=== PATIENT | male | born 1945 | race Caucasian/White ===

== ENCOUNTER 2020-02-29 11:26 | Outpatient (CLI) | payer MEDICARE, OTHER ==
--- NOTE | 2020-02-29 12:23 | XRAY Report ---
PROCEDURE: Cervical Spine 2 View INDICATIONS: C SPINE POLYNEUROPATHY TECHNIQUE: 3 view(s) of the cervical spine were acquired. COMPARISON: None. FINDINGS: Bones: No fractures or dislocations to the T1 level. The lateral masses of C1 appear intact on the odontoid view. No suspicious bony lesions. Severe cervical spondylitic change. Prominent multilevel cervical arthropathy. Multilevel disc height loss and uncovertebral joint osteophytes. Trace degenera tive anterolisthesis of C4 on C5. Soft tissues: No prevertebral soft tissue swelling. IMPRESSION: Severe cervical spondylitic change. Reviewed by: Tal Jama MD on 02/29/2020 12:22 PM PST Approved by: Tal Jama MD on 02/29/2020 12:22 PM PST Station ID: [id number]
== END 2020-02-29 11:27 | disposition home or self-care (01) ==
LOC: DI 11:26
PROVIDERS: ATTEND Internal Medicine
DX: G62.9 Polyneuropathy, unspecified (principal); M47.812 Spondylosis without myelopathy or radiculopathy, cervical region

== ENCOUNTER 2021-06-06 13:01 | Outpatient (CLI) | payer MEDICARE, OTHER ==
--- NOTE | 2021-06-06 14:01 | XRAY Report ---
PROCEDURE: Wrist 3 View LT INDICATIONS: GANGLION CYCT TECHNIQUE: 3 views of the wrist were acquired. COMPARISON: None FINDINGS: Bones: No acute fracture or dislocation. Severe degenerative changes are present at the first CMC jesenia nt and moderate degenerative changes are present at the triscaphe E joint and the radiocarpal joint. No discrete suspicious bony erosions or periarticular osteopenia. Soft tissues: No suspicious soft tissue calcifications. 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 There are no discrete bony erosions to suggest erosive arthritis. Reviewed by: Maricarmen Carbajal MD on 06/06/2021 2:00 PM PDT Approved by: Maricarmen Carbajal MD on 06/06/2021 2:00 PM PDT Station ID: [id number]
== END 2021-06-06 13:02 | disposition home or self-care (01) ==
LOC: DI 13:01
PROVIDERS: ATTEND Internal Medicine
DX: M67.432 Ganglion, left wrist (principal); M19.032 Primary osteoarthritis, left wrist

== ENCOUNTER 2021-09-09 09:09 | Outpatient (CLI) | payer MEDICARE, OTHER ==
--- NOTE | 2021-09-09 14:22 | XRAY Report ---
PROCEDURE: Foot 2 View RT INDICATIONS: R 1ST METATARSAL PX TECHNIQUE: 2 views of the foot were acquired. COMPARISON: None FINDINGS: Bones: Acute or subacute appearing comminuted fracture of the first digit distal phalanx. The fractur e involves the articular surface/interphalangeal joint. The fracture is minimally displaced without s ubstantial angulation. No other acute fractures identified. Degenerative changes are present at the first MTP joint and mult iple IP joints. Soft tissues: No tibiotalar joint effusion. Soft tissue swelling present about the forefoot, likely also about the first digit. IMPRESSION: Acute or subacute minimally displaced fracture of the first digit distal phalanx with involvement of the interphalangeal joint. Reviewed by: Unruly Zaragoza MD on 09/09/2021 2:20 PM PDT Approved by: Unruly Zaragoza MD on 09/09/2021 2:20 PM PDT Station ID: [id number]
--- NOTE | 2021-09-09 17:51 | XRAY Report ---
PROCEDURE: SI Joints INDICATIONS: SI JOINT PX TECHNIQUE: 3 views of the sacroiliac joints were acquired. COMPARISON: None FINDINGS: Bones: No acute fracture or dislocation. No convincing erosions or ankylosis of the sacroiliac joints . Bilateral hip osteoarthritic changes. Soft tissues: Overlying bowel gas pattern is normal. No suspicious soft tissue densities. IMPRESSION: No acute fracture or dislocation. No convincing erosions or ankylosis of the sacroiliac joints. Bilat eral hip osteoarthritic changes. Reviewed by: Chris Whitfield MD on 09/09/2021 5:50 PM PDT Approved by: Chris Whitfield MD on 09/09/2021 5:50 PM PDT Station ID: [id number]
== END 2021-09-09 09:10 | disposition home or self-care (01) ==
LOC: DI.N 09:09
PROVIDERS: ATTEND Chiropractor
DX: M16.0 Bilateral primary osteoarthritis of hip (principal); S92.311A Displaced fracture of first metatarsal bone, right foot, initial encounter for closed fracture

== ENCOUNTER 2021-09-10 19:09 | Outpatient (CLI) | payer MEDICARE, OTHER | END 2021-09-10 19:10 | disposition critical access hospital (66) | LOC: EMS 19:09 | DX: R41.82 Altered mental status, unspecified (principal); R50.9 Fever, unspecified; R00.0 Tachycardia, unspecified; L08.9 Local infection of the skin and subcutaneous tissue, unspecified | CPT/HCPCS: A0425; A0427 ==

== ENCOUNTER 2021-09-10 19:25 | Inpatient (IN) | payer MEDICARE, OTHER ==
[2021-09-10 20:00] LABS: BASOPHILS % (AUTO) 0.3 %; EOSINOPHILS % (AUTO) 0.3 %; HCT - HEMATOCRIT 39.7 % (42.0-52.0); HGB - HEMOGLOBIN 13.4 g/dL (14.0-18.0); LYMPHOCYTES # (AUTO) 0.5 10^3/uL (1.5-3.5); LYMPHOCYTES % (AUTO) 5.9 %; MEAN CORPUSCULAR HEMOGLOBIN 29.7 pg (27.0-31.0); MEAN CORPUSCULAR HGB CONC 33.8 g/dL (32.0-36.0); MEAN PLATELET VOLUME 11.2 fL (7.4-11.4); MONOCYTES # (AUTO) 0.8 10^3/uL (0.0-1.0); MONOCYTES % (AUTO) 8.7 %; NEUTROPHILS # (AUTO) 7.8 10^3/uL (1.5-6.6); NEUTROPHILS % (AUTO) 84.3 %; PLT - PLATELET COUNT 175 10^3/uL (130-450); RED BLOOD COUNT 4.51 10^6/uL (4.70-6.10); RED CELL DISTRIBUTION WIDTH 13.1 % (12.0-15.0); WHITE BLOOD COUNT 9.2 x10^3/uL (4.8-10.8)
[2021-09-10 20:10] LABS: ALBUMIN 3.8 g/dL (3.2-5.5); ALBUMIN/GLOBULIN RATIO 1.1 (1.0-2.2); BILIRUBIN,TOTAL 1.8 mg/dL (0.2-1.0); CALCIUM 8.8 mg/dL (8.5-10.3); CREATININE 0.8 mg/dL (0.6-1.2); POTASSIUM 3.6 mmol/L (3.5-5.0); TOTAL PROTEIN 7.2 g/dL (6.7-8.2)
[2021-09-10 20:20] LABS: INR 1.7 (0.8-1.2); PT - PROTHROMBIN TIME 18.9 secs (9.9-12.6)
[2021-09-10 20:27] LABS: PARTIAL THROMBOPLASTIN TIME 28.9 secs (24.9-33.3)
--- NOTE | 2021-09-10 20:36 | ED Physician Documentation ---
History of Present Illness - Stated complaint Stated Complaint: R TOE INFECTION/SEPSIS - Chief complaint Chief Complaint: General - History obtained from History obtained from: Patient, Family - History of Present Illness Timing: Today Pain level max: 0 Pain level now: 0 - Additonal information Additional information: Patient is a 76-year-old male who presents to the emergency department stating that he has neuropathy in his legs, he states that he hit his right toe approximately 3 days ago. Had x-rays done at that time. Had a minimally displaced fracture. Today the toe has turned red, swollen with drainage. Review of Systems Ten Systems: 10 systems reviewed and negative Constitutional: denies: Fever, Chills Ears: denies: Ear pain Nose: denies: Rhinorrhea / runny nose, Congestion GI: denies: Vomiting, Diarrhea Skin: denies: Rash Musculoskeletal: denies: Neck pain, Back pain Neurologic: denies: Headache PD PAST MEDICAL HISTORY - Past Medical History Past Medical History: Yes Cardiovascular: Hypertension, High cholesterol Respiratory: None Endocrine/Autoimmune: Type 2 diabetes Psych: Anxiety Musculoskeletal: Osteoarthritis, Fatigue - Past Surgical History Past Surgical History: No Ortho: Arthroscopic surgery - Present Medications Home Medications: Ambulatory Orders Medication Instructions Recorded Confirmed Ibuprofen [Motrin] 800 mg PO Q8H PRN #30 tablet 05/30/15 06/07/15 Oxycodone HCl/Acetaminophen 1 - 2 each PO Q6H PRN #20 tablet 05/30/15 06/07/15 [Percocet 5-325 mg Tablet] Sulfamethoxazole/Trimethoprim 1 each PO BID 14 Days tablet 05/30/15 06/07/15 [Bactrim Ds Tablet] - Allergies Allergies/Adverse Reactions: Allergies Allergy/AdvReac Type Severity Reaction Status Date / Time Iodine and Iodide Containing Allergy Intermediate Hives Verified 06/07/15 19:09 Produc oxycodone HCl * AdvReac Severe Hallucinati Verified 06/07/15 19:09 [From Percocet] ons - Social History Does the pt smoke?: No Smoking Status: Never smoker Does the pt drink ETOH?: No Does the pt have substance abuse?: No - Immunizations Immunizations are current?: No - POLST Patient has POLST: No PD ED PE NORMAL - Vitals Vital signs reviewed: Yes - General General: Alert and oriented X 3, No acute distress - HEENT HEENT: Moist mucous membranes - Neck Neck: Supple, no meningeal sign - Cardiac Cardiac: RRR, Strong equal pulses - Respiratory Respiratory: Other (tachypnea, crackles B) - Abdomen Abdomen: Soft, Non tender, Non distended - Derm Derm: Warm and dry - Extremities Extremities: Other (R great toe - redness, swelling, to the dorsum of the toe. ) - Neuro Neuro: Alert and oriented X 3 Results - Vitals Vitals: Vital Signs - 24 hr 09/10/21 09/10/21 09/10/21 19:25 19:35 20:03 Temperature 37.2 C Heart Rate 120 H 118 H 123 H Respiratory 28 H 26 H 29 H Rate Blood Pressure 152/112 H 178/118 H O2 Saturation 87 L 88 L 94 09/10/21 09/10/21 20:44 21:05 Temperature Heart Rate 113 H 116 H Respiratory 36 H 44 H Rate Blood Pressure 175/135 H 194/143 H O2 Saturation 96 94 Oxygen O2 Source Simple Mask - EKG (time done) 2035 Rate: Rate (enter#) (117) Rhythm: Atrial fibrillation (RVR) [place]: Normal Intervals: RBBB Compare to prior EKG: Old EKG unavailable - Labs Labs: Laboratory Tests 09/10/21 09/10/21 09/10/21 19:33 19:33 19:54 WBC 9.2 RBC 4.51 L Hgb 13.4 L Hct 39.7 L MCV 88.0 MCH 29.7 MCHC 33.8 RDW 13.1 Plt Count 175 MPV 11.2 Neut # (Auto) 7.8 H Lymph # (Auto) 0.5 L Webster # (Auto) 0.8 Eos # (Auto) 0.0 Baso # (Auto) 0.0 Absolute Nucleated RBC 0.00 Nucleated RBC % 0.0 PT 18.9 H INR 1.7 H APTT 28.9 Sodium 130 L Potassium 3.6 Chloride 93 L Carbon Dioxide 25 Anion Gap 12.0 BUN 25 H Creatinine 0.8 Estimated GFR (MDRD) 94 Glucose 134 H Lactic Acid Calcium 8.8 Total Bilirubin 1.8 H AST 37 ALT 26 Alkaline Phosphatase 79 Troponin I High Sens B-Natriuretic Peptide Total Protein 7.2 Albumin 3.8 Globulin 3.4 Albumin/Globulin Ratio 1.1 Lipase 21 L 09/10/21 09/10/21 09/10/21 19:54 19:54 19:54 WBC RBC Hgb Hct MCV MCH MCHC RDW Plt Count MPV Neut # (Auto) Lymph # (Auto) Webster # (Auto) Eos # (Auto) Baso # (Auto) Absolute Nucleated RBC Nucleated RBC % PT INR APTT Sodium Potassium Chloride Carbon Dioxide Anion Gap BUN Creatinine Estimated GFR (MDRD) Glucose Lactic Acid 1.5 Calcium Total Bilirubin AST ALT Alkaline Phosphatase Troponin I High Sens 25.7 H* B-Natriuretic Peptide 414 H Total Protein Albumin Globulin Albumin/Globulin Ratio Lipase - Rads (name of study) cxr Radiology: Final report received, EMP read contemporaneously, See rad report PD MEDICAL DECISION MAKING - ED course Complexity details: reviewed results, re-evaluated patient, considered differential, d/w patient, d/w family ED course: Patient is a 76-year-old male who presents to the emergency department with atrial fibrillation with rapid ventricular response, hypoxia and pulmonary edema. He also has a mild cellulitis of the right great toe. No fever. No sepsis. He was given metoprolol IV. Started on nonrebreather to resolve his hypoxia. Did not resolve with lower levels of oxygen. He will likely need BiPAP. This will be started in the ICU. We will give him antibiotics for the cellulitis of the toe. He was given metoprolol for the atrial fibrillation with rapid ventricular response. Discussed the case with Dr. Zamora, hospitalist who accepts. IMPRESSION: 1. Pulmonary edema demonstrated which may be due to congestive heart failure or noncardiogenic etiologies such as atypical pneumonia. Departure - Departure Disposition: 66 [facility] DC/Xfer Clinical Impression: Atrial fibrillation with RVR, Acute respiratory failure with hypoxia Cellulitis Qualifiers: Site of cellulitis: extremity Site of cellulitis of extremity: lower extremity Laterality: right Qualified Code(s): L03.115 - Cellulitis of right lower limb Acute congestive heart failure Qualifiers: Heart failure type: unspecified Qualified Code(s): I50.9 - Heart failure, unspecified Pulmonary edema Qualifiers: Chronicity: acute Qualified Code(s): J81.0 - Acute pulmonary edema Condition: Serious Discharge Date/Time: 09/10/21 22:00
[2021-09-10] MEDS ORDERED: METOPROLOL 5 MG/5 ML VIAL IVP STA ×2 (20:43→21:58)
[2021-09-10] MEDS ORDERED: FUROSEMIDE 40 MG/4 ML VIAL IVP STA (20:44)
[2021-09-10] MEDS ORDERED: AMPICILLIN/SULBACTAM 3 GM in SODIUM CHLORIDE 0.9% MINIBAG 100 ML IV STA (20:45)
--- NOTE | 2021-09-10 21:02 | XRAY Report ---
PROCEDURE: Chest 1 View X-Ray INDICATIONS: fever TECHNIQUE: One view of the chest was acquired. COMPARISON: 06/10/15. FINDINGS: Surgical changes and devices: None. Lungs and pleura: There is bilateral pulmonary vascular prominence consistent with pulmonary edema. No pleural effusions or pneumothorax. Mediastinum: Heart size appears enlarged. Bones and chest wall: No suspicious bony lesions. Overlying soft tissues appear unremarkable. IMPRESSION: 1. Pulmonary edema demonstrated which may be due to congestive heart failure or noncardiogenic etiolo gies such as atypical pneumonia. Reviewed by: Delvin Olvera MD on 09/10/2021 9:01 PM PDT Approved by: Delvin Olvera MD on 09/10/2021 9:01 PM PDT Station ID: [id number]
[2021-09-10] MEDS ORDERED: ONDANSETRON ODT 4 MG TABLET TL PRN (21:10)
[2021-09-10] MEDS ORDERED: ONDANSETRON 4 MG/2 ML VIAL IVP PRN (21:10)
[2021-09-10] MEDS ORDERED: NITROGLYCERIN 2% PASTE TOP STA (21:24)
--- NOTE | 2021-09-10 21:24 | HISTORY & PHYSICAL EXAMINATION ---
Chief Complaint - Chief Complaint Chief Complaint: Confusion History of Present Illness - Admitted From Admitted From:: Home - History Obtained From Records Reviewed: [facility] History obtained from: Patient, Spouse, ER Physician, EMR - History of Present Illness HPI Comment/Other: This is a 76-year-old male with a past medical history significant for atrial fibrillation on Pradaxa who presents today due to confusion. His tells me the patient was more confused than usual today and quite fatigued/weak. She called EMS and is noted that he was quite hypoxic and so he was brought to the emergency department. The patient states that he has been feeling short of breath for the past couple of weeks. He has also noticed worsening lower extre mity edema. He denies any chest pain or palpitations. He states he has a history of atrial fibrillation and is on Pradaxa but no history of coronary artery disease or heart failure. He follows with a community mental health worker at the [facility]. The patient does report having chills but no fevers. He stubbed his toe on a door frame about 1 week ago and has had progressive pain and swelling of the right toe. He had x-rays completed yesterday which did not show fracture. His reports he has had clear drainage from the toe but no evidence of pus. The patient does report diarrhea over the past few days but no nausea or vomiting. Denies any abdominal pain. In the emergency department, he was noted to be hypoxic and was placed on nonrebreather. Chest x-ray revealed pulmonary edema and he was given IV Lasix. He was also noted to be in atrial fibrillation with rapid response and was given IV Lopressor. He was also given IV Unasyn given concern for the infected right toe. Given the above findings, medicine was consulted for admission. We discussed goals of care and he would like to be a full code. History - Past Medical History Cardiovascular: reports: Hypertension, High cholesterol, Atrial fibrillation Respiratory: reports: None Endocrine/Autoimmune: reports: Type 2 diabetes Psych: reports: Anxiety Musculoskeletal: reports: Osteoarthritis - Past Surgical History Ortho: reports: Knee replacement, Arthroscopic surgery - Family & Social History Living arrangement: At home Living Situation: With spouse/s.o. Social History Notes: He lives at home with his , Loni. He is a non- smoker and does not drink alcohol. 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 - POLST Patient has POLST: No Meds/Allgy - Home Medications Home Medications: Ambulatory Orders Medication Instructions Recorded Confirmed Ibuprofen [Motrin] 800 mg PO Q8H PRN #30 tablet 05/30/15 06/07/15 Oxycodone HCl/Acetaminophen 1 - 2 each PO Q6H PRN #20 tablet 05/30/15 06/07/15 [Percocet 5-325 mg Tablet] Sulfamethoxazole/Trimethoprim 1 each PO BID 14 Days tablet 05/30/15 06/07/15 [Bactrim Ds Tablet] - Allergies Allergies/Adverse Reactions: Allergies Allergy/AdvReac Type Severity Reaction Status Date / Time Iodine and Iodide Containing Allergy Intermediate Hives Verified 06/07/15 19:09 Produc oxycodone HCl * AdvReac Severe Hallucinati Verified 06/07/15 19:09 [From Percocet] ons Review of Systems - Constitutional Constitutional: reports: Fatigue, Chills, Weakness. denies: Fever - Ears, Nose & Throat Ears, Nose & Throat: denies: Nasal discharge - Cardiovascular Cariovascular: reports: Edema, Exertional dyspnea, Decr. exercise tolerance. denies: Palpitations, Chest pain - Respiratory Respiratory: reports: SOB at rest, SOB with exertion. denies: Orthopnea - Gastrointestinal Gastrointestinal: reports: Diarrhea. denies: Abdominal pain, Nausea, Vomiting - Genitourinary Genitourinary: reports: Other (Decreased frequency). denies: Dysuria, Hematuria - Musculoskeletal Musculoskeletal: reports: Muscle pain - Integumentary Integumentary: reports: Lesions, Pigment changes, Nail changes - Neurological Neurological: reports: General weakness. denies: Focal weakness - Endocrine Endocrine: denies: Polyuria - Hematologic/Lymphatic Hematologic/Lymphatic: denies: Bruising, Bleeding tendencies - All Other Systems All Other Systems: reports: Reviewed and negative Prior Level of Functionality: He is independent with his ADL's. Exam - Vital Signs Reviewed Vital Signs: Yes Vital Signs: Vital Signs x48h Temp Pulse Resp BP Pulse Ox 09/10/21 21:05 116 H 44 H 194/143 H 94 09/10/21 20:44 113 H 36 H 175/135 H 96 09/10/21 20:03 123 H 29 H 178/118 H 94 09/10/21 19:35 118 H 26 H 152/112 H 88 L 09/10/21 19:25 37.2 C 120 H 28 H 87 L - Physical Exam Respiratory: positive: Rales. negative: Wheezes Cardiovascular: positive: Irregularly irregular, Tachycardia. negative: Systolic murmur Abdomen: positive: Non-tender, No distention. negative: Tenderness Skin: positive: Warm, Dry, Other (The right toe has bullae and surrounding erythema. There is no toenail. There is serosanguineous drainage from the distal aspect of the toe.) Extremities: positive: Pedal edema (+2 edema in bilateral lower extremities.) Neurologic/Psychiatric: positive: Other (No focal deficits.). negative: Disoriented to person, Disoriented to place, Disoriented to time Conclusion/Plan - Problem List (1) Acute respiratory failure with hypoxia Conclusion/Plan: This appears to be secondary to congestive heart failure. He was initially in the mid 80s on room air but is now requiring a nonrebreather. Given the pulmonary edema and concern for CHF, we will place him on BiPAP. We will check an ABG. We will start him on Lasix 40 mg IV twice daily. Echocardiogram in the morning. (2) Acute congestive heart failure Conclusion/Plan: He appears to have acute congestive heart failure which may have been exacerbated by the atrial fibrillation. He has no prior echocardiogram so it is unclear if this is systolic or diastolic dysfunction. His BNP is only mildly elevated but this is likely due to his obesity. His x-ray suggest pulmonary edema and he is edematous on exam. We will start him on Lasix 40 mg IV twice daily. We will place on Nitropatch given the hypertension. If he remains hypertensive then we will consider the use of Cardene. We will also place him on BiPAP given the CHF and hypoxic respiratory failure. Echocardiogram in the morning. Fluid restriction. Daily weights. Strict I's and O's. Daily BMP Qualifiers: Heart failure type: unspecified Qualified Code(s): I50.9 - Heart failure, unspecified (3) Atrial fibrillation with RVR Conclusion/Plan: He has a known history of atrial fibrillation and is on carvedilol and Pradaxa at home. He presents with rapid ventricular response and rates in the 120s. We will start him on Lopressor 5 mg IV every 6 hours given he is on BiPAP. If he remains tachycardiac then we will give digoxin. We will look to resume his home anticoagulation. We will optimize electrolytes. Check TSH. Echocardiogram in the morning. Monitor on telemetry. (4) Right foot infection Conclusion/Plan: The right toe does appear to be infected with surrounding cellulitis although th ere is also component of ecchymosis secondary to the trauma. We will start him on cefazolin IV. X-ray did not show any evidence of osteomyelitis but did suggest a fracture. (5) Hyponatremia Conclusion/Plan: This is likely hypervolemic hyponatremia secondary to heart failure. His sodium is 130. This should improve as we diurese him. Recheck BMP in the morning. (6) Phalanx fracture, foot Conclusion/Plan: This occurred about 1 week ago and x-rays yesterday confirmed a distal mildly displaced fracture. We will manage his pain with Tylenol. There is potential concern for infection so we will manage this as mentioned above with IV antibiotics. Depending on how he progresses over next 24 hours, will discuss with orthopedic surgery. Qualifiers: Encounter type: initial encounter Toe: great toe (7) Type 2 diabetes mellitus Conclusion/Plan: He is on metformin at home. Blood glucose is currently in the 130s. We will place him on sliding scale and carb controlled diet. Check A1c in the morning. - Lab Results Lab results reviewed: Yes Fish Bones: 09/11/21 04:45 09/11/21 04:45 - Diagnostic Imaging Results Diagnostic Imaging Results: positive: Final report reviewed - EKG Results EKG Interpreted Independently: Yes EKG Findings: Atrial fibrillation with RVR. No evidence of ischemia. Right bundle branch block. Core Measures - Anticipated LOS I expect patient to be DC'd or transferred within 96 hours.: Yes - Issues Hospital Issues and Management Plan: 76-year-old male with a known history of atrial fibrillation presents due to confusion found to have acute hypoxic respiratory failure secondary to acute congestive heart failure and concerns also for an infection of the right toe. - DVT/VTE - Prophylaxis VTE/DVT Device ordered at admit?: No VTE/DVT Prophylaxis med ordered at admit?: Yes
[2021-09-10 21:36] LABS: ABG PH 7.47 (7.35-7.45)
[2021-09-10 21:37] LABS: ABG BASE EXCESS -0.6 mmol/L (-2.0-3.0); ABG PCO2 31 mmHg (34-45); ALLEN TEST POSITIVE
[2021-09-10 21:39] LABS: ABG OXYGEN SATURATION 73 % (94-98); ABG PO2 36 mmHg (80-100)
[2021-09-10] MEDS ORDERED: ceFAZolin 2 GM in SODIUM CHLORIDE 0.9% MINIBAG 100 ML IV SCH (22:00)
[2021-09-10 22:12] LABS: GLUCOSE, URINE (UA) NEGATIVE (NEGATIVE); KETONES,URINE (UA) 15 mg/dL (NEGATIVE); LEUKOCYTE ESTERASE, URINE NEGATIVE (NEGATIVE); NITRITE,URINE POSITIVE (NEGATIVE); OCCULT BLOOD,URINE MODERATE (NEGATIVE); PROTEIN,URINE 100 mg/dL (NEGATIVE); UROBILINOGEN,URINE 1 (NORMAL) E.U./dL (NORMAL)
[2021-09-10] MEDS: APIXABAN 5 MG TABLET PO SCH (22:14)
[2021-09-10] MEDS: SODIUM CHLORIDE FLUSH 0.9% 10 ML SYRINGE IVP PRN (22:15)
[2021-09-10] MEDS ORDERED: METOPROLOL 5 MG/5 ML VIAL IVP ONE (22:15)
[2021-09-10 22:31] LABS: BILIRUBIN,URINE NEGATIVE (NEGATIVE); CLARITY,URINE HAZY (CLEAR); ICTOTEST,URINE NEGATIVE
[2021-09-10 22:32] LABS: AMORPHOUS SEDIMENT,UR Few /LPF; BACTERIA,URINE Rare /HPF (None Seen); RBC,URINE 0-5 /HPF (0-5); SQUAMOUS EPITHELIAL CELL,UR NONE SEEN (<= Few)
[2021-09-10] MEDS: TAMSULOSIN 0.4 MG CAPSULE PO SCH (23:07)
[2021-09-10] MEDS: NYSTATIN POWDER 15 GM TOP SCH (23:07)
[2021-09-10 23:09] LABS: B. PARAPERTUSSIS- RESP PCR PAN NOT DETECTED; B. PERTUSSIS- RESP PCR PANEL NOT DETECTED; C. PNEUMONIAE- RESP PCR PANEL NOT DETECTED; CORONAVIRUS 229E-RESP PCR NOT DETECTED; CORONAVIRUS HKU1-RESP PCR NOT DETECTED; CORONAVIRUS NL63-RESP PCR NOT DETECTED; CORONAVIRUS OC43-RESP PCR NOT DETECTED; HUMAN METAPNEUMOVIRUS NOT DETECTED; INFLUENZA A- RESP PCR PANEL NOT DETECTED; INFLUENZA B - RESP PCR PANEL NOT DETECTED; M. PNEUMONIAE- RESP PCR PANEL NOT DETECTED; PARAINFLUENZA VIRUS 1 NOT DETECTED; PARAINFLUENZA VIRUS 2 NOT DETECTED; PARAINFLUENZA VIRUS 3 NOT DETECTED; PARAINFLUENZA VIRUS 4 NOT DETECTED; RHINOVIRUS/ENTEROVIRUS NOT DETECTED; RSV- RESP PCR PANEL NOT DETECTED; SARS-CoV-2 -RESP PCR PANEL NOT DETECTED
[2021-09-11] MEDS ORDERED: METOPROLOL 5 MG/5 ML VIAL IVP SCH
[2021-09-11] MEDS: SODIUM CHLORIDE FLUSH 0.9% 10 ML SYRINGE IVP SCH ×3 (00:17→16:53)
[2021-09-11] MEDS: ACETAMINOPHEN 325 MG TABLET PO PRN ×3 (05:40→20:00)
[2021-09-11] MEDS: METOPROLOL 5 MG/5 ML VIAL IVP SCH ×3 (05:53→17:16)
[2021-09-11] MEDS: FUROSEMIDE 40 MG/4 ML VIAL IVP SCH ×2 (05:54→15:23)
[2021-09-11] MEDS ORDERED: ceFAZolin 2 GM in SODIUM CHLORIDE 0.9% MINIBAG 100 ML IV SCH ×2 (06:00→14:00)
[2021-09-11 06:03] LABS: BASOPHILS % (AUTO) 0.3 %; HCT - HEMATOCRIT 35.7 % (42.0-52.0); LYMPHOCYTES # (AUTO) 0.6 10^3/uL (1.5-3.5); LYMPHOCYTES % (AUTO) 6.8 %; MEAN CORPUSCULAR HEMOGLOBIN 29.6 pg (27.0-31.0); MEAN CORPUSCULAR HGB CONC 33.6 g/dL (32.0-36.0); MEAN CORPUSCULAR VOLUME 88.1 fL (80.0-94.0); MEAN PLATELET VOLUME 11.6 fL (7.4-11.4); MONOCYTES # (AUTO) 0.8 10^3/uL (0.0-1.0); MONOCYTES % (AUTO) 9.1 %; NEUTROPHILS # (AUTO) 7.7 10^3/uL (1.5-6.6); NEUTROPHILS % (AUTO) 83.4 %; PLT - PLATELET COUNT 168 10^3/uL (130-450); RED BLOOD COUNT 4.05 10^6/uL (4.70-6.10); RED CELL DISTRIBUTION WIDTH 13.1 % (12.0-15.0); WHITE BLOOD COUNT 9.3 x10^3/uL (4.8-10.8)
[2021-09-11 06:07] LABS: CALCIUM, IONIZED 1.04 mmol/L (1.15-1.33); VBG PH 7.462 (7.31-7.41)
[2021-09-11 06:17] LABS: CALCIUM 8.4 mg/dL (8.5-10.3); CREATININE 0.8 mg/dL (0.6-1.2); MAGNESIUM 2.1 mg/dL (1.7-2.8); PHOSPHORUS 2.8 mg/dL (2.5-4.6); POTASSIUM 2.8 mmol/L (3.5-5.0)
[2021-09-11] MEDS: CALCIUM CARBONATE CHEW 500 MG TABLET PO SCH ×2 (06:56→10:17)
[2021-09-11] MEDS: POTASSIUM CHLOR 10 MEQ/100 ML 10 MEQ/100 ML BAG IV SCH ×6 (06:57→12:21)
[2021-09-11] MEDS ORDERED: KETOROLAC 15 MG/ML VIAL IVP STA (07:10)
[2021-09-11] MEDS: INSULIN LISPRO 300 UNIT/3 ML PEN SUBQ SCH ×4 (08:08→20:16)
[2021-09-11] MEDS: APIXABAN 5 MG TABLET PO SCH ×2 (08:09→20:00)
[2021-09-11] MEDS ORDERED: cefTRIAXone 1 GM in SODIUM CHLORIDE 0.9% MINIBAG 100 ML IV SCH (09:00)
[2021-09-11] MEDS: NYSTATIN POWDER 15 GM TOP SCH ×2 (09:17→20:16)
--- NOTE | 2021-09-11 11:07 | PHARMACY PROGRESS NOTE ---
- Best Possible Medication History Admit Date and Time: 09/10/212110 Processed by: Pharmacy Medication History completed: Yes Patient Interview: Pt unable to participate Secondary Source(s): Pharmacy records, Insurance records As the person ultimately responsible for medication therapy, providers are able to order a medication from an existing home medication list in [facility] via the "Reconcile Routine" prior to Confirmation of that medication by credit support specialist. Such practice is discouraged except when the physician, in their clinical judgment, deems that a medical need exists for a medication without regard to previous use.
[2021-09-11 11:16] LABS: ESTIMATED AVERAGE GLUCOSE 134 mg/dL (70-100); HEMOGLOBIN A1c% 6.3 % (4.27-6.07)
--- NOTE | 2021-09-11 13:23 | PROVIDER PROGRESS NOTE ---
Subjective - Prog Note Date Prog Note Date: 09/11/21 Prog Note Time: 13:22 - Subjective Pt reports feeling: Improved Subjective: He does not remember the last few days much less being in the emergency room. He says that if that it been any other time in his life, my telling him he was confused would have been offensive to him. But he recognizes that he is just not right. Started to realize where he was last night, definitely knows where he is this morning but he cannot believe he is here now and the illl History is reported down and assessment/plan. Is since she broke his toe, and has become more more sedentary because of pain, then developed the shortness of breath and confusion. Current Medications - Current Medications Current Medications: Active Medications Acetaminophen (Acetaminophen 325 Mg Tablet) 650 mg PO Q4HR PRN PRN Reason: Pain 1 to 4, or Fever Last Admin: 09/11/21 08:25 Dose: 650 mg Apixaban (Apixaban 5 Mg Tablet) 5 mg PO BID [facility] Last Admin: 09/11/21 08:09 Dose: 5 mg Furosemide (Furosemide 40 Mg/4 Ml Vial) 40 mg IVP BIDDIURETIC [facility] Last Admin: 09/11/21 05:54 Dose: 40 mg Cefazolin Sodium 2 gm/ Sodium (Chloride) 100 mls @ 200 mls/hr IV Q8H [facility] Insulin Human Lispro (Insulin Lispro 300 Unit/3 Ml Pen) 1 - 9 unit SUBQ 0800,1200,1700,2100 [facility]; Protocol Last Admin: 09/11/21 12:15 Dose: Not Given Metoprolol Tartrate (Metoprolol 5 Mg/5 Ml Vial) 5 mg IVP Q6HR [facility] Last Admin: 09/11/21 12:18 Dose: 5 mg Nystatin (Nystatin Powder 15 Gm) 1 applic TOP BID [facility] Last Admin: 09/11/21 09:17 Dose: 1 applic Ondansetron HCl (Ondansetron Odt 4 Mg Tablet) 4 mg TL Q6HR PRN PRN Reason: Nausea / Vomiting Ondansetron HCl (Ondansetron 4 Mg/2 Ml Vial) 4 mg IVP Q6HR PRN PRN Reason: Nausea / Vomiting Sodium Chloride (Sodium Chloride Flush 0.9% 10 Ml Syringe) 10 ml IVP 0100,0900,1700 [facility] Last Admin: 09/11/21 08:09 Dose: 10 ml Sodium Chloride (Sodium Chloride Flush 0.9% 10 Ml Syringe) 10 ml IVP PRN PRN PRN Reason: NEEDED PER PROVIDER ORDERS Last Admin: 09/10/21 22:15 Dose: 10 ml Tamsulosin HCl (Tamsulosin 0.4 Mg Capsule) 0.4 mg PO HS [facility] Last Admin: 09/10/21 23:07 Dose: 0.4 mg Apixaban [Eliquis] 5 mg PO BID 09/11/21 Carvedilol [Coreg] 25 mg PO BID 09/11/21 lisinopriL [Lisinopril] 10 mg PO DAILY 09/11/21 metFORMIN [Glucophage] 500 mg PO BIDWM 09/11/21 Objective - Vital Signs/Intake & Output Reviewed Vital Signs: Yes Vital Signs: Vital Signs Temp Pulse Resp BP BP Pulse Ox 09/11/21 13:00 74 24 119/85 H 97 09/11/21 12:18 127/85 H 09/11/21 12:00 36.8 C 72 23 131/100 H 97 09/11/21 11:00 69 22 127/85 H 99 09/11/21 10:00 78 24 131/90 H 98 Intake & Output: Intake & Output 09/08/21 09/09/21 09/10/21 09/11/21 23:59 23:59 23:59 23:59 Intake Total 100 2318.333 Output Total 400 4095 Balance -300 -0285.667 - Objective General Appearance: positive: No acute distress, Other (He knows where he is, he knows why he is here, but he is very fatigued. Struggling to maintain alertness and concentration and focus. is at the bedside.Morbidly obese man. 6 foot 2 inches tall and weighs 149.5 kg.) Eyes Bilateral: positive: PERRL, EOMI ENT: positive: Other (Dry oral mucosa and dry cracked lips are still present.) Neck: positive: No JVD Respiratory: positive: No respiratory distress, Rales. negative: Wheezes, Rhonchi Cardiovascular: positive: Regular rate & rhythm, Irregularly irregular, Other (His heart rate finally slowed down around 3:00 this morning. And has been in the 70s and 80s since. He still in atrial fibrillation.) Abdomen: positive: Non-tender, No organomegaly, Nml bowel sounds, No distention, Other (Diastases and a severely morbidly obese belly) Skin: positive: Diaphoresis (Touching his arms, face, and trunk shows him to still have clammy skin), Pallor Extremities: positive: Full ROM, Pedal edema (starting below right knee. edema goes to to ankle and top of right foot. Left Leg w/o edema. L toe bubbling skin w yellow exudate. Demarcation of cellulitis receding from mid foot and now only at toe. Oozing serisnaguinous drainage from toe.), Other Neurologic/Psychiatric: positive: Oriented x3, CN's nml (2-12), Motor nml (no focal deficits but very weak . can't sit up on his own, can barley lift his legs off the bed), Disoriented to time, Weakness, Slurred/abnml speech - Lab Results Fish Bones: 09/12/21 04:39 09/12/21 15:32 Other Labs: Lab Results x24hrs 09/11/21 09/11/21 09/11/21 Range/Units 04:45 04:45 04:45 WBC (4.8-10.8) x10^3/uL RBC (4.70-6.10) 10^6/uL Hgb (14.0-18.0) g/dL Hct (42.0-52.0) % MCV (80.0-94.0) fL MCH (27.0-31.0) pg MCHC (32.0-36.0) g/dL RDW (12.0-15.0) % Plt Count (130-450) 10^3/uL MPV (7.4-11.4) fL Neut # (Auto) (1.5-6.6) 10^3/uL Lymph # (Auto) (1.5-3.5) 10^3/uL [place] # (Auto) (0.0-1.0) 10^3/uL Eos # (Auto) (0.0-0.7) 10^3/uL Baso # (Auto) (0.0-0.1) 10^3/uL Absolute Nucleated RBC x10^3/uL Nucleated RBC % /100WBC PT (9.9-12.6) secs INR (0.8-1.2) APTT (24.9-33.3) secs Bld Gas Analysis Time Sample Site ABG pH (7.35-7.45) ABG pCO2 (34-45) mmHg ABG pO2 (80-100) mmHg ABG HCO3 (22.0-26.0) mmol/L ABG Total CO2 (21.0-29.0) MMOL/L ABG O2 Saturation (94-98) % ABG Base Excess (-2.0-3.0) mmol/L Emmanuel Test VBG pH 7.462 H (7.31-7.41) Ionized Calcium 1.04 L (1.15-1.33) mmol/L O2 Delivery Device O2 Liters/Min LPM Sodium (135-145) mmol/L Potassium (3.5-5.0) mmol/L Chloride (101-111) mmol/L Carbon Dioxide (21-32) mmol/L Anion Gap (6-13) BUN (6-20) mg/dL Creatinine (0.6-1.2) mg/dL Estimated GFR (MDRD) (>89) Glucose (70-100) mg/dL Estimat Average Glucose (70-100) mg/dL Hemoglobin A1c % (4.27-6.07) % Lactic Acid (0.5-2.2) mmol/L Calcium (8.5-10.3) mg/dL Phosphorus (2.5-4.6) mg/dL Magnesium (1.7-2.8) mg/dL Total Bilirubin (0.2-1.0) mg/dL AST (10-42) IU/L ALT (10-60) IU/L Alkaline Phosphatase (42-121) IU/L Troponin I High Sens 36.7 H* (2.3-19.7) ng/L B-Natriuretic Peptide (5-100) pg/mL Total Protein (6.7-8.2) g/dL Albumin (3.2-5.5) g/dL Globulin (2.1-4.2) g/dL Albumin/Globulin Ratio (1.0-2.2) Lipase (22-51) U/L TSH 1.49 (0.34-5.60) uIU/mL Urine Color Urine Clarity (CLEAR) Urine pH (5.0-7.5) PH Ur Specific [place] (1.002-1.030) Urine Protein (NEGATIVE) mg/dL Urine Glucose (UA) (NEGATIVE) mg/dL Urine Ketones (NEGATIVE) mg/dL Urine Occult Blood (NEGATIVE) Urine Nitrite (NEGATIVE) Urine Bilirubin (NEGATIVE) Urine Urobilinogen (NORMAL) E.U./dL Ur Leukocyte Esterase (NEGATIVE) Urine RBC (0-5) /HPF Urine WBC (0-3) /HPF Ur Squamous Epith Cells (<= Few) Amorphous Sediment /LPF Urine Bacteria (None Seen) /HPF Ur Microscopic Review Urine Culture Comments Nasal Adenovirus (PCR) Nasal B. parapertussis DNA (PCR) Nasal Coronavir 229E PCR Nasal Coronavir HKU1 PCR Nasal Coronavir NL63 PCR Nasal Coronavir OC43 PCR Nasal Enterovir/Rhinovir PCR Nasal Influenza B PCR Nasal Influenza A PCR Nasal Parainfluen 1 PCR Nasal Parainfluen 2 PCR Nasal Parainfluen 3 PCR Nasal Parainfluen 4 PCR Nasal RSV (PCR) Nasal Screen MRSA (PCR) (NEGATIVE) Nasal B.pertussis DNA PCR Nasal C.pneumoniae (PCR) [place] Human Metapneumo PCR Nasal M.pneumoniae (PCR) Nasal SARS-CoV-2 (PCR) 09/11/21 09/11/21 09/11/21 Range/Units 04:45 04:45 04:45 WBC 9.3 (4.8-10.8) x10^3/uL RBC 4.05 L (4.70-6.10) 10^6/uL Hgb 12.0 L (14.0-18.0) g/dL Hct 35.7 L (42.0-52.0) % MCV 88.1 (80.0-94.0) fL MCH 29.6 (27.0-31.0) pg MCHC 33.6 (32.0-36.0) g/dL RDW 13.1 (12.0-15.0) % Plt Count 168 (130-450) 10^3/uL MPV 11.6 H (7.4-11.4) fL Neut # (Auto) 7.7 H (1.5-6.6) 10^3/uL Lymph # (Auto) 0.6 L (1.5-3.5) 10^3/uL [place] # (Auto) 0.8 (0.0-1.0) 10^3/uL Eos # (Auto) 0.0 (0.0-0.7) 10^3/uL Baso # (Auto) 0.0 (0.0-0.1) 10^3/uL Absolute Nucleated RBC 0.00 x10^3/uL Nucleated RBC % 0.0 /100WBC PT (9.9-12.6) secs INR (0.8-1.2) APTT (24.9-33.3) secs Bld Gas Analysis Time Sample Site ABG pH (7.35-7.45) ABG pCO2 (34-45) mmHg ABG pO2 (80-100) mmHg ABG HCO3 (22.0-26.0) mmol/L ABG Total CO2 (21.0-29.0) MMOL/L ABG O2 Saturation (94-98) % ABG Base Excess (-2.0-3.0) mmol/L Emmanuel Test VBG pH (7.31-7.41) Ionized Calcium (1.15-1.33) mmol/L O2 Delivery Device O2 Liters/Min LPM Sodium 135 (135-145) mmol/L Potassium 2.8 L (3.5-5.0) mmol/L Chloride 95 L (101-111) mmol/L Carbon Dioxide 28 (21-32) mmol/L Anion Gap 12.0 (6-13) BUN 23 H (6-20) mg/dL Creatinine 0.8 (0.6-1.2) mg/dL Estimated GFR (MDRD) 94 (>89) Glucose 138 H (70-100) mg/dL Estimat Average Glucose 134 H (70-100) mg/dL Hemoglobin A1c % 6.3 H (4.27-6.07) % Lactic Acid (0.5-2.2) mmol/L Calcium 8.4 L (8.5-10.3) mg/dL Phosphorus 2.8 (2.5-4.6) mg/dL Magnesium 2.1 (1.7-2.8) mg/dL Total Bilirubin (0.2-1.0) mg/dL AST (10-42) IU/L ALT (10-60) IU/L Alkaline Phosphatase (42-121) IU/L Troponin I High Sens (2.3-19.7) ng/L B-Natriuretic Peptide (5-100) pg/mL Total Protein (6.7-8.2) g/dL Albumin (3.2-5.5) g/dL Globulin (2.1-4.2) g/dL Albumin/Globulin Ratio (1.0-2.2) Lipase (22-51) U/L TSH (0.34-5.60) uIU/mL Urine Color Urine Clarity (CLEAR) Urine pH (5.0-7.5) PH Ur Specific [place] (1.002-1.030) Urine Protein (NEGATIVE) mg/dL Urine Glucose (UA) (NEGATIVE) mg/dL Urine Ketones (NEGATIVE) mg/dL Urine Occult Blood (NEGATIVE) Urine Nitrite (NEGATIVE) Urine Bilirubin (NEGATIVE) Urine Urobilinogen (NORMAL) E.U./dL Ur Leukocyte Esterase (NEGATIVE) Urine RBC (0-5) /HPF Urine WBC (0-3) /HPF Ur Squamous Epith Cells (<= Few) Amorphous Sediment /LPF Urine Bacteria (None Seen) /HPF Ur Microscopic Review Urine Culture Comments Nasal Adenovirus (PCR) Nasal B. parapertussis DNA (PCR) Nasal Coronavir 229E PCR Nasal Coronavir HKU1 PCR Nasal Coronavir NL63 PCR Nasal Coronavir OC43 PCR Nasal Enterovir/Rhinovir PCR Nasal Influenza B PCR Nasal Influenza A PCR Nasal Parainfluen 1 PCR Nasal Parainfluen 2 PCR Nasal Parainfluen 3 PCR Nasal Parainfluen 4 PCR Nasal RSV (PCR) Nasal Screen MRSA (PCR) (NEGATIVE) Nasal B.pertussis DNA PCR Nasal C.pneumoniae (PCR) [place] Human Metapneumo PCR Nasal M.pneumoniae (PCR) Nasal SARS-CoV-2 (PCR) 09/11/21 09/10/21 09/10/21 Range/Units 04:34 23:10 23:10 WBC (4.8-10.8) x10^3/uL RBC (4.70-6.10) 10^6/uL Hgb (14.0-18.0) g/dL Hct (42.0-52.0) % MCV (80.0-94.0) fL MCH (27.0-31.0) pg MCHC (32.0-36.0) g/dL RDW (12.0-15.0) % Plt Count (130-450) 10^3/uL MPV (7.4-11.4) fL Neut # (Auto) (1.5-6.6) 10^3/uL Lymph # (Auto) (1.5-3.5) 10^3/uL [place] # (Auto) (0.0-1.0) 10^3/uL Eos # (Auto) (0.0-0.7) 10^3/uL Baso # (Auto) (0.0-0.1) 10^3/uL Absolute Nucleated RBC x10^3/uL Nucleated RBC % /100WBC PT (9.9-12.6) secs INR (0.8-1.2) APTT (24.9-33.3) secs Bld Gas Analysis Time Sample Site ABG pH (7.35-7.45) ABG pCO2 (34-45) mmHg ABG pO2 (80-100) mmHg ABG HCO3 (22.0-26.0) mmol/L ABG Total CO2 (21.0-29.0) MMOL/L ABG O2 Saturation (94-98) % ABG Base Excess (-2.0-3.0) mmol/L Emmanuel Test VBG pH (7.31-7.41) Ionized Calcium (1.15-1.33) mmol/L O2 Delivery Device O2 Liters/Min LPM Sodium (135-145) mmol/L Potassium (3.5-5.0) mmol/L Chloride (101-111) mmol/L Carbon Dioxide (21-32) mmol/L Anion Gap (6-13) BUN (6-20) mg/dL Creatinine (0.6-1.2) mg/dL Estimated GFR (MDRD) (>89) Glucose (70-100) mg/dL Estimat Average Glucose (70-100) mg/dL Hemoglobin A1c % (4.27-6.07) % Lactic Acid (0.5-2.2) mmol/L Calcium (8.5-10.3) mg/dL Phosphorus (2.5-4.6) mg/dL Magnesium 2.2 (1.7-2.8) mg/dL Total Bilirubin (0.2-1.0) mg/dL AST (10-42) IU/L ALT (10-60) IU/L Alkaline Phosphatase (42-121) IU/L Troponin I High Sens 33.6 H* (2.3-19.7) ng/L B-Natriuretic Peptide 489 H (5-100) pg/mL Total Protein (6.7-8.2) g/dL Albumin (3.2-5.5) g/dL Globulin (2.1-4.2) g/dL Albumin/Globulin Ratio (1.0-2.2) Lipase (22-51) U/L TSH (0.34-5.60) uIU/mL Urine Color Urine Clarity (CLEAR) Urine pH (5.0-7.5) PH Ur Specific [place] (1.002-1.030) Urine Protein (NEGATIVE) mg/dL Urine Glucose (UA) (NEGATIVE) mg/dL Urine Ketones (NEGATIVE) mg/dL Urine Occult Blood (NEGATIVE) Urine Nitrite (NEGATIVE) Urine Bilirubin (NEGATIVE) Urine Urobilinogen (NORMAL) E.U./dL Ur Leukocyte Esterase (NEGATIVE) Urine RBC (0-5) /HPF Urine WBC (0-3) /HPF Ur Squamous Epith Cells (<= Few) Amorphous Sediment /LPF Urine Bacteria (None Seen) /HPF Ur Microscopic Review Urine Culture Comments Nasal Adenovirus (PCR) Nasal B. parapertussis DNA (PCR) Nasal Coronavir 229E PCR Nasal Coronavir HKU1 PCR Nasal Coronavir NL63 PCR Nasal Coronavir OC43 PCR Nasal Enterovir/Rhinovir PCR Nasal Influenza B PCR Nasal Influenza A PCR Nasal Parainfluen 1 PCR Nasal Parainfluen 2 PCR Nasal Parainfluen 3 PCR Nasal Parainfluen 4 PCR Nasal RSV (PCR) Nasal Screen MRSA (PCR) (NEGATIVE) Nasal B.pertussis DNA PCR Nasal C.pneumoniae (PCR) [place] Human Metapneumo PCR Nasal M.pneumoniae (PCR) Nasal SARS-CoV-2 (PCR) 09/10/21 09/10/21 09/10/21 Range/Units 21:59 21:59 21:59 WBC (4.8-10.8) x10^3/uL RBC (4.70-6.10) 10^6/uL Hgb (14.0-18.0) g/dL Hct (42.0-52.0) % MCV (80.0-94.0) fL MCH (27.0-31.0) pg MCHC (32.0-36.0) g/dL RDW (12.0-15.0) % Plt Count (130-450) 10^3/uL MPV (7.4-11.4) fL Neut # (Auto) (1.5-6.6) 10^3/uL Lymph # (Auto) (1.5-3.5) 10^3/uL [place] # (Auto) (0.0-1.0) 10^3/uL Eos # (Auto) (0.0-0.7) 10^3/uL Baso # (Auto) (0.0-0.1) 10^3/uL Absolute Nucleated RBC x10^3/uL Nucleated RBC % /100WBC PT (9.9-12.6) secs INR (0.8-1.2) APTT (24.9-33.3) secs Bld Gas Analysis Time Sample Site ABG pH (7.35-7.45) ABG pCO2 (34-45) mmHg ABG pO2 (80-100) mmHg ABG HCO3 (22.0-26.0) mmol/L ABG Total CO2 (21.0-29.0) MMOL/L ABG O2 Saturation (94-98) % ABG Base Excess (-2.0-3.0) mmol/L Emmanuel Test VBG pH (7.31-7.41) Ionized Calcium (1.15-1.33) mmol/L O2 Delivery Device O2 Liters/Min LPM Sodium (135-145) mmol/L Potassium (3.5-5.0) mmol/L Chloride (101-111) mmol/L Carbon Dioxide (21-32) mmol/L Anion Gap (6-13) BUN (6-20) mg/dL Creatinine (0.6-1.2) mg/dL Estimated GFR (MDRD) (>89) Glucose (70-100) mg/dL Estimat Average Glucose (70-100) mg/dL Hemoglobin A1c % (4.27-6.07) % Lactic Acid (0.5-2.2) mmol/L Calcium (8.5-10.3) mg/dL Phosphorus (2.5-4.6) mg/dL Magnesium (1.7-2.8) mg/dL Total Bilirubin (0.2-1.0) mg/dL AST (10-42) IU/L ALT (10-60) IU/L Alkaline Phosphatase (42-121) IU/L Troponin I High Sens (2.3-19.7) ng/L B-Natriuretic Peptide (5-100) pg/mL Total Protein (6.7-8.2) g/dL Albumin (3.2-5.5) g/dL Globulin (2.1-4.2) g/dL Albumin/Globulin Ratio (1.0-2.2) Lipase (22-51) U/L TSH (0.34-5.60) uIU/mL Urine Color DARK YELLOW Urine Clarity HAZY (CLEAR) Urine pH 6.0 (5.0-7.5) PH Ur Specific [place] 1.020 (1.002-1.030) Urine Protein 100 H (NEGATIVE) mg/dL Urine Glucose (UA) NEGATIVE (NEGATIVE) mg/dL Urine Ketones 15 H (NEGATIVE) mg/dL Urine Occult Blood MODERATE H (NEGATIVE) Urine Nitrite POSITIVE H (NEGATIVE) Urine Bilirubin NEGATIVE (NEGATIVE) Urine Urobilinogen 1 (NORMAL) (NORMAL) E.U./dL Ur Leukocyte Esterase NEGATIVE (NEGATIVE) Urine RBC 0-5 (0-5) /HPF Urine WBC 4-5 (0-3) /HPF Ur Squamous Epith Cells NONE SEEN (<= Few) Amorphous Sediment Few /LPF Urine Bacteria Rare (None Seen) /HPF Ur Microscopic Review INDICATED Urine Culture Comments INDICATED Nasal Adenovirus (PCR) NOT DETECTED Nasal B. parapertussis DNA (PCR) NOT DETECTED Nasal Coronavir 229E PCR NOT DETECTED Nasal Coronavir HKU1 PCR NOT DETECTED Nasal Coronavir NL63 PCR NOT DETECTED Nasal Coronavir OC43 PCR NOT DETECTED Nasal Enterovir/Rhinovir PCR NOT DETECTED Nasal Influenza B PCR NOT DETECTED Nasal Influenza A PCR NOT DETECTED Nasal Parainfluen 1 PCR NOT DETECTED Nasal Parainfluen 2 PCR NOT DETECTED Nasal Parainfluen 3 PCR NOT DETECTED Nasal Parainfluen 4 PCR NOT DETECTED Nasal RSV (PCR) NOT DETECTED Nasal Screen MRSA (PCR) NEGATIVE (NEGATIVE) Nasal B.pertussis DNA PCR NOT DETECTED Nasal C.pneumoniae (PCR) NOT DETECTED [place] Human Metapneumo PCR NOT DETECTED Nasal M.pneumoniae (PCR) NOT DETECTED Nasal SARS-CoV-2 (PCR) NOT DETECTED 09/10/21 09/10/21 09/10/21 Range/Units 21:30 19:54 19:54 WBC (4.8-10.8) x10^3/uL RBC (4.70-6.10) 10^6/uL Hgb (14.0-18.0) g/dL Hct (42.0-52.0) % MCV (80.0-94.0) fL MCH (27.0-31.0) pg MCHC (32.0-36.0) g/dL RDW (12.0-15.0) % Plt Count (130-450) 10^3/uL MPV (7.4-11.4) fL Neut # (Auto) (1.5-6.6) 10^3/uL Lymph # (Auto) (1.5-3.5) 10^3/uL [place] # (Auto) (0.0-1.0) 10^3/uL Eos # (Auto) (0.0-0.7) 10^3/uL Baso # (Auto) (0.0-0.1) 10^3/uL Absolute Nucleated RBC x10^3/uL Nucleated RBC % /100WBC PT (9.9-12.6) secs INR (0.8-1.2) APTT (24.9-33.3) secs Bld Gas Analysis Time 2135 Sample Site LEFT RADIAL ABG pH 7.47 H (7.35-7.45) ABG pCO2 31 L (34-45) mmHg ABG pO2 36 L* (80-100) mmHg ABG HCO3 22.0 (22.0-26.0) mmol/L ABG Total CO2 23.0 (21.0-29.0) MMOL/L ABG O2 Saturation 73 L* (94-98) % ABG Base Excess -0.6 (-2.0-3.0) mmol/L Emmanuel Test POSITIVE VBG pH (7.31-7.41) Ionized Calcium (1.15-1.33) mmol/L O2 Delivery Device SIMPLE MASK O2 Liters/Min 15.00 LPM Sodium (135-145) mmol/L Potassium (3.5-5.0) mmol/L Chloride (101-111) mmol/L Carbon Dioxide (21-32) mmol/L Anion Gap (6-13) BUN (6-20) mg/dL Creatinine (0.6-1.2) mg/dL Estimated GFR (MDRD) (>89) Glucose (70-100) mg/dL Estimat Average Glucose (70-100) mg/dL Hemoglobin A1c % (4.27-6.07) % Lactic Acid (0.5-2.2) mmol/L Calcium (8.5-10.3) mg/dL Phosphorus (2.5-4.6) mg/dL Magnesium (1.7-2.8) mg/dL Total Bilirubin (0.2-1.0) mg/dL AST (10-42) IU/L ALT (10-60) IU/L Alkaline Phosphatase (42-121) IU/L Troponin I High Sens 25.7 H* (2.3-19.7) ng/L B-Natriuretic Peptide 414 H (5-100) pg/mL Total Protein (6.7-8.2) g/dL Albumin (3.2-5.5) g/dL Globulin (2.1-4.2) g/dL Albumin/Globulin Ratio (1.0-2.2) Lipase (22-51) U/L TSH (0.34-5.60) uIU/mL Urine Color Urine Clarity (CLEAR) Urine pH (5.0-7.5) PH Ur Specific [place] (1.002-1.030) Urine Protein (NEGATIVE) mg/dL Urine Glucose (UA) (NEGATIVE) mg/dL Urine Ketones (NEGATIVE) mg/dL Urine Occult Blood (NEGATIVE) Urine Nitrite (NEGATIVE) Urine Bilirubin (NEGATIVE) Urine Urobilinogen (NORMAL) E.U./dL Ur Leukocyte Esterase (NEGATIVE) Urine RBC (0-5) /HPF Urine WBC (0-3) /HPF Ur Squamous Epith Cells (<= Few) Amorphous Sediment /LPF Urine Bacteria (None Seen) /HPF Ur Microscopic Review Urine Culture Comments Nasal Adenovirus (PCR) Nasal B. parapertussis DNA (PCR) Nasal Coronavir 229E PCR Nasal Coronavir HKU1 PCR Nasal Coronavir NL63 PCR Nasal Coronavir OC43 PCR Nasal Enterovir/Rhinovir PCR Nasal Influenza B PCR Nasal Influenza A PCR Nasal Parainfluen 1 PCR Nasal Parainfluen 2 PCR Nasal Parainfluen 3 PCR Nasal Parainfluen 4 PCR Nasal RSV (PCR) Nasal Screen MRSA (PCR) (NEGATIVE) Nasal B.pertussis DNA PCR Nasal C.pneumoniae (PCR) [place] Human Metapneumo PCR Nasal M.pneumoniae (PCR) Nasal SARS-CoV-2 (PCR) 09/10/21 09/10/21 09/10/21 Range/Units 19:54 19:54 19:33 WBC (4.8-10.8) x10^3/uL RBC (4.70-6.10) 10^6/uL Hgb (14.0-18.0) g/dL Hct (42.0-52.0) % MCV (80.0-94.0) fL MCH (27.0-31.0) pg MCHC (32.0-36.0) g/dL RDW (12.0-15.0) % Plt Count (130-450) 10^3/uL MPV (7.4-11.4) fL Neut # (Auto) (1.5-6.6) 10^3/uL Lymph # (Auto) (1.5-3.5) 10^3/uL [place] # (Auto) (0.0-1.0) 10^3/uL Eos # (Auto) (0.0-0.7) 10^3/uL Baso # (Auto) (0.0-0.1) 10^3/uL Absolute Nucleated RBC x10^3/uL Nucleated RBC % /100WBC PT 18.9 H (9.9-12.6) secs INR 1.7 H (0.8-1.2) APTT 28.9 (24.9-33.3) secs Bld Gas Analysis Time Sample Site ABG pH (7.35-7.45) ABG pCO2 (34-45) mmHg ABG pO2 (80-100) mmHg ABG HCO3 (22.0-26.0) mmol/L ABG Total CO2 (21.0-29.0) MMOL/L ABG O2 Saturation (94-98) % ABG Base Excess (-2.0-3.0) mmol/L Emmanuel Test VBG pH (7.31-7.41) Ionized Calcium (1.15-1.33) mmol/L O2 Delivery Device O2 Liters/Min LPM Sodium 130 L (135-145) mmol/L Potassium 3.6 (3.5-5.0) mmol/L Chloride 93 L (101-111) mmol/L Carbon Dioxide 25 (21-32) mmol/L Anion Gap 12.0 (6-13) BUN 25 H (6-20) mg/dL Creatinine 0.8 (0.6-1.2) mg/dL Estimated GFR (MDRD) 94 (>89) Glucose 134 H (70-100) mg/dL Estimat Average Glucose (70-100) mg/dL Hemoglobin A1c % (4.27-6.07) % Lactic Acid 1.5 (0.5-2.2) mmol/L Calcium 8.8 (8.5-10.3) mg/dL Phosphorus (2.5-4.6) mg/dL Magnesium (1.7-2.8) mg/dL Total Bilirubin 1.8 H (0.2-1.0) mg/dL AST 37 (10-42) IU/L ALT 26 (10-60) IU/L Alkaline Phosphatase 79 (42-121) IU/L Troponin I High Sens (2.3-19.7) ng/L B-Natriuretic Peptide (5-100) pg/mL Total Protein 7.2 (6.7-8.2) g/dL Albumin 3.8 (3.2-5.5) g/dL Globulin 3.4 (2.1-4.2) g/dL Albumin/Globulin Ratio 1.1 (1.0-2.2) Lipase 21 L (22-51) U/L TSH (0.34-5.60) uIU/mL Urine Color Urine Clarity (CLEAR) Urine pH (5.0-7.5) PH Ur Specific [place] (1.002-1.030) Urine Protein (NEGATIVE) mg/dL Urine Glucose (UA) (NEGATIVE) mg/dL Urine Ketones (NEGATIVE) mg/dL Urine Occult Blood (NEGATIVE) Urine Nitrite (NEGATIVE) Urine Bilirubin (NEGATIVE) Urine Urobilinogen (NORMAL) E.U./dL Ur Leukocyte Esterase (NEGATIVE) Urine RBC (0-5) /HPF Urine WBC (0-3) /HPF Ur Squamous Epith Cells (<= Few) Amorphous Sediment /LPF Urine Bacteria (None Seen) /HPF Ur Microscopic Review Urine Culture Comments Nasal Adenovirus (PCR) Nasal B. parapertussis DNA (PCR) Nasal Coronavir 229E PCR Nasal Coronavir HKU1 PCR Nasal Coronavir NL63 PCR Nasal Coronavir OC43 PCR Nasal Enterovir/Rhinovir PCR Nasal Influenza B PCR Nasal Influenza A PCR Nasal Parainfluen 1 PCR Nasal Parainfluen 2 PCR Nasal Parainfluen 3 PCR Nasal Parainfluen 4 PCR Nasal RSV (PCR) Nasal Screen MRSA (PCR) (NEGATIVE) Nasal B.pertussis DNA PCR Nasal C.pneumoniae (PCR) Martínez Human Metapneumo PCR Nasal M.pneumoniae (PCR) Nasal SARS-CoV-2 (PCR) 09/10/21 Range/Units 19:33 WBC 9.2 (4.8-10.8) x10^3/uL RBC 4.51 L (4.70-6.10) 10^6/uL Hgb 13.4 L (14.0-18.0) g/dL Hct 39.7 L (42.0-52.0) % MCV 88.0 (80.0-94.0) fL MCH 29.7 (27.0-31.0) pg MCHC 33.8 (32.0-36.0) g/dL RDW 13.1 (12.0-15.0) % Plt Count 175 (130-450) 10^3/uL MPV 11.2 (7.4-11.4) fL Neut # (Auto) 7.8 H (1.5-6.6) 10^3/uL Lymph # (Auto) 0.5 L (1.5-3.5) 10^3/uL [place] # (Auto) 0.8 (0.0-1.0) 10^3/uL Eos # (Auto) 0.0 (0.0-0.7) 10^3/uL Baso # (Auto) 0.0 (0.0-0.1) 10^3/uL Absolute Nucleated RBC 0.00 x10^3/uL Nucleated RBC % 0.0 /100WBC PT (9.9-12.6) secs INR (0.8-1.2) APTT (24.9-33.3) secs Bld Gas Analysis Time Sample Site ABG pH (7.35-7.45) ABG pCO2 (34-45) mmHg ABG pO2 (80-100) mmHg ABG HCO3 (22.0-26.0) mmol/L ABG Total CO2 (21.0-29.0) MMOL/L ABG O2 Saturation (94-98) % ABG Base Excess (-2.0-3.0) mmol/L Emmanuel Test VBG pH (7.31-7.41) Ionized Calcium (1.15-1.33) mmol/L O2 Delivery Device O2 Liters/Min LPM Sodium (135-145) mmol/L Potassium (3.5-5.0) mmol/L Chloride (101-111) mmol/L Carbon Dioxide (21-32) mmol/L Anion Gap (6-13) BUN (6-20) mg/dL Creatinine (0.6-1.2) mg/dL Estimated GFR (MDRD) (>89) Glucose (70-100) mg/dL Estimat Average Glucose (70-100) mg/dL Hemoglobin A1c % (4.27-6.07) % Lactic Acid (0.5-2.2) mmol/L Calcium (8.5-10.3) mg/dL Phosphorus (2.5-4.6) mg/dL Magnesium (1.7-2.8) mg/dL Total Bilirubin (0.2-1.0) mg/dL AST (10-42) IU/L ALT (10-60) IU/L Alkaline Phosphatase (42-121) IU/L Troponin I High Sens (2.3-19.7) ng/L B-Natriuretic Peptide (5-100) pg/mL Total Protein (6.7-8.2) g/dL Albumin (3.2-5.5) g/dL Globulin (2.1-4.2) g/dL Albumin/Globulin Ratio (1.0-2.2) Lipase (22-51) U/L TSH (0.34-5.60) uIU/mL Urine Color Urine Clarity (CLEAR) Urine pH (5.0-7.5) PH Ur Specific [place] (1.002-1.030) Urine Protein (NEGATIVE) mg/dL Urine Glucose (UA) (NEGATIVE) mg/dL Urine Ketones (NEGATIVE) mg/dL Urine Occult Blood (NEGATIVE) Urine Nitrite (NEGATIVE) Urine Bilirubin (NEGATIVE) Urine Urobilinogen (NORMAL) E.U./dL Ur Leukocyte Esterase (NEGATIVE) Urine RBC (0-5) /HPF Urine WBC (0-3) /HPF Ur Squamous Epith Cells (<= Few) Amorphous Sediment /LPF Urine Bacteria (None Seen) /HPF Ur Microscopic Review Urine Culture Comments Nasal Adenovirus (PCR) Nasal B. parapertussis DNA (PCR) Nasal Coronavir 229E PCR Nasal Coronavir HKU1 PCR Nasal Coronavir NL63 PCR Nasal Coronavir OC43 PCR Nasal Enterovir/Rhinovir PCR Nasal Influenza B PCR Nasal Influenza A PCR Nasal Parainfluen 1 PCR Nasal Parainfluen 2 PCR Nasal Parainfluen 3 PCR Nasal Parainfluen 4 PCR Nasal RSV (PCR) Nasal Screen MRSA (PCR) (NEGATIVE) Nasal B.pertussis DNA PCR Nasal C.pneumoniae (PCR) Martínez Human Metapneumo PCR Nasal M.pneumoniae (PCR) Nasal SARS-CoV-2 (PCR) Assessment/Plan - Problem List (1) Metabolic encephalopathy Impression: He is confusion is what made his bring him into the hospital. He was also not getting out of bed for at least 2 to 3 days. He feels it all started a couple of weeks ago when he stubbed his toe on the carpet, and he could not believe how much his toe hurt. He thought he broke his toe. That then led to pain and swelling in the left great toe, not being able to weight-bear because the foot was too painful and finally just being in bed for a few days. Gradually increasing confusion. And that is when the called EMS. Between last night and today, he has definitely improved. He does not remember the last few days. Last night was a little iffy for him and that he knew he was in the hospital but then he would momentarily think he was at home. This morning he is ashamed of himself this is a cannot believe how so confused. He knows where he is. And is slowly coming to understand why he ended up here. Plan: Continue to treat the underlying causes of hypoxemia with acute congestive heart failure, and the left great toe infection. (2) Acute respiratory failure with hypoxia Conclusion/Plan: This appears to be secondary to congestive heart failure. He was initially in the 80s on room air and had to be put on a nonrebreather. He had pulmonary edema on exam. He then progressed to being on BiPAP. This morning he is much more awake and alert now that he is had antibiotics, and has had diuresis and his heart rate is controlled. But within an hour of being up to eat breakfast, and speaking to me, has to be back on BiPAP for respiratory fatigue. I will continue him on Lasix 40 mg IV twice daily. Echocardiogram has been done this morning. He has mild concentric left ventricular hypertrophy. The ejection fraction is 55 to 60%. Mild to moderate right ventricular enlargement. Considering he has been sedentaru, has right ventricular enlargement on echo, u nilateral right calf edema, new atrial fib I am going to be getting a CT pulmonary angiogram. (3) Acute congestive heart failure Conclusion/Plan: He appears to have acute congestive heart failure which may have been exacerbated by the atrial fibrillation. He has no prior echocardiogram so it is unclear if this is systolic or diastolic dysfunction. His BNP is only mildly elevated but this is likely due to his obesity. His x-ray suggest pulmonary edema and he is edematous on exam. We will start him on Lasix 40 mg IV twice daily. He was on Nitropatch given the hypertension but I am not continuing for now. If he remains hypertensive then we will consider the use of Cardene. We will also continue him on BiPAP prn given the CHF and hypoxic respiratory failure. Echocardiogram this morning discussed in above. Fluid restriction. Daily weights. Strict I's and O's. Daily BMP Qualifiers: Heart failure type: unspecified Qualified Code(s): I50.9 - Heart failure, unspecified (4) Atrial fibrillation with RVR Conclusion/Plan: He has a known history of atrial fibrillation and is on carvedilol and Pradaxa at home. He presented with rapid ventricular response and rates in the 120s. We started him on Lopressor 5 mg IV every 6 hours given he is on BiPAP. If he remains tachycardiac then we will give digoxin. We have resumed his home anticoagulation. TSH is normal. Monitor on telemetry. (5) Right foot infection/Staph aureus on PCR for blood cultures this am. Conclusion/Plan: The right toe does appear to be infected with surrounding cellulitis although there is also component of ecchymosis secondary to the trauma. We started him on cefazolin IV on admit so today is day #2. X-ray did not show any evidence of osteomyelitis but did suggest a fracture. Ortho has been asked to see him and opine on the toe infection. Ancef will be continued until further cultures ID's. Will check repeat blood cultures and depending on if blood C&S clears, may need repeat echo for vegetations. (6) Hyponatremia Conclusion/Plan: This is likely hypervolemic hyponatremia secondary to heart failure. His sodium is 130. This should improve as we diurese him. Recheck BMP in the morning. (7) Phalanx fracture, foot Conclusion/Plan: This occurred about 1 week ago and x-rays yesterday confirmed a distal mildly displaced fracture. We will manage his pain with Tylenol. There is potential concern for infection so we will manage this as mentioned above with IV antibiotics. Depending on how he progresses over next 24 hours, will discuss with orthopedic surgery. Qualifiers: Encounter type: initial encounter Toe: great toe (7) Type 2 diabetes mellitus Conclusion/Plan: He is on metformin at home. Blood glucose is currently in the 130s. We will place him on sliding scale and carb controlled diet. Check A1c in the morning.
[2021-09-11] MEDS ORDERED: diphenhydrAMINE INJ 50 MG/ML VIAL IVP ONE (13:38)
[2021-09-11] MEDS ORDERED: iohexoL-300 100 ML VIAL ONE (13:53)
--- NOTE | 2021-09-11 14:07 | PROVIDER PROGRESS NOTE ---
Subjective - General Admit Date: 09/10/21 - Review of Systems All Other Systems: positive: Reviewed and negative - Other Other Information/Narrative: Alert, sitting in his chair eating lunch Denies pain today He reports stubbing his toe prior to admission at which time his nail became dislodged and he noticed significant bleeding. Over the course of days he developed erythema on the first right toe that extended to the midfoot. There was concern for fracture of the right great toe. He was admitted to the ICU for atrial fibrillation with RVR and found to be bacteremic He has bilateral total knee arthroplasties Objective - Patient Data Vital Signs: Vital Signs x48h Temp Pulse Pulse Resp BP BP Pulse Ox 09/11/21 13:00 74 24 119/85 H 97 09/11/21 12:18 127/85 H 09/11/21 12:00 36.8 C 72 23 131/100 H 97 09/11/21 11:00 69 22 127/85 H 99 09/11/21 10:00 78 24 131/90 H 98 09/11/21 09:00 80 22 134/102 H 96 09/11/21 08:00 36.8 C 79 23 136/98 H 98 09/11/21 07:00 84 28 H 143/95 H 98 09/11/21 06:58 89 09/11/21 06:14 83 Weight: Weight 09/09/21 09/10/21 09/11/21 23:59 23:59 23:59 Weight (kg) 148.325 kg 149.5 kg Intake & Output: Intake and Output Totals x24h 09/09/21 09/10/21 09/11/21 23:59 23:59 23:59 Intake Total 100 2318.333 Output Total 400 4095 Balance -300 -9133.727 - Lab Results Lab Results: 09/11/21 04:45 09/11/21 04:45 Other Lab Results: Lab Results x24hrs 09/11/21 09/11/21 09/11/21 Range/Units 04:45 04:45 04:45 WBC (4.8-10.8) x10^3/uL RBC (4.70-6.10) 10^6/uL Hgb (14.0-18.0) g/dL Hct (42.0-52.0) % MCV (80.0-94.0) fL MCH (27.0-31.0) pg MCHC (32.0-36.0) g/dL RDW (12.0-15.0) % Plt Count (130-450) 10^3/uL MPV (7.4-11.4) fL Neut # (Auto) (1.5-6.6) 10^3/uL Lymph # (Auto) (1.5-3.5) 10^3/uL [place] # (Auto) (0.0-1.0) 10^3/uL Eos # (Auto) (0.0-0.7) 10^3/uL Baso # (Auto) (0.0-0.1) 10^3/uL Absolute Nucleated RBC x10^3/uL Nucleated RBC % /100WBC PT (9.9-12.6) secs INR (0.8-1.2) APTT (24.9-33.3) secs Bld Gas Analysis Time Sample Site ABG pH (7.35-7.45) ABG pCO2 (34-45) mmHg ABG pO2 (80-100) mmHg ABG HCO3 (22.0-26.0) mmol/L ABG Total CO2 (21.0-29.0) MMOL/L ABG O2 Saturation (94-98) % ABG Base Excess (-2.0-3.0) mmol/L Emmanuel Test VBG pH 7.462 H (7.31-7.41) Ionized Calcium 1.04 L (1.15-1.33) mmol/L O2 Delivery Device O2 Liters/Min LPM Sodium (135-145) mmol/L Potassium (3.5-5.0) mmol/L Chloride (101-111) mmol/L Carbon Dioxide (21-32) mmol/L Anion Gap (6-13) BUN (6-20) mg/dL Creatinine (0.6-1.2) mg/dL Estimated GFR (MDRD) (>89) Glucose (70-100) mg/dL Estimat Average Glucose (70-100) mg/dL Hemoglobin A1c % (4.27-6.07) % Lactic Acid (0.5-2.2) mmol/L Calcium (8.5-10.3) mg/dL Phosphorus (2.5-4.6) mg/dL Magnesium (1.7-2.8) mg/dL Total Bilirubin (0.2-1.0) mg/dL AST (10-42) IU/L ALT (10-60) IU/L Alkaline Phosphatase (42-121) IU/L Troponin I High Sens 36.7 H* (2.3-19.7) ng/L B-Natriuretic Peptide (5-100) pg/mL Total Protein (6.7-8.2) g/dL Albumin (3.2-5.5) g/dL Globulin (2.1-4.2) g/dL Albumin/Globulin Ratio (1.0-2.2) Lipase (22-51) U/L TSH 1.49 (0.34-5.60) uIU/mL Urine Color Urine Clarity (CLEAR) Urine pH (5.0-7.5) PH Ur Specific [place] (1.002-1.030) Urine Protein (NEGATIVE) mg/dL Urine Glucose (UA) (NEGATIVE) mg/dL Urine Ketones (NEGATIVE) mg/dL Urine Occult Blood (NEGATIVE) Urine Nitrite (NEGATIVE) Urine Bilirubin (NEGATIVE) Urine Urobilinogen (NORMAL) E.U./dL Ur Leukocyte Esterase (NEGATIVE) Urine RBC (0-5) /HPF Urine WBC (0-3) /HPF Ur Squamous Epith Cells (<= Few) Amorphous Sediment /LPF Urine Bacteria (None Seen) /HPF Ur Microscopic Review Urine Culture Comments Nasal Adenovirus (PCR) Nasal B. parapertussis DNA (PCR) Nasal Coronavir 229E PCR Nasal Coronavir HKU1 PCR Nasal Coronavir NL63 PCR Nasal Coronavir OC43 PCR Nasal Enterovir/Rhinovir PCR Nasal Influenza B PCR Nasal Influenza A PCR Nasal Parainfluen 1 PCR Nasal Parainfluen 2 PCR Nasal Parainfluen 3 PCR Nasal Parainfluen 4 PCR Nasal RSV (PCR) Nasal Screen MRSA (PCR) (NEGATIVE) Nasal B.pertussis DNA PCR Nasal C.pneumoniae (PCR) [place] Human Metapneumo PCR Nasal M.pneumoniae (PCR) Nasal SARS-CoV-2 (PCR) 09/11/21 09/11/21 09/11/21 Range/Units 04:45 04:45 04:45 WBC 9.3 (4.8-10.8) x10^3/uL RBC 4.05 L (4.70-6.10) 10^6/uL Hgb 12.0 L (14.0-18.0) g/dL Hct 35.7 L (42.0-52.0) % MCV 88.1 (80.0-94.0) fL MCH 29.6 (27.0-31.0) pg MCHC 33.6 (32.0-36.0) g/dL RDW 13.1 (12.0-15.0) % Plt Count 168 (130-450) 10^3/uL MPV 11.6 H (7.4-11.4) fL Neut # (Auto) 7.7 H (1.5-6.6) 10^3/uL Lymph # (Auto) 0.6 L (1.5-3.5) 10^3/uL [place] # (Auto) 0.8 (0.0-1.0) 10^3/uL Eos # (Auto) 0.0 (0.0-0.7) 10^3/uL Baso # (Auto) 0.0 (0.0-0.1) 10^3/uL Absolute Nucleated RBC 0.00 x10^3/uL Nucleated RBC % 0.0 /100WBC PT (9.9-12.6) secs INR (0.8-1.2) APTT (24.9-33.3) secs Bld Gas Analysis Time Sample Site ABG pH (7.35-7.45) ABG pCO2 (34-45) mmHg ABG pO2 (80-100) mmHg ABG HCO3 (22.0-26.0) mmol/L ABG Total CO2 (21.0-29.0) MMOL/L ABG O2 Saturation (94-98) % ABG Base Excess (-2.0-3.0) mmol/L Emmanuel Test VBG pH (7.31-7.41) Ionized Calcium (1.15-1.33) mmol/L O2 Delivery Device O2 Liters/Min LPM Sodium 135 (135-145) mmol/L Potassium 2.8 L (3.5-5.0) mmol/L Chloride 95 L (101-111) mmol/L Carbon Dioxide 28 (21-32) mmol/L Anion Gap 12.0 (6-13) BUN 23 H (6-20) mg/dL Creatinine 0.8 (0.6-1.2) mg/dL Estimated GFR (MDRD) 94 (>89) Glucose 138 H (70-100) mg/dL Estimat Average Glucose 134 H (70-100) mg/dL Hemoglobin A1c % 6.3 H (4.27-6.07) % Lactic Acid (0.5-2.2) mmol/L Calcium 8.4 L (8.5-10.3) mg/dL Phosphorus 2.8 (2.5-4.6) mg/dL Magnesium 2.1 (1.7-2.8) mg/dL Total Bilirubin (0.2-1.0) mg/dL AST (10-42) IU/L ALT (10-60) IU/L Alkaline Phosphatase (42-121) IU/L Troponin I High Sens (2.3-19.7) ng/L B-Natriuretic Peptide (5-100) pg/mL Total Protein (6.7-8.2) g/dL Albumin (3.2-5.5) g/dL Globulin (2.1-4.2) g/dL Albumin/Globulin Ratio (1.0-2.2) Lipase (22-51) U/L TSH (0.34-5.60) uIU/mL Urine Color Urine Clarity (CLEAR) Urine pH (5.0-7.5) PH Ur Specific [place] (1.002-1.030) Urine Protein (NEGATIVE) mg/dL Urine Glucose (UA) (NEGATIVE) mg/dL Urine Ketones (NEGATIVE) mg/dL Urine Occult Blood (NEGATIVE) Urine Nitrite (NEGATIVE) Urine Bilirubin (NEGATIVE) Urine Urobilinogen (NORMAL) E.U./dL Ur Leukocyte Esterase (NEGATIVE) Urine RBC (0-5) /HPF Urine WBC (0-3) /HPF Ur Squamous Epith Cells (<= Few) Amorphous Sediment /LPF Urine Bacteria (None Seen) /HPF Ur Microscopic Review Urine Culture Comments Nasal Adenovirus (PCR) Nasal B. parapertussis DNA (PCR) Nasal Coronavir 229E PCR Nasal Coronavir HKU1 PCR Nasal Coronavir NL63 PCR Nasal Coronavir OC43 PCR Nasal Enterovir/Rhinovir PCR Nasal Influenza B PCR Nasal Influenza A PCR Nasal Parainfluen 1 PCR Nasal Parainfluen 2 PCR Nasal Parainfluen 3 PCR Nasal Parainfluen 4 PCR Nasal RSV (PCR) Nasal Screen MRSA (PCR) (NEGATIVE) Nasal B.pertussis DNA PCR Nasal C.pneumoniae (PCR) [place] Human Metapneumo PCR Nasal M.pneumoniae (PCR) Nasal SARS-CoV-2 (PCR) 09/11/21 09/10/21 09/10/21 Range/Units 04:34 23:10 23:10 WBC (4.8-10.8) x10^3/uL RBC (4.70-6.10) 10^6/uL Hgb (14.0-18.0) g/dL Hct (42.0-52.0) % MCV (80.0-94.0) fL MCH (27.0-31.0) pg MCHC (32.0-36.0) g/dL RDW (12.0-15.0) % Plt Count (130-450) 10^3/uL MPV (7.4-11.4) fL Neut # (Auto) (1.5-6.6) 10^3/uL Lymph # (Auto) (1.5-3.5) 10^3/uL [place] # (Auto) (0.0-1.0) 10^3/uL Eos # (Auto) (0.0-0.7) 10^3/uL Baso # (Auto) (0.0-0.1) 10^3/uL Absolute Nucleated RBC x10^3/uL Nucleated RBC % /100WBC PT (9.9-12.6) secs INR (0.8-1.2) APTT (24.9-33.3) secs Bld Gas Analysis Time Sample Site ABG pH (7.35-7.45) ABG pCO2 (34-45) mmHg ABG pO2 (80-100) mmHg ABG HCO3 (22.0-26.0) mmol/L ABG Total CO2 (21.0-29.0) MMOL/L ABG O2 Saturation (94-98) % ABG Base Excess (-2.0-3.0) mmol/L Emmanuel Test VBG pH (7.31-7.41) Ionized Calcium (1.15-1.33) mmol/L O2 Delivery Device O2 Liters/Min LPM Sodium (135-145) mmol/L Potassium (3.5-5.0) mmol/L Chloride (101-111) mmol/L Carbon Dioxide (21-32) mmol/L Anion Gap (6-13) BUN (6-20) mg/dL Creatinine (0.6-1.2) mg/dL Estimated GFR (MDRD) (>89) Glucose (70-100) mg/dL Estimat Average Glucose (70-100) mg/dL Hemoglobin A1c % (4.27-6.07) % Lactic Acid (0.5-2.2) mmol/L Calcium (8.5-10.3) mg/dL Phosphorus (2.5-4.6) mg/dL Magnesium 2.2 (1.7-2.8) mg/dL Total Bilirubin (0.2-1.0) mg/dL AST (10-42) IU/L ALT (10-60) IU/L Alkaline Phosphatase (42-121) IU/L Troponin I High Sens 33.6 H* (2.3-19.7) ng/L B-Natriuretic Peptide 489 H (5-100) pg/mL Total Protein (6.7-8.2) g/dL Albumin (3.2-5.5) g/dL Globulin (2.1-4.2) g/dL Albumin/Globulin Ratio (1.0-2.2) Lipase (22-51) U/L TSH (0.34-5.60) uIU/mL Urine Color Urine Clarity (CLEAR) Urine pH (5.0-7.5) PH Ur Specific [place] (1.002-1.030) Urine Protein (NEGATIVE) mg/dL Urine Glucose (UA) (NEGATIVE) mg/dL Urine Ketones (NEGATIVE) mg/dL Urine Occult Blood (NEGATIVE) Urine Nitrite (NEGATIVE) Urine Bilirubin (NEGATIVE) Urine Urobilinogen (NORMAL) E.U./dL Ur Leukocyte Esterase (NEGATIVE) Urine RBC (0-5) /HPF Urine WBC (0-3) /HPF Ur Squamous Epith Cells (<= Few) Amorphous Sediment /LPF Urine Bacteria (None Seen) /HPF Ur Microscopic Review Urine Culture Comments Nasal Adenovirus (PCR) Nasal B. parapertussis DNA (PCR) Nasal Coronavir 229E PCR Nasal Coronavir HKU1 PCR Nasal Coronavir NL63 PCR Nasal Coronavir OC43 PCR Nasal Enterovir/Rhinovir PCR Nasal Influenza B PCR Nasal Influenza A PCR Nasal Parainfluen 1 PCR Nasal Parainfluen 2 PCR Nasal Parainfluen 3 PCR Nasal Parainfluen 4 PCR Nasal RSV (PCR) Nasal Screen MRSA (PCR) (NEGATIVE) Nasal B.pertussis DNA PCR Nasal C.pneumoniae (PCR) [place] Human Metapneumo PCR Nasal M.pneumoniae (PCR) Nasal SARS-CoV-2 (PCR) 09/10/21 09/10/21 09/10/21 Range/Units 21:59 21:59 21:59 WBC (4.8-10.8) x10^3/uL RBC (4.70-6.10) 10^6/uL Hgb (14.0-18.0) g/dL Hct (42.0-52.0) % MCV (80.0-94.0) fL MCH (27.0-31.0) pg MCHC (32.0-36.0) g/dL RDW (12.0-15.0) % Plt Count (130-450) 10^3/uL MPV (7.4-11.4) fL Neut # (Auto) (1.5-6.6) 10^3/uL Lymph # (Auto) (1.5-3.5) 10^3/uL [place] # (Auto) (0.0-1.0) 10^3/uL Eos # (Auto) (0.0-0.7) 10^3/uL Baso # (Auto) (0.0-0.1) 10^3/uL Absolute Nucleated RBC x10^3/uL Nucleated RBC % /100WBC PT (9.9-12.6) secs INR (0.8-1.2) APTT (24.9-33.3) secs Bld Gas Analysis Time Sample Site ABG pH (7.35-7.45) ABG pCO2 (34-45) mmHg ABG pO2 (80-100) mmHg ABG HCO3 (22.0-26.0) mmol/L ABG Total CO2 (21.0-29.0) MMOL/L ABG O2 Saturation (94-98) % ABG Base Excess (-2.0-3.0) mmol/L Emmanuel Test VBG pH (7.31-7.41) Ionized Calcium (1.15-1.33) mmol/L O2 Delivery Device O2 Liters/Min LPM Sodium (135-145) mmol/L Potassium (3.5-5.0) mmol/L Chloride (101-111) mmol/L Carbon Dioxide (21-32) mmol/L Anion Gap (6-13) BUN (6-20) mg/dL Creatinine (0.6-1.2) mg/dL Estimated GFR (MDRD) (>89) Glucose (70-100) mg/dL Estimat Average Glucose (70-100) mg/dL Hemoglobin A1c % (4.27-6.07) % Lactic Acid (0.5-2.2) mmol/L Calcium (8.5-10.3) mg/dL Phosphorus (2.5-4.6) mg/dL Magnesium (1.7-2.8) mg/dL Total Bilirubin (0.2-1.0) mg/dL AST (10-42) IU/L ALT (10-60) IU/L Alkaline Phosphatase (42-121) IU/L Troponin I High Sens (2.3-19.7) ng/L B-Natriuretic Peptide (5-100) pg/mL Total Protein (6.7-8.2) g/dL Albumin (3.2-5.5) g/dL Globulin (2.1-4.2) g/dL Albumin/Globulin Ratio (1.0-2.2) Lipase (22-51) U/L TSH (0.34-5.60) uIU/mL Urine Color DARK YELLOW Urine Clarity HAZY (CLEAR) Urine pH 6.0 (5.0-7.5) PH Ur Specific [place] 1.020 (1.002-1.030) Urine Protein 100 H (NEGATIVE) mg/dL Urine Glucose (UA) NEGATIVE (NEGATIVE) mg/dL Urine Ketones 15 H (NEGATIVE) mg/dL Urine Occult Blood MODERATE H (NEGATIVE) Urine Nitrite POSITIVE H (NEGATIVE) Urine Bilirubin NEGATIVE (NEGATIVE) Urine Urobilinogen 1 (NORMAL) (NORMAL) E.U./dL Ur Leukocyte Esterase NEGATIVE (NEGATIVE) Urine RBC 0-5 (0-5) /HPF Urine WBC 4-5 (0-3) /HPF Ur Squamous Epith Cells NONE SEEN (<= Few) Amorphous Sediment Few /LPF Urine Bacteria Rare (None Seen) /HPF Ur Microscopic Review INDICATED Urine Culture Comments INDICATED Nasal Adenovirus (PCR) NOT DETECTED Nasal B. parapertussis DNA (PCR) NOT DETECTED Nasal Coronavir 229E PCR NOT DETECTED Nasal Coronavir HKU1 PCR NOT DETECTED Nasal Coronavir NL63 PCR NOT DETECTED Nasal Coronavir OC43 PCR NOT DETECTED Nasal Enterovir/Rhinovir PCR NOT DETECTED Nasal Influenza B PCR NOT DETECTED Nasal Influenza A PCR NOT DETECTED Nasal Parainfluen 1 PCR NOT DETECTED Nasal Parainfluen 2 PCR NOT DETECTED Nasal Parainfluen 3 PCR NOT DETECTED Nasal Parainfluen 4 PCR NOT DETECTED Nasal RSV (PCR) NOT DETECTED Nasal Screen MRSA (PCR) NEGATIVE (NEGATIVE) Nasal B.pertussis DNA PCR NOT DETECTED Nasal C.pneumoniae (PCR) NOT DETECTED [place] Human Metapneumo PCR NOT DETECTED Nasal M.pneumoniae (PCR) NOT DETECTED Nasal SARS-CoV-2 (PCR) NOT DETECTED 09/10/21 09/10/21 09/10/21 Range/Units 21:30 19:54 19:54 WBC (4.8-10.8) x10^3/uL RBC (4.70-6.10) 10^6/uL Hgb (14.0-18.0) g/dL Hct (42.0-52.0) % MCV (80.0-94.0) fL MCH (27.0-31.0) pg MCHC (32.0-36.0) g/dL RDW (12.0-15.0) % Plt Count (130-450) 10^3/uL MPV (7.4-11.4) fL Neut # (Auto) (1.5-6.6) 10^3/uL Lymph # (Auto) (1.5-3.5) 10^3/uL [place] # (Auto) (0.0-1.0) 10^3/uL Eos # (Auto) (0.0-0.7) 10^3/uL Baso # (Auto) (0.0-0.1) 10^3/uL Absolute Nucleated RBC x10^3/uL Nucleated RBC % /100WBC PT (9.9-12.6) secs INR (0.8-1.2) APTT (24.9-33.3) secs Bld Gas Analysis Time 2135 Sample Site LEFT RADIAL ABG pH 7.47 H (7.35-7.45) ABG pCO2 31 L (34-45) mmHg ABG pO2 36 L* (80-100) mmHg ABG HCO3 22.0 (22.0-26.0) mmol/L ABG Total CO2 23.0 (21.0-29.0) MMOL/L ABG O2 Saturation 73 L* (94-98) % ABG Base Excess -0.6 (-2.0-3.0) mmol/L Emmanuel Test POSITIVE VBG pH (7.31-7.41) Ionized Calcium (1.15-1.33) mmol/L O2 Delivery Device SIMPLE MASK O2 Liters/Min 15.00 LPM Sodium (135-145) mmol/L Potassium (3.5-5.0) mmol/L Chloride (101-111) mmol/L Carbon Dioxide (21-32) mmol/L Anion Gap (6-13) BUN (6-20) mg/dL Creatinine (0.6-1.2) mg/dL Estimated GFR (MDRD) (>89) Glucose (70-100) mg/dL Estimat Average Glucose (70-100) mg/dL Hemoglobin A1c % (4.27-6.07) % Lactic Acid (0.5-2.2) mmol/L Calcium (8.5-10.3) mg/dL Phosphorus (2.5-4.6) mg/dL Magnesium (1.7-2.8) mg/dL Total Bilirubin (0.2-1.0) mg/dL AST (10-42) IU/L ALT (10-60) IU/L Alkaline Phosphatase (42-121) IU/L Troponin I High Sens 25.7 H* (2.3-19.7) ng/L B-Natriuretic Peptide 414 H (5-100) pg/mL Total Protein (6.7-8.2) g/dL Albumin (3.2-5.5) g/dL Globulin (2.1-4.2) g/dL Albumin/Globulin Ratio (1.0-2.2) Lipase (22-51) U/L TSH (0.34-5.60) uIU/mL Urine Color Urine Clarity (CLEAR) Urine pH (5.0-7.5) PH Ur Specific [place] (1.002-1.030) Urine Protein (NEGATIVE) mg/dL Urine Glucose (UA) (NEGATIVE) mg/dL Urine Ketones (NEGATIVE) mg/dL Urine Occult Blood (NEGATIVE) Urine Nitrite (NEGATIVE) Urine Bilirubin (NEGATIVE) Urine Urobilinogen (NORMAL) E.U./dL Ur Leukocyte Esterase (NEGATIVE) Urine RBC (0-5) /HPF Urine WBC (0-3) /HPF Ur Squamous Epith Cells (<= Few) Amorphous Sediment /LPF Urine Bacteria (None Seen) /HPF Ur Microscopic Review Urine Culture Comments Nasal Adenovirus (PCR) Nasal B. parapertussis DNA (PCR) Nasal Coronavir 229E PCR Nasal Coronavir HKU1 PCR Nasal Coronavir NL63 PCR Nasal Coronavir OC43 PCR Nasal Enterovir/Rhinovir PCR Nasal Influenza B PCR Nasal Influenza A PCR Nasal Parainfluen 1 PCR Nasal Parainfluen 2 PCR Nasal Parainfluen 3 PCR Nasal Parainfluen 4 PCR Nasal RSV (PCR) Nasal Screen MRSA (PCR) (NEGATIVE) Nasal B.pertussis DNA PCR Nasal C.pneumoniae (PCR) [place] Human Metapneumo PCR Nasal M.pneumoniae (PCR) Nasal SARS-CoV-2 (PCR) 09/10/21 09/10/21 09/10/21 Range/Units 19:54 19:54 19:33 WBC (4.8-10.8) x10^3/uL RBC (4.70-6.10) 10^6/uL Hgb (14.0-18.0) g/dL Hct (42.0-52.0) % MCV (80.0-94.0) fL MCH (27.0-31.0) pg MCHC (32.0-36.0) g/dL RDW (12.0-15.0) % Plt Count (130-450) 10^3/uL MPV (7.4-11.4) fL Neut # (Auto) (1.5-6.6) 10^3/uL Lymph # (Auto) (1.5-3.5) 10^3/uL [place] # (Auto) (0.0-1.0) 10^3/uL Eos # (Auto) (0.0-0.7) 10^3/uL Baso # (Auto) (0.0-0.1) 10^3/uL Absolute Nucleated RBC x10^3/uL Nucleated RBC % /100WBC PT 18.9 H (9.9-12.6) secs INR 1.7 H (0.8-1.2) APTT 28.9 (24.9-33.3) secs Bld Gas Analysis Time Sample Site ABG pH (7.35-7.45) ABG pCO2 (34-45) mmHg ABG pO2 (80-100) mmHg ABG HCO3 (22.0-26.0) mmol/L ABG Total CO2 (21.0-29.0) MMOL/L ABG O2 Saturation (94-98) % ABG Base Excess (-2.0-3.0) mmol/L Emmanuel Test VBG pH (7.31-7.41) Ionized Calcium (1.15-1.33) mmol/L O2 Delivery Device O2 Liters/Min LPM Sodium 130 L (135-145) mmol/L Potassium 3.6 (3.5-5.0) mmol/L Chloride 93 L (101-111) mmol/L Carbon Dioxide 25 (21-32) mmol/L Anion Gap 12.0 (6-13) BUN 25 H (6-20) mg/dL Creatinine 0.8 (0.6-1.2) mg/dL Estimated GFR (MDRD) 94 (>89) Glucose 134 H (70-100) mg/dL Estimat Average Glucose (70-100) mg/dL Hemoglobin A1c % (4.27-6.07) % Lactic Acid 1.5 (0.5-2.2) mmol/L Calcium 8.8 (8.5-10.3) mg/dL Phosphorus (2.5-4.6) mg/dL Magnesium (1.7-2.8) mg/dL Total Bilirubin 1.8 H (0.2-1.0) mg/dL AST 37 (10-42) IU/L ALT 26 (10-60) IU/L Alkaline Phosphatase 79 (42-121) IU/L Troponin I High Sens (2.3-19.7) ng/L B-Natriuretic Peptide (5-100) pg/mL Total Protein 7.2 (6.7-8.2) g/dL Albumin 3.8 (3.2-5.5) g/dL Globulin 3.4 (2.1-4.2) g/dL Albumin/Globulin Ratio 1.1 (1.0-2.2) Lipase 21 L (22-51) U/L TSH (0.34-5.60) uIU/mL Urine Color Urine Clarity (CLEAR) Urine pH (5.0-7.5) PH Ur Specific [place] (1.002-1.030) Urine Protein (NEGATIVE) mg/dL Urine Glucose (UA) (NEGATIVE) mg/dL Urine Ketones (NEGATIVE) mg/dL Urine Occult Blood (NEGATIVE) Urine Nitrite (NEGATIVE) Urine Bilirubin (NEGATIVE) Urine Urobilinogen (NORMAL) E.U./dL Ur Leukocyte Esterase (NEGATIVE) Urine RBC (0-5) /HPF Urine WBC (0-3) /HPF Ur Squamous Epith Cells (<= Few) Amorphous Sediment /LPF Urine Bacteria (None Seen) /HPF Ur Microscopic Review Urine Culture Comments Nasal Adenovirus (PCR) Nasal B. parapertussis DNA (PCR) Nasal Coronavir 229E PCR Nasal Coronavir HKU1 PCR Nasal Coronavir NL63 PCR Nasal Coronavir OC43 PCR Nasal Enterovir/Rhinovir PCR Nasal Influenza B PCR Nasal Influenza A PCR Nasal Parainfluen 1 PCR Nasal Parainfluen 2 PCR Nasal Parainfluen 3 PCR Nasal Parainfluen 4 PCR Nasal RSV (PCR) Nasal Screen MRSA (PCR) (NEGATIVE) Nasal B.pertussis DNA PCR Nasal C.pneumoniae (PCR) [place] Human Metapneumo PCR Nasal M.pneumoniae (PCR) Nasal SARS-CoV-2 (PCR) 09/10/21 Range/Units 19:33 WBC 9.2 (4.8-10.8) x10^3/uL RBC 4.51 L (4.70-6.10) 10^6/uL Hgb 13.4 L (14.0-18.0) g/dL Hct 39.7 L (42.0-52.0) % MCV 88.0 (80.0-94.0) fL MCH 29.7 (27.0-31.0) pg MCHC 33.8 (32.0-36.0) g/dL RDW 13.1 (12.0-15.0) % Plt Count 175 (130-450) 10^3/uL MPV 11.2 (7.4-11.4) fL Neut # (Auto) 7.8 H (1.5-6.6) 10^3/uL Lymph # (Auto) 0.5 L (1.5-3.5) 10^3/uL [place] # (Auto) 0.8 (0.0-1.0) 10^3/uL Eos # (Auto) 0.0 (0.0-0.7) 10^3/uL Baso # (Auto) 0.0 (0.0-0.1) 10^3/uL Absolute Nucleated RBC 0.00 x10^3/uL Nucleated RBC % 0.0 /100WBC PT (9.9-12.6) secs INR (0.8-1.2) APTT (24.9-33.3) secs Bld Gas Analysis Time Sample Site ABG pH (7.35-7.45) ABG pCO2 (34-45) mmHg ABG pO2 (80-100) mmHg ABG HCO3 (22.0-26.0) mmol/L ABG Total CO2 (21.0-29.0) MMOL/L ABG O2 Saturation (94-98) % ABG Base Excess (-2.0-3.0) mmol/L Emmanuel Test VBG pH (7.31-7.41) Ionized Calcium (1.15-1.33) mmol/L O2 Delivery Device O2 Liters/Min LPM Sodium (135-145) mmol/L Potassium (3.5-5.0) mmol/L Chloride (101-111) mmol/L Carbon Dioxide (21-32) mmol/L Anion Gap (6-13) BUN (6-20) mg/dL Creatinine (0.6-1.2) mg/dL Estimated GFR (MDRD) (>89) Glucose (70-100) mg/dL Estimat Average Glucose (70-100) mg/dL Hemoglobin A1c % (4.27-6.07) % Lactic Acid (0.5-2.2) mmol/L Calcium (8.5-10.3) mg/dL Phosphorus (2.5-4.6) mg/dL Magnesium (1.7-2.8) mg/dL Total Bilirubin (0.2-1.0) mg/dL AST (10-42) IU/L ALT (10-60) IU/L Alkaline Phosphatase (42-121) IU/L Troponin I High Sens (2.3-19.7) ng/L B-Natriuretic Peptide (5-100) pg/mL Total Protein (6.7-8.2) g/dL Albumin (3.2-5.5) g/dL Globulin (2.1-4.2) g/dL Albumin/Globulin Ratio (1.0-2.2) Lipase (22-51) U/L TSH (0.34-5.60) uIU/mL Urine Color Urine Clarity (CLEAR) Urine pH (5.0-7.5) PH Ur Specific [place] (1.002-1.030) Urine Protein (NEGATIVE) mg/dL Urine Glucose (UA) (NEGATIVE) mg/dL Urine Ketones (NEGATIVE) mg/dL Urine Occult Blood (NEGATIVE) Urine Nitrite (NEGATIVE) Urine Bilirubin (NEGATIVE) Urine Urobilinogen (NORMAL) E.U./dL Ur Leukocyte Esterase (NEGATIVE) Urine RBC (0-5) /HPF Urine WBC (0-3) /HPF Ur Squamous Epith Cells (<= Few) Amorphous Sediment /LPF Urine Bacteria (None Seen) /HPF Ur Microscopic Review Urine Culture Comments Nasal Adenovirus (PCR) Nasal B. parapertussis DNA (PCR) Nasal Coronavir 229E PCR Nasal Coronavir HKU1 PCR Nasal Coronavir NL63 PCR Nasal Coronavir OC43 PCR Nasal Enterovir/Rhinovir PCR Nasal Influenza B PCR Nasal Influenza A PCR Nasal Parainfluen 1 PCR Nasal Parainfluen 2 PCR Nasal Parainfluen 3 PCR Nasal Parainfluen 4 PCR Nasal RSV (PCR) Nasal Screen MRSA (PCR) (NEGATIVE) Nasal B.pertussis DNA PCR Nasal C.pneumoniae (PCR) Martínez Human Metapneumo PCR Nasal M.pneumoniae (PCR) Nasal SARS-CoV-2 (PCR) - Imaging Results Radiology Imaging: positive: EMP read indepedently (No fracture of right great toe visualized on x-ray No evidence of osteomyelitis) - Current Medications Current Medications: Current Medications Generic Name Dose Route Start Last Admin Trade Name Freq PRN Reason Stop Dose Admin Acetaminophen 650 mg 09/10/21 21:10 09/11/21 08:25 Acetaminophen 325 Mg Tablet PO 650 mg Q4HR PRN Administration Pain 1 to 4, or Fever Apixaban 5 mg 09/10/21 22:00 09/11/21 08:09 Apixaban 5 Mg Tablet PO 5 mg BID KATE Administration Furosemide 40 mg 09/11/21 06:00 09/11/21 05:54 Furosemide 40 Mg/4 Ml Vial IVP 40 mg BIDDIURETIC KATE Administration Cefazolin Sodium 2 gm/ Sodium 100 mls @ 200 mls/hr 09/11/21 14:00 09/11/21 13:57 Chloride IV 09/11/21 14:29 200 mls/hr Q8H KATE Administration Insulin Human Lispro 1 - 9 unit 09/11/21 08:00 09/11/21 12:15 Insulin Lispro 300 Unit/3 Ml Pen SUBQ Not Given 0800,1200,1700,2100 [facility] Protocol Metoprolol Tartrate 5 mg 09/11/21 06:00 09/11/21 12:18 Metoprolol 5 Mg/5 Ml Vial IVP 5 mg Q6HR KATE Administration Nystatin 1 applic 09/10/21 23:00 09/11/21 09:17 Nystatin Powder 15 Gm TOP 1 applic BID KATE Administration Sodium Chloride 10 ml 09/11/21 01:00 09/11/21 08:09 Sodium Chloride Flush 0.9% 10 Ml Syringe IVP 10 ml 0100,0900,1700 KATE Administration Sodium Chloride 10 ml 09/10/21 21:10 09/10/21 22:15 Sodium Chloride Flush 0.9% 10 Ml Syringe IVP 10 ml PRN PRN Administration NEEDED PER PROVIDER ORDERS Tamsulosin HCl 0.4 mg 09/10/21 23:00 09/10/21 23:07 Tamsulosin 0.4 Mg Capsule PO 0.4 mg HS KATE Administration - Physical Exam Comments/Other: Reduced pulses, no acute vascular compromise to both feet Erythema and swelling of right great toe without clinical deformity Nail plate absent with discolored nail bed, dry nail bed Skin blisters over the dorsum of the great toe with erythema Erythema on dorsum of foot marked today Question of decreased sensation to both feet Impression/Plan - Problem List Problem List: 76 year old male with diabetes mellitus type 2 (A1c 6.1 per patient) admitted for A-fib with RVR and bacteremia. Orthopedics consulted for concern of right great toe fracture and cellulitis. Orthopedic evaluation is cellulitis without fracture or concern for osteomyelitis. Plan - Continue IV antibiotics per hospitalist team - No surgical indications at this time - Please call orthopedic team if there are any acute changes and the patient needs to be reevaluated - He can schedule an appointment with the Orthopedic office after discharge for follow up
--- NOTE | 2021-09-11 14:23 | XRAY Report ---
PROCEDURE: Foot 2 View RT INDICATIONS: INFECTED R TOE TECHNIQUE: Three views of the foot were acquired. COMPARISON: 09/09/2021 FINDINGS: Right 1st distal phalanx fracture is redemonstrated, increased in conspicuity. No additional fracture identified. IMPRESSION: Right 1st distal phalanx fracture is increased in conspicuity, likely representing osteoclastic fract ure healing activity. On underlying pathologic lesion cannot be strictly excluded. Reviewed by: Shaheen Armstrong MD on 09/11/2021 2:21 PM PDT Approved by: Shaheen Armstrong MD on 09/11/2021 2:21 PM PDT Station ID: [id number]
[2021-09-11] MEDS ORDERED: iohexoL-300 100 ML VIAL IVP ONE (14:35)
--- NOTE | 2021-09-11 15:38 | CT Report ---
PROCEDURE: ANGIO CHEST W/WO INDICATIONS: looking for PE CONTRAST: IV CONTRAST: Optiray 320 ml: 80 PO CONTRAST: *NO PO CONTRAST TECHNIQUE: After the administration of intravenous contrast, 2 mm axial images were acquired from the pulmonary apices to the posterior costophrenic angles during the arterial phase. In addition, 1 mm lung kernel and 5 mm soft tissue kernel reconstructions were performed. 3-dimensional coronal oblique maximum int ensity projection (MIP) reformats, 8 mm axial MIP, and 5 mm coronal and sagittal MPR reformats were t hen performed through the thorax. For radiation dose reduction, the following was used: automated exp osure control, adjustment of mA and/or kV according to patient size. Patient was given IV Benadryl prior to scan for reported iodine allergy. No adverse reactions postcon trast administration.. COMPARISON: None available FINDINGS: Image quality: Decreased due to respiratory motion throughout the scan.. Pulmonary arteries: Main pulmonary outflow tract and main pulmonary arteries are patent without filli ng defect. Lobar and more peripheral pulmonary arteries are not well evaluated given timing of IV con trast, low lung volumes, and respiratory motion. Pulmonary embolus cannot be excluded. Lungs and pleura: There are extremely low lung volumes. Posterior medial left lower lobe subpleural airspace opacity is present adjacent to the vasculature. No other visible dense consolidations altho ugh there is a right middle lobe atelectasis along the diaphragm. No pleural effusions or pneumothora x. Central airway and demonstrates an inward bowed posterior wall due to exhalation. Peripheral airwa ys are not well evaluated. Mediastinum: Heart size is moderately enlarged. There are scattered coronary and aortic valvular erma cifications. No pericardial effusion. No mediastinal or hilar adenopathy. The aorta appears aneurysma l in the ascending portion measuring 4.8 cm in AP diameter. Descending thoracic aortic contour is tor tuous. Esophagus is normal without hiatal hernia. Bones and chest wall: No suspicious bony lesions. Ribs and thoracic spine appear intact throughout. No axillary or supraclavicular adenopathy. The thyroid gland is partially imaged. Abdomen: Visualized upper abdominal solid organs appear normal in the early arterial phase of enhanc ement. IMPRESSION: 1. Decreased study quality secondary to patient and technical factors. 2. No large central embolus. Peripheral pulmonary emboli cannot be excluded. 3. Cardiomegaly. 4. Ascending aortic aneurysm. 5. Small retrocardiac airspace opacity, likely atelectasis although small pneumonia or mass is not ex cluded. Recommend follow-up study following appropriate treatment in 3-4 weeks. Reviewed by: Jammie Ma MD on 09/11/2021 3:36 PM PDT Approved by: Jammie Ma MD on 09/11/2021 3:36 PM PDT Station ID: [id number]
[2021-09-11 16:32] LABS: CALCIUM 8.1 mg/dL (8.5-10.3)
[2021-09-11] MEDS: POTASSIUM CHLORIDE 20 MEQ TABLET PO SCH ×2 (16:50→20:00)
[2021-09-11] MEDS: TAMSULOSIN 0.4 MG CAPSULE PO SCH (20:00)
[2021-09-11] MEDS: TEMAZEPAM 15 MG CAPSULE PO PRN (21:05)
[2021-09-11] MEDS: traMADol 50 MG TABLET PO PRN (21:05)
[2021-09-12] MEDS: METOPROLOL 5 MG/5 ML VIAL IVP SCH ×3 (00:04→11:18)
[2021-09-12] MEDS: SODIUM CHLORIDE FLUSH 0.9% 10 ML SYRINGE IVP SCH ×4 (00:05→23:31)
[2021-09-12] MEDS: traMADol 50 MG TABLET PO PRN ×3 (00:47→20:04)
[2021-09-12] MEDS: ACETAMINOPHEN 325 MG TABLET PO PRN ×2 (00:47→11:17)
[2021-09-12 04:50] LABS: BASOPHILS % (AUTO) 0.3 %; CALCIUM, IONIZED 1.04 mmol/L (1.15-1.33); EOSINOPHILS % (AUTO) 0.2 %; HCT - HEMATOCRIT 38.3 % (42.0-52.0); HGB - HEMOGLOBIN 12.7 g/dL (14.0-18.0); LYMPHOCYTES # (AUTO) 0.8 10^3/uL (1.5-3.5); LYMPHOCYTES % (AUTO) 9.1 %; MEAN CORPUSCULAR HEMOGLOBIN 29.4 pg (27.0-31.0); MEAN CORPUSCULAR HGB CONC 33.2 g/dL (32.0-36.0); MEAN CORPUSCULAR VOLUME 88.7 fL (80.0-94.0); MEAN PLATELET VOLUME 11.1 fL (7.4-11.4); MONOCYTES # (AUTO) 0.9 10^3/uL (0.0-1.0); MONOCYTES % (AUTO) 10.7 %; NEUTROPHILS # (AUTO) 6.9 10^3/uL (1.5-6.6); PLT - PLATELET COUNT 181 10^3/uL (130-450); RED BLOOD COUNT 4.32 10^6/uL (4.70-6.10); RED CELL DISTRIBUTION WIDTH 13.2 % (12.0-15.0); VBG PH 7.494 (7.31-7.41); WHITE BLOOD COUNT 8.7 x10^3/uL (4.8-10.8)
[2021-09-12 05:00] LABS: CALCIUM 8.4 mg/dL (8.5-10.3); CREATININE 0.7 mg/dL (0.6-1.2); POTASSIUM 3.2 mmol/L (3.5-5.0)
[2021-09-12] MEDS: FUROSEMIDE 40 MG/4 ML VIAL IVP SCH ×2 (05:23→13:56)
[2021-09-12] MEDS ORDERED: SODIUM CHLORIDE 0.9% 50 ML IV ONE (05:33)
[2021-09-12] MEDS: APIXABAN 5 MG TABLET PO SCH ×2 (08:26→20:04)
[2021-09-12] MEDS: POTASSIUM CHLORIDE 20 MEQ TABLET PO SCH ×4 (08:26→19:43)
[2021-09-12] MEDS: CALCIUM CARBONATE CHEW 500 MG TABLET PO SCH ×4 (08:26→19:52)
[2021-09-12] MEDS: INSULIN LISPRO 300 UNIT/3 ML PEN SUBQ SCH (08:29)
[2021-09-12] MEDS: NYSTATIN POWDER 15 GM TOP SCH ×2 (10:36→20:04)
--- NOTE | 2021-09-12 10:51 | XRAY Report ---
PROCEDURE: Lumbar Spine 2 View INDICATIONS: severe LS pain over L SI joint TECHNIQUE: 3 views of the lumbar spine were acquired. COMPARISON: None. FINDINGS: Bones: 5 [id number] vertebrae are present. There is mild levoscoliosis centered at L2 level. S traightening of normal lumbar lordosis is seen. Degenerative endplate changes, loss of disc height an d bilateral facet arthrosis throughout lumbar spine is seen. No vertebral body compression fractures . No suspicious bony lesions. Visualized portion of bilateral sacroiliac joints shows no gross anky losis. Soft tissues: Overlying bowel gas pattern is normal. No suspicious soft tissue calcifications. IMPRESSION: No acute vertebral body compression fracture or spondylolisthesis. Mild scoliosis as abo ve. No gross ankylosis is seen in visualized bilateral sacroiliac joints. Reviewed by: Omar Kim MD on 09/12/2021 10:50 AM PDT Approved by: Omar Kim MD on 09/12/2021 10:50 AM PDT Station ID: [id number]
[2021-09-12] MEDS ORDERED: INSULIN LISPRO 300 UNIT/3 ML PEN SUBQ SCH (12:00)
--- NOTE | 2021-09-12 13:07 | PROVIDER PROGRESS NOTE ---
Subjective - Prog Note Date Prog Note Date: 09/12/21 Prog Note Time: 13:52 - Subjective Pt reports feeling: Improved (76 y.o. male 6ft 2in 149kg lying in bed, alert, conversant, watching the news. He is able to detail his hospital stay including the xray he got this morning and the CT scan he recieved yesterday. Says he isn't in pain as long as he doesn't move. When he does move his back hurts him a lot.) Current Medications - Current Medications Current Medications: Active Medications Hydrocodone Bitart/Acetaminophen (Hydrocod/Acetam 5/325 Mg Tablet) 1 tab PO Q4HR [facility] Apixaban (Apixaban 5 Mg Tablet) 5 mg PO BID [facility] Last Admin: 09/12/21 08:26 Dose: 5 mg Carvedilol (Carvedilol 12.5 Mg Tablet) 25 mg PO BID [facility] Docusate Sodium (Docusate Sodium 100 Mg Capsule) 100 mg PO DAILY [facility] Furosemide (Furosemide 40 Mg/4 Ml Vial) 40 mg IVP BIDDIURETIC [facility] Last Admin: 09/12/21 05:23 Dose: 40 mg Cefazolin Sodium 2 gm/ Sodium (Chloride) 50 mls @ 100 mls/hr IV Q8H [facility] Last Infusion: 09/12/21 06:53 Dose: Infused Insulin Human Regular (Insulin Regular Human 300 Unit/3 Ml Vial) 1 - 9 unit SUBQ Q6HR [facility]; Protocol Lisinopril (Lisinopril 5 Mg Tablet) 10 mg PO DAILY [facility] Metoprolol Tartrate (Metoprolol 5 Mg/5 Ml Vial) 5 mg IVP Q6HR PRN PRN Reason: Tachycardia Nystatin (Nystatin Powder 15 Gm) 1 applic TOP BID [facility] Last Admin: 09/12/21 10:36 Dose: 1 applic Ondansetron HCl (Ondansetron Odt 4 Mg Tablet) 4 mg TL Q6HR PRN PRN Reason: Nausea / Vomiting Ondansetron HCl (Ondansetron 4 Mg/2 Ml Vial) 4 mg IVP Q6HR PRN PRN Reason: Nausea / Vomiting Sodium Chloride (Sodium Chloride Flush 0.9% 10 Ml Syringe) 10 ml IVP 0100,0900,1700 [facility] Last Admin: 09/12/21 08:29 Dose: 10 ml Sodium Chloride (Sodium Chloride Flush 0.9% 10 Ml Syringe) 10 ml IVP PRN PRN PRN Reason: NEEDED PER PROVIDER ORDERS Last Admin: 09/10/21 22:15 Dose: 10 ml Tamsulosin HCl (Tamsulosin 0.4 Mg Capsule) 0.4 mg PO HS [facility] Last Admin: 09/11/21 20:00 Dose: 0.4 mg Temazepam (Temazepam 15 Mg Capsule) 15 mg PO QPM PRN PRN Reason: Insomnia Last Admin: 09/11/21 21:05 Dose: 15 mg Tramadol HCl (Tramadol 50 Mg Tablet) 50 mg PO Q4HR PRN PRN Reason: PAIN Last Admin: 09/12/21 09:23 Dose: 50 mg Apixaban [Eliquis] 5 mg PO BID 09/11/21 Carvedilol [Coreg] 25 mg PO BID 09/11/21 lisinopriL [Lisinopril] 10 mg PO DAILY 09/11/21 metFORMIN [Glucophage] 500 mg PO BIDWM 09/11/21 Objective - Vital Signs/Intake & Output Reviewed Vital Signs: Yes Vital Signs: Vital Signs Temp Pulse Resp BP BP BP Pulse Ox 09/12/21 11:56 36.9 C 82 28 H 163/113 H 95 09/12/21 11:18 170/112 H 09/12/21 11:00 83 20 170/112 H 96 09/12/21 10:00 95 21 154/102 H 94 09/12/21 09:00 87 20 147/95 H 95 Intake & Output: Intake & Output 09/09/21 09/10/21 09/11/21 09/12/21 23:59 23:59 23:59 23:59 Intake Total 100 3068.333 150 Output Total 400 5440 1910 Balance -300 -8172.748 -0947 - Objective General Appearance: positive: No acute distress, Alert Eyes Bilateral: positive: PERRL ENT: positive: ENT inspection nml Neck: positive: Nml inspection, No JVD Respiratory: positive: Other (clear bilateral breath sounds diminished at the bases.) Cardiovascular: positive: Irregularly irregular Peripheral Pulses: 1+ Dorsalis pedis (R), 1+ Dorsalis pedis (L) Abdomen: positive: Non-tender, Nml bowel sounds, Other (soft. nontender.) Back: positive: CVA tenderness (R) Skin: positive: Other (grossly infected right first toe with extending redness that seems to have receded from previously marked area.) Extremities: positive: Pedal edema (trace pedal edema) Neurologic/Psychiatric: positive: Oriented x3 - Lab Results Fish Bones: 09/12/21 04:39 09/12/21 15:32 Other Labs: Lab Results x24hrs 09/12/21 09/12/21 09/12/21 Range/Units 04:39 04:39 04:39 WBC (4.8-10.8) x10^3/uL RBC (4.70-6.10) 10^6/uL Hgb (14.0-18.0) g/dL Hct (42.0-52.0) % MCV (80.0-94.0) fL MCH (27.0-31.0) pg MCHC (32.0-36.0) g/dL RDW (12.0-15.0) % Plt Count (130-450) 10^3/uL MPV (7.4-11.4) fL Neut # (Auto) (1.5-6.6) 10^3/uL Lymph # (Auto) (1.5-3.5) 10^3/uL [place] # (Auto) (0.0-1.0) 10^3/uL Eos # (Auto) (0.0-0.7) 10^3/uL Baso # (Auto) (0.0-0.1) 10^3/uL Absolute Nucleated RBC x10^3/uL Nucleated RBC % /100WBC VBG pH 7.494 H (7.31-7.41) Ionized Calcium 1.04 L (1.15-1.33) mmol/L Sodium (135-145) mmol/L Potassium (3.5-5.0) mmol/L Chloride (101-111) mmol/L Carbon Dioxide (21-32) mmol/L Anion Gap (6-13) BUN (6-20) mg/dL Creatinine (0.6-1.2) mg/dL Estimated GFR (MDRD) (>89) Glucose (70-100) mg/dL Calcium (8.5-10.3) mg/dL Troponin I High Sens 14.3 (2.3-19.7) ng/L B-Natriuretic Peptide 290 H (5-100) pg/mL 09/12/21 09/12/21 09/11/21 Range/Units 04:39 04:39 16:09 WBC 8.7 (4.8-10.8) x10^3/uL RBC 4.32 L (4.70-6.10) 10^6/uL Hgb 12.7 L (14.0-18.0) g/dL Hct 38.3 L (42.0-52.0) % MCV 88.7 (80.0-94.0) fL MCH 29.4 (27.0-31.0) pg MCHC 33.2 (32.0-36.0) g/dL RDW 13.2 (12.0-15.0) % Plt Count 181 (130-450) 10^3/uL MPV 11.1 (7.4-11.4) fL Neut # (Auto) 6.9 H (1.5-6.6) 10^3/uL Lymph # (Auto) 0.8 L (1.5-3.5) 10^3/uL [place] # (Auto) 0.9 (0.0-1.0) 10^3/uL Eos # (Auto) 0.0 (0.0-0.7) 10^3/uL Baso # (Auto) 0.0 (0.0-0.1) 10^3/uL Absolute Nucleated RBC 0.00 x10^3/uL Nucleated RBC % 0.0 /100WBC VBG pH (7.31-7.41) Ionized Calcium (1.15-1.33) mmol/L Sodium 133 L (135-145) mmol/L Potassium 3.2 L 3.0 L (3.5-5.0) mmol/L Chloride 93 L (101-111) mmol/L Carbon Dioxide 29 (21-32) mmol/L Anion Gap 11.0 (6-13) BUN 24 H (6-20) mg/dL Creatinine 0.7 (0.6-1.2) mg/dL Estimated GFR (MDRD) 110 (>89) Glucose 117 H (70-100) mg/dL Calcium 8.4 L 8.1 L (8.5-10.3) mg/dL Troponin I High Sens (2.3-19.7) ng/L B-Natriuretic Peptide (5-100) pg/mL - Diagnostic Imaging Diagnostic Imaging Results: positive: Prelim report reviewed Sepsis Event Note (H) - Evaluation Current Stage of Sepsis: Sepsis Possible source of Sepsis: positive: Bone/Joint (appeared in the ED 09/10 with signs and symptoms of sepsis. now resolving) - Sepsis Criteria Sepsis Criteria: Recorded Heart Rate greater than 90 bpm, Recorded Respiratory Rate greater than 20, Respiratory: Increasing oxygen requirements, CAD INTERN: altered consciousness (unrelated to primary neuro pathology) Assessment/Plan - Problem List (1) Metabolic encephalopathy Impression: Impression: His confusion is what made his bring him into the hospital. He was also not getting out of bed for at least 2 to 3 days. He feels it all started a couple of weeks ago when he stubbed his toe on the carpet, and he could not believe how much his toe hurt. He thought he broke his toe. That then led to pain and swelling in the left great toe, not being able to weight-bear because the foot was too painful and finally just being in bed for a few days. Gradually increasing confusion. And that is when the called EMS. Between admit and today, he has definitely improved. He does not remember the last few days. Today he is oriented and can clearly state why he is in the hospital. Plan: Continue to treat the underlying causes encephalopathy of hypoxemia from acute congestive heart failure and the left great toe infection. (2) Bacteremia Impression: Blood cultures from 09/10 positive for Staph Aureus from bilateral hands. On cefazolin 2G q8hrs. Afebrile. (3) Pyelonephritis Impression: Urine culture positive for Staph Aureus. He is complaining of back pain that is not definitive in its location but seems to be in the region of his flank. Urine has changed colors over the last 12 hrs from pink with sediment to red, though the raya had to be changed as it stopped draining and bladder scan showed over a liter of urine, red urine started after placement of new raya so there is a possibility that the color change could be due to new raya placement. CT abdomen ordered to chaeck for obstructive pyelonephritis. CT reads there are no obstructing renal stones or hydronephrosis. No hydroureter. Mild bilateral perinephric fat stranding, pyelonephritis cannot be excluded. Diffuse bladder wall thickening, which could represent cystitis. Enlarged prostate gland with mass effect on floor of urinary bladder. Cefazolin 2G q8hrs continued. Cr 0.7 and BUN 24, with good urine output of 1700 since midnight. (4) Acute respiratory failure with hypoxia Conclusion/Plan: This appears to be secondary to congestive heart failure. He was initially in the 80s on room air and had to be put on a nonrebreather. He had pulmonary edema on exam. He then progressed to being on BiPAP. This morning he is awake and alert after starting antibiotics, and has had diuresis and his heart rate is controlled. He is on 7L oxymizer and breathing comfortably, not complaining of shortness of breath. Continue on Lasix 40 mg IV twice daily. Echocardiogram done 09/11 showing mild concentric left ventricular hypertrophy. The ejection fraction is 55 to 60%. Mild to moderate right ventricular enlargement. Considering he has been sedentary, has right ventricular enlargement on echo, unilateral right calf edema, new atrial fib CT pulmonary angiogram done and showed no signs of PE. (5) Acute congestive heart failure Conclusion/Plan: He appears to have acute congestive heart failure which may have been exacerbated by the atrial fibrillation. He has no prior echocardiogram so it is unclear if this is systolic or diastolic dysfunction. Admit echocardiogram done 09/11 showing mild concentric left ventricular hypertrophy. The ejection fraction is 55 to 60%. Mild to moderate right ventricular enlargement. His BNP is only mildly elevated, downtrending from 489 09/11 to 290 09/12. His x-ray on admit suggest pulmonary edema, abdominal distention, but no pitting lower extremity edema on exam. On Lasix 40 mg IV twice daily started 09/11. Now that HR is consistently rate controlled in the 80s-90s and BP is still elevated to 150-170s systolic If he remains hypertensive I restarted home lisinopril and carvedilol dosing leaving IV metoprolol prn in to treat tachycardia exceeding 100 bpm. Fluid restriction. Daily weights. Strict I's and O's. Daily BMP Qualifiers: Heart failure type: unspecified Qualified Code(s): I50.9 - Heart failure, unspecified (5) Atrial fibrillation with RVR Conclusion/Plan: He has a known history of atrial fibrillation and is on carvedilol and apixaban at home. He presents with rapid ventricular response and rates in the 120s. Started him on Lopressor 5 mg IV every 6 hours given he is on BiPAP. Resumed home carvedilol today, keeping IV metoprolol PRN for HR > 110 bpm. Optimizing electrolytes. TSH 1.49. Echocardiogram done 09/11 showing mild concentric left ventricular hypertrophy. The ejection fraction is 55 to 60%. Mild to moderate right ventricular enlargement. Monitor on telemetry. (7) Right foot infection Conclusion/Plan: The right toe does appear to be infected with surrounding cellulitis although there is also component of ecchymosis secondary to the trauma. He is on IV cefazolin, which will cover the MSSA found in the blood and urine, today is day 2. X-ray did not show any evidence of osteomyelitis but did suggest a fracture, ortho was consulted and evaluated toes to be cellulitis without fracture or concern for osteomyelitis - no surgical indications at this time. Will continue with antibiotic therapy for cellulitis. (8) Hyponatremia Conclusion/Plan: This is likely hypervolemic hyponatremia secondary to heart failure. His sodium is 130 --> 135 --> 133. Improving with diuresis. Recheck BMP in the morning. (9) Phalanx fracture, foot Conclusion/Plan: This occurred about 1 week ago and x-rays yesterday confirmed a distal mildly displaced fracture. We will manage his pain with Tylenol. There is potential concern for infection so we will manage this as mentioned above with IV antibiotics. Improving on antibiotics, will defer discussing with orthopedic surgery for now. Qualifiers: Encounter type: initial encounter Toe: great toe (10) Type 2 diabetes mellitus Conclusion/Plan: He is on metformin at home. A1C 6.3. Blood glucose is currently in the 117 this morning. He is on sliding scale and carb controlled diet. Will continue to follow BG and adjust insulin as needed.
[2021-09-12] MEDS ORDERED: METOPROLOL 5 MG/5 ML VIAL IVP PRN (13:25)
[2021-09-12] MEDS: HYDROcod/ACETAM 5/325 MG TABLET PO SCH ×2 (13:55→17:32)
[2021-09-12] MEDS: DOCUSATE SODIUM 100 MG CAPSULE PO SCH (13:59)
[2021-09-12] MEDS ORDERED: lisinopriL 5 MG TABLET PO SCH (14:00)
[2021-09-12] MEDS ORDERED: D5NS W/20 MEQ KCL 1,000 ML IV SCH (15:00)
[2021-09-12 15:41] LABS: CALCIUM, IONIZED 1.06 mmol/L (1.15-1.33); VBG PH 7.481 (7.31-7.41)
--- NOTE | 2021-09-12 16:35 | CT Report ---
PROCEDURE: Abdomen/Pelvis WO INDICATIONS: pyuria, sepsis, staph in urine w severe flank pain TECHNIQUE: Noncontrast 5 mm thick sections acquired from the diaphragms to the symphysis. 5 mm coronal and sagi ttal reformats were then performed. For radiation dose reduction, the following was used: automated exposure control, adjustment of mA and/or kV according to patient size. COMPARISON: None. FINDINGS: Image quality: Excellent. ABDOMEN: Lung bases: Ill-defined patchy infiltrate/atelectasis in posterior and lateral aspect of bilateral [place] ng bases are seen. No pleural effusion or pneumothorax. Heart size is enlarged, and no pericardial ef fusion. Solid organs: Liver and spleen are normal in size. Gallbladder is within normal limits Pancreas is normal in contours. No adrenal nodules. Kidneys are normal in size. There is no obstructing renal stones or hydronephrosis. Mild bilateral pe rinephric fat stranding is seen, no perinephric fluid collection. There is no hydroureter. Peritoneum and bowel: Unenhanced bowel loops demonstrate normal wall thickness and caliber. No free fluid or air. No abscess collection. Nodes and vessels: No retroperitoneal or mesenteric adenopathy by size criteria. Aorta and inferior vena cava are normal in caliber. Miscellaneous: No ventral hernias. PELVIS: Genitourinary: Ordonez catheter is seen in a partially distended urinary bladder. Enlarged prostate gla nd with mass effect of long bladder is seen. Diffuse bladder wall thickening is noted, no definite bl adder wall mass. Miscellaneous: No inguinal hernias or adenopathy. Bones: No suspicious bony lesions. No vertebral body compression fractures. Degenerative disc dise ase throughout lower thoracic and lumbar spine is seen. IMPRESSION: 1. No obstructing renal stones or hydronephrosis. No hydroureter. Mild bilateral perinephric fat stra nding, polynephritis cannot be excluded. 2. Ordonez catheter in decompressed urinary bladder. Diffuse bladder wall thickening, which could repre sent cystitis. Bladder wall mass cannot be entirely excluded. Enlarged prostate gland with mass effec t on floor of urinary bladder. 3. Patchy infiltrate/atelectasis in posterior aspect of bilateral lung bases. 4. No bowel obstruction or abnormal bowel wall thickening. No free fluid or free air. Reviewed by: Omar Kim MD on 09/12/2021 4:34 PM PDT Approved by: Omar Kim MD on 09/12/2021 4:34 PM PDT Station ID: [id number]
[2021-09-12] MEDS ORDERED: INSULIN REGULAR HUMAN 300 UNIT/3 ML VIAL SUBQ SCH (18:00)
[2021-09-12] MEDS: HYDROcod/ACETAM 5/325 MG TABLET PO PRN ×2 (19:46→23:31)
[2021-09-12] MEDS: carvediloL 12.5 MG TABLET PO SCH (20:04)
[2021-09-12] MEDS: TAMSULOSIN 0.4 MG CAPSULE PO SCH (20:04)
[2021-09-13] MEDS: TEMAZEPAM 15 MG CAPSULE PO PRN ×2 (02:29→22:08)
[2021-09-13] MEDS: traMADol 50 MG TABLET PO PRN ×3 (02:29→22:08)
[2021-09-13] MEDS: FUROSEMIDE 40 MG/4 ML VIAL IVP SCH ×2 (05:19→14:15)
[2021-09-13] MEDS: HYDROcod/ACETAM 5/325 MG TABLET PO PRN ×2 (05:19→12:01)
[2021-09-13 05:54] LABS: BASOPHILS % (AUTO) 0.2 %; EOSINOPHILS % (AUTO) 0.4 %; HCT - HEMATOCRIT 39.5 % (42.0-52.0); HGB - HEMOGLOBIN 13.1 g/dL (14.0-18.0); LYMPHOCYTES # (AUTO) 0.9 10^3/uL (1.5-3.5); LYMPHOCYTES % (AUTO) 8.6 %; MEAN CORPUSCULAR HEMOGLOBIN 29.4 pg (27.0-31.0); MEAN CORPUSCULAR HGB CONC 33.2 g/dL (32.0-36.0); MEAN CORPUSCULAR VOLUME 88.8 fL (80.0-94.0); MEAN PLATELET VOLUME 11.4 fL (7.4-11.4); MONOCYTES # (AUTO) 1.1 10^3/uL (0.0-1.0); MONOCYTES % (AUTO) 10.7 %; NEUTROPHILS # (AUTO) 7.9 10^3/uL (1.5-6.6); NEUTROPHILS % (AUTO) 79.4 %; PLT - PLATELET COUNT 214 10^3/uL (130-450); RED BLOOD COUNT 4.45 10^6/uL (4.70-6.10); RED CELL DISTRIBUTION WIDTH 13.3 % (12.0-15.0); WHITE BLOOD COUNT 9.9 x10^3/uL (4.8-10.8)
[2021-09-13 06:00] LABS: CALCIUM, IONIZED 1.12 mmol/L (1.15-1.33); VBG PH 7.427 (7.31-7.41)
[2021-09-13 06:04] LABS: CALCIUM 9.1 mg/dL (8.5-10.3); CREATININE 0.6 mg/dL (0.6-1.2); POTASSIUM 3.5 mmol/L (3.5-5.0)
[2021-09-13] MEDS: carvediloL 12.5 MG TABLET PO SCH ×2 (08:47→20:28)
[2021-09-13] MEDS: APIXABAN 5 MG TABLET PO SCH ×2 (08:48→20:28)
[2021-09-13] MEDS: DOCUSATE SODIUM 100 MG CAPSULE PO SCH (08:49)
[2021-09-13] MEDS: SENNA 8.6 MG TABLET PO SCH (08:49)
[2021-09-13] MEDS: lisinopriL 20 MG TABLET PO SCH (08:51)
[2021-09-13] MEDS: polyethylene glycoL 3350 17 GM PACKET PO SCH (08:51)
[2021-09-13] MEDS ORDERED: diazePAM INJ 5 MG/ML SYRINGE IVP ONE (09:31)
[2021-09-13] MEDS ORDERED: LABETALOL 20 MG/4 ML SYRINGE IVP ONE (09:32)
[2021-09-13] MEDS ORDERED: POTASSIUM CHLORIDE 20 MEQ TABLET PO ONE (09:47)
[2021-09-13 10:08] LABS: MAGNESIUM 2.2 mg/dL (1.7-2.8); PHOSPHORUS 3.1 mg/dL (2.5-4.6)
[2021-09-13] MEDS: SODIUM CHLORIDE FLUSH 0.9% 10 ML SYRINGE IVP PRN ×2 (10:27→10:38)
[2021-09-13] MEDS ORDERED: NICARDIPINE HCL 25 MG in SODIUM CHLORIDE 0.9% 240 ML IV SCH (11:00)
[2021-09-13] MEDS: SODIUM CHLORIDE FLUSH 0.9% 10 ML SYRINGE IVP SCH ×2 (11:34→17:03)
[2021-09-13] MEDS: NICARDIPINE HCL 25 MG in SODIUM CHLORIDE 0.9% 240 ML IV SCH ×3 (11:34→23:12)
[2021-09-13] MEDS: LIDOCAINE PATCH 5% TOP PRN (12:00)
[2021-09-13] MEDS: CYCLOBENZAPRINE 10 MG TABLET PO PRN ×2 (12:02→20:30)
[2021-09-13] MEDS: NYSTATIN POWDER 15 GM TOP SCH ×2 (14:17→20:29)
--- NOTE | 2021-09-13 15:15 | PROVIDER PROGRESS NOTE ---
Subjective - Prog Note Date Prog Note Date: 09/13/21 Prog Note Time: 15:09 - Subjective Pt reports feeling: No change Subjective: 76 y.o. male 6ft 2 in 150kg. Severe back pain with movement. No pain when still. RNs unable to move in bed or mobilize pt due to the pain. Pt is pleasant and comfortable while lying still and talking with me in bed. Current Medications - Current Medications Current Medications: Active Medications Hydrocodone Bitart/Acetaminophen (Hydrocod/Acetam 5/325 Mg Tablet) 1 tab PO Q4HR KATE Apixaban (Apixaban 5 Mg Tablet) 5 mg PO BID [facility] Last Admin: 09/13/21 08:48 Dose: 5 mg Carvedilol (Carvedilol 12.5 Mg Tablet) 25 mg PO BID [facility] Last Admin: 09/13/21 08:47 Dose: 25 mg Cyclobenzaprine HCl (Cyclobenzaprine 10 Mg Tablet) 10 mg PO TID PRN PRN Reason: Spasms Last Admin: 09/13/21 12:02 Dose: 10 mg Docusate Sodium (Docusate Sodium 100 Mg Capsule) 100 mg PO DAILY [facility] Last Admin: 09/13/21 08:49 Dose: 100 mg Furosemide (Furosemide 40 Mg/4 Ml Vial) 40 mg IVP BIDDIURETIC [facility] Last Admin: 09/13/21 14:15 Dose: 40 mg Cefazolin Sodium 2 gm/ Sodium (Chloride) 50 mls @ 100 mls/hr IV Q8H KATE Last Admin: 09/13/21 14:16 Dose: 100 mls/hr Nicardipine HCl 25 mg/ Sodium (Chloride) 250 mls @ 50 mls/hr IV .Q5H [facility]; Protocol Last Titration: 09/13/21 14:02 Dose: 2.5 mg/hr, 25 mls/hr Lidocaine (Lidocaine Patch 5%) 1 patch TOP DAILY PRN PRN Reason: PAIN Last Admin: 09/13/21 12:00 Dose: 1 patch Lisinopril (Lisinopril 20 Mg Tablet) 20 mg PO DAILY [facility] Last Admin: 09/13/21 08:51 Dose: 20 mg Metoprolol Tartrate (Metoprolol 5 Mg/5 Ml Vial) 5 mg IVP Q6HR PRN PRN Reason: Tachycardia Nystatin (Nystatin Powder 15 Gm) 1 applic TOP BID [facility] Last Admin: 09/13/21 14:17 Dose: 1 applic Ondansetron HCl (Ondansetron Odt 4 Mg Tablet) 4 mg TL Q6HR PRN PRN Reason: Nausea / Vomiting Ondansetron HCl (Ondansetron 4 Mg/2 Ml Vial) 4 mg IVP Q6HR PRN PRN Reason: Nausea / Vomiting Polyethylene Glycol (Polyethylene Glycol 3350 17 Gm Packet) 17 gm PO DAILY [facility] Last Admin: 09/13/21 08:51 Dose: 17 gm Senna (Senna 8.6 Mg Tablet) 8.6 - 17.2 mg PO DAILY [facility] Last Admin: 09/13/21 08:49 Dose: 8.6 mg Sodium Chloride (Sodium Chloride Flush 0.9% 10 Ml Syringe) 10 ml IVP 0100,0900,1700 [facility] Last Admin: 09/13/21 11:34 Dose: Not Given Sodium Chloride (Sodium Chloride Flush 0.9% 10 Ml Syringe) 10 ml IVP PRN PRN PRN Reason: NEEDED PER PROVIDER ORDERS Last Admin: 09/13/21 10:38 Dose: 10 ml Tamsulosin HCl (Tamsulosin 0.4 Mg Capsule) 0.4 mg PO HS [facility] Last Admin: 09/12/21 20:04 Dose: 0.4 mg Temazepam (Temazepam 15 Mg Capsule) 15 mg PO QPM PRN PRN Reason: Insomnia Last Admin: 09/13/21 02:29 Dose: 15 mg Tramadol HCl (Tramadol 50 Mg Tablet) 50 mg PO Q4HR PRN PRN Reason: PAIN Last Admin: 09/13/21 07:44 Dose: 50 mg Apixaban [Eliquis] 5 mg PO BID 09/11/21 Carvedilol [Coreg] 25 mg PO BID 09/11/21 lisinopriL [Lisinopril] 10 mg PO DAILY 09/11/21 metFORMIN [Glucophage] 500 mg PO BIDWM 09/11/21 Objective - Vital Signs/Intake & Output Reviewed Vital Signs: Yes Vital Signs: Vital Signs Temp Pulse Pulse Resp BP BP BP 09/13/21 15:00 80 14 141/94 H 09/13/21 14:32 82 27 H 132/92 H 134/85 H 09/13/21 14:00 68 24 129/86 H 09/13/21 13:56 80 23 131/94 H 09/13/21 13:30 75 116/88 H 09/13/21 12:53 84 90 H 09/13/21 12:30 83 131/94 H 09/13/21 12:00 36.8 C 76 19 144/104 H 09/13/21 11:50 84 124/110 H 09/13/21 11:40 83 165/108 H 09/13/21 11:31 199/139 H 213/160 H Pulse Ox 09/13/21 15:00 93 09/13/21 14:32 94 09/13/21 14:00 92 09/13/21 13:56 90 L 09/13/21 13:30 09/13/21 12:53 94 09/13/21 12:30 09/13/21 12:00 88 L 09/13/21 11:50 09/13/21 11:40 09/13/21 11:31 Intake & Output: Intake & Output 09/10/21 09/11/21 09/12/21 09/13/21 23:59 23:59 23:59 23:59 Intake Total 100 3068.333 1730.275 863.334 Output Total 400 5440 3325 2927 Balance -300 -2761.667 -1594.725 -2063.666 - Objective General Appearance: positive: Moderate distress (Severe back pain with movement. No pain when still. RNs unable to move in bed or mobilize pt due to the pain.) Eyes Bilateral: positive: PERRL ENT: positive: No signs of dehydration Respiratory: positive: Other (clear breath sounds, diminished at the bases, no wheezes, rhochi, or rales. increased O2 requirements from 4L NC to 6L oxymizer while sleeping with apneaic periods.) Cardiovascular: positive: Irregularly irregular Peripheral Pulses: 2+ Dorsalis pedis (R), 2+ Dorsalis pedis (L) Abdomen: positive: Non-tender, Other (Normal bowel tones. Distended.) Back: positive: Other (Non-tender along spinus processes down his lumbar spine. Pain seems to be located lateral to the spine.) Extremities: positive: Pedal edema (trace) Neurologic/Psychiatric: positive: Oriented x3 - Lab Results Fish Bones: 09/13/21 04:36 09/13/21 04:36 Other Labs: Lab Results x24hrs 09/13/21 09/13/21 09/13/21 Range/Units 04:36 04:36 04:36 WBC (4.8-10.8) x10^3/uL RBC (4.70-6.10) 10^6/uL Hgb (14.0-18.0) g/dL Hct (42.0-52.0) % MCV (80.0-94.0) fL MCH (27.0-31.0) pg MCHC (32.0-36.0) g/dL RDW (12.0-15.0) % Plt Count (130-450) 10^3/uL MPV (7.4-11.4) fL Neut # (Auto) (1.5-6.6) 10^3/uL Lymph # (Auto) (1.5-3.5) 10^3/uL Sioux # (Auto) (0.0-1.0) 10^3/uL Eos # (Auto) (0.0-0.7) 10^3/uL Baso # (Auto) (0.0-0.1) 10^3/uL Absolute Nucleated RBC x10^3/uL Nucleated RBC % /100WBC VBG pH 7.427 H (7.31-7.41) Ionized Calcium 1.12 L (1.15-1.33) mmol/L Sodium (135-145) mmol/L Potassium (3.5-5.0) mmol/L Chloride (101-111) mmol/L Carbon Dioxide (21-32) mmol/L Anion Gap (6-13) BUN (6-20) mg/dL Creatinine (0.6-1.2) mg/dL Estimated GFR (MDRD) (>89) Glucose (70-100) mg/dL Calcium (8.5-10.3) mg/dL Phosphorus 3.1 (2.5-4.6) mg/dL Magnesium 2.2 (1.7-2.8) mg/dL B-Natriuretic Peptide 497 H (5-100) pg/mL 09/13/21 09/13/21 09/12/21 Range/Units 04:36 04:36 15:32 WBC 9.9 (4.8-10.8) x10^3/uL RBC 4.45 L (4.70-6.10) 10^6/uL Hgb 13.1 L (14.0-18.0) g/dL Hct 39.5 L (42.0-52.0) % MCV 88.8 (80.0-94.0) fL MCH 29.4 (27.0-31.0) pg MCHC 33.2 (32.0-36.0) g/dL RDW 13.3 (12.0-15.0) % Plt Count 214 (130-450) 10^3/uL MPV 11.4 (7.4-11.4) fL Neut # (Auto) 7.9 H (1.5-6.6) 10^3/uL Lymph # (Auto) 0.9 L (1.5-3.5) 10^3/uL Sioux # (Auto) 1.1 H (0.0-1.0) 10^3/uL Eos # (Auto) 0.0 (0.0-0.7) 10^3/uL Baso # (Auto) 0.0 (0.0-0.1) 10^3/uL Absolute Nucleated RBC 0.00 x10^3/uL Nucleated RBC % 0.0 /100WBC VBG pH 7.481 H (7.31-7.41) Ionized Calcium 1.06 L (1.15-1.33) mmol/L Sodium 138 (135-145) mmol/L Potassium 3.5 (3.5-5.0) mmol/L Chloride 95 L (101-111) mmol/L Carbon Dioxide 32 (21-32) mmol/L Anion Gap 11.0 (6-13) BUN 22 H (6-20) mg/dL Creatinine 0.6 (0.6-1.2) mg/dL Estimated GFR (MDRD) 131 (>89) Glucose 125 H (70-100) mg/dL Calcium 9.1 (8.5-10.3) mg/dL Phosphorus (2.5-4.6) mg/dL Magnesium (1.7-2.8) mg/dL B-Natriuretic Peptide (5-100) pg/mL 09/12/21 Range/Units 15:32 WBC (4.8-10.8) x10^3/uL RBC (4.70-6.10) 10^6/uL Hgb (14.0-18.0) g/dL Hct (42.0-52.0) % MCV (80.0-94.0) fL MCH (27.0-31.0) pg MCHC (32.0-36.0) g/dL RDW (12.0-15.0) % Plt Count (130-450) 10^3/uL MPV (7.4-11.4) fL Neut # (Auto) (1.5-6.6) 10^3/uL Lymph # (Auto) (1.5-3.5) 10^3/uL Sioux # (Auto) (0.0-1.0) 10^3/uL Eos # (Auto) (0.0-0.7) 10^3/uL Baso # (Auto) (0.0-0.1) 10^3/uL Absolute Nucleated RBC x10^3/uL Nucleated RBC % /100WBC VBG pH (7.31-7.41) Ionized Calcium (1.15-1.33) mmol/L Sodium (135-145) mmol/L Potassium 3.1 L (3.5-5.0) mmol/L Chloride (101-111) mmol/L Carbon Dioxide (21-32) mmol/L Anion Gap (6-13) BUN (6-20) mg/dL Creatinine (0.6-1.2) mg/dL Estimated GFR (MDRD) (>89) Glucose (70-100) mg/dL Calcium (8.5-10.3) mg/dL Phosphorus (2.5-4.6) mg/dL Magnesium (1.7-2.8) mg/dL B-Natriuretic Peptide (5-100) pg/mL - Diagnostic Imaging Diagnostic Imaging Results: positive: Final report reviewed Sepsis Event Note (H) - Evaluation Current Stage of Sepsis: Sepsis Possible source of Sepsis: positive: Bone/Joint (appeared in the ED 09/10 with signs and symptoms of sepsis. now resolving) - Sepsis Criteria Sepsis Criteria: Recorded Heart Rate greater than 90 bpm, Recorded Respiratory Rate greater than 20, Respiratory: Increasing oxygen requirements, LOOP PULLER: altered consciousness (unrelated to primary neuro pathology) Assessment/Plan - Problem List (1) Metabolic encephalopathy Impression: Impression: His confusion is what made his bring him into the hospital. He was also not getting out of bed for at least 2 to 3 days. He feels it all started a couple of weeks ago when he stubbed his toe on the carpet, and he could not believe how much his toe hurt. He thought he broke his toe. That then led to pain and swelling in the left great toe, not being able to weight-bear because the foot was too painful and finally just being in bed for a few days. Gradually increasing confusion. And that is when the called EMS. Between admit and now, he has definitely improved. He does not remember the last few days. He is struggling with severe back pain today that is not well controlled. Oriented. Pleasant. Conversant. Plan: Continue to treat the underlying causes encephalopathy of hypoxemia from acute congestive heart failure and the left great toe infection. (2) Back pain Impression: On prn norco, added lidocaine patch, flexeril and one time dose of IV diltizam. RN reports only being able to minimally move the patient in bed as he screams in agony with movement. When palpating along the spinus processes the pain does not seem to originate from that area, possibly muscle or organ in origin. CT from yesterday did show inflammation possibly indicative of pyelonephritis, which should be treated by the cefazolin for MSSA bacteremia/uremia. Ordering CT of spine to check for possible abbesses. (3) Bacteremia Impression: Blood cultures from 09/10 positive for Staph Aureus from bilateral hands. On cefazolin 2G q8hrs. Afebrile. Repeat blood cultures drawn 09/12, will follow up with results. Pt still having severe back pain, will get CT of spine to check for possible abbesses. (4) Pyelonephritis Impression: Urine culture positive for Staph Aureus. He is complaining of back pain that is not definitive in its location but seems to be in the region of his flank. Urine has changed colors over the last 12 hrs from pink with sediment to red, though the raya had to be changed as it stopped draining and bladder scan showed over a liter of urine, red urine started after placement of new raya so there is a possibility that the color change could be due to new raya placement. CT abdomen ordered to check for obstructive pyelonephritis. CT reads there are no obstructing renal stones or hydronephrosis. No hydroureter. Mild bilateral per inephric fat stranding, pyelonephritis cannot be excluded. Diffuse bladder wall thickening, which could represent cystitis. Enlarged prostate gland with mass effect on floor of urinary bladder. Cefazolin 2G q8hrs continued. Cr 0.6 and BUN 22. (5) Acute respiratory failure with hypoxia Conclusion/Plan: This appears to be secondary to congestive heart failure. He was initially in the 80s on room air and had to be put on a nonrebreather. He had pulmonary e elroy on exam. He then progressed to being on BiPAP. This morning he is awake and alert after starting antibiotics, and has had diuresis and his heart rate is controlled. Lungs clear to auscultation. Throughout the day increased O2 requirement from 4L NC to 6L oxymizer this afternoon. I&Os show net negative 2L in last 24 hrs. Pattern of hypoxia is that it occurs when sleeping and he has intermittent apneic periods, suspect pt has undiagnosed sleep apnea ordered CPAP for use when sleeping. Echocardiogram done 09/11 showing mild concentric left ventricular hypertrophy. The ejection fraction is 55 to 60%. Mild to moderate right ventricular enlargement. Considering he has been sedentary, has right ventricular enlargement on echo, unilateral right calf edema, new atrial fib CT pulmonary angiogram done and showed no signs of PE. (6) Acute congestive heart failure Conclusion/Plan: He appears to have acute congestive heart failure which may have been exacerbated by the atrial fibrillation. He has no prior echocardiogram so it is unclear if this is systolic or diastolic dysfunction. Admit echocardiogram done 09/11 showing mild concentric left ventricular hypertrophy. The ejection fraction is 55 to 60%. Mild to moderate right ventricular enlargement. His BNP is only mildly elevated, downtrending from 489 09/11 to 290 09/12. His x-ray on a dmit suggest pulmonary edema. On Lasix 40 mg IV twice daily started 09/11. BNP increased 290 09/12 --> 497 09/13. Trace pedal edema without pitting. Lungs clear to auscultation. Increased O2 requirement from 4L NC to 6L oxymizer this afternoon. I&Os show net negative 2L in last 24 hrs. Pattern of hypoxia is that it occurs when sleeping and he has intermittent apneic periods, suspect pt has undiagnosed sleep apnea ordered CPAP for use when sleeping. Now that HR is consistently rate controlled in the 80s-90s and BP is still elevated to 190s-200s systolic he remains hypertensive despite home lisinopril and carvedilol 09/12. Gave one time dose of labetolol, without significant improvement in BP. Started Nicardipine gtt with goal of SBP < 180 and DBP < 100. Fluid restriction. Daily weights. Strict I's and O's. Daily BMP Qualifiers: Heart failure type: unspecified Qualified Code(s): I50.9 - Heart failure, unspecified (7) Atrial fibrillation with RVR Conclusion/Plan: He has a known history of atrial fibrillation and is on carvedilol and apixaban at home. He presents with rapid ventricular response and rates in the 120s. Started him on Lopressor 5 mg IV every 6 hours given he is on BiPAP. Resumed home carvedilol 09/12, keeping IV metoprolol PRN for HR > 110 bpm. HR in 70-80s without any PRN doses of metoprolol given in the last 24 hrs. Optimizing electrolytes. TSH 1.49. Echocardiogram done 09/11 showing mild concentric left ventricular hypertrophy. The ejection fraction is 55 to 60%. Mild to moderate right ventricular enlargement. Monitor on telemetry. (8) Right foot infection Conclusion/Plan: The right toe does appear to be infected with surrounding cellulitis although there is also component of ecchymosis secondary to the trauma. He is on IV cefazolin, which will cover the MSSA found in the blood and urine, today is day 3. X-ray did not show any evidence of osteomyelitis but did suggest a fracture, ortho was consulted and evaluated toes to be cellulitis without fracture or concern for osteomyelitis - no surgical indications at this time. Will continue with antibiotic therapy for cellulitis. (9) Hyponatremia Conclusion/Plan: This is likely hypervolemic hyponatremia secondary to heart failure. His sodium is 130 --> 135 --> 133 --> 138. Improving with diuresis. Recheck BMP in the morning. (10) Phalanx fracture, foot Conclusion/Plan: This occurred about 1 week ago and x-rays 09/11 confirmed a distal mildly displaced fracture. We will manage his pain with Tylenol. There is potential concern for infection so we will manage this as mentioned above with IV antibiotics. Improving on antibiotics, will defer discussing with orthopedic surgery for now. Qualifiers: Encounter type: initial encounter Toe: great toe (11) Type 2 diabetes mellitus Conclusion/Plan: He is on metformin at home. A1C 6.3. Blood glucose is currently in the 125 this morning. He is on sliding scale and carb controlled diet. Will continue to follow BG and adjust insulin as needed.
[2021-09-13] MEDS ORDERED: iohexoL-300 100 ML VIAL ONE (16:36)
[2021-09-13] MEDS ORDERED: diphenhydrAMINE INJ 50 MG/ML VIAL IVP STA (16:38)
[2021-09-13] MEDS: HYDROcod/ACETAM 5/325 MG TABLET PO SCH ×2 (16:43→20:29)
[2021-09-13] MEDS ORDERED: iohexoL-300 100 ML VIAL IVP ONE (17:59)
--- NOTE | 2021-09-13 18:49 | CT Report ---
PROCEDURE: LUMBAR SPINE W INDICATIONS: agonizing back pain, staph in blood C S CONTRAST: IV CONTRAST: Optiray 320 ml: 100 PO CONTRAST: *NO PO CONTRAST TECHNIQUE: After the administration of intravenous Isovue contrast, 3 mm thick sections acquired from the T12 le reed to the sacrum. Sagittal and coronal reformats were constructed. For radiation dose reduction, t he following was used: automated exposure control, adjustment of mA and/or kV according to patient s ize. COMPARISON: None. FINDINGS: Images do not delineate the discs well. Bones: There is normal bony alignment. Multilevel degenerative changes with multilevel anterior ost eophytes. Posterior disc osteophytes at L2-3. No acute vertebral body compression fractures. No susp icious lytic or blastic bony lesions. Central spinal caliber is of normal overall caliber. No pars defects. T12-L1: Diffuse disc bulge and disc osteophytes with facet arthrosis on the left causes moderate caprice ateral foraminal stenosis. The central canal has moderate stenosis. L1-L2: Diffuse disc bulge and disc osteophytes and facet arthrosis cause severe bilateral foramina l stenosis. The central canal has moderate to severe stenosis. L2-L3: Diffuse disc bulge and disc osteophytes with facet arthrosis cause moderate right and sever e left foraminal stenosis. The central canal has severe stenosis. L3-L4: Diffuse disc bulge and facet arthrosis cause mild bilateral foraminal stenosis. There is lig amentum flavum hypertrophy. The central canal has severe stenosis. L4-L5: Diffuse disc bulge and disc osteophytes with ligamentum flavum hypertrophy cause moderate bi lateral foraminal stenosis and severe central canal stenosis. L5-S1: Diffuse disc bulge and disc osteophytes with facet arthrosis cause severe bilateral foramina l stenosis and moderate central canal stenosis. Soft tissues: No retroperitoneal masses or hematomas. Visualized aorta is normal in caliber. IMPRESSION: 1. Multilevel lumbar spondylosis causing multilevel foraminal and central canal stenosis as above. 2. No focal areas of destruction to suggest disc osteomyelitis. 3. The discs and central canal are difficult to evaluate with these images, MRI would be helpful to branden gerber evaluate. Reviewed by: Delvin Grace on 09/13/2021 6:47 PM PDT Approved by: Delvin Grace on 09/13/2021 6:47 PM PDT Station ID: [id number]
[2021-09-13] MEDS: TAMSULOSIN 0.4 MG CAPSULE PO SCH (20:29)
[2021-09-14] MEDS: HYDROcod/ACETAM 5/325 MG TABLET PO SCH ×3 (00:03→08:51)
[2021-09-14] MEDS: SODIUM CHLORIDE FLUSH 0.9% 10 ML SYRINGE IVP SCH ×3 (03:10→21:50)
[2021-09-14] MEDS: NICARDIPINE HCL 25 MG in SODIUM CHLORIDE 0.9% 240 ML IV SCH ×2 (05:00→08:52)
[2021-09-14] MEDS: FUROSEMIDE 40 MG/4 ML VIAL IVP SCH (05:02)
[2021-09-14 05:12] LABS: BASOPHILS % (AUTO) 0.3 %; CALCIUM, IONIZED 1.07 mmol/L (1.15-1.33); EOSINOPHILS # (AUTO) 0.2 10^3/uL (0.0-0.7); EOSINOPHILS % (AUTO) 1.6 %; HCT - HEMATOCRIT 40.1 % (42.0-52.0); HGB - HEMOGLOBIN 13.1 g/dL (14.0-18.0); LYMPHOCYTES # (AUTO) 1.2 10^3/uL (1.5-3.5); MEAN CORPUSCULAR HEMOGLOBIN 29.2 pg (27.0-31.0); MEAN CORPUSCULAR HGB CONC 32.7 g/dL (32.0-36.0); MEAN CORPUSCULAR VOLUME 89.5 fL (80.0-94.0); MONOCYTES # (AUTO) 1.1 10^3/uL (0.0-1.0); MONOCYTES % (AUTO) 10.1 %; NEUTROPHILS % (AUTO) 75.8 %; PLT - PLATELET COUNT 208 10^3/uL (130-450); RED BLOOD COUNT 4.48 10^6/uL (4.70-6.10); RED CELL DISTRIBUTION WIDTH 13.5 % (12.0-15.0); VBG PH 7.471 (7.31-7.41); WHITE BLOOD COUNT 10.6 x10^3/uL (4.8-10.8)
[2021-09-14 05:26] LABS: CALCIUM 8.6 mg/dL (8.5-10.3); CREATININE 0.5 mg/dL (0.6-1.2)
[2021-09-14] MEDS: lisinopriL 20 MG TABLET PO SCH (08:51)
[2021-09-14] MEDS: APIXABAN 5 MG TABLET PO SCH ×2 (08:51→20:30)
[2021-09-14] MEDS: LIDOCAINE PATCH 5% TOP PRN (08:55)
[2021-09-14] MEDS: POTASSIUM CHLORIDE 20 MEQ TABLET PO SCH ×2 (08:55→11:09)
[2021-09-14] MEDS: carvediloL 12.5 MG TABLET PO SCH ×2 (08:58→20:29)
[2021-09-14] MEDS: DOCUSATE SODIUM 100 MG CAPSULE PO SCH (08:58)
[2021-09-14] MEDS: SENNA 8.6 MG TABLET PO SCH (08:58)
[2021-09-14] MEDS: polyethylene glycoL 3350 17 GM PACKET PO SCH (08:59)
[2021-09-14] MEDS: CALCIUM CARBONATE CHEW 500 MG TABLET PO SCH ×2 (08:59→12:05)
[2021-09-14] MEDS: NYSTATIN POWDER 15 GM TOP SCH ×2 (09:02→20:30)
[2021-09-14] MEDS ORDERED: MAGNESIUM HYDROXIDE 2,400 MG/30 ML UDC PO ONE (10:55)
--- NOTE | 2021-09-14 12:51 | PROVIDER PROGRESS NOTE ---
Subjective - Prog Note Date Prog Note Date: 09/14/21 Prog Note Time: 12:40 - Subjective Pt reports feeling: No change (76 y.o. male 6ft 2in 152kg sitting upright in the recliner. Lethargic, wakes to voice, but starts to doze off during evaluation. More sluggish in his reponses to questions than the day before. No complaints of pain while sitting still.) Current Medications - Current Medications Current Medications: Active Medications Hydrocodone Bitart/Acetaminophen (Hydrocod/Acetam 5/325 Mg Tablet) 1 tab PO Q4HR KATE Last Admin: 09/14/21 08:51 Dose: 1 tab Apixaban (Apixaban 5 Mg Tablet) 5 mg PO BID KATE Last Admin: 09/14/21 08:51 Dose: 5 mg Carvedilol (Carvedilol 12.5 Mg Tablet) 25 mg PO BID KATE Last Admin: 09/14/21 08:58 Dose: 25 mg Cyclobenzaprine HCl (Cyclobenzaprine 10 Mg Tablet) 10 mg PO TID PRN PRN Reason: Spasms Last Admin: 09/13/21 20:30 Dose: 10 mg Docusate Sodium (Docusate Sodium 100 Mg Capsule) 100 mg PO DAILY KATE Last Admin: 09/14/21 08:58 Dose: 100 mg Furosemide (Furosemide 40 Mg/4 Ml Vial) 40 mg IVP BIDDIURETIC KATE Last Admin: 09/14/21 05:02 Dose: 40 mg Cefazolin Sodium 2 gm/ Sodium (Chloride) 50 mls @ 100 mls/hr IV Q8H KATE Last Infusion: 09/14/21 05:33 Dose: Infused Nicardipine HCl 25 mg/ Sodium (Chloride) 250 mls @ 50 mls/hr IV .Q5H [facility]; Protocol Last Titration: 09/14/21 10:15 Dose: 0 mg/hr, 0 mls/hr Lidocaine (Lidocaine Patch 5%) 1 patch TOP DAILY PRN PRN Reason: PAIN Last Admin: 09/14/21 08:55 Dose: 1 patch Lisinopril (Lisinopril 20 Mg Tablet) 20 mg PO DAILY KATE Last Admin: 09/14/21 08:51 Dose: 20 mg Metoprolol Tartrate (Metoprolol 5 Mg/5 Ml Vial) 5 mg IVP Q6HR PRN PRN Reason: Tachycardia Nystatin (Nystatin Powder 15 Gm) 1 applic TOP BID [facility] Last Admin: 09/14/21 09:02 Dose: 1 applic Ondansetron HCl (Ondansetron Odt 4 Mg Tablet) 4 mg TL Q6HR PRN PRN Reason: Nausea / Vomiting Ondansetron HCl (Ondansetron 4 Mg/2 Ml Vial) 4 mg IVP Q6HR PRN PRN Reason: Nausea / Vomiting Polyethylene Glycol (Polyethylene Glycol 3350 17 Gm Packet) 17 gm PO DAILY [facility] Last Admin: 09/14/21 08:59 Dose: 17 gm Senna (Senna 8.6 Mg Tablet) 8.6 - 17.2 mg PO DAILY [facility] Last Admin: 09/14/21 08:58 Dose: 8.6 mg Sodium Chloride (Sodium Chloride Flush 0.9% 10 Ml Syringe) 10 ml IVP 0100,0900,1700 [facility] Last Admin: 09/14/21 08:59 Dose: 10 ml Sodium Chloride (Sodium Chloride Flush 0.9% 10 Ml Syringe) 10 ml IVP PRN PRN PRN Reason: NEEDED PER PROVIDER ORDERS Last Admin: 09/13/21 10:38 Dose: 10 ml Tamsulosin HCl (Tamsulosin 0.4 Mg Capsule) 0.4 mg PO HS [facility] Last Admin: 09/13/21 20:29 Dose: 0.4 mg Temazepam (Temazepam 15 Mg Capsule) 15 mg PO QPM PRN PRN Reason: Insomnia Last Admin: 09/13/21 22:08 Dose: 15 mg Tramadol HCl (Tramadol 50 Mg Tablet) 50 mg PO Q4HR PRN PRN Reason: PAIN Last Admin: 09/13/21 22:08 Dose: 50 mg Apixaban [Eliquis] 5 mg PO BID 09/11/21 Carvedilol [Coreg] 25 mg PO BID 09/11/21 lisinopriL [Lisinopril] 10 mg PO DAILY 09/11/21 metFORMIN [Glucophage] 500 mg PO BIDWM 09/11/21 Objective - Vital Signs/Intake & Output Vital Signs: Vital Signs Temp Pulse Resp BP Pulse Ox 09/14/21 12:00 37.0 C 79 17 143/94 H 97 09/14/21 11:30 72 20 141/94 H 97 09/14/21 11:00 82 16 144/92 H 97 09/14/21 10:30 71 130/84 H 09/14/21 10:15 67 110/79 09/14/21 10:00 74 12 115/80 95 09/14/21 09:45 76 118/75 09/14/21 09:30 80 127/83 H 09/14/21 09:15 92 123/80 09/14/21 09:00 104 H 20 168/78 H 92 Intake & Output: Intake & Output 09/11/21 09/12/21 09/13/21 09/14/21 23:59 23:59 23:59 23:59 Intake Total 3068.333 6249.143 1055.000 1043.750 Output Total 5440 3325 4738 2550 Balance -2371.667 -1594.725 -3088.000 -1506.250 - Objective General Appearance: positive: Lethargic (Lethargic, wakes to voice, but starts to doze off during evaluation. More sluggish in his reponses to questions than the day before.) Eyes Bilateral: positive: PERRL Neck: positive: Nml inspection Respiratory: positive: Other (breath sounds clear, diminished at the bases.) Cardiovascular: positive: Irregularly irregular Abdomen: positive: Non-tender, Other (distended. Soft. active bowel tones) Back: positive: Nml inspection Skin: positive: Other (toe wound is healing. redness has receded to the base of the toe and beyond. surface pustules visible on the skin.) Extremities: positive: Pedal edema (trace. non-pitting.) Neurologic/Psychiatric: positive: Disoriented to place, Other (Lethargic more than confused. If given enough time and prompting able to answer questions, but drifting off during conversation.) - Lab Results Fish Bones: 09/14/21 04:05 09/14/21 04:05 Other Labs: Lab Results x24hrs 09/14/21 09/14/21 09/14/21 Range/Units 04:05 04:05 04:05 WBC (4.8-10.8) x10^3/uL RBC (4.70-6.10) 10^6/uL Hgb (14.0-18.0) g/dL Hct (42.0-52.0) % MCV (80.0-94.0) fL MCH (27.0-31.0) pg MCHC (32.0-36.0) g/dL RDW (12.0-15.0) % Plt Count (130-450) 10^3/uL MPV (7.4-11.4) fL Neut # (Auto) (1.5-6.6) 10^3/uL Lymph # (Auto) (1.5-3.5) 10^3/uL Josephine # (Auto) (0.0-1.0) 10^3/uL Eos # (Auto) (0.0-0.7) 10^3/uL Baso # (Auto) (0.0-0.1) 10^3/uL Absolute Nucleated RBC x10^3/uL Nucleated RBC % /100WBC VBG pH 7.471 H (7.31-7.41) Ionized Calcium 1.07 L (1.15-1.33) mmol/L Sodium (135-145) mmol/L Potassium (3.5-5.0) mmol/L Chloride (101-111) mmol/L Carbon Dioxide (21-32) mmol/L Anion Gap (6-13) BUN (6-20) mg/dL Creatinine (0.6-1.2) mg/dL Estimated GFR (MDRD) (>89) Glucose (70-100) mg/dL Calcium (8.5-10.3) mg/dL Phosphorus 2.9 (2.5-4.6) mg/dL Magnesium 2.0 (1.7-2.8) mg/dL B-Natriuretic Peptide (5-100) pg/mL 09/14/21 09/14/21 09/14/21 Range/Units 04:05 04:05 04:05 WBC 10.6 (4.8-10.8) x10^3/uL RBC 4.48 L (4.70-6.10) 10^6/uL Hgb 13.1 L (14.0-18.0) g/dL Hct 40.1 L (42.0-52.0) % MCV 89.5 (80.0-94.0) fL MCH 29.2 (27.0-31.0) pg MCHC 32.7 (32.0-36.0) g/dL RDW 13.5 (12.0-15.0) % Plt Count 208 (130-450) 10^3/uL MPV 12.0 H (7.4-11.4) fL Neut # (Auto) 8.0 H (1.5-6.6) 10^3/uL Lymph # (Auto) 1.2 L (1.5-3.5) 10^3/uL Josephine # (Auto) 1.1 H (0.0-1.0) 10^3/uL Eos # (Auto) 0.2 (0.0-0.7) 10^3/uL Baso # (Auto) 0.0 (0.0-0.1) 10^3/uL Absolute Nucleated RBC 0.00 x10^3/uL Nucleated RBC % 0.0 /100WBC VBG pH (7.31-7.41) Ionized Calcium (1.15-1.33) mmol/L Sodium 135 (135-145) mmol/L Potassium 3.0 L (3.5-5.0) mmol/L Chloride 91 L (101-111) mmol/L Carbon Dioxide 35 H (21-32) mmol/L Anion Gap 9.0 (6-13) BUN 18 (6-20) mg/dL Creatinine 0.5 L (0.6-1.2) mg/dL Estimated GFR (MDRD) 162 (>89) Glucose 106 H (70-100) mg/dL Calcium 8.6 (8.5-10.3) mg/dL Phosphorus (2.5-4.6) mg/dL Magnesium (1.7-2.8) mg/dL B-Natriuretic Peptide 285 H (5-100) pg/mL - Diagnostic Imaging Diagnostic Imaging Results: positive: Final report reviewed Sepsis Event Note (H) - Evaluation Current Stage of Sepsis: Resolved (HR now less than 90. mentation improved. Afebrile.) Possible source of Sepsis: positive: Bone/Joint (appeared in the ED 09/10 with signs and symptoms of sepsis. now resolving) - Sepsis Criteria Sepsis Criteria: Recorded Heart Rate greater than 90 bpm, Recorded Respiratory Rate greater than 20, Respiratory: Increasing oxygen requirements, ORDER WORKER: altered consciousness (unrelated to primary neuro pathology) Assessment/Plan - Problem List (1) Bacteremia Impression: Impression: Blood cultures from 09/10 positive for MSSA from bilateral hands. On cefazolin 2G q8hrs. Afebrile. Repeat blood cultures drawn 09/12, no growth after 1 day. WBC stable 9.2 on admit --> 10.6 today. Will need IV antibiotics for 14 days beyond negative blood cultures. Pt having severe back pain yesterday, CT lumbar spine performed to make sure there was not an additional source of infection present in his spine causing his pain. Multilevel degenerative changes seen but no abscesses visualized. Will continue to treat back pain as below. (2) Right foot infection Conclusion/Plan: The right toe does appear to be infected with surrounding cellulitis although there is also component of ecchymosis secondary to the trauma. He is on IV cefazolin, which will cover the MSSA found in the blood and urine, today is day 4. X-ray did not show any evidence of osteomyelitis but did suggest a fracture, ortho was consulted and evaluated toes to be cellulitis without fracture or concern for osteomyelitis - no surgical indications at this time. Will continue with antibiotic therapy for cellulitis. (3) Pyelonephritis Impression: Urine culture positive for MSSA. He is complaining of back pain that is not definitive in its location but seems to be in the region of his flank on 09/12. Urine on 09/12 changed colors from pink with sediment to red, though the raya had to be changed as it stopped draining and bladder scan showed over a liter of urine, red urine started after placement of new raya so there is a possibility that the color change could be due to new raya placement. CT abdomen ordered to check for obstructive pyelonephritis. CT reads there are no obstructing renal stones or hydronephrosis. No hydroureter. Mild bilateral perinephric fat stranding, pyelonephritis cannot be excluded. Diffuse bladder wall thickening, which could represent cystitis. Enlarged prostate gland with mass effect on floor of urinary bladder. Cefazolin 2G q8hrs continued. Cr 0.5 and BUN 18. 4.7L urine output in the last 24 hrs. (4) Acute respiratory failure with hypoxia Conclusion/Plan: This appears to be secondary to congestive heart failure. He was initially in the 80s on room air and had to be put on a nonrebreather. He had pulmonary edema on exam. He then progressed to being on BiPAP. He is now on NC oxymizer at 8L. I&Os show net negative 3L in last 24 hrs. Pattern of hypoxia is that it occurs when sleeping and he has intermittent apneic periods, suspect pt has undiagnosed sleep apnea ordered CPAP for use when sleeping. Patient refused CPAP overnight, discussed the need for CPAP with patient today. He says he will consider whether or not he will try using it ton ight. Echocardiogram done 09/11 showing mild concentric left ventricular hypertrophy. The ejection fraction is 55 to 60%. Mild to moderate right ventricular enlargement. Considering he has been sedentary, has right ventricular enlargement on echo, unilateral right calf edema, new atrial fib CT pulmonary angiogram done and showed no signs of PE. (5) Acute congestive heart failure Conclusion/Plan: He appears to have acute congestive heart failure which may have been exacerbated by the atrial fibrillation. He has no prior echocardiogram so it is unclear if this is systolic or diastolic dysfunction. Admit echocardiogram done 09/11 showing mild concentric left ventricular hypertrophy. The ejection fraction is 55 to 60%. Mild to moderate right ventricular enlargement. His BNP is only mildly elevated on admit, will continue to monitor daily. His x-ray on admit suggest pulmonary edema. On Lasix 40 mg IV twice daily started 09/11. BNP decreased today after yesterdays rise in level: 290 09/12 --> 497 09/13 --> 285 09/14. Trace pedal edema without pitting. Lungs clear but diminished to auscultation. Increased O2 requirement 8L oxymizer overnight. I&Os show net negative 3L in last 24 hrs. Pattern of hypoxia is that it occurs when sleeping and he has intermittent apneic periods, suspect pt has undiagnosed sleep apnea ordered CPAP for use when sleeping. Patient refused CPAP overnight, discussed the need for CPAP with patient today. He says he will consider whether or not he will try using it tonight. Now that HR is consistently rate controlled in the 80s-90s and BP is still elevated to 190s-200s systolic he remains hypertensive despite home lisinopril and carvedilol 09/12. Gave one time dose of labetolol, without significant improvement in BP. Started Nicardipine gtt with goal of SBP < 180 and DBP < 100. Gtt continued overnight, but weaned off this morning with BP still 140s/90s. Starting amlodipine to target a blood pressure of 120s/70s due to aortic aneurysm seen on CT chest measuring 4.8 cm in AP diameter. Fluid restriction. Daily weights. Strict I's and O's. Daily BMP Qualifiers: Heart failure type: unspecified Qualified Code(s): I50.9 - Heart failure, unspecified (6) Back pain Impression: On prn norco, added lidocaine patch, flexeril and one time dose of IV diltizam. RN reports only being able to minimally move the patient in bed as he screams in agony with movement. When palpating along the spinus processes the pain does not seem to originate from that area, possibly muscle or organ in origin. CT from 09/12 did show inflammation possibly indicative of pyelonephritis, which should be treated by the cefazolin for MSSA bacteremia/uremia. CT lumbar spine 09/13 showed multilevel degenerative changes seen but no abscesses visualized. This morning when I evaluated him he was lethargic, waking to voice, but was drifting off mid conversation. Unable to fuly participate in evaluations due to sedation. Increased interval between norco doses and discontinued flexeril and trazadone. Will continue to adjust medications to balance sedation and pain management. (7) Atrial fibrillation with RVR Conclusion/Plan: He has a known history of atrial fibrillation and is on carvedilol and apixaban at home. He presents with rapid ventricular response and rates in the 120s. St arted him on Lopressor 5 mg IV every 6 hours given he is on BiPAP. Resumed home carvedilol 09/12, keeping IV metoprolol PRN for HR > 110 bpm. HR in 70-80s without any PRN doses of metoprolol given in the last 24 hrs. Optimizing electrolytes. TSH 1.49. Echocardiogram done 09/11 showing mild concentric left ventricular hypertrophy. The ejection fraction is 55 to 60%. Mild to moderate right ventricular enlargement. Monitor on telemetry. (8) Phalanx fracture, foot Conclusion/Plan: This occurred about 1 week ago and x-rays 09/11 confirmed a distal mildly d isplaced fracture. We will manage his pain with Tylenol. There is potential concern for infection so we will manage this as mentioned above with IV antibiotics. Improving on antibiotics, will defer discussing with orthopedic surgery for now. Qualifiers: Encounter type: initial encounter Toe: great toe (9) Type 2 diabetes mellitus Conclusion/Plan: He is on metformin at home. A1C 6.3. Blood glucose is currently in the 106 this morning. He is on sliding scale and carb controlled diet. Will continue to follow BG and adjust insulin as needed. (10) Hyponatremia Conclusion/Plan: RESOLVED This is likely hypervolemic hyponatremia secondary to heart failure. His sodium is 130 --> 135 --> 133 --> 138 --> 135. Improving with diuresis. (11) Metabolic encephalopathy Impression: RESOLVED His confusion is what made his bring him into the hospital. He was also not getting out of bed for at least 2 to 3 days. He feels it all started a couple of weeks ago when he stubbed his toe on the carpet, and he could not b elieve how much his toe hurt. He thought he broke his toe. That then led to pain and swelling in the left great toe, not being able to weight-bear because the foot was too painful and finally just being in bed for a few days. Gradually increasing confusion. And that is when the called EMS. Between admit and now, he has definitely improved. He does not remember the last few days. He is now somnolent, though given mental status recovery in previous days this is more likely attributable to medications given to treat back pain. Decreasing/Removing sedating meds.
[2021-09-14] MEDS ORDERED: HYDROcod/ACETAM 5/325 MG TABLET PO SCH (14:00)
[2021-09-14] MEDS: CYCLOBENZAPRINE 10 MG TABLET PO PRN (14:13)
[2021-09-14] MEDS: amLODIPine 5 MG TABLET PO SCH (14:13)
[2021-09-14] MEDS: FUROSEMIDE 40 MG TABLET PO SCH (14:13)
[2021-09-14] MEDS: TAMSULOSIN 0.4 MG CAPSULE PO SCH (20:29)
[2021-09-14] MEDS: HYDROcod/ACETAM 5/325 MG TABLET PO PRN (22:01)
[2021-09-14] MEDS ORDERED: HYDROcod/ACETAM 5/325 MG TABLET ONE (22:12)
[2021-09-15] MEDS: SODIUM CHLORIDE FLUSH 0.9% 10 ML SYRINGE IVP SCH ×4 (00:08→23:42)
[2021-09-15] MEDS: CYCLOBENZAPRINE 10 MG TABLET PO PRN ×2 (00:43→16:57)
[2021-09-15] MEDS: HYDROcod/ACETAM 5/325 MG TABLET PO PRN ×3 (03:50→23:47)
[2021-09-15 04:36] LABS: BASOPHILS % (AUTO) 0.3 %; EOSINOPHILS # (AUTO) 0.2 10^3/uL (0.0-0.7); EOSINOPHILS % (AUTO) 1.4 %; HCT - HEMATOCRIT 42.3 % (42.0-52.0); HGB - HEMOGLOBIN 13.6 g/dL (14.0-18.0); LYMPHOCYTES # (AUTO) 1.3 10^3/uL (1.5-3.5); LYMPHOCYTES % (AUTO) 10.3 %; MEAN CORPUSCULAR HEMOGLOBIN 29.2 pg (27.0-31.0); MEAN CORPUSCULAR HGB CONC 32.2 g/dL (32.0-36.0); MEAN CORPUSCULAR VOLUME 90.8 fL (80.0-94.0); MEAN PLATELET VOLUME 10.3 fL (7.4-11.4); MONOCYTES # (AUTO) 1.1 10^3/uL (0.0-1.0); MONOCYTES % (AUTO) 8.8 %; NEUTROPHILS # (AUTO) 9.6 10^3/uL (1.5-6.6); PLT - PLATELET COUNT 297 10^3/uL (130-450); RED BLOOD COUNT 4.66 10^6/uL (4.70-6.10); RED CELL DISTRIBUTION WIDTH 13.4 % (12.0-15.0); WHITE BLOOD COUNT 12.4 x10^3/uL (4.8-10.8)
[2021-09-15 04:58] LABS: CALCIUM 8.5 mg/dL (8.5-10.3); CREATININE 0.5 mg/dL (0.6-1.2); POTASSIUM 3.2 mmol/L (3.5-5.0)
[2021-09-15] MEDS: FUROSEMIDE 40 MG TABLET PO SCH ×2 (05:33→14:31)
[2021-09-15] MEDS ORDERED: amLODIPine 5 MG TABLET PO SCH (09:00)
[2021-09-15] MEDS: POTASSIUM CHLOR 10 MEQ/100 ML 10 MEQ/100 ML BAG IV SCH ×4 (09:22→16:35)
[2021-09-15] MEDS: DOCUSATE SODIUM 100 MG CAPSULE PO SCH (09:23)
[2021-09-15] MEDS: carvediloL 12.5 MG TABLET PO SCH ×2 (09:23→21:01)
[2021-09-15] MEDS: SENNA 8.6 MG TABLET PO SCH (09:23)
[2021-09-15] MEDS: APIXABAN 5 MG TABLET PO SCH ×2 (09:23→21:00)
[2021-09-15] MEDS: polyethylene glycoL 3350 17 GM PACKET PO SCH (09:24)
[2021-09-15] MEDS: lisinopriL 20 MG TABLET PO SCH (09:48)
[2021-09-15] MEDS: amLODIPine 5 MG TABLET PO SCH (09:49)
[2021-09-15] MEDS: NYSTATIN POWDER 15 GM TOP SCH ×2 (09:59→21:01)
[2021-09-15] MEDS ORDERED: GADOBUTROL 15 MMOL/15 ML VIAL ONE (10:30)
[2021-09-15] MEDS: HYDROmorphone 1 MG/ML CARPUJECT IVP PRN (11:15)
--- NOTE | 2021-09-15 12:42 | MRI Report ---
PROCEDURE: Hip LT W/O INDICATIONS: UNCONTROLLED LEFT HIP PAIN, BACTEREMIA TECHNIQUE: Noncontrast coronal T1 spin echo and STIR through the bony pelvis. Coronal and axial T2 fast spin ec ho with fat saturation, sagittal T1 spin echo, and oblique axial T2 fast spin echo with fat saturatio n through the hip. COMPARISON: None. FINDINGS: Image quality: Excellent. Bones and joints: Bone marrow of the pelvic ring and proximal femurs show normal signal throughout. No intraosseous lesions or fractures. No avascular necrosis of the femoral heads. The visualized l ower lumbar spine appears normally aligned. Tendons: The gluteus medius and minimus tendons appear intact, without associated muscle atrophy. T he iliopsoas tendon appears intact, without adjacent bursal fluid collections. The origin of the ham string tendon is intact at the ischial tuberosity. Labrum and cartilage: The acetabular labrum appears intact in the absence of intra-articular contras t. Cartilage surface of the femoral head appears of normal thickness. The alpha angle of the femur is within normal limits at less than 55 degrees. Soft tissues: There is enlargement of, and moderate T2 signal elevation within, the left piriformis m uscle. Additionally, there is a well-circumscribed ovoid high T2 intensity focus within the medial as pect of the left piriformis measuring roughly 15 mm diameter. There is moderate presacral fat strandi ng and a small amount of fluid. Bladder wall thickness is normal. Prostate enlargement is present. A Ordonez catheter is present. IMPRESSION: 1. 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 Follow-up imaging is recommende d to exclude the less likely possibility of underlying neoplasm. 2. Prostate enlargement. Reviewed by: Priyanka Navarro MD on 09/15/2021 12:41 PM PDT Approved by: Priyanka Navarro MD on 09/15/2021 12:41 PM PDT Station ID: [id number]
--- NOTE | 2021-09-15 13:48 | PROVIDER PROGRESS NOTE ---
Assessment/Plan - Problem List (1) Bacteremia Assessment/Plan: Impression: With perifomus abcess Blood cultures from 09/10 positive for MSSA from bilateral hands. On cefazolin 2G q8hrs. Afebrile. Repeat blood cultures drawn 09/12, one set positive for gram positive cocci, though this is most likely a contaminant. WBC increasing 9.2 on admit --> 12.4 today. Pt having severe back pain. CT lumbar spine performed on 09/13 to make sure there was not an additional source of infection present in his spine causing his pain. Multilevel degenerative changes seen but no abscesses visualized. Severe pain disproportionate to degenerative back pain persists, MRI lumbar spine and left hip ordered. Pt unable to tolerate full study due to pain, but able to complete enough that left periformis pyomyositis with associated intramuscular abscess was visualized. Spoke to the radiologist who says they see more general inflammation, but not enough of an organized abscess to be able to drain. Recommends rechecking with CT with contrast of the pelvis in 2-3 days to evaluate if the abscess has developed to a level that it can now be accessed and drained. Plan: Continue IV antibiotics and recheck CT with contrast with pelvis in 2-3 days. (2) Back pain Impression: On prn norco, added lidocaine patch, flexeril and one time dose of IV diltizam. RN reports only being able to minimally move the patient in bed as he screams in agony with movement. When palpating along the spinus processes the pain does not seem to originate from that area, possibly muscle or organ in origin. CT from 09/12 did show inflammation possibly indicative of pyelonephritis, which should be treated by the cefazolin for MSSA bacteremia/uremia. CT lumbar spine 09/13 showed multilevel degenerative changes seen but no abscesses visualized. 09/14 he was lethargic, waking to voice, but was drifting off mid conversation. Unable to fully participate in evaluations due to sedation. Increased interval between norco doses and discontinued flexeril and trazadone. Today continues to have severe pain disproportionate to degenerative back pain persists, MRI lumbar spine and left hip ordered. Pt unable to tolerate full study due to pain, but able to complete enough that left periformis pyomyositis with associated intramuscular abscess was visualized. Spoke to the radiologist who says they see more general inflammation, but not enough of an organized abscess to be able to drain. Recommends rechecking with CT with contrast of the pelvis in 2-3 days to evaluate if the abscess has developed to a level that it can now be accessed and drained. Continuing with Bishop, one time dose of Dil audid given to help with breakthrough pain. (3) Pyelonephritis Impression: Urine culture positive for MSSA. He is complaining of back pain that is not definitive in its location but seems to be in the region of his flank on 09/12. Urine on 09/12 changed colors from pink with sediment to red, though the raya had to be changed as it stopped draining and bladder scan showed over a liter of urine, red urine started after placement of new raya so there is a possibility that the color change could be due to new raya placement. CT abdomen ordered 09/12 to check for obstructive pyelonephritis. CT reads there are no obstructing renal stones or hydronephrosis. No hydroureter. Mild bilateral perinephric fat stranding, pyelonephritis cannot be excluded. Diffuse bladder wall thickening, which could represent cystitis. Enlarged prostate gland with mass effect on floor of urinary bladder. Cefazolin 2G q8hrs continued. Cr 0.5 and BUN 19. (2) Right foot infection Conclusion/Plan: The right toe does appear to be infected with surrounding cellulitis although there is also component of ecchymosis secondary to the trauma. He is on IV cefazolin, which will cover the MSSA found in the blood and urine, today is day 4. X-ray did not show any evidence of osteomyelitis but did suggest a fracture, ortho was consulted and evaluated toes to be cellulitis without fracture or concern for osteomyelitis - no surgical indications at this time. Will continue with antibiotic therapy for cellulitis. (4) Acute respiratory failure with hypoxia Conclusion/Plan: This appears to be secondary to congestive heart failure. He was initially in the 80s on room air and had to be put on a nonrebreather. He had pulmonary edema on exam. He then progressed to being on BiPAP. Considering he has been sedentary, has right ventricular enlargement on echo, unilateral right calf edema, new atrial fib CT pulmonary angiogram done 09/11 and showed no signs of PE. He is now on NC oxymizer at 8L. I&Os show net negative 1.5L in last 24 hrs. Pattern of hypoxia is that it occurs when sleeping and he has intermittent apneic periods, suspect pt has undiagnosed sleep apnea ordered CPAP for use when sleeping. Patient refused CPAP overnight. (5) Acute congestive heart failure Conclusion/Plan: He appears to have acute congestive heart failure which may have been exacerbated by the atrial fibrillation. He has no prior echocardiogram so it is unclear if this is systolic or diastolic dysfunction. Admit echocardiogram done 09/11 showing mild concentric left ventricular hypertrophy. The ejection fraction is 55 to 60%. Mild to moderate right ventricular enlargement. His BNP is only mildly elevated on admit, will continue to monitor daily. His x-ray on admit suggest pulmonary edema. On Lasix 40 mg IV twice daily started 09/11. Switched from IV to PO lasix at 40mg BID on 09/14. BNP decreased today after yesterdays rise in level: 290 09/12 --> 497 09/13 --> 285 09/14. Trace pedal edema without pitting. Lungs clear but diminished to auscultation. Increased O2 requirement 8L oxymizer overnight. I&Os show net negative 1.5L in last 24 hrs. Pattern of hypoxia is that it occurs when sleeping and he has intermittent apneic periods, suspect pt has undiagnosed sleep apnea ordered CPAP for use when sleeping. Patient refused CPAP overnight, discussed the need for CPAP with patient today. He says he will consider whether or not he will try using it tonight. Now that HR is consistently rate controlled in the 80s-90s and BP is still elevated to 190s-200s systolic he remains hypertensive despite home lisinopril and carvedilol 09/12. Gave one time dose of labetolol, without significant improvement in BP. Started Nicardipine gtt with goal of SBP < 180 and DBP < 100. Gtt continued overnight, but weaned off 09/14 with BP still 140s/90s. Starting amlodipine to target a blood pressure of 120s/70s due to aortic aneurysm seen on CT chest measuring 4.8 cm in AP diameter. BP still elevated today average BPs 140s/90s, will increase the amlodipine dose and reevaluate tomorrow. Fluid restriction. Daily weights. Strict I's and O's. Daily BMP Qualifiers: Heart failure type: unspecified Qualified Code(s): I50.9 - Heart failure, unspecified (7) Atrial fibrillation with RVR Conclusion/Plan: He has a known history of atrial fibrillation and is on carvedilol and apixaban at home. He presents with rapid ventricular response and rates in the 120s. Started him on Lopressor 5 mg IV every 6 hours given he is on BiPAP. Resumed home carvedilol 09/12, keeping IV metoprolol PRN for HR > 110 bpm. HR in 80-90s without any PRN doses of metoprolol given in the last 24 hrs. Optimizing electrolytes. TSH 1.49. Echocardiogram done 09/11 showing mild concentric left ventricular hypertrophy. The ejection fraction is 55 to 60%. Mild to moderate right ventricular enlargement. Monitor on telemetry. (8) Phalanx fracture, foot Conclusion/Plan: This occurred about 1 week ago and x-rays 09/11 confirmed a distal mildly displaced fracture. We will manage his pain with Tylenol. There is potential c oncern for infection so we will manage this as mentioned above with IV antibiotics. Improving on antibiotics, will defer discussing with orthopedic surgery for now. Qualifiers: Encounter type: initial encounter Toe: great toe (9) Type 2 diabetes mellitus Conclusion/Plan: He is on metformin at home. A1C 6.3. Blood glucose is currently in the 129 this morning. He is on sliding scale and carb controlled diet. Will continue to follow BG and adjust insulin as needed. (10) Hyponatremia Conclusion/Plan: RESOLVED This is likely hypervolemic hyponatremia secondary to heart failure. His sodium is 130 --> 135 --> 133 --> 138 --> 135. Improving with diuresis. (11) Metabolic encephalopathy Impression: RESOLVED His confusion is what made his bring him into the hospital. He was also not getting out of bed for at least 2 to 3 days. He feels it all started a couple of weeks ago when he stubbed his toe on the carpet, and he could not believe how much his toe hurt. He thought he broke his toe. That then led to p ain and swelling in the left great toe, not being able to weight-bear because the foot was too painful and finally just being in bed for a few days. Gradually increasing confusion. And that is when the called EMS. Between admit and now, he has definitely improved. He does not remember the l ast few days. He is now somnolent, though given mental status recovery in previous days this is more likely attributable to medications given to treat back pain. Decreasing/Removing sedating meds. - Current Meds Current Meds: Current Medications Generic Name Dose Route Start Last Admin Trade Name Amanda PRN Reason Stop Dose Admin Hydrocodone Bitart/Acetaminophen 1 tab 09/14/21 20:19 09/15/21 10:23 Hydrocod/Acetam 5/325 Mg Tablet PO 1 tab Q6H PRN Administration PAIN Amlodipine Besylate 5 mg 09/14/21 13:20 09/15/21 09:49 Amlodipine 5 Mg Tablet PO 5 mg DAILY KATE Administration Apixaban 5 mg 09/10/21 22:00 09/15/21 09:23 Apixaban 5 Mg Tablet PO 5 mg BID KATE Administration Carvedilol 25 mg 09/12/21 21:00 09/15/21 09:23 Carvedilol 12.5 Mg Tablet PO 25 mg BID KATE Administration Cyclobenzaprine HCl 5 mg 09/14/21 13:18 09/15/21 00:43 Cyclobenzaprine 10 Mg Tablet PO 5 mg TID PRN Administration Spasms Docusate Sodium 100 mg 09/12/21 13:00 09/15/21 09:23 Docusate Sodium 100 Mg Capsule PO 100 mg DAILY KATE Administration Furosemide 40 mg 09/14/21 14:00 09/15/21 05:33 Furosemide 40 Mg Tablet PO 40 mg BIDDIURETIC KATE Administration Hydromorphone HCl 1 mg 09/15/21 11:06 09/15/21 11:15 Hydromorphone 1 Mg/Ml Carpuject IVP 1 mg Q2HR PRN Administration PAIN Lidocaine 1 patch 09/13/21 09:32 09/14/21 08:55 Lidocaine Patch 5% TOP 1 patch DAILY PRN Administration PAIN Lisinopril 20 mg 09/13/21 09:00 09/15/21 09:48 Lisinopril 20 Mg Tablet PO 20 mg DAILY KATE Administration Nystatin 1 applic 09/10/21 23:00 09/15/21 09:59 Nystatin Powder 15 Gm TOP 1 applic BID KATE Administration Polyethylene Glycol 17 gm 09/13/21 09:00 09/15/21 09:24 Polyethylene Glycol 3350 17 Gm Packet PO 17 gm DAILY KATE Administration Senna 8.6 - 17.2 mg 09/13/21 09:00 09/15/21 09:23 Senna 8.6 Mg Tablet PO 8.6 mg DAILY KATE Administration Sodium Chloride 10 ml 09/11/21 01:00 09/15/21 09:22 Sodium Chloride Flush 0.9% 10 Ml Syringe IVP 10 ml 0100,0900,1700 KATE Administration Sodium Chloride 10 ml 09/10/21 21:10 09/13/21 10:38 Sodium Chloride Flush 0.9% 10 Ml Syringe IVP 10 ml PRN PRN Administration NEEDED PER PROVIDER ORDERS Tamsulosin HCl 0.4 mg 09/10/21 23:00 09/14/21 20:29 Tamsulosin 0.4 Mg Capsule PO 0.4 mg HS KATE Administration Temazepam 15 mg 09/11/21 20:39 09/13/21 22:08 Temazepam 15 Mg Capsule PO 15 mg QPM PRN Administration Insomnia - Lab Result Fish Bone Diagrams: 09/15/21 04:24 09/15/21 04:24 - Diagnostic Imaging Results Diagnostic Imaging Results: Final report reviewed - Additional Planning Condition/Complexity: Stable Subjective - Subjective Patient Reports: Back Pain (76 y.o. male 6ft 2in 152kg sitting up in the chair. He is intermittently wincing from sharp pain in his back/hip which he describes as constant with intense moments. He less lethargic today and able to participate in a conversation more fully.) Objective Vital Signs: Vital Signs - 24 hr 09/14/21 09/14/21 09/14/21 15:53 17:00 20:25 Temperature 36.7 C 36.9 C Heart Rate [ 83 92 Monitoring electrodes] Respiratory 18 20 Rate Blood Pressure [Left Brachial artery] Blood Pressure 152/112 H 149/106 H [Right Radial artery] O2 Saturation 95 95 09/14/21 09/15/21 09/15/21 23:37 03:52 08:34 Temperature 36.7 C 36.6 C 36.8 C Heart Rate [ 82 77 92 Monitoring electrodes] Respiratory 20 18 23 Rate Blood Pressure 144/89 H [Left Brachial artery] Blood Pressure 125/81 H 152/99 H [Right Radial artery] O2 Saturation 92 93 93 09/15/21 09/15/21 12:45 12:47 Temperature 36.8 C Heart Rate [ 94 Monitoring electrodes] Respiratory 20 Rate Blood Pressure 149/108 H 95/66 [Left Brachial artery] Blood Pressure [Right Radial artery] O2 Saturation 96 Oxygen O2 Source Room air I&O (Last 24 Hrs): Intake and Output Totals x24h 09/13/21 09/14/21 09/15/21 23:59 23:59 23:59 Intake Total 6208.526 8199.750 690 Output Total 4738 3065 3175 Balance -3088.000 -1486.250 -2485 General: Oriented x3, Cooperative, Other (mildly lethargic, but still conversant and able to appropriately answer questions.) HEENT: PERRLA Neck: Supple, No JVD Neuro: Alert, Non Focal Cardiovascular: Other (Irregularly Irregular) Respiratory: Other (Lungs sounds diminished but clear throughout, no wheezes, rales or rhonci. No use of accessory muscles. On 8L oxymizer.) Abdomen: Normal bowel sounds, Soft, Other (distended) Genitourinary: Other (raya present) Extremities: Other (1+ pitting edema in bilateral lower extremities) - Results Results: Laboratory Results WBC 12.4 x10^3/uL (4.8-10.8) H 09/15/21 04:24 RBC 4.66 10^6/uL (4.70-6.10) L 09/15/21 04:24 Hgb 13.6 g/dL (14.0-18.0) L 09/15/21 04:24 Hct 42.3 % (42.0-52.0) 09/15/21 04:24 MCV 90.8 fL (80.0-94.0) 09/15/21 04:24 MCH 29.2 pg (27.0-31.0) 09/15/21 04:24 MCHC 32.2 g/dL (32.0-36.0) 09/15/21 04:24 RDW 13.4 % (12.0-15.0) 09/15/21 04:24 Plt Count 297 10^3/uL (130-450) 09/15/21 04:24 MPV 10.3 fL (7.4-11.4) 09/15/21 04:24 Neut # (Auto) 9.6 10^3/uL (1.5-6.6) H 09/15/21 04:24 Lymph # (Auto) 1.3 10^3/uL (1.5-3.5) L 09/15/21 04:24 Sutter # (Auto) 1.1 10^3/uL (0.0-1.0) H 09/15/21 04:24 Eos # (Auto) 0.2 10^3/uL (0.0-0.7) 09/15/21 04:24 Baso # (Auto) 0.0 10^3/uL (0.0-0.1) 09/15/21 04:24 Absolute Nucleated RBC 0.00 x10^3/uL 09/15/21 04:24 Nucleated RBC % 0.0 /100WBC 09/15/21 04:24 PT 18.9 secs (9.9-12.6) H 09/10/21 19:54 INR 1.7 (0.8-1.2) H 09/10/21 19:54 APTT 28.9 secs (24.9-33.3) 09/10/21 19:54 Bld Gas Analysis Time 213409/10/21 21:30 Sample Site LEFT RADIAL 09/10/21 21:30 ABG pH 7.47 (7.35-7.45) H 09/10/21 21:30 ABG pCO2 31 mmHg (34-45) L 09/10/21 21:30 ABG pO2 36 mmHg (80-100) L* 09/10/21 21:30 ABG HCO3 22.0 mmol/L (22.0-26.0) 09/10/21 21:30 ABG Total CO2 23.0 MMOL/L (21.0-29.0) 09/10/21 21:30 ABG O2 Saturation 73 % (94-98) L* 09/10/21 21:30 ABG Base Excess -0.6 mmol/L (-2.0-3.0) 09/10/21 21:30 Emmanuel Test POSITIVE 09/10/21 21:30 VBG pH 7.471 (7.31-7.41) H 09/14/21 04:05 Ionized Calcium 1.07 mmol/L (1.15-1.33) L 09/14/21 04:05 O2 Delivery Device SIMPLE MASK 09/10/21 21:30 O2 Liters/Min 15.00 LPM 09/10/21 21:30 Sodium 134 mmol/L (135-145) L 09/15/21 04:24 Potassium 3.2 mmol/L (3.5-5.0) L 09/15/21 04:24 Chloride 91 mmol/L (101-111) L 09/15/21 04:24 Carbon Dioxide 34 mmol/L (21-32) H 09/15/21 04:24 Anion Gap 9.0 (6-13) 09/15/21 04:24 BUN 19 mg/dL (6-20) 09/15/21 04:24 Creatinine 0.5 mg/dL (0.6-1.2) L 09/15/21 04:24 Estimated GFR (MDRD) 162 (>89) 09/15/21 04:24 Glucose 129 mg/dL (70-100) H 09/15/21 04:24 Estimat Average Glucose 134 mg/dL (70-100) H 09/11/21 04:45 Hemoglobin A1c % 6.3 % (4.27-6.07) H 09/11/21 04:45 Lactic Acid 1.5 mmol/L (0.5-2.2) 09/10/21 19:54 Calcium 8.5 mg/dL (8.5-10.3) 09/15/21 04:24 Phosphorus 3.1 mg/dL (2.5-4.6) 09/15/21 04:24 Magnesium 2.0 mg/dL (1.7-2.8) 09/14/21 04:05 Total Bilirubin 1.8 mg/dL (0.2-1.0) H 09/10/21 19:33 AST 37 IU/L (10-42) 09/10/21 19:33 ALT 26 IU/L (10-60) 09/10/21 19:33 Alkaline Phosphatase 79 IU/L (42-121) 09/10/21 19:33 Troponin I High Sens 14.3 ng/L (2.3-19.7) 09/12/21 04:39 B-Natriuretic Peptide 285 pg/mL (5-100) H 09/14/21 04:05 Total Protein 7.2 g/dL (6.7-8.2) 09/10/21 19:33 Albumin 3.8 g/dL (3.2-5.5) 09/10/21 19:33 Globulin 3.4 g/dL (2.1-4.2) 09/10/21 19:33 Albumin/Globulin Ratio 1.1 (1.0-2.2) 09/10/21 19:33 Lipase 21 U/L (22-51) L 09/10/21 19:33 TSH 1.49 uIU/mL (0.34-5.60) 09/11/21 04:45 Urine Color DARK YELLOW 09/10/21 21:59 Urine Clarity HAZY (CLEAR) 09/10/21 21:59 Urine pH 6.0 PH (5.0-7.5) 09/10/21 21:59 Ur Specific [place] 1.020 (1.002-1.030) 09/10/21 21:59 Urine Protein 100 mg/dL (NEGATIVE) H 09/10/21 21:59 Urine Glucose (UA) NEGATIVE mg/dL (NEGATIVE) 09/10/21 21:59 Urine Ketones 15 mg/dL (NEGATIVE) H 09/10/21 21:59 Urine Occult Blood MODERATE (NEGATIVE) H 09/10/21 21:59 Urine Nitrite POSITIVE (NEGATIVE) H 09/10/21 21:59 Urine Bilirubin NEGATIVE (NEGATIVE) 09/10/21 21:59 Urine Urobilinogen 1 (NORMAL) E.U./dL (NORMAL) 09/10/21 21:59 Ur Leukocyte Esterase NEGATIVE (NEGATIVE) 09/10/21 21:59 Urine RBC 0-5 /HPF (0-5) 09/10/21 21:59 Urine WBC 4-5 /HPF (0-3) 09/10/21 21:59 Ur Squamous Epith Cells NONE SEEN (<= Few) 09/10/21 21:59 Amorphous Sediment Few /LPF 09/10/21 21:59 Urine Bacteria Rare /HPF (None Seen) 09/10/21 21:59 Ur Microscopic Review INDICATED 09/10/21 21:59 Urine Culture Comments INDICATED 09/10/21 21:59 Nasal Adenovirus (PCR) NOT DETECTED 09/10/21 21:59 Nasal B. parapertussis DNA (PCR) NOT DETECTED 09/10/21 21:59 Nasal Coronavir 229E PCR NOT DETECTED 09/10/21 21:59 Nasal Coronavir HKU1 PCR NOT DETECTED 09/10/21 21:59 Nasal Coronavir NL63 PCR NOT DETECTED 09/10/21 21:59 Nasal Coronavir OC43 PCR NOT DETECTED 09/10/21 21:59 Nasal Enterovir/Rhinovir PCR NOT DETECTED 09/10/21 21:59 Nasal Influenza B PCR NOT DETECTED 09/10/21 21:59 Nasal Influenza A PCR NOT DETECTED 09/10/21 21:59 Nasal Parainfluen 1 PCR NOT DETECTED 09/10/21 21:59 Nasal Parainfluen 2 PCR NOT DETECTED 09/10/21 21:59 Nasal Parainfluen 3 PCR NOT DETECTED 09/10/21 21:59 Nasal Parainfluen 4 PCR NOT DETECTED 09/10/21 21:59 Nasal RSV (PCR) NOT DETECTED 09/10/21 21:59 Nasal Screen MRSA (PCR) NEGATIVE (NEGATIVE) 09/10/21 21:59 Nasal B.pertussis DNA PCR NOT DETECTED 09/10/21 21:59 Nasal C.pneumoniae (PCR) NOT DETECTED 09/10/21 21:59 Martínez Human Metapneumo PCR NOT DETECTED 09/10/21 21:59 Nasal M.pneumoniae (PCR) NOT DETECTED 09/10/21 21:59 Nasal SARS-CoV-2 (PCR) NOT DETECTED 09/10/21 21:59 - Procedures Procedures: Procedures EXCISION OF RIGHT KNEE JOINT, PERC ENDO APPROACH (06/07/15) INSERTION OF INFUSION DEV INTO SUP VENA CAVA, PERC APPROACH (06/07/15) Sepsis Event Note (H) - Evaluation Current Stage of Sepsis: Resolved (HR now less than 90. mentation improved. Afe brile.) Possible source of Sepsis: positive: Bone/Joint (appeared in the ED 09/10 with signs and symptoms of sepsis. now resolving) - Sepsis Criteria Sepsis Criteria: Recorded Heart Rate greater than 90 bpm, Recorded Respiratory Rate greater than 20, Respiratory: Increasing oxygen requirements, ACCOUNT SERVICES REPRESENTATIVE: altered consciousness (unrelated to primary neuro pathology) ABX Reporting Has patient been on IV antibiotics over the past 48 hours?: Yes Current Medications - Current Medications Current Medications: Active Medications Hydrocodone Bitart/Acetaminophen (Hydrocod/Acetam 5/325 Mg Tablet) 1 tab PO Q6H PRN PRN Reason: PAIN Last Admin: 09/15/21 10:23 Dose: 1 tab Amlodipine Besylate (Amlodipine 5 Mg Tablet) 5 mg PO DAILY KATE Last Admin: 09/15/21 09:49 Dose: 5 mg Apixaban (Apixaban 5 Mg Tablet) 5 mg PO BID [facility] Last Admin: 09/15/21 09:23 Dose: 5 mg Carvedilol (Carvedilol 12.5 Mg Tablet) 25 mg PO BID [facility] Last Admin: 09/15/21 09:23 Dose: 25 mg Cyclobenzaprine HCl (Cyclobenzaprine 10 Mg Tablet) 5 mg PO TID PRN PRN Reason: Spasms Last Admin: 09/15/21 00:43 Dose: 5 mg Docusate Sodium (Docusate Sodium 100 Mg Capsule) 100 mg PO DAILY [facility] Last Admin: 09/15/21 09:23 Dose: 100 mg Furosemide (Furosemide 40 Mg Tablet) 40 mg PO BIDDIURETIC [facility] Last Admin: 09/15/21 14:31 Dose: 40 mg Hydromorphone HCl (Hydromorphone 1 Mg/Ml Carpuject) 1 mg IVP Q2HR PRN PRN Reason: PAIN Last Admin: 09/15/21 11:15 Dose: 1 mg Cefazolin Sodium 2 gm/ Sodium (Chloride) 50 mls @ 100 mls/hr IV Q8H [facility] Last Admin: 09/15/21 14:31 Dose: 100 mls/hr Lidocaine (Lidocaine Patch 5%) 1 patch TOP DAILY PRN PRN Reason: PAIN Last Admin: 09/14/21 08:55 Dose: 1 patch Lisinopril (Lisinopril 20 Mg Tablet) 20 mg PO DAILY [facility] Last Admin: 09/15/21 09:48 Dose: 20 mg Metoprolol Tartrate (Metoprolol 5 Mg/5 Ml Vial) 5 mg IVP Q6HR PRN PRN Reason: Tachycardia Nystatin (Nystatin Powder 15 Gm) 1 applic TOP BID [facility] Last Admin: 09/15/21 09:59 Dose: 1 applic Ondansetron HCl (Ondansetron Odt 4 Mg Tablet) 4 mg TL Q6HR PRN PRN Reason: Nausea / Vomiting Ondansetron HCl (Ondansetron 4 Mg/2 Ml Vial) 4 mg IVP Q6HR PRN PRN Reason: Nausea / Vomiting Polyethylene Glycol (Polyethylene Glycol 3350 17 Gm Packet) 17 gm PO DAILY [facility] Last Admin: 09/15/21 09:24 Dose: 17 gm Senna (Senna 8.6 Mg Tablet) 8.6 - 17.2 mg PO DAILY [facility] Last Admin: 09/15/21 09:23 Dose: 8.6 mg Sodium Chloride (Sodium Chloride Flush 0.9% 10 Ml Syringe) 10 ml IVP 0100,0900,1700 [facility] Last Admin: 09/15/21 09:22 Dose: 10 ml Sodium Chloride (Sodium Chloride Flush 0.9% 10 Ml Syringe) 10 ml IVP PRN PRN PRN Reason: NEEDED PER PROVIDER ORDERS Last Admin: 09/13/21 10:38 Dose: 10 ml Tamsulosin HCl (Tamsulosin 0.4 Mg Capsule) 0.4 mg PO HS [facility] Last Admin: 09/14/21 20:29 Dose: 0.4 mg Temazepam (Temazepam 15 Mg Capsule) 15 mg PO QPM PRN PRN Reason: Insomnia Last Admin: 09/13/21 22:08 Dose: 15 mg Apixaban [Eliquis] 5 mg PO BID 09/11/21 Carvedilol [Coreg] 25 mg PO BID 09/11/21 lisinopriL [Lisinopril] 10 mg PO DAILY 09/11/21 metFORMIN [Glucophage] 500 mg PO BIDWM 09/11/21
--- NOTE | 2021-09-15 14:01 | MRI Report ---
PROCEDURE: Lumbar Spine W/O INDICATIONS: BACK PAIN, SEPTIC TECHNIQUE: Noncontrast sagittal T1 spin echo and T2 fast echo, sagittal STIR, axial T1 and T2 fast spin echo thr ough the lumbar spine. In cases with scoliosis, additional coronal T2 fast spin echo may be performe d. COMPARISON: Plain films of the lumbar spine dated 09/12/2021 FINDINGS: Image quality: Excellent. Alignment and Curvature: 5 lumbar type vertebral bodies are seen by plain film. 6 mm of retrolisthesi s of L1 on L2. 2 mm of retrolisthesis of L2 on L3. 2 mm of anterolisthesis of L4 on L5 is present. Bone Marrow: Marrow is of normal overall signal. No acute vertebral body compression fractures. Mo derate reactive signal within the endplates adjacent to the L4-L5 and L5-S1 intervertebral discs. Mil d reactive signal adjacent to the remaining lumbar intervertebral discs. Spinal Cord: Conus medullaris terminates at the L1-L2 disc space level. Visualized cord demonstrate s normal signal and size. Paraspinous Soft Tissues: No paravertebral masses. T11-T12: Moderate disc height loss and desiccation. Mild diffuse disc bulge. Mild facet and ligament flavum hypertrophy. Mild upper lipomatosis. Severe canal stenosis. Moderate left and mild right apollo inal stenosis. T12-L1: Moderate disc height loss and desiccation. Mild diffuse disc bulge. Mild facet hypertrophy. Mild epidural lipomatosis. Mild canal stenosis. Mild bilateral foraminal stenosis. L1-L2: Severe disc height loss and desiccation. Mild diffuse disc bulge. Mild facet and ligament f lavum hypertrophy. Moderate epidural lipomatosis. Severe canal stenosis. Mild left and moderate right foraminal stenosis. L2-L3: Moderate disc height loss and desiccation. Mild diffuse disc bulge with superimposed right far lateral protrusion. Mild facet and ligament flavum hypertrophy. Moderate epidural lipomatosis. Se diane canal stenosis. Moderate left and mild right foraminal stenosis. L3-L4: Mild disc height loss. Moderate disc desiccation. Mild diffuse disc bulge. Mild facet and li gament flavum hypertrophy. Moderate epidural lipomatosis. Severe canal stenosis. Moderate right great er than left foraminal stenosis. L4-L5: Moderate disc height loss and desiccation. Mild diffuse disc bulge. Mild facet and ligament flavum hypertrophy. Mild upper lipomatosis. Severe canal stenosis. Severe left and moderate right for aminal stenosis. Left L4 nerve root compression. L5-S1: Moderate disc height loss and desiccation. Mild diffuse disc bulge. Moderate bilateral facet hypertrophy. Mild epidural lipomatosis. Moderate canal stenosis. Severe left and moderate right fora iban stenosis. Left L5 nerve root compression. IMPRESSION: 1. Multilevel degenerative disc and facet disease, in addition to epidural lipomatosis and ligamentum flavum hypertrophy. 2. Multilevel canal stenoses, worst at L1-L2, L2-L3, L3-L4, and L4-L5, where there are severe canal s tenoses. 3. Multilevel foraminal stenoses, worst at L4-L5 and L5-S1 where there is associated intraforaminal n erve root compression. Recommend correlation with clinical symptoms to ascertain relevance of these f indings. Reviewed by: Priyanka Navarro MD on 09/15/2021 2:00 PM PDT Approved by: Priyanka Navarro MD on 09/15/2021 2:00 PM PDT Station ID: [id number]
[2021-09-15] MEDS: LIDOCAINE PATCH 5% TOP PRN (16:58)
[2021-09-15] MEDS: TAMSULOSIN 0.4 MG CAPSULE PO SCH (21:01)
[2021-09-16] MEDS ORDERED: LACTULOSE 10 GM /15 ML UDC PO ONE ×2 (02:05→09:00)
[2021-09-16] MEDS: CYCLOBENZAPRINE 10 MG TABLET PO PRN ×3 (02:15→20:21)
[2021-09-16 05:07] LABS: BASOPHILS # (AUTO) 0.1 10^3/uL (0.0-0.1); BASOPHILS % (AUTO) 0.4 %; EOSINOPHILS # (AUTO) 0.2 10^3/uL (0.0-0.7); EOSINOPHILS % (AUTO) 1.5 %; HCT - HEMATOCRIT 43.4 % (42.0-52.0); HGB - HEMOGLOBIN 14.4 g/dL (14.0-18.0); LYMPHOCYTES # (AUTO) 1.5 10^3/uL (1.5-3.5); LYMPHOCYTES % (AUTO) 12.5 %; MEAN CORPUSCULAR HEMOGLOBIN 29.7 pg (27.0-31.0); MEAN CORPUSCULAR HGB CONC 33.2 g/dL (32.0-36.0); MEAN CORPUSCULAR VOLUME 89.5 fL (80.0-94.0); MEAN PLATELET VOLUME 10.2 fL (7.4-11.4); MONOCYTES # (AUTO) 0.9 10^3/uL (0.0-1.0); MONOCYTES % (AUTO) 7.7 %; NEUTROPHILS % (AUTO) 73.9 %; PLT - PLATELET COUNT 349 10^3/uL (130-450); RED BLOOD COUNT 4.85 10^6/uL (4.70-6.10); RED CELL DISTRIBUTION WIDTH 13.4 % (12.0-15.0); WHITE BLOOD COUNT 12.2 x10^3/uL (4.8-10.8)
[2021-09-16 05:13] LABS: CALCIUM 8.7 mg/dL (8.5-10.3); CREATININE 0.6 mg/dL (0.6-1.2); POTASSIUM 3.3 mmol/L (3.5-5.0)
[2021-09-16] MEDS: HYDROcod/ACETAM 5/325 MG TABLET PO PRN ×3 (06:02→23:34)
[2021-09-16] MEDS: FUROSEMIDE 40 MG TABLET PO SCH ×2 (06:02→13:25)
[2021-09-16] MEDS ORDERED: POTASSIUM CHLORIDE 20 MEQ TABLET PO ONE (07:32)
--- NOTE | 2021-09-16 07:36 | PROVIDER PROGRESS NOTE ---
Assessment/Plan - Problem List (1) Pyomyositis Assessment/Plan: CT of the hips and pelvis without contrast done on 09/15/2021 showed left piriformis pyomyositis with associated intramuscular abscess. This was discussed with radiology who felt it was too small at this time for drainage. WBC 12.2. Patient is afebrile. Patient is on Ancef 2 g IV every 8 hours. Plan is for antibiotics for total of 14 days. Blood cultures done on 09/12/2021 grew staph aureus today 09/15/2021. Blood cultures repeated today 09/15/2021. If positive blood cultures persist, patient becomes febrile or back pain worsens, will consider repeating image and discussing with radiology again 2D echocardiogram done on 09/10/2021 showed no evidence of aortic stenosis. There is trace to mild aortic regurgitation. There is no mitral stenosis. There is trace to mild mitral regurgitation. Subtle lesions could not be excluded. There was no pericardial effusion. Left ventricular ejection fraction was 55 to 60%. (2) Pyelonephritis Assessment/Plan: CT of the abdomen pelvis also showed perinephric stranding. Urine analysis showed positive nitrites and moderate occult blood. Patient is on Ancef 2 g every 8 hours. (3) Acute respiratory failure with hypoxia Assessment/Plan: Currently on room air with oxygen saturation 93% Secondary to CHF exacerbation. Patient is on Coreg 25 mg p.o. twice daily. Lasix 40 mg p.o. twice daily. Eliquis 5 mg p.o. twice daily Lisinopril 20 mg p.o. daily. 2D echocardiogram done on 09/10/2021 showed no evidence of aortic stenosis. There is trace to mild aortic regurgitation. There is no mitral stenosis. There is trace to mild mitral regurgitation. Subtle lesions could not be excluded. There was no pericardial effusion. Left ventricular ejection fraction was 55 to 60%. (4) Acute congestive heart failure Qualifiers: Heart failure type: unspecified Qualified Code(s): I50.9 - Heart failure, unspecified Assessment/Plan: BNP improved from 489 down to 285. Patient is on Coreg 25 mg p.o. twice daily. Lasix 40 mg p.o. twice daily. Eliquis 5 mg p.o. twice daily Lisinopril 20 mg p.o. daily. 2D echocardiogram done on 09/10/2021 showed no evidence of aortic stenosis. There is trace to mild aortic regurgitation. There is no mitral stenosis. There is trace to mild mitral regurgitation. Subtle lesions could not be excluded. There was no pericardial effusion. Left ventricular ejection fraction was 55 to 60%. (5) Back pain Assessment/Plan: Likely secondary to pyomyositis and pyelonephritis. Patient is on antibiotics. Pain management with [place] and Dilaudid prn. (6) Metabolic encephalopathy Assessment/Plan: Likely related to acute hypoxic respiratory failure and infection. Resolved (8) Type 2 diabetes mellitus Assessment/Plan: Hemoglobin A1c was 6.5. Metformin currently held. We will continue to monitor. - Current Meds Current Meds: Current Medications Generic Name Dose Route Start Last Admin Trade Name Freq PRN Reason Stop Dose Admin Hydrocodone Bitart/Acetaminophen 1 tab 09/14/21 20:19 09/16/21 06:02 Hydrocod/Acetam 5/325 Mg Tablet PO 1 tab Q6H PRN Administration PAIN Apixaban 5 mg 09/10/21 22:00 09/15/21 21:00 Apixaban 5 Mg Tablet PO 5 mg BID KATE Administration Carvedilol 25 mg 09/12/21 21:00 09/15/21 21:01 Carvedilol 12.5 Mg Tablet PO 25 mg BID KATE Administration Cyclobenzaprine HCl 5 mg 09/14/21 13:18 09/16/21 02:15 Cyclobenzaprine 10 Mg Tablet PO 5 mg TID PRN Administration Spasms Docusate Sodium 100 mg 09/12/21 13:00 09/15/21 09:23 Docusate Sodium 100 Mg Capsule PO 100 mg DAILY KATE Administration Furosemide 40 mg 09/14/21 14:00 09/16/21 06:02 Furosemide 40 Mg Tablet PO 40 mg BIDDIURETIC KATE Administration Hydromorphone HCl 1 mg 09/15/21 11:06 09/15/21 11:15 Hydromorphone 1 Mg/Ml Carpuject IVP 1 mg Q2HR PRN Administration PAIN Cefazolin Sodium 2 gm/ Sodium 50 mls @ 100 mls/hr 09/15/21 14:00 09/16/21 06:34 Chloride IV Infused Q8H KATE Infusion Lidocaine 1 patch 09/13/21 09:32 09/15/21 16:58 Lidocaine Patch 5% TOP 1 patch DAILY PRN Administration PAIN Lisinopril 20 mg 09/13/21 09:00 09/15/21 09:48 Lisinopril 20 Mg Tablet PO 20 mg DAILY KATE Administration Nystatin 1 applic 09/10/21 23:00 09/15/21 21:01 Nystatin Powder 15 Gm TOP 1 applic BID KATE Administration Polyethylene Glycol 17 gm 09/13/21 09:00 09/15/21 09:24 Polyethylene Glycol 3350 17 Gm Packet PO 17 gm DAILY KATE Administration Senna 8.6 - 17.2 mg 09/13/21 09:00 09/15/21 09:23 Senna 8.6 Mg Tablet PO 8.6 mg DAILY KATE Administration Sodium Chloride 10 ml 09/11/21 01:00 09/15/21 23:42 Sodium Chloride Flush 0.9% 10 Ml Syringe IVP 10 ml 0100,0900,1700 KATE Administration Sodium Chloride 10 ml 09/10/21 21:10 09/13/21 10:38 Sodium Chloride Flush 0.9% 10 Ml Syringe IVP 10 ml PRN PRN Administration NEEDED PER PROVIDER ORDERS Tamsulosin HCl 0.4 mg 09/10/21 23:00 09/15/21 21:01 Tamsulosin 0.4 Mg Capsule PO 0.4 mg HS KATE Administration Temazepam 15 mg 09/11/21 20:39 09/13/21 22:08 Temazepam 15 Mg Capsule PO 15 mg QPM PRN Administration Insomnia - Lab Result Fish Bone Diagrams: 09/16/21 04:37 09/16/21 04:37 - Additional Planning My Orders: My Active Orders 09/16/21 07:32 Potassium Chloride [K-Dur] 40 meq PO ONCE ONE Subjective - Subjective Patient Reports: Other (Patient complained of significant back pain on the right lumbar area. Blood cultures drawn on 09/12/2021 grew staph aureus today.) Objective Vital Signs: Vital Signs - 24 hr 09/15/21 09/15/21 09/15/21 08:34 12:45 12:47 Temperature 36.8 C 36.8 C Heart Rate [ 92 94 Monitoring electrodes] Respiratory 23 20 Rate Blood Pressure 144/89 H 149/108 H 95/66 [Left Brachial artery] Blood Pressure [Right Brachial artery] Blood Pressure [Right Radial artery] O2 Saturation 93 96 09/15/21 09/15/21 09/15/21 15:02 15:42 20:55 Temperature 37.0 C 36.8 C Heart Rate [ 92 93 Monitoring electrodes] Respiratory 20 20 Rate Blood Pressure [Left Brachial artery] Blood Pressure 125/83 H 138/90 H [Right Brachial artery] Blood Pressure 146/96 H [Right Radial artery] O2 Saturation 96 94 09/15/21 09/16/21 09/16/21 23:51 05:04 07:13 Temperature 36.9 C 36.6 C 36.8 C Heart Rate [ 86 87 90 Monitoring electrodes] Respiratory 18 25 H 23 Rate Blood Pressure 149/86 H [Left Brachial artery] Blood Pressure 146/95 H 173/113 H [Right Brachial artery] Blood Pressure [Right Radial artery] O2 Saturation 92 92 95 Oxygen O2 Source Oxymizer I&O (Last 24 Hrs): Intake and Output Totals x24h 09/14/21 09/15/21 09/16/21 23:59 23:59 23:59 Intake Total 8491.403 8669 50 Output Total 3065 3600 450 Balance -1486.250 -1731 -400 General: Alert, Oriented x3, Moderate distress, Severe distress HEENT: PERRLA, EOMI Neck: No JVD Neuro: Alert, Oriented Times 3 Cardiovascular: Regular rate, Normal S1, Normal S2 Respiratory: Chest non-tender, No respiratory distress, Breath sounds nml Abdomen: Normal bowel sounds, Soft Extremities: No clubbing, No cyanosis, No edema, No tenderness/swelling Skin: No rashes, No breakdown, No significant lesion - Results Results: Laboratory Results WBC 12.2 x10^3/uL (4.8-10.8) H 09/16/21 04:37 RBC 4.85 10^6/uL (4.70-6.10) 09/16/21 04:37 Hgb 14.4 g/dL (14.0-18.0) 09/16/21 04:37 Hct 43.4 % (42.0-52.0) 09/16/21 04:37 MCV 89.5 fL (80.0-94.0) 09/16/21 04:37 MCH 29.7 pg (27.0-31.0) 09/16/21 04:37 MCHC 33.2 g/dL (32.0-36.0) 09/16/21 04:37 RDW 13.4 % (12.0-15.0) 09/16/21 04:37 Plt Count 349 10^3/uL (130-450) 09/16/21 04:37 MPV 10.2 fL (7.4-11.4) 09/16/21 04:37 Neut # (Auto) 9.0 10^3/uL (1.5-6.6) H 09/16/21 04:37 Lymph # (Auto) 1.5 10^3/uL (1.5-3.5) 09/16/21 04:37 [place] # (Auto) 0.9 10^3/uL (0.0-1.0) 09/16/21 04:37 Eos # (Auto) 0.2 10^3/uL (0.0-0.7) 09/16/21 04:37 Baso # (Auto) 0.1 10^3/uL (0.0-0.1) 09/16/21 04:37 Absolute Nucleated RBC 0.00 x10^3/uL 09/16/21 04:37 Nucleated RBC % 0.0 /100WBC 09/16/21 04:37 PT 18.9 secs (9.9-12.6) H 09/10/21 19:54 INR 1.7 (0.8-1.2) H 09/10/21 19:54 APTT 28.9 secs (24.9-33.3) 09/10/21 19:54 Bld Gas Analysis Time 213409/10/21 21:30 Sample Site LEFT RADIAL 09/10/21 21:30 ABG pH 7.47 (7.35-7.45) H 09/10/21 21:30 ABG pCO2 31 mmHg (34-45) L 09/10/21 21:30 ABG pO2 36 mmHg (80-100) L* 09/10/21 21:30 ABG HCO3 22.0 mmol/L (22.0-26.0) 09/10/21 21:30 ABG Total CO2 23.0 MMOL/L (21.0-29.0) 09/10/21 21:30 ABG O2 Saturation 73 % (94-98) L* 09/10/21 21:30 ABG Base Excess -0.6 mmol/L (-2.0-3.0) 09/10/21 21:30 Emmanuel Test POSITIVE 09/10/21 21:30 VBG pH 7.471 (7.31-7.41) H 09/14/21 04:05 Ionized Calcium 1.07 mmol/L (1.15-1.33) L 09/14/21 04:05 O2 Delivery Device SIMPLE MASK 09/10/21 21:30 O2 Liters/Min 15.00 LPM 09/10/21 21:30 Sodium 136 mmol/L (135-145) 09/16/21 04:37 Potassium 3.3 mmol/L (3.5-5.0) L 09/16/21 04:37 Chloride 91 mmol/L (101-111) L 09/16/21 04:37 Carbon Dioxide 34 mmol/L (21-32) H 09/16/21 04:37 Anion Gap 11.0 (6-13) 09/16/21 04:37 BUN 23 mg/dL (6-20) H 09/16/21 04:37 Creatinine 0.6 mg/dL (0.6-1.2) 09/16/21 04:37 Estimated GFR (MDRD) 131 (>89) 09/16/21 04:37 Glucose 128 mg/dL (70-100) H 09/16/21 04:37 Estimat Average Glucose 134 mg/dL (70-100) H 09/11/21 04:45 Hemoglobin A1c % 6.3 % (4.27-6.07) H 09/11/21 04:45 Lactic Acid 1.5 mmol/L (0.5-2.2) 09/10/21 19:54 Calcium 8.7 mg/dL (8.5-10.3) 09/16/21 04:37 Phosphorus 3.1 mg/dL (2.5-4.6) 09/15/21 04:24 Magnesium 2.0 mg/dL (1.7-2.8) 09/14/21 04:05 Total Bilirubin 1.8 mg/dL (0.2-1.0) H 09/10/21 19:33 AST 37 IU/L (10-42) 09/10/21 19:33 ALT 26 IU/L (10-60) 09/10/21 19:33 Alkaline Phosphatase 79 IU/L (42-121) 09/10/21 19:33 Troponin I High Sens 14.3 ng/L (2.3-19.7) 09/12/21 04:39 B-Natriuretic Peptide 285 pg/mL (5-100) H 09/14/21 04:05 Total Protein 7.2 g/dL (6.7-8.2) 09/10/21 19:33 Albumin 3.8 g/dL (3.2-5.5) 09/10/21 19:33 Globulin 3.4 g/dL (2.1-4.2) 09/10/21 19:33 Albumin/Globulin Ratio 1.1 (1.0-2.2) 09/10/21 19:33 Lipase 21 U/L (22-51) L 09/10/21 19:33 TSH 1.49 uIU/mL (0.34-5.60) 09/11/21 04:45 Urine Color DARK YELLOW 09/10/21 21:59 Urine Clarity HAZY (CLEAR) 09/10/21 21:59 Urine pH 6.0 PH (5.0-7.5) 09/10/21 21:59 Ur Specific [place] 1.020 (1.002-1.030) 09/10/21 21:59 Urine Protein 100 mg/dL (NEGATIVE) H 09/10/21 21:59 Urine Glucose (UA) NEGATIVE mg/dL (NEGATIVE) 09/10/21 21:59 Urine Ketones 15 mg/dL (NEGATIVE) H 09/10/21 21:59 Urine Occult Blood MODERATE (NEGATIVE) H 09/10/21 21:59 Urine Nitrite POSITIVE (NEGATIVE) H 09/10/21 21:59 Urine Bilirubin NEGATIVE (NEGATIVE) 09/10/21 21:59 Urine Urobilinogen 1 (NORMAL) E.U./dL (NORMAL) 09/10/21 21:59 Ur Leukocyte Esterase NEGATIVE (NEGATIVE) 09/10/21 21:59 Urine RBC 0-5 /HPF (0-5) 09/10/21 21:59 Urine WBC 4-5 /HPF (0-3) 09/10/21 21:59 Ur Squamous Epith Cells NONE SEEN (<= Few) 09/10/21 21:59 Amorphous Sediment Few /LPF 09/10/21 21:59 Urine Bacteria Rare /HPF (None Seen) 09/10/21 21:59 Ur Microscopic Review INDICATED 09/10/21 21:59 Urine Culture Comments INDICATED 09/10/21 21:59 Nasal Adenovirus (PCR) NOT DETECTED 09/10/21 21:59 Nasal B. parapertussis DNA (PCR) NOT DETECTED 09/10/21 21:59 Nasal Coronavir 229E PCR NOT DETECTED 09/10/21 21:59 Nasal Coronavir HKU1 PCR NOT DETECTED 09/10/21 21:59 Nasal Coronavir NL63 PCR NOT DETECTED 09/10/21 21:59 Nasal Coronavir OC43 PCR NOT DETECTED 09/10/21 21:59 Nasal Enterovir/Rhinovir PCR NOT DETECTED 09/10/21 21:59 Nasal Influenza B PCR NOT DETECTED 09/10/21 21:59 Nasal Influenza A PCR NOT DETECTED 09/10/21 21:59 Nasal Parainfluen 1 PCR NOT DETECTED 09/10/21 21:59 Nasal Parainfluen 2 PCR NOT DETECTED 09/10/21 21:59 Nasal Parainfluen 3 PCR NOT DETECTED 09/10/21 21:59 Nasal Parainfluen 4 PCR NOT DETECTED 09/10/21 21:59 Nasal RSV (PCR) NOT DETECTED 09/10/21 21:59 Nasal Screen MRSA (PCR) NEGATIVE (NEGATIVE) 09/10/21 21:59 Nasal B.pertussis DNA PCR NOT DETECTED 09/10/21 21:59 Nasal C.pneumoniae (PCR) NOT DETECTED 09/10/21 21:59 Martínez Human Metapneumo PCR NOT DETECTED 09/10/21 21:59 Nasal M.pneumoniae (PCR) NOT DETECTED 09/10/21 21:59 Nasal SARS-CoV-2 (PCR) NOT DETECTED 09/10/21 21:59 - Procedures Procedures: Procedures EXCISION OF RIGHT KNEE JOINT, PERC ENDO APPROACH (06/07/15) INSERTION OF INFUSION DEV INTO SUP VENA CAVA, PERC APPROACH (06/07/15) Sepsis Event Note (H) - Evaluation Current Stage of Sepsis: Resolved (HR now less than 90. mentation improved. Afebrile.) Possible source of Sepsis: positive: Bone/Joint (appeared in the ED 09/10 with signs and symptoms of sepsis. 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
[2021-09-16] MEDS: lisinopriL 20 MG TABLET PO SCH (08:45)
[2021-09-16] MEDS: polyethylene glycoL 3350 17 GM PACKET PO SCH (08:45)
[2021-09-16] MEDS: APIXABAN 5 MG TABLET PO SCH ×2 (08:46→20:21)
[2021-09-16] MEDS: SENNA 8.6 MG TABLET PO SCH (08:46)
[2021-09-16] MEDS: amLODIPine 5 MG TABLET PO SCH (08:47)
[2021-09-16] MEDS: carvediloL 12.5 MG TABLET PO SCH ×2 (08:47→17:31)
[2021-09-16] MEDS: DOCUSATE SODIUM 100 MG CAPSULE PO SCH (08:48)
[2021-09-16] MEDS: SODIUM CHLORIDE FLUSH 0.9% 10 ML SYRINGE IVP SCH ×3 (08:54→23:34)
[2021-09-16] MEDS: NYSTATIN POWDER 15 GM TOP SCH ×2 (08:54→21:39)
[2021-09-16] MEDS ORDERED: MAGNESIUM CITRATE 296 ML BOTTLE PO ONE (09:00)
[2021-09-16] MEDS: HYDROmorphone 1 MG/ML CARPUJECT IVP PRN ×2 (11:10→14:37)
[2021-09-16] MEDS ORDERED: SODIUM CHLORIDE 0.9% 0 ML IV ONE (13:17)
[2021-09-16] MEDS: SODIUM CHLORIDE FLUSH 0.9% 10 ML SYRINGE IVP PRN (14:37)
[2021-09-16] MEDS: TAMSULOSIN 0.4 MG CAPSULE PO SCH (20:21)
[2021-09-16] MEDS: LIDOCAINE PATCH 5% TOP PRN (23:52)
[2021-09-17] MEDS: HYDROmorphone 1 MG/ML CARPUJECT IVP PRN ×3 (04:43→16:55)
[2021-09-17 05:14] LABS: BASOPHILS # (AUTO) 0.1 10^3/uL (0.0-0.1); BASOPHILS % (AUTO) 0.5 %; EOSINOPHILS # (AUTO) 0.2 10^3/uL (0.0-0.7); EOSINOPHILS % (AUTO) 1.6 %; HCT - HEMATOCRIT 42.9 % (42.0-52.0); HGB - HEMOGLOBIN 13.9 g/dL (14.0-18.0); LYMPHOCYTES # (AUTO) 1.6 10^3/uL (1.5-3.5); LYMPHOCYTES % (AUTO) 14.4 %; MEAN CORPUSCULAR HEMOGLOBIN 28.8 pg (27.0-31.0); MEAN CORPUSCULAR HGB CONC 32.4 g/dL (32.0-36.0); MEAN CORPUSCULAR VOLUME 88.8 fL (80.0-94.0); MEAN PLATELET VOLUME 9.8 fL (7.4-11.4); MONOCYTES # (AUTO) 0.9 10^3/uL (0.0-1.0); MONOCYTES % (AUTO) 7.8 %; NEUTROPHILS # (AUTO) 7.9 10^3/uL (1.5-6.6); NEUTROPHILS % (AUTO) 72.7 %; PLT - PLATELET COUNT 386 10^3/uL (130-450); RED BLOOD COUNT 4.83 10^6/uL (4.70-6.10); RED CELL DISTRIBUTION WIDTH 13.2 % (12.0-15.0); WHITE BLOOD COUNT 10.9 x10^3/uL (4.8-10.8)
[2021-09-17 05:24] LABS: CALCIUM 8.5 mg/dL (8.5-10.3); CREATININE 0.5 mg/dL (0.6-1.2); POTASSIUM 3.2 mmol/L (3.5-5.0)
[2021-09-17] MEDS: FUROSEMIDE 40 MG TABLET PO SCH ×2 (05:54→13:51)
[2021-09-17] MEDS ORDERED: POTASSIUM CHLORIDE 20 MEQ TABLET PO ONE ×2 (07:18→15:00)
--- NOTE | 2021-09-17 07:20 | PROVIDER PROGRESS NOTE ---
Assessment/Plan - Problem List (1) Pyomyositis Assessment/Plan: 09/17/21 Patient's white blood cell count today was 10.9 Blood cultures done on 09/15/21 afre NGTD I discussed persistent back pain with radiology regarding the possibility of repeating an image. The radiologist advised that given that the MRI was done 2 days prior, there would likely not be any significant radiologic change at this time Also that an improvement in white blood cell count was a good indication of good response to antibiotic treatment. 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 This was discussed with radiology who felt it was too small at this time for drainage. WBC 12.2. Patient is afebrile. Patient is on Ancef 2 g IV every 8 hours. Plan is for antibiotics for total of 14 days. Blood cultures done on 09/12/2021 grew staph aureus today 09/15/2021. Blood cultures repeated today 09/15/2021. If positive blood cultures persist, patient becomes febrile or back pain worsens, will consider repeating image and discussing with radiology again 2D echocardiogram done on 09/10/2021 showed no evidence of aortic stenosis. There is trace to mild aortic regurgitation. There is no mitral stenosis. There is trace to mild mitral regurgitation. Subtle lesions could not be excluded. There was no pericardial effusion. Left ventricular ejection fraction was 55 to 60%. (2) Pyelonephritis Assessment/Plan: CT of the abdomen pelvis also showed perinephric stranding. Urine analysis showed positive nitrites and moderate occult blood. Patient is on Ancef 2 g every 8 hours. (3) Acute respiratory failure with hypoxia Assessment/Plan: Currently on room air with oxygen saturation 93% Secondary to CHF exacerbation. Patient is on Coreg 25 mg p.o. twice daily. Lasix 40 mg p.o. twice daily. Eliquis 5 mg p.o. twice daily Lisinopril 20 mg p.o. daily. 2D echocardiogram done on 09/10/2021 showed no evidence of aortic stenosis. There is trace to mild aortic regurgitation. There is no mitral stenosis. There is trace to mild mitral regurgitation. [place] btle lesions could not be excluded. There was no pericardial effusion. Left ventricular ejection fraction was 55 to 60%. (4) Acute congestive heart failure Qualifiers: Heart failure type: unspecified Qualified Code(s): I50.9 - Heart failure, unspecified Assessment/Plan: BNP improved from 489 down to 285. Patient is on Coreg 25 mg p.o. twice daily. Lasix 40 mg p.o. twice daily. Eliquis 5 mg p.o. twice daily Lisinopril 20 mg p.o. daily. 2D echocardiogram done on 09/10/2021 showed no evidence of aortic stenosis. There is trace to mild aortic regurgitation. There is no mitral stenosis. There is trace to mild mitral regurgitation. Subtle lesions could not be excluded. There was no pericardial effusion. Left ventricular ejection fraction was 55 to 60%. (5) Back pain Assessment/Plan: Likely secondary to pyomyositis and pyelonephritis. Patient is on antibiotics. Pain management with [place] and Dilaudid prn. (6) Metabolic encephalopathy Assessment/Plan: Likely related to acute hypoxic respiratory failure and infection. Resolved (8) Type 2 diabetes mellitus Assessment/Plan: Hemoglobin A1c was 6.5. Metformin currently held. We will continue to monitor. - Current Meds Current Meds: Current Medications Generic Name Dose Route Start Last Admin Trade Name Freq PRN Reason Stop Dose Admin Hydrocodone Bitart/Acetaminophen 1 tab 09/14/21 20:19 09/16/21 23:34 Hydrocod/Acetam 5/325 Mg Tablet PO 1 tab Q6H PRN Administration PAIN Amlodipine Besylate 10 mg 09/16/21 09:00 09/16/21 08:47 Amlodipine 5 Mg Tablet PO 10 mg DAILY KATE Administration Apixaban 5 mg 09/10/21 22:00 09/16/21 20:21 Apixaban 5 Mg Tablet PO 5 mg BID KATE Administration Carvedilol 25 mg 09/16/21 13:13 09/16/21 17:31 Carvedilol 12.5 Mg Tablet PO 25 mg BIDWM KATE Administration Cyclobenzaprine HCl 5 mg 09/14/21 13:18 09/16/21 20:21 Cyclobenzaprine 10 Mg Tablet PO 5 mg TID PRN Administration Spasms Docusate Sodium 100 mg 09/12/21 13:00 09/16/21 08:48 Docusate Sodium 100 Mg Capsule PO 100 mg DAILY KATE Administration Furosemide 40 mg 09/14/21 14:00 09/17/21 05:54 Furosemide 40 Mg Tablet PO 40 mg BIDDIURETIC KATE Administration Hydromorphone HCl 1 mg 09/15/21 11:06 09/17/21 04:43 Hydromorphone 1 Mg/Ml Carpuject IVP 1 mg Q2HR PRN Administration PAIN Cefazolin Sodium 2 gm/ Sodium 50 mls @ 100 mls/hr 09/15/21 14:00 09/17/21 06:31 Chloride IV Infused Q8H KATE Infusion Lidocaine 1 patch 09/13/21 09:32 09/16/21 23:52 Lidocaine Patch 5% TOP 1 patch DAILY PRN Administration PAIN Lisinopril 20 mg 09/13/21 09:00 09/16/21 08:45 Lisinopril 20 Mg Tablet PO 20 mg DAILY KATE Administration Nystatin 1 applic 09/10/21 23:00 09/16/21 21:39 Nystatin Powder 15 Gm TOP 1 applic BID KATE Administration Polyethylene Glycol 17 gm 09/13/21 09:00 09/16/21 08:45 Polyethylene Glycol 3350 17 Gm Packet PO 17 gm DAILY KATE Administration Senna 8.6 - 17.2 mg 09/13/21 09:00 09/16/21 08:46 Senna 8.6 Mg Tablet PO 8.6 mg DAILY KATE Administration Sodium Chloride 10 ml 09/11/21 01:00 09/16/21 23:34 Sodium Chloride Flush 0.9% 10 Ml Syringe IVP 10 ml 0100,0900,1700 KATE Administration Sodium Chloride 10 ml 09/10/21 21:10 09/16/21 14:37 Sodium Chloride Flush 0.9% 10 Ml Syringe IVP 10 ml PRN PRN Administration NEEDED PER PROVIDER ORDERS Tamsulosin HCl 0.4 mg 09/10/21 23:00 09/16/21 20:21 Tamsulosin 0.4 Mg Capsule PO 0.4 mg HS KATE Administration Temazepam 15 mg 09/11/21 20:39 09/13/21 22:08 Temazepam 15 Mg Capsule PO 15 mg QPM PRN Administration Insomnia - Lab Result Fish Bone Diagrams: 09/18/21 07:51 09/18/21 07:51 - Additional Planning My Orders: My Active Orders 09/16/21 12:18 CULTURE, BLOOD #1 [RM] Routine 09/16/21 12:45 CULTURE, BLOOD #2 [RM] Routine 09/17/21 07:18 Potassium Chloride [K-Dur] 40 meq PO ONCE ONE 09/17/21 15:00 Potassium Chloride [K-Dur] 20 meq PO ONCE Subjective - Subjective Patient Reports: Other (Patient complained of significant back pain on the right lumbar area. Blood cultures drawn on 09/12/2021 grew staph aureus today.) Objective Vital Signs: Vital Signs - 24 hr 09/16/21 09/16/21 09/16/21 08:42 10:15 10:17 Temperature Heart Rate [ Brachial] Heart Rate [ 89 80 Sitting] Heart Rate [ 80 80 Supine] Respiratory Rate Blood Pressure [Left Radial artery] Blood Pressure [Right Brachial artery] Blood Pressure 122/97 H 122/97 H [Sitting] Blood Pressure 141/95 H 141/95 H [Supine] O2 Saturation 93 O2 Saturation [ 90 L With Activity] O2 Saturation [ 92 Without Activity] 09/16/21 09/16/21 09/16/21 14:21 14:33 16:55 Temperature 36.5 C Heart Rate [ 81 Brachial] Heart Rate [ Sitting] Heart Rate [ Supine] Respiratory 20 Rate Blood Pressure [Left Radial artery] Blood Pressure 148/87 H [Right Brachial artery] Blood Pressure [Sitting] Blood Pressure [Supine] O2 Saturation 92 87 L O2 Saturation [ With Activity] O2 Saturation [ Without Activity] 09/16/21 09/16/21 09/16/21 17:00 21:00 23:36 Temperature 36.9 C 36.7 C 36.8 C Heart Rate [ 81 85 91 Brachial] Heart Rate [ Sitting] Heart Rate [ Supine] Respiratory 20 21 20 Rate Blood Pressure 170/98 H [Left Radial artery] Blood Pressure 133/84 H 162/98 H [Right Brachial artery] Blood Pressure [Sitting] Blood Pressure [Supine] O2 Saturation 93 95 92 O2 Saturation [ With Activity] O2 Saturation [ Without Activity] 09/17/21 03:52 Temperature 36.8 C Heart Rate [ 89 Brachial] Heart Rate [ Sitting] Heart Rate [ Supine] Respiratory 20 Rate Blood Pressure 143/93 H [Left Radial artery] Blood Pressure [Right Brachial artery] Blood Pressure [Sitting] Blood Pressure [Supine] O2 Saturation 92 O2 Saturation [ With Activity] O2 Saturation [ Without Activity] Oxygen O2 Source [With Activity] Room air O2 Source [Without Activity] Room air O2 Source Room air I&O (Last 24 Hrs): Intake and Output Totals x24h 09/15/21 09/16/21 09/17/21 23:59 23:59 23:59 Intake Total 1869 1540 50 Output Total 3600 2750 450 Balance -2752 -5736 -516 Comments/Notes: General: Alert, Oriented x3, Moderate distress, Severe distress HEENT: PERRLA, EOMI Neck: No JVD Neuro: Alert, Oriented Times 3 Cardiovascular: Regular rate, Normal S1, Normal S2 Respiratory: Chest non-tender, No respiratory distress, Breath sounds nml Abdomen: Normal bowel sounds, Soft Extremities: No clubbing, No cyanosis, No edema, No tenderness/swelling Skin: No rashes, No breakdown, No significant lesion - Results Results: Laboratory Results WBC 10.9 x10^3/uL (4.8-10.8) H 09/17/21 04:54 RBC 4.83 10^6/uL (4.70-6.10) 09/17/21 04:54 Hgb 13.9 g/dL (14.0-18.0) L 09/17/21 04:54 Hct 42.9 % (42.0-52.0) 09/17/21 04:54 MCV 88.8 fL (80.0-94.0) 09/17/21 04:54 MCH 28.8 pg (27.0-31.0) 09/17/21 04:54 MCHC 32.4 g/dL (32.0-36.0) 09/17/21 04:54 RDW 13.2 % (12.0-15.0) 09/17/21 04:54 Plt Count 386 10^3/uL (130-450) 09/17/21 04:54 MPV 9.8 fL (7.4-11.4) 09/17/21 04:54 Neut # (Auto) 7.9 10^3/uL (1.5-6.6) H 09/17/21 04:54 Lymph # (Auto) 1.6 10^3/uL (1.5-3.5) 09/17/21 04:54 [place] # (Auto) 0.9 10^3/uL (0.0-1.0) 09/17/21 04:54 Eos # (Auto) 0.2 10^3/uL (0.0-0.7) 09/17/21 04:54 Baso # (Auto) 0.1 10^3/uL (0.0-0.1) 09/17/21 04:54 Absolute Nucleated RBC 0.00 x10^3/uL 09/17/21 04:54 Nucleated RBC % 0.0 /100WBC 09/17/21 04:54 PT 18.9 secs (9.9-12.6) H 09/10/21 19:54 INR 1.7 (0.8-1.2) H 09/10/21 19:54 APTT 28.9 secs (24.9-33.3) 09/10/21 19:54 Bld Gas Analysis Time 213409/10/21 21:30 Sample Site LEFT RADIAL 09/10/21 21:30 ABG pH 7.47 (7.35-7.45) H 09/10/21 21:30 ABG pCO2 31 mmHg (34-45) L 09/10/21 21:30 ABG pO2 36 mmHg (80-100) L* 09/10/21 21:30 ABG HCO3 22.0 mmol/L (22.0-26.0) 09/10/21 21:30 ABG Total CO2 23.0 MMOL/L (21.0-29.0) 09/10/21 21:30 ABG O2 Saturation 73 % (94-98) L* 09/10/21 21:30 ABG Base Excess -0.6 mmol/L (-2.0-3.0) 09/10/21 21:30 Emmanuel Test POSITIVE 09/10/21 21:30 VBG pH 7.471 (7.31-7.41) H 09/14/21 04:05 Ionized Calcium 1.07 mmol/L (1.15-1.33) L 09/14/21 04:05 O2 Delivery Device SIMPLE MASK 09/10/21 21:30 O2 Liters/Min 15.00 LPM 09/10/21 21:30 Sodium 135 mmol/L (135-145) 09/17/21 04:54 Potassium 3.2 mmol/L (3.5-5.0) L 09/17/21 04:54 Chloride 92 mmol/L (101-111) L 09/17/21 04:54 Carbon Dioxide 33 mmol/L (21-32) H 09/17/21 04:54 Anion Gap 10.0 (6-13) 09/17/21 04:54 BUN 21 mg/dL (6-20) H 09/17/21 04:54 Creatinine 0.5 mg/dL (0.6-1.2) L 09/17/21 04:54 Estimated GFR (MDRD) 162 (>89) 09/17/21 04:54 Glucose 129 mg/dL (70-100) H 09/17/21 04:54 Estimat Average Glucose 134 mg/dL (70-100) H 09/11/21 04:45 Hemoglobin A1c % 6.3 % (4.27-6.07) H 09/11/21 04:45 Lactic Acid 1.5 mmol/L (0.5-2.2) 09/10/21 19:54 Calcium 8.5 mg/dL (8.5-10.3) 09/17/21 04:54 Phosphorus 3.1 mg/dL (2.5-4.6) 09/15/21 04:24 Magnesium 2.0 mg/dL (1.7-2.8) 09/14/21 04:05 Total Bilirubin 1.8 mg/dL (0.2-1.0) H 09/10/21 19:33 AST 37 IU/L (10-42) 09/10/21 19:33 ALT 26 IU/L (10-60) 09/10/21 19:33 Alkaline Phosphatase 79 IU/L (42-121) 09/10/21 19:33 Troponin I High Sens 14.3 ng/L (2.3-19.7) 09/12/21 04:39 B-Natriuretic Peptide 285 pg/mL (5-100) H 09/14/21 04:05 Total Protein 7.2 g/dL (6.7-8.2) 09/10/21 19:33 Albumin 3.8 g/dL (3.2-5.5) 09/10/21 19:33 Globulin 3.4 g/dL (2.1-4.2) 09/10/21 19:33 Albumin/Globulin Ratio 1.1 (1.0-2.2) 09/10/21 19:33 Lipase 21 U/L (22-51) L 09/10/21 19:33 TSH 1.49 uIU/mL (0.34-5.60) 09/11/21 04:45 Urine Color DARK YELLOW 09/10/21 21:59 Urine Clarity HAZY (CLEAR) 09/10/21 21:59 Urine pH 6.0 PH (5.0-7.5) 09/10/21 21:59 Ur Specific [place] 1.020 (1.002-1.030) 09/10/21 21:59 Urine Protein 100 mg/dL (NEGATIVE) H 09/10/21 21:59 Urine Glucose (UA) NEGATIVE mg/dL (NEGATIVE) 09/10/21 21:59 Urine Ketones 15 mg/dL (NEGATIVE) H 09/10/21 21:59 Urine Occult Blood MODERATE (NEGATIVE) H 09/10/21 21:59 Urine Nitrite POSITIVE (NEGATIVE) H 09/10/21 21:59 Urine Bilirubin NEGATIVE (NEGATIVE) 09/10/21 21:59 Urine Urobilinogen 1 (NORMAL) E.U./dL (NORMAL) 09/10/21 21:59 Ur Leukocyte Esterase NEGATIVE (NEGATIVE) 09/10/21 21:59 Urine RBC 0-5 /HPF (0-5) 09/10/21 21:59 Urine WBC 4-5 /HPF (0-3) 09/10/21 21:59 Ur Squamous Epith Cells NONE SEEN (<= Few) 09/10/21 21:59 Amorphous Sediment Few /LPF 09/10/21 21:59 Urine Bacteria Rare /HPF (None Seen) 09/10/21 21:59 Ur Microscopic Review INDICATED 09/10/21 21:59 Urine Culture Comments INDICATED 09/10/21 21:59 Nasal Adenovirus (PCR) NOT DETECTED 09/10/21 21:59 Nasal B. parapertussis DNA (PCR) NOT DETECTED 09/10/21 21:59 Nasal Coronavir 229E PCR NOT DETECTED 09/10/21 21:59 Nasal Coronavir HKU1 PCR NOT DETECTED 09/10/21 21:59 Nasal Coronavir NL63 PCR NOT DETECTED 09/10/21 21:59 Nasal Coronavir OC43 PCR NOT DETECTED 09/10/21 21:59 Nasal Enterovir/Rhinovir PCR NOT DETECTED 07/20/22 21:59 Nasal Influenza B PCR NOT DETECTED 09/10/21 21:59 Nasal Influenza A PCR NOT DETECTED 09/10/21 21:59 Nasal Parainfluen 1 PCR NOT DETECTED 09/10/21 21:59 Nasal Parainfluen 2 PCR NOT DETECTED 09/10/21 21:59 Nasal Parainfluen 3 PCR NOT DETECTED 09/10/21 21:59 Nasal Parainfluen 4 PCR NOT DETECTED 09/10/21 21:59 Nasal RSV (PCR) NOT DETECTED 09/10/21 21:59 Nasal Screen MRSA (PCR) NEGATIVE (NEGATIVE) 09/10/21 21:59 Nasal B.pertussis DNA PCR NOT DETECTED 09/10/21 21:59 Nasal C.pneumoniae (PCR) NOT DETECTED 09/10/21 21:59 [place] Human Metapneumo PCR NOT DETECTED 09/10/21 21:59 Nasal M.pneumoniae (PCR) NOT DETECTED 09/10/21 21:59 Nasal SARS-CoV-2 (PCR) NOT DETECTED 09/10/21 21:59 - Procedures Procedures: Procedures EXCISION OF RIGHT KNEE JOINT, PERC ENDO APPROACH (06/07/15) INSERTION OF INFUSION DEV INTO SUP VENA CAVA, PERC APPROACH (06/07/15) Sepsis Event Note (H) - Evaluation Current Stage of Sepsis: Resolved (HR now less than 90. mentation improved. Afebrile.) Possible source of Sepsis: positive: Bone/Joint (appeared in the ED 09/10 with signs and symptoms of sepsis. now resolving) - Sepsis Criteria Sepsis Criteria: Recorded Heart Rate greater than 90 bpm, Recorded Respiratory Rate greater than 20, Respiratory: Increasing oxygen requirements, SERVICE GIRL: altered consciousness (unrelated to primary neuro pathology) ABX Reporting Has patient been on IV antibiotics over the past 48 hours?: Yes
[2021-09-17] MEDS ORDERED: GLYCERIN ADULT SUPP PR ONE (07:36)
[2021-09-17] MEDS: carvediloL 12.5 MG TABLET PO SCH ×2 (08:01→17:08)
[2021-09-17] MEDS: SODIUM CHLORIDE FLUSH 0.9% 10 ML SYRINGE IVP SCH ×3 (08:13→21:34)
[2021-09-17] MEDS ORDERED: MAGNESIUM HYDROXIDE 2,400 MG/30 ML UDC PO ONE (09:00)
[2021-09-17] MEDS ORDERED: SALINE ENEMA 133 ML BOTTLE RC ONE (09:00)
[2021-09-17] MEDS: amLODIPine 5 MG TABLET PO SCH (10:07)
[2021-09-17] MEDS: SENNA 8.6 MG TABLET PO SCH (10:07)
[2021-09-17] MEDS: APIXABAN 5 MG TABLET PO SCH ×2 (10:07→21:34)
[2021-09-17] MEDS: DOCUSATE SODIUM 100 MG CAPSULE PO SCH (10:08)
[2021-09-17] MEDS: lisinopriL 20 MG TABLET PO SCH (10:08)
[2021-09-17] MEDS: polyethylene glycoL 3350 17 GM PACKET PO SCH (10:09)
[2021-09-17] MEDS: KETOROLAC 15 MG/ML VIAL IVP PRN ×2 (10:13→16:55)
[2021-09-17] MEDS: NYSTATIN POWDER 15 GM TOP SCH ×2 (13:53→21:34)
[2021-09-17] MEDS: LIDOCAINE PATCH 5% TOP PRN (17:11)
[2021-09-17] MEDS: HYDROcod/ACETAM 5/325 MG TABLET PO PRN (21:33)
[2021-09-17] MEDS: TAMSULOSIN 0.4 MG CAPSULE PO SCH (21:34)
[2021-09-18] MEDS: KETOROLAC 15 MG/ML VIAL IVP PRN ×2 (00:57→23:46)
[2021-09-18] MEDS: HYDROmorphone 1 MG/ML CARPUJECT IVP PRN ×4 (01:39→14:07)
[2021-09-18] MEDS: FUROSEMIDE 40 MG TABLET PO SCH ×2 (06:25→14:06)
[2021-09-18] MEDS ORDERED: POTASSIUM CHLORIDE 20 MEQ TABLET PO ONE (07:40)
--- NOTE | 2021-09-18 07:43 | PROVIDER PROGRESS NOTE ---
Assessment/Plan - Problem List (1) Pyomyositis Assessment/Plan: 09/18/21 Patient's white blood cell count today was 9.8 Blood cultures done on 09/15/21 are NGTD 09/17/21 Patient's white blood cell count today was 10.9 Blood cultures done on 09/15/21 afre NGTD I discussed persistent back pain with radiology regarding the possibility of repeating an image. The radiologist advised that given that the MRI was done 2 days prior, there would likely not be any significant radiologic change at this time Also that an improvement in white blood cell count was a good indication of good response to antibiotic treatment. 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 This was discussed with radiology who felt it was too small at this time for drainage. WBC 12.2. Patient is afebrile. Patient is on Ancef 2 g IV every 8 hours. Plan is for antibiotics for total of 14 days. Blood cultures done on 09/12/2021 grew staph aureus today 09/15/2021. Blood cultures repeated today 09/15/2021. If positive blood cultures persist, patient becomes febrile or back pain worsens, will consider repeating image and discussing with radiology again 2D echocardiogram done on 09/10/2021 showed no evidence of aortic stenosis. There is trace to mild aortic regurgitation. There is no mitral stenosis. There is trace to mild mitral regurgitation. Subtle lesions could not be excluded. There was no pericardial effusion. Left ventricular ejection fraction was 55 to 60%. (2) Pyelonephritis Assessment/Plan: CT of the abdomen pelvis also showed perinephric stranding. Urine analysis showed positive nitrites and moderate occult blood. Patient is on Ancef 2 g every 8 hours. (3) Acute respiratory failure with hypoxia Assessment/Plan: Currently on room air with oxygen saturation 91 to 95% Secondary to CHF exacerbation. Patient is on Coreg 25 mg p.o. twice daily. Lasix 40 mg p.o. twice daily. Eliquis 5 mg p.o. twice daily Lisinopril 20 mg p.o. daily. 2D echocardiogram done on 09/10/2021 showed no evidence of aortic stenosis. There is trace to mild aortic regurgitation. There is no mitral stenosis. There is trace to mild mitral regurgitation. Subtle lesions could not be excluded. There was no pericardial effusion. Left ventricular ejection fraction was 55 to 60%. (4) Acute congestive heart failure Qualifiers: Heart failure type: unspecified Qualified Code(s): I50.9 - Heart failure, unspecified Assessment/Plan: BNP improved from 489 down to 285. Patient is on Coreg 25 mg p.o. twice daily. Lasix 40 mg p.o. twice daily. Eliquis 5 mg p.o. twice daily Lisinopril 20 mg p.o. daily. 2D echocardiogram done on 09/10/2021 showed no evidence of aortic stenosis. There is trace to mild aortic regurgitation. There is no mitral stenosis. There is trace to mild mitral regurgitation. Subtle lesions could not be excluded. There was no pericardial effusion. Left ventricular ejection fraction was 55 to 60%. (5) Back pain Assessment/Plan: Likely secondary to pyomyositis and pyelonephritis. Patient is on antibiotics. Pain management with [place] and Dilaudid prn. (6) Metabolic encephalopathy Assessment/Plan: Likely related to acute hypoxic respiratory failure and infection. Resolved (7) Right foot infection Assessment/Plan: On Ancef. Patient will need to follow up with wound care in the outpatient setting. (8) Type 2 diabetes mellitus Assessment/Plan: Hemoglobin A1c was 6.5. Metformin currently held. We will continue to monitor. - Current Meds Current Meds: Current Medications Generic Name Dose Route Start Last Admin Trade Name Freq PRN Reason Stop Dose Admin Hydrocodone Bitart/Acetaminophen 1 tab 09/14/21 20:19 09/17/21 21:33 Hydrocod/Acetam 5/325 Mg Tablet PO 1 tab Q6H PRN Administration PAIN Amlodipine Besylate 10 mg 09/16/21 09:00 09/17/21 10:07 Amlodipine 5 Mg Tablet PO 10 mg DAILY KATE Administration Apixaban 5 mg 09/10/21 22:00 09/17/21 21:34 Apixaban 5 Mg Tablet PO 5 mg BID KATE Administration Carvedilol 25 mg 09/16/21 13:13 09/17/21 17:08 Carvedilol 12.5 Mg Tablet PO 25 mg BIDWM KATE Administration Cyclobenzaprine HCl 5 mg 09/14/21 13:18 09/16/21 20:21 Cyclobenzaprine 10 Mg Tablet PO 5 mg TID PRN Administration Spasms Docusate Sodium 100 mg 09/12/21 13:00 09/17/21 10:08 Docusate Sodium 100 Mg Capsule PO 100 mg DAILY KATE Administration Furosemide 40 mg 09/14/21 14:00 09/18/21 06:25 Furosemide 40 Mg Tablet PO 40 mg BIDDIURETIC KATE Administration Hydromorphone HCl 1 mg 09/15/21 11:06 09/18/21 06:24 Hydromorphone 1 Mg/Ml Carpuject IVP 1 mg Q2HR PRN Administration PAIN Cefazolin Sodium 2 gm/ Sodium 50 mls @ 100 mls/hr 09/15/21 14:00 09/18/21 07:05 Chloride IV Infused Q8H KATE Infusion Ketorolac Tromethamine 15 mg 09/17/21 09:20 09/18/21 00:57 Ketorolac 15 Mg/Ml Vial IVP 15 mg Q6HR PRN Administration PAIN Lidocaine 1 patch 09/13/21 09:32 09/17/21 17:11 Lidocaine Patch 5% TOP 1 patch DAILY PRN Administration PAIN Lisinopril 20 mg 09/13/21 09:00 09/17/21 10:08 Lisinopril 20 Mg Tablet PO 20 mg DAILY KATE Administration Nystatin 1 applic 09/10/21 23:00 09/17/21 21:34 Nystatin Powder 15 Gm TOP 1 applic BID KATE Administration Polyethylene Glycol 17 gm 09/13/21 09:00 09/17/21 10:09 Polyethylene Glycol 3350 17 Gm Packet PO 17 gm DAILY KATE Administration Senna 8.6 - 17.2 mg 09/13/21 09:00 09/17/21 10:07 Senna 8.6 Mg Tablet PO 8.6 mg DAILY KATE Administration Sodium Chloride 10 ml 09/11/21 01:00 09/17/21 21:34 Sodium Chloride Flush 0.9% 10 Ml Syringe IVP 10 ml 0100,0900,1700 KATE Administration Sodium Chloride 10 ml 09/10/21 21:10 09/16/21 14:37 Sodium Chloride Flush 0.9% 10 Ml Syringe IVP 10 ml PRN PRN Administration NEEDED PER PROVIDER ORDERS Tamsulosin HCl 0.4 mg 09/10/21 23:00 09/17/21 21:34 Tamsulosin 0.4 Mg Capsule PO 0.4 mg HS KATE Administration Temazepam 15 mg 09/11/21 20:39 09/13/21 22:08 Temazepam 15 Mg Capsule PO 15 mg QPM PRN Administration Insomnia - Lab Result Fish Bone Diagrams: 09/18/21 07:51 09/18/21 07:51 - Additional Planning My Orders: My Active Orders 09/17/21 09:20 Ketorolac Inj (15Mg) [Toradol Inj (15Mg)] 15 mg IVP Q6HR PRN 09/18/21 07:40 Potassium Chloride [K-Dur] 40 meq PO ONCE ONE 09/18/21 07:41 BMP - BASIC METABOLIC PANEL [CHEM] Stat CBC - COMP BLD CT W/AUTO DIFF [HEME] Stat 09/19/21 05:00 BMP - BASIC METABOLIC PANEL [CHEM] DAILYLAB CBC - COMP BLD CT W/AUTO DIFF [HEME] DAILYLAB 09/20/21 05:00 BMP - BASIC METABOLIC PANEL [CHEM] DAILYLAB CBC - COMP BLD CT W/AUTO DIFF [HEME] DAILYLAB 09/21/21 05:00 BMP - BASIC METABOLIC PANEL [CHEM] DAILYLAB CBC - COMP BLD CT W/AUTO DIFF [HEME] DAILYLAB 09/22/21 05:00 BMP - BASIC METABOLIC PANEL [CHEM] DAILYLAB CBC - COMP BLD CT W/AUTO DIFF [HEME] DAILYLAB 09/23/21 05:00 BMP - BASIC METABOLIC PANEL [CHEM] DAILYLAB CBC - COMP BLD CT W/AUTO DIFF [HEME] DAILYLAB Subjective - Subjective Patient Reports: Other (Patient was asleep at time of exam but readily woke up to verbal stimuli. He complained of moderate back pain. Denied any other complaints.) Objective Vital Signs: Vital Signs - 24 hr 09/17/21 09/17/21 09/17/21 11:59 15:44 20:56 Temperature 36 C L 36.5 C 36.4 C L Heart Rate [ 85 73 Brachial] Heart Rate [ 84 Monitoring electrodes] Respiratory 16 20 16 Rate Blood Pressure 110/76 [Left Brachial artery] Blood Pressure 141/87 H 119/82 H [Right Brachial artery] O2 Saturation 94 94 94 09/17/21 09/17/21 09/18/21 23:38 23:53 05:21 Temperature 36.7 C 36.6 C Heart Rate [ 80 80 Brachial] Heart Rate [ Monitoring electrodes] Respiratory 18 18 16 Rate Blood Pressure [Left Brachial artery] Blood Pressure 124/61 136/81 H [Right Brachial artery] O2 Saturation 87 L 93 95 09/18/21 07:26 Temperature 36.4 C L Heart Rate [ 80 Brachial] Heart Rate [ Monitoring electrodes] Respiratory 21 Rate Blood Pressure [Left Brachial artery] Blood Pressure 149/83 H [Right Brachial artery] O2 Saturation 91 L Oxygen O2 Source [With Activity] Room air O2 Source [Without Activity] Room air O2 Source Room air I&O (Last 24 Hrs): Intake and Output Totals x24h 09/16/21 09/17/21 09/18/21 23:59 23:59 23:59 Intake Total 1540 1520 50 Output Total 2750 2000 400 Balance -1210 -480 -350 General: Alert, Oriented x3, Moderate distress HEENT: PERRLA, EOMI Neck: Supple, No JVD Neuro: Alert, Oriented Times 3 Cardiovascular: Regular rate, Normal S1, Normal S2 Respiratory: Chest non-tender, No respiratory distress, Breath sounds nml Abdomen: Normal bowel sounds, Soft, No tenderness Extremities: No clubbing, No cyanosis, Other Comments/Notes: redness around right great toe with wound at base of toe nail with small amount of purulent drainage - Results Results: Laboratory Results WBC 10.9 x10^3/uL (4.8-10.8) H 09/17/21 04:54 RBC 4.83 10^6/uL (4.70-6.10) 09/17/21 04:54 Hgb 13.9 g/dL (14.0-18.0) L 09/17/21 04:54 Hct 42.9 % (42.0-52.0) 09/17/21 04:54 MCV 88.8 fL (80.0-94.0) 09/17/21 04:54 MCH 28.8 pg (27.0-31.0) 09/17/21 04:54 MCHC 32.4 g/dL (32.0-36.0) 09/17/21 04:54 RDW 13.2 % (12.0-15.0) 09/17/21 04:54 Plt Count 386 10^3/uL (130-450) 09/17/21 04:54 MPV 9.8 fL (7.4-11.4) 09/17/21 04:54 Neut # (Auto) 7.9 10^3/uL (1.5-6.6) H 09/17/21 04:54 Lymph # (Auto) 1.6 10^3/uL (1.5-3.5) 09/17/21 04:54 [place] # (Auto) 0.9 10^3/uL (0.0-1.0) 09/17/21 04:54 Eos # (Auto) 0.2 10^3/uL (0.0-0.7) 09/17/21 04:54 Baso # (Auto) 0.1 10^3/uL (0.0-0.1) 09/17/21 04:54 Absolute Nucleated RBC 0.00 x10^3/uL 09/17/21 04:54 Nucleated RBC % 0.0 /100WBC 09/17/21 04:54 PT 18.9 secs (9.9-12.6) H 09/10/21 19:54 INR 1.7 (0.8-1.2) H 09/10/21 19:54 APTT 28.9 secs (24.9-33.3) 09/10/21 19:54 Bld Gas Analysis Time 213409/10/21 21:30 Sample Site LEFT RADIAL 09/10/21 21:30 ABG pH 7.47 (7.35-7.45) H 09/10/21 21:30 ABG pCO2 31 mmHg (34-45) L 09/10/21 21:30 ABG pO2 36 mmHg (80-100) L* 09/10/21 21:30 ABG HCO3 22.0 mmol/L (22.0-26.0) 09/10/21 21:30 ABG Total CO2 23.0 MMOL/L (21.0-29.0) 09/10/21 21:30 ABG O2 Saturation 73 % (94-98) L* 09/10/21 21:30 ABG Base Excess -0.6 mmol/L (-2.0-3.0) 09/10/21 21:30 Emmanuel Test POSITIVE 09/10/21 21:30 VBG pH 7.471 (7.31-7.41) H 09/14/21 04:05 Ionized Calcium 1.07 mmol/L (1.15-1.33) L 09/14/21 04:05 O2 Delivery Device SIMPLE MASK 09/10/21 21:30 O2 Liters/Min 15.00 LPM 09/10/21 21:30 Sodium 135 mmol/L (135-145) 09/17/21 04:54 Potassium 3.2 mmol/L (3.5-5.0) L 09/17/21 04:54 Chloride 92 mmol/L (101-111) L 09/17/21 04:54 Carbon Dioxide 33 mmol/L (21-32) H 09/17/21 04:54 Anion Gap 10.0 (6-13) 09/17/21 04:54 BUN 21 mg/dL (6-20) H 09/17/21 04:54 Creatinine 0.5 mg/dL (0.6-1.2) L 09/17/21 04:54 Estimated GFR (MDRD) 162 (>89) 09/17/21 04:54 Glucose 129 mg/dL (70-100) H 09/17/21 04:54 Estimat Average Glucose 134 mg/dL (70-100) H 09/11/21 04:45 Hemoglobin A1c % 6.3 % (4.27-6.07) H 09/11/21 04:45 Lactic Acid 1.5 mmol/L (0.5-2.2) 09/10/21 19:54 Calcium 8.5 mg/dL (8.5-10.3) 09/17/21 04:54 Phosphorus 3.1 mg/dL (2.5-4.6) 09/15/21 04:24 Magnesium 2.0 mg/dL (1.7-2.8) 09/14/21 04:05 Total Bilirubin 1.8 mg/dL (0.2-1.0) H 09/10/21 19:33 AST 37 IU/L (10-42) 09/10/21 19:33 ALT 26 IU/L (10-60) 09/10/21 19:33 Alkaline Phosphatase 79 IU/L (42-121) 09/10/21 19:33 Troponin I High Sens 14.3 ng/L (2.3-19.7) 09/12/21 04:39 B-Natriuretic Peptide 285 pg/mL (5-100) H 09/14/21 04:05 Total Protein 7.2 g/dL (6.7-8.2) 09/10/21 19:33 Albumin 3.8 g/dL (3.2-5.5) 09/10/21 19:33 Globulin 3.4 g/dL (2.1-4.2) 09/10/21 19:33 Albumin/Globulin Ratio 1.1 (1.0-2.2) 09/10/21 19:33 Lipase 21 U/L (22-51) L 09/10/21 19:33 TSH 1.49 uIU/mL (0.34-5.60) 09/11/21 04:45 Urine Color DARK YELLOW 09/10/21 21:59 Urine Clarity HAZY (CLEAR) 09/10/21 21:59 Urine pH 6.0 PH (5.0-7.5) 09/10/21 21:59 Ur Specific [place] 1.020 (1.002-1.030) 09/10/21 21:59 Urine Protein 100 mg/dL (NEGATIVE) H 09/10/21 21:59 Urine Glucose (UA) NEGATIVE mg/dL (NEGATIVE) 09/10/21 21:59 Urine Ketones 15 mg/dL (NEGATIVE) H 09/10/21 21:59 Urine Occult Blood MODERATE (NEGATIVE) H 09/10/21 21:59 Urine Nitrite POSITIVE (NEGATIVE) H 09/10/21 21:59 Urine Bilirubin NEGATIVE (NEGATIVE) 09/10/21 21:59 Urine Urobilinogen 1 (NORMAL) E.U./dL (NORMAL) 09/10/21 21:59 Ur Leukocyte Esterase NEGATIVE (NEGATIVE) 09/10/21 21:59 Urine RBC 0-5 /HPF (0-5) 09/10/21 21:59 Urine WBC 4-5 /HPF (0-3) 09/10/21 21:59 Ur Squamous Epith Cells NONE SEEN (<= Few) 09/10/21 21:59 Amorphous Sediment Few /LPF 09/10/21 21:59 Urine Bacteria Rare /HPF (None Seen) 09/10/21 21:59 Ur Microscopic Review INDICATED 09/10/21 21:59 Urine Culture Comments INDICATED 09/10/21 21:59 Nasal Adenovirus (PCR) NOT DETECTED 09/10/21 21:59 Nasal B. parapertussis DNA (PCR) NOT DETECTED 09/10/21 21:59 Nasal Coronavir 229E PCR NOT DETECTED 09/10/21 21:59 Nasal Coronavir HKU1 PCR NOT DETECTED 09/10/21 21:59 Nasal Coronavir NL63 PCR NOT DETECTED 09/10/21 21:59 Nasal Coronavir OC43 PCR NOT DETECTED 09/10/21 21:59 Nasal Enterovir/Rhinovir PCR NOT DETECTED 09/10/21 21:59 Nasal Influenza B PCR NOT DETECTED 09/10/21 21:59 Nasal Influenza A PCR NOT DETECTED 09/10/21 21:59 Nasal Parainfluen 1 PCR NOT DETECTED 09/10/21 21:59 Nasal Parainfluen 2 PCR NOT DETECTED 09/10/21 21:59 Nasal Parainfluen 3 PCR NOT DETECTED 09/10/21 21:59 Nasal Parainfluen 4 PCR NOT DETECTED 09/10/21 21:59 Nasal RSV (PCR) NOT DETECTED 09/10/21 21:59 Nasal Screen MRSA (PCR) NEGATIVE (NEGATIVE) 09/10/21 21:59 Nasal B.pertussis DNA PCR NOT DETECTED 09/10/21 21:59 Nasal C.pneumoniae (PCR) NOT DETECTED 09/10/21 21:59 Martínez Human Metapneumo PCR NOT DETECTED 09/10/21 21:59 Nasal M.pneumoniae (PCR) NOT DETECTED 09/10/21 21:59 Nasal SARS-CoV-2 (PCR) NOT DETECTED 09/10/21 21:59 - Procedures Procedures: Procedures EXCISION OF RIGHT KNEE JOINT, PERC ENDO APPROACH (06/07/15) INSERTION OF INFUSION DEV INTO SUP VENA CAVA, PERC APPROACH (06/07/15) Sepsis Event Note (H) - Evaluation Current Stage of Sepsis: Resolved (HR now less than 90. mentation improved. Afebrile.) Possible source of Sepsis: positive: Bone/Joint (appeared in the ED 09/10 with signs and symptoms of sepsis. now resolving) - Sepsis Criteria Sepsis Criteria: Recorded Heart Rate greater than 90 bpm, Recorded Respiratory Rate greater than 20, Respiratory: Increasing oxygen requirements, ASPHALT MIXER: altered consciousness (unrelated to primary neuro pathology) ABX Reporting Has patient been on IV antibiotics over the past 48 hours?: Yes
[2021-09-18 07:58] LABS: BASOPHILS # (AUTO) 0.1 10^3/uL (0.0-0.1); BASOPHILS % (AUTO) 0.5 %; EOSINOPHILS # (AUTO) 0.2 10^3/uL (0.0-0.7); EOSINOPHILS % (AUTO) 1.8 %; HGB - HEMOGLOBIN 13.9 g/dL (14.0-18.0); LYMPHOCYTES # (AUTO) 1.5 10^3/uL (1.5-3.5); LYMPHOCYTES % (AUTO) 15.1 %; MEAN CORPUSCULAR HEMOGLOBIN 29.3 pg (27.0-31.0); MEAN CORPUSCULAR HGB CONC 33.1 g/dL (32.0-36.0); MEAN CORPUSCULAR VOLUME 88.6 fL (80.0-94.0); MEAN PLATELET VOLUME 9.6 fL (7.4-11.4); MONOCYTES # (AUTO) 0.8 10^3/uL (0.0-1.0); NEUTROPHILS # (AUTO) 7.1 10^3/uL (1.5-6.6); NEUTROPHILS % (AUTO) 72.3 %; PLT - PLATELET COUNT 392 10^3/uL (130-450); RED BLOOD COUNT 4.74 10^6/uL (4.70-6.10); RED CELL DISTRIBUTION WIDTH 13.1 % (12.0-15.0); WHITE BLOOD COUNT 9.8 x10^3/uL (4.8-10.8)
[2021-09-18] MEDS: HYDROcod/ACETAM 5/325 MG TABLET PO PRN ×3 (07:59→21:52)
[2021-09-18] MEDS: carvediloL 12.5 MG TABLET PO SCH ×2 (08:00→16:22)
[2021-09-18] MEDS: APIXABAN 5 MG TABLET PO SCH ×2 (08:00→20:59)
[2021-09-18] MEDS: lisinopriL 20 MG TABLET PO SCH (08:00)
[2021-09-18] MEDS: amLODIPine 5 MG TABLET PO SCH (08:00)
[2021-09-18] MEDS: polyethylene glycoL 3350 17 GM PACKET PO SCH (08:01)
[2021-09-18] MEDS: SODIUM CHLORIDE FLUSH 0.9% 10 ML SYRINGE IVP SCH ×3 (08:01→23:45)
[2021-09-18] MEDS: DOCUSATE SODIUM 100 MG CAPSULE PO SCH (08:01)
[2021-09-18] MEDS: NYSTATIN POWDER 15 GM TOP SCH ×2 (08:01→20:59)
[2021-09-18] MEDS: SENNA 8.6 MG TABLET PO SCH (08:01)
[2021-09-18 08:05] LABS: CALCIUM 8.6 mg/dL (8.5-10.3); CREATININE 0.6 mg/dL (0.6-1.2); POTASSIUM 3.2 mmol/L (3.5-5.0)
[2021-09-18] MEDS: LIDOCAINE PATCH 5% TOP PRN (19:47)
[2021-09-18] MEDS: CYCLOBENZAPRINE 10 MG TABLET PO PRN (19:47)
[2021-09-18] MEDS: TAMSULOSIN 0.4 MG CAPSULE PO SCH (20:59)
[2021-09-18] MEDS: TEMAZEPAM 15 MG CAPSULE PO PRN (23:54)
[2021-09-19 05:26] LABS: BASOPHILS # (AUTO) 0.1 10^3/uL (0.0-0.1); BASOPHILS % (AUTO) 0.5 %; EOSINOPHILS # (AUTO) 0.2 10^3/uL (0.0-0.7); EOSINOPHILS % (AUTO) 1.7 %; HCT - HEMATOCRIT 41.1 % (42.0-52.0); HGB - HEMOGLOBIN 13.4 g/dL (14.0-18.0); LYMPHOCYTES # (AUTO) 1.9 10^3/uL (1.5-3.5); MEAN CORPUSCULAR HEMOGLOBIN 28.8 pg (27.0-31.0); MEAN CORPUSCULAR HGB CONC 32.6 g/dL (32.0-36.0); MEAN CORPUSCULAR VOLUME 88.4 fL (80.0-94.0); MEAN PLATELET VOLUME 9.8 fL (7.4-11.4); MONOCYTES # (AUTO) 0.9 10^3/uL (0.0-1.0); NEUTROPHILS # (AUTO) 7.8 10^3/uL (1.5-6.6); NEUTROPHILS % (AUTO) 70.7 %; PLT - PLATELET COUNT 408 10^3/uL (130-450); RED BLOOD COUNT 4.65 10^6/uL (4.70-6.10); RED CELL DISTRIBUTION WIDTH 13.2 % (12.0-15.0); WHITE BLOOD COUNT 11.1 x10^3/uL (4.8-10.8)
[2021-09-19 05:37] LABS: CALCIUM 8.7 mg/dL (8.5-10.3); CREATININE 0.7 mg/dL (0.6-1.2); POTASSIUM 3.4 mmol/L (3.5-5.0)
[2021-09-19] MEDS: FUROSEMIDE 40 MG TABLET PO SCH ×2 (05:43→14:52)
[2021-09-19] MEDS: HYDROcod/ACETAM 5/325 MG TABLET PO PRN ×3 (05:43→22:11)
[2021-09-19] MEDS ORDERED: POTASSIUM CHLORIDE 20 MEQ TABLET PO ONE (07:46)
--- NOTE | 2021-09-19 07:53 | PROVIDER PROGRESS NOTE ---
Assessment/Plan - Problem List (1) Pyomyositis Assessment/Plan: 09/19/21 Patient's white blood cell count today was 11.1 Blood cultures done on 09/16/21 are NGTD 09/18/21 Patient's white blood cell count today was 9.8 Blood cultures done on 09/16/21 are NGTD 09/17/21 Patient's white blood cell count today was 10.9 Blood cultures done on 09/16/21 are NGTD I discussed persistent back pain with radiology regarding the possibility of repeating an image. The radiologist advised that given that the MRI was done 2 days prior, there would likely not be any significant radiologic change at this time Also that an improvement in white blood cell count was a good indication of good response to antibiotic treatment. 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 This was discussed with radiology who felt it was too small at this time for drainage. WBC 12.2. Patient is afebrile. Patient is on Ancef 2 g IV every 8 hours. Plan is for antibiotics for total of 14 days. Blood cultures done on 09/12/2021 grew staph aureus today 09/15/2021. Blood cultures repeated today 09/15/2021. If positive blood cultures persist, patient becomes febrile or back pain worsens, will consider repeating image and discussing with radiology again 2D echocardiogram done on 09/10/2021 showed no evidence of aortic stenosis. There is trace to mild aortic regurgitation. There is no mitral stenosis. There is trace to mild mitral regurgitation. Subtle lesions could not be excluded. There was no pericardial effusion. Left ventricular ejection fraction was 55 to 60%. (2) Pyelonephritis Assessment/Plan: CT of the abdomen pelvis also showed perinephric stranding. Urine analysis showed positive nitrites and moderate occult blood. Patient is on Ancef 2 g every 8 hours. (3) Acute respiratory failure with hypoxia Assessment/Plan: Currently on room air with oxygen saturation 91 to 95% Secondary to CHF exacerbation. Patient is on Coreg 25 mg p.o. twice daily. Lasix 40 mg p.o. twice daily. Eliquis 5 mg p.o. twice daily Lisinopril 20 mg p.o. daily. 2D echocardiogram done on 09/10/2021 showed no evidence of aortic stenosis. There is trace to mild aortic regurgitation. There is no mitral stenosis. There is trace to mild mitral regurgitation. Sub tle lesions could not be excluded. There was no pericardial effusion. Left ventricular ejection fraction was 55 to 60%. (4) Acute congestive heart failure Qualifiers: Heart failure type: unspecified Qualified Code(s): I50.9 - Heart failure, unspecified Assessment/Plan: Patient is on Coreg 25 mg p.o. twice daily. Lasix 40 mg p.o. twice daily. Eliquis 5 mg p.o. twice daily Lisinopril 20 mg p.o. daily. 2D echocardiogram done on 09/10/2021 showed no evidence of aortic stenosis. There is trace to mild aortic regurgitation. There is no mitral stenosis. There is trace to mild mitral regurgitation. Subtle lesions could not be excluded. There was no pericardial effusion. Left ventricular ejection fraction was 55 to 60%. (5) Back pain Assessment/Plan: Likely secondary to pyomyositis and pyelonephritis. Patient is on antibiotics. Pain management with Garretson and Toradol prn. (6) Metabolic encephalopathy Assessment/Plan: Likely related to acute hypoxic respiratory failure and infection. Resolved (7) Right foot infection Assessment/Plan: On Ancef. Patient will need to follow up with wound care in the outpatient setting. (8) Type 2 diabetes mellitus Assessment/Plan: Hemoglobin A1c was 6.5. Metformin currently held. We will continue to monitor. - Current Meds Current Meds: Current Medications Generic Name Dose Route Start Last Admin Trade Name Freq PRN Reason Stop Dose Admin Hydrocodone Bitart/Acetaminophen 1 tab 09/14/21 20:19 09/19/21 05:43 Hydrocod/Acetam 5/325 Mg Tablet PO 1 tab Q6H PRN Administration PAIN Amlodipine Besylate 10 mg 09/16/21 09:00 09/18/21 08:00 Amlodipine 5 Mg Tablet PO 10 mg DAILY KATE Administration Apixaban 5 mg 09/10/21 22:00 09/18/21 20:59 Apixaban 5 Mg Tablet PO 5 mg BID KATE Administration Carvedilol 25 mg 09/16/21 13:13 09/18/21 16:22 Carvedilol 12.5 Mg Tablet PO 25 mg BIDWM KATE Administration Cyclobenzaprine HCl 5 mg 09/14/21 13:18 09/18/21 19:47 Cyclobenzaprine 10 Mg Tablet PO 5 mg TID PRN Administration Spasms Docusate Sodium 100 mg 09/12/21 13:00 09/18/21 08:01 Docusate Sodium 100 Mg Capsule PO Not Given DAILY KATE Furosemide 40 mg 09/14/21 14:00 09/19/21 05:43 Furosemide 40 Mg Tablet PO 40 mg BIDDIURETIC KATE Administration Cefazolin Sodium 2 gm/ Sodium 50 mls @ 100 mls/hr 09/15/21 14:00 09/19/21 05:44 Chloride IV 100 mls/hr Q8H KATE Administration Lidocaine 1 patch 09/13/21 09:32 09/18/21 19:47 Lidocaine Patch 5% TOP 1 patch DAILY PRN Administration PAIN Lisinopril 20 mg 09/13/21 09:00 09/18/21 08:00 Lisinopril 20 Mg Tablet PO 20 mg DAILY KATE Administration Nystatin 1 applic 09/10/21 23:00 09/18/21 20:59 Nystatin Powder 15 Gm TOP 1 applic BID KATE Administration Polyethylene Glycol 17 gm 09/13/21 09:00 09/18/21 08:01 Polyethylene Glycol 3350 17 Gm Packet PO Not Given DAILY KATE Senna 8.6 - 17.2 mg 09/13/21 09:00 09/18/21 08:01 Senna 8.6 Mg Tablet PO Not Given DAILY KATE Sodium Chloride 10 ml 09/11/21 01:00 09/18/21 23:45 Sodium Chloride Flush 0.9% 10 Ml Syringe IVP 10 ml 0100,0900,1700 KATE Administration Sodium Chloride 10 ml 09/10/21 21:10 09/16/21 14:37 Sodium Chloride Flush 0.9% 10 Ml Syringe IVP 10 ml PRN PRN Administration NEEDED PER PROVIDER ORDERS Tamsulosin HCl 0.4 mg 09/10/21 23:00 09/18/21 20:59 Tamsulosin 0.4 Mg Capsule PO 0.4 mg HS KATE Administration Temazepam 15 mg 09/11/21 20:39 09/18/21 23:54 Temazepam 15 Mg Capsule PO 15 mg QPM PRN Administration Insomnia - Lab Result Fish Bone Diagrams: 09/19/21 04:51 09/19/21 04:51 - Additional Planning My Orders: My Active Orders 09/20/21 05:00 BMP - BASIC METABOLIC PANEL [CHEM] DAILYLAB CBC - COMP BLD CT W/AUTO DIFF [HEME] DAILYLAB 09/21/21 05:00 BMP - BASIC METABOLIC PANEL [CHEM] DAILYLAB CBC - COMP BLD CT W/AUTO DIFF [HEME] DAILYLAB 09/22/21 05:00 BMP - BASIC METABOLIC PANEL [CHEM] DAILYLAB CBC - COMP BLD CT W/AUTO DIFF [HEME] DAILYLAB 09/23/21 05:00 BMP - BASIC METABOLIC PANEL [CHEM] DAILYLAB CBC - COMP BLD CT W/AUTO DIFF [HEME] DAILYLAB Subjective - Subjective Patient Reports: Other (He appeared to be resting comfortably in bed but complain of severe back pain when asked.) Objective Vital Signs: Vital Signs - 24 hr 09/18/21 09/18/21 09/18/21 13:00 16:17 21:00 Temperature 36.7 C 37.0 C 36.3 C L Heart Rate [ 88 81 82 Brachial] Respiratory 18 21 22 Rate Blood Pressure [Left Brachial artery] Blood Pressure 112/66 123/84 H 126/78 [Right Brachial artery] O2 Saturation 91 L 97 93 09/19/21 09/19/21 00:00 04:55 Temperature 36.5 C 36.4 C L Heart Rate [ 75 86 Brachial] Respiratory 20 20 Rate Blood Pressure 144/86 H [Left Brachial artery] Blood Pressure 131/88 H [Right Brachial artery] O2 Saturation 93 93 Oxygen O2 Source [With Activity] Room air O2 Source [Without Activity] Room air O2 Source Room air I&O (Last 24 Hrs): Intake and Output Totals x24h 09/17/21 09/18/21 09/19/21 23:59 23:59 23:59 Intake Total 1520 650 400 Output Total 1999 [id number] [place] [id number] General: Alert, Oriented x3, Moderate distress HEENT: PERRLA, EOMI Neck: Supple, No JVD Neuro: Alert, Oriented Times 3 Cardiovascular: Regular rate, Normal S1, Normal S2 Respiratory: Chest non-tender, No respiratory distress, Breath sounds nml Abdomen: Normal bowel sounds, Soft, No tenderness, No masses Extremities: No clubbing, No edema, Other (redness around right great toe with wound at base of toe nail) - Results Results: Laboratory Results WBC 11.1 x10^3/uL (4.8-10.8) H 09/19/21 04:51 RBC 4.65 10^6/uL (4.70-6.10) L 09/19/21 04:51 Hgb 13.4 g/dL (14.0-18.0) L 09/19/21 04:51 Hct 41.1 % (42.0-52.0) L 09/19/21 04:51 MCV 88.4 fL (80.0-94.0) 09/19/21 04:51 MCH 28.8 pg (27.0-31.0) 09/19/21 04:51 MCHC 32.6 g/dL (32.0-36.0) 09/19/21 04:51 RDW 13.2 % (12.0-15.0) 09/19/21 04:51 Plt Count 408 10^3/uL (130-450) 09/19/21 04:51 MPV 9.8 fL (7.4-11.4) 09/19/21 04:51 Neut # (Auto) 7.8 10^3/uL (1.5-6.6) H 09/19/21 04:51 Lymph # (Auto) 1.9 10^3/uL (1.5-3.5) 09/19/21 04:51 [place] # (Auto) 0.9 10^3/uL (0.0-1.0) 09/19/21 04:51 Eos # (Auto) 0.2 10^3/uL (0.0-0.7) 09/19/21 04:51 Baso # (Auto) 0.1 10^3/uL (0.0-0.1) 09/19/21 04:51 Absolute Nucleated RBC 0.00 x10^3/uL 09/19/21 04:51 Nucleated RBC % 0.0 /100WBC 09/19/21 04:51 PT 18.9 secs (9.9-12.6) H 09/10/21 19:54 INR 1.7 (0.8-1.2) H 09/10/21 19:54 APTT 28.9 secs (24.9-33.3) 09/10/21 19:54 Bld Gas Analysis Time 213409/10/21 21:30 Sample Site LEFT RADIAL 09/10/21 21:30 ABG pH 7.47 (7.35-7.45) H 09/10/21 21:30 ABG pCO2 31 mmHg (34-45) L 09/10/21 21:30 ABG pO2 36 mmHg (80-100) L* 09/10/21 21:30 ABG HCO3 22.0 mmol/L (22.0-26.0) 09/10/21 21:30 ABG Total CO2 23.0 MMOL/L (21.0-29.0) 09/10/21 21:30 ABG O2 Saturation 73 % (94-98) L* 09/10/21 21:30 ABG Base Excess -0.6 mmol/L (-2.0-3.0) 09/10/21 21:30 Emmanuel Test POSITIVE 09/10/21 21:30 VBG pH 7.471 (7.31-7.41) H 09/14/21 04:05 Ionized Calcium 1.07 mmol/L (1.15-1.33) L 09/14/21 04:05 O2 Delivery Device SIMPLE MASK 09/10/21 21:30 O2 Liters/Min 15.00 LPM 09/10/21 21:30 Sodium 136 mmol/L (135-145) 09/19/21 04:51 Potassium 3.4 mmol/L (3.5-5.0) L 09/19/21 04:51 Chloride 94 mmol/L (101-111) L 09/19/21 04:51 Carbon Dioxide 32 mmol/L (21-32) 09/19/21 04:51 Anion Gap 10.0 (6-13) 09/19/21 04:51 BUN 19 mg/dL (6-20) 09/19/21 04:51 Creatinine 0.7 mg/dL (0.6-1.2) 09/19/21 04:51 Estimated GFR (MDRD) 110 (>89) 09/19/21 04:51 Glucose 106 mg/dL (70-100) H 09/19/21 04:51 Estimat Average Glucose 134 mg/dL (70-100) H 09/11/21 04:45 Hemoglobin A1c % 6.3 % (4.27-6.07) H 09/11/21 04:45 Lactic Acid 1.5 mmol/L (0.5-2.2) 09/10/21 19:54 Calcium 8.7 mg/dL (8.5-10.3) 09/19/21 04:51 Phosphorus 3.1 mg/dL (2.5-4.6) 09/15/21 04:24 Magnesium 2.0 mg/dL (1.7-2.8) 09/14/21 04:05 Total Bilirubin 1.8 mg/dL (0.2-1.0) H 09/10/21 19:33 AST 37 IU/L (10-42) 09/10/21 19:33 ALT 26 IU/L (10-60) 09/10/21 19:33 Alkaline Phosphatase 79 IU/L (42-121) 09/10/21 19:33 Troponin I High Sens 14.3 ng/L (2.3-19.7) 09/12/21 04:39 B-Natriuretic Peptide 285 pg/mL (5-100) H 09/14/21 04:05 Total Protein 7.2 g/dL (6.7-8.2) 09/10/21 19:33 Albumin 3.8 g/dL (3.2-5.5) 09/10/21 19:33 Globulin 3.4 g/dL (2.1-4.2) 09/10/21 19:33 Albumin/Globulin Ratio 1.1 (1.0-2.2) 09/10/21 19:33 Lipase 21 U/L (22-51) L 09/10/21 19:33 TSH 1.49 uIU/mL (0.34-5.60) 09/11/21 04:45 Urine Color DARK YELLOW 09/10/21 21:59 Urine Clarity HAZY (CLEAR) 09/10/21 21:59 Urine pH 6.0 PH (5.0-7.5) 09/10/21 21:59 Ur Specific [place] 1.020 (1.002-1.030) 09/10/21 21:59 Urine Protein 100 mg/dL (NEGATIVE) H 09/10/21 21:59 Urine Glucose (UA) NEGATIVE mg/dL (NEGATIVE) 09/10/21 21:59 Urine Ketones 15 mg/dL (NEGATIVE) H 09/10/21 21:59 Urine Occult Blood MODERATE (NEGATIVE) H 09/10/21 21:59 Urine Nitrite POSITIVE (NEGATIVE) H 09/10/21 21:59 Urine Bilirubin NEGATIVE (NEGATIVE) 09/10/21 21:59 Urine Urobilinogen 1 (NORMAL) E.U./dL (NORMAL) 09/10/21 21:59 Ur Leukocyte Esterase NEGATIVE (NEGATIVE) 09/10/21 21:59 Urine RBC 0-5 /HPF (0-5) 09/10/21 21:59 Urine WBC 4-5 /HPF (0-3) 09/10/21 21:59 Ur Squamous Epith Cells NONE SEEN (<= Few) 09/10/21 21:59 Amorphous Sediment Few /LPF 09/10/21 21:59 Urine Bacteria Rare /HPF (None Seen) 09/10/21 21:59 Ur Microscopic Review INDICATED 09/10/21 21:59 Urine Culture Comments INDICATED 09/10/21 21:59 Nasal Adenovirus (PCR) NOT DETECTED 09/10/21 21:59 Nasal B. parapertussis DNA (PCR) NOT DETECTED 09/10/21 21:59 Nasal Coronavir 229E PCR NOT DETECTED 09/10/21 21:59 Nasal Coronavir HKU1 PCR NOT DETECTED 09/10/21 21:59 Nasal Coronavir NL63 PCR NOT DETECTED 09/10/21 21:59 Nasal Coronavir OC43 PCR NOT DETECTED 09/10/21 21:59 Nasal Enterovir/Rhinovir PCR NOT DETECTED 09/10/21 21:59 Nasal Influenza B PCR NOT DETECTED 09/10/21 21:59 Nasal Influenza A PCR NOT DETECTED 09/10/21 21:59 Nasal Parainfluen 1 PCR NOT DETECTED 09/10/21 21:59 Nasal Parainfluen 2 PCR NOT DETECTED 09/10/21 21:59 Nasal Parainfluen 3 PCR NOT DETECTED 09/10/21 21:59 Nasal Parainfluen 4 PCR NOT DETECTED 09/10/21 21:59 Nasal RSV (PCR) NOT DETECTED 09/10/21 21:59 Nasal Screen MRSA (PCR) NEGATIVE (NEGATIVE) 09/10/21 21:59 Nasal B.pertussis DNA PCR NOT DETECTED 09/10/21 21:59 Nasal C.pneumoniae (PCR) NOT DETECTED 09/10/21 21:59 Martínez Human Metapneumo PCR NOT DETECTED 0720/22 21:59 Nasal M.pneumoniae (PCR) NOT DETECTED 09/10/21 21:59 Nasal SARS-CoV-2 (PCR) NOT DETECTED 09/10/21 21:59 - Procedures Procedures: Procedures EXCISION OF RIGHT KNEE JOINT, PERC ENDO APPROACH (06/07/15) INSERTION OF INFUSION DEV INTO SUP VENA CAVA, PERC APPROACH (06/07/15) Sepsis Event Note (H) - Evaluation Current Stage of Sepsis: Resolved (HR now less than 90. mentation improved. Afebrile.) Possible source of Sepsis: positive: Bone/Joint (appeared in the ED 09/10 with signs and symptoms of sepsis. now resolving) - Sepsis Criteria Sepsis Criteria: Recorded Heart Rate greater than 90 bpm, Recorded Respiratory Rate greater than 20, Respiratory: Increasing oxygen requirements, DEVELOPMENT EXECUTIVE: altered consciousness (unrelated to primary neuro pathology) ABX Reporting Has patient been on IV antibiotics over the past 48 hours?: Yes
[2021-09-19] MEDS: LIDOCAINE PATCH 5% TOP PRN (10:17)
[2021-09-19] MEDS: carvediloL 12.5 MG TABLET PO SCH ×2 (10:22→16:49)
[2021-09-19] MEDS: lisinopriL 20 MG TABLET PO SCH (10:26)
[2021-09-19] MEDS: DOCUSATE SODIUM 100 MG CAPSULE PO SCH (10:27)
[2021-09-19] MEDS: amLODIPine 5 MG TABLET PO SCH (10:52)
[2021-09-19] MEDS: SODIUM CHLORIDE FLUSH 0.9% 10 ML SYRINGE IVP SCH ×2 (10:53→16:49)
[2021-09-19] MEDS: APIXABAN 5 MG TABLET PO SCH ×2 (10:53→22:12)
[2021-09-19] MEDS: NYSTATIN POWDER 15 GM TOP SCH ×2 (10:54→22:12)
[2021-09-19] MEDS: polyethylene glycoL 3350 17 GM PACKET PO SCH (10:54)
[2021-09-19] MEDS: SENNA 8.6 MG TABLET PO SCH (11:26)
[2021-09-19] MEDS: TAMSULOSIN 0.4 MG CAPSULE PO SCH (22:11)
[2021-09-20] MEDS: KETOROLAC 15 MG/ML VIAL IVP PRN ×3 (00:14→15:46)
[2021-09-20] MEDS: SODIUM CHLORIDE FLUSH 0.9% 10 ML SYRINGE IVP SCH ×3 (00:43→17:00)
[2021-09-20 05:25] LABS: BASOPHILS # (AUTO) 0.1 10^3/uL (0.0-0.1); BASOPHILS % (AUTO) 0.6 %; EOSINOPHILS # (AUTO) 0.2 10^3/uL (0.0-0.7); EOSINOPHILS % (AUTO) 1.7 %; HCT - HEMATOCRIT 42.5 % (42.0-52.0); LYMPHOCYTES # (AUTO) 1.7 10^3/uL (1.5-3.5); MEAN CORPUSCULAR HGB CONC 32.9 g/dL (32.0-36.0); MEAN CORPUSCULAR VOLUME 88.2 fL (80.0-94.0); MEAN PLATELET VOLUME 9.7 fL (7.4-11.4); MONOCYTES # (AUTO) 0.8 10^3/uL (0.0-1.0); MONOCYTES % (AUTO) 8.4 %; NEUTROPHILS # (AUTO) 6.9 10^3/uL (1.5-6.6); NEUTROPHILS % (AUTO) 71.1 %; PLT - PLATELET COUNT 414 10^3/uL (130-450); RED BLOOD COUNT 4.82 10^6/uL (4.70-6.10); RED CELL DISTRIBUTION WIDTH 13.2 % (12.0-15.0); WHITE BLOOD COUNT 9.8 x10^3/uL (4.8-10.8)
[2021-09-20] MEDS: CYCLOBENZAPRINE 10 MG TABLET PO PRN (05:32)
[2021-09-20] MEDS: HYDROcod/ACETAM 5/325 MG TABLET PO PRN ×3 (05:32→20:35)
[2021-09-20 05:36] LABS: CALCIUM 8.7 mg/dL (8.5-10.3); CREATININE 0.6 mg/dL (0.6-1.2); POTASSIUM 3.3 mmol/L (3.5-5.0)
[2021-09-20] MEDS: FUROSEMIDE 40 MG TABLET PO SCH ×2 (05:54→14:23)
[2021-09-20] MEDS: carvediloL 12.5 MG TABLET PO SCH ×2 (08:06→16:56)
[2021-09-20] MEDS: SENNA 8.6 MG TABLET PO SCH (08:06)
[2021-09-20] MEDS: DOCUSATE SODIUM 100 MG CAPSULE PO SCH (08:06)
[2021-09-20] MEDS: APIXABAN 5 MG TABLET PO SCH ×2 (08:06→20:35)
[2021-09-20] MEDS: polyethylene glycoL 3350 17 GM PACKET PO SCH (08:06)
[2021-09-20] MEDS: amLODIPine 5 MG TABLET PO SCH (08:07)
[2021-09-20] MEDS: lisinopriL 20 MG TABLET PO SCH (08:08)
[2021-09-20] MEDS ORDERED: POTASSIUM CHLORIDE 20 MEQ TABLET PO ONE (08:14)
--- NOTE | 2021-09-20 08:17 | PROVIDER PROGRESS NOTE ---
Assessment/Plan - Problem List (1) Pyomyositis Assessment/Plan: 09/20/21 Patient's white blood cell count today was 9.8 Blood cultures done on 09/16/21 are NGTD X4 I discussed with infectious disease at [facility] (Dr Nick Harris) who recommended 4 weeks of antibiotics after the last negative blood culture result. Repeat imaging of hips by 10/10/21 He will need a referral for ID at [facility] upon discharge 09/19/21 Patient's white blood cell count today was 11.1 Blood cultures done on 09/16/21 are NGTD 09/18/21 Patient's white blood cell count today was 9.8 Blood cultures done on 09/16/21 are NGTD 09/17/21 Patient's white blood cell count today was 10.9 Blood cultures done on 09/16/21 are NGTD I discussed persistent back pain with radiology regarding the possibility of repeating an image. The radiologist advised that given that the MRI was done 2 days prior, there would likely not be any significant radiologic change at this time Also that an improvement in white blood cell count was a good indication of good response to antibiotic treatment. 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 This was discussed with radiology who felt it was too small at this time for drainage. WBC 12.2. Patient is afebrile. Patient is on Ancef 2 g IV every 8 hours. Plan is for antibiotics for total of 14 days. Blood cultures done on 09/12/2021 grew staph aureus today 09/15/2021. Blood cultures repeated today 09/15/2021. If positive blood cultures persist, patient becomes febrile or back pain worsens, will consider repeating image and discussing with radiology again 2D echocardiogram done on 09/10/2021 showed no evidence of aortic stenosis. There is trace to mild aortic regurgitation. There is no mitral stenosis. There is trace to mild mitral regurgitation. Subtle lesions could not be excluded. There was no pericardial effusion. Left ventricular ejection fraction was 55 to 60%. (2) Pyelonephritis Assessment/Plan: CT of the abdomen pelvis also showed perinephric stranding. Urine analysis showed positive nitrites and moderate occult blood. Patient is on Ancef 2 g every 8 hours. (3) Acute respiratory failure with hypoxia Assessment/Plan: Currently on room air with oxygen saturation 91 to 95% Secondary to CHF exacerbation. Patient is on Coreg 25 mg p.o. twice daily. Lasix 40 mg p.o. twice daily. Eliquis 5 mg p.o. twice daily Lisinopril 20 mg p.o. daily. 2D echocardiogram done on 09/10/2021 showed no evidence of aortic stenosis. There is trace to mild aortic regurgitation. There is no mitral stenosis. There is trace to mild mitral regurgitation. Subtle lesions could not be excluded. There was no pericardial effusion. Left ventricular ejection fraction was 55 to 60%. (4) Acute congestive heart failure Qualifiers: Heart failure type: unspecified Qualified Code(s): I50.9 - Heart failure, unspecified Assessment/Plan: Patient is on Coreg 25 mg p.o. twice daily. Lasix 40 mg p.o. twice daily. Eliquis 5 mg p.o. twice daily Lisinopril 20 mg p.o. daily. 2D echocardiogram done on 09/10/2021 showed no evidence of aortic stenosis. There is trace to mild aortic regurgitation. There is no mitral stenosis. There is trace to mild mitral regurgitation. Subtle lesions could not be excluded. There was no pericardial effusion. Left ventricular ejection fraction was 55 to 60%. (5) Back pain Assessment/Plan: Likely secondary to pyomyositis and pyelonephritis. Patient is on antibiotics. Pain management with [place] and Toradol prn. (6) Metabolic encephalopathy Assessment/Plan: Likely related to acute hypoxic respiratory failure and infection. Resolved (7) Right foot infection Assessment/Plan: On Ancef. Patient will need to follow up with wound care in the outpatient setting. (8) Type 2 diabetes mellitus Assessment/Plan: Hemoglobin A1c was 6.5. Metformin currently held. We will continue to monitor. - Current Meds Current Meds: Current Medications Generic Name Dose Route Start Last Admin Trade Name Freq PRN Reason Stop Dose Admin Hydrocodone Bitart/Acetaminophen 1 tab 09/14/21 20:19 09/20/21 05:32 Hydrocod/Acetam 5/325 Mg Tablet PO 1 tab Q6H PRN Administration PAIN Amlodipine Besylate 10 mg 09/16/21 09:00 09/20/21 08:07 Amlodipine 5 Mg Tablet PO 10 mg DAILY KATE Administration Apixaban 5 mg 09/10/21 22:00 09/20/21 08:06 Apixaban 5 Mg Tablet PO 5 mg BID KATE Administration Carvedilol 25 mg 09/16/21 13:13 09/20/21 08:06 Carvedilol 12.5 Mg Tablet PO 25 mg BIDWM KATE Administration Cyclobenzaprine HCl 5 mg 09/14/21 13:18 09/20/21 05:32 Cyclobenzaprine 10 Mg Tablet PO 5 mg TID PRN Administration Spasms Docusate Sodium 100 mg 09/12/21 13:00 09/20/21 08:06 Docusate Sodium 100 Mg Capsule PO 100 mg DAILY KATE Administration Furosemide 40 mg 09/14/21 14:00 09/20/21 05:54 Furosemide 40 Mg Tablet PO 40 mg BIDDIURETIC KATE Administration Cefazolin Sodium 2 gm/ Sodium 50 mls @ 100 mls/hr 09/15/21 14:00 09/20/21 06:44 Chloride IV Infused Q8H KATE Infusion Ketorolac Tromethamine 15 mg 09/19/21 15:05 09/20/21 06:41 Ketorolac 15 Mg/Ml Vial IVP 15 mg Q6HR PRN Administration PAIN Lidocaine 1 patch 09/13/21 09:32 09/19/21 10:17 Lidocaine Patch 5% TOP 1 patch DAILY PRN Administration PAIN Lisinopril 20 mg 09/13/21 09:00 09/20/21 08:08 Lisinopril 20 Mg Tablet PO 20 mg DAILY KATE Administration Nystatin 1 applic 09/10/21 23:00 09/19/21 22:12 Nystatin Powder 15 Gm TOP 1 applic BID KATE Administration Polyethylene Glycol 17 gm 09/13/21 09:00 09/20/21 08:06 Polyethylene Glycol 3350 17 Gm Packet PO 17 gm DAILY KATE Administration Senna 8.6 - 17.2 mg 09/13/21 09:00 09/20/21 08:06 Senna 8.6 Mg Tablet PO 8.6 mg DAILY KATE Administration Sodium Chloride 10 ml 09/11/21 01:00 09/20/21 00:43 Sodium Chloride Flush 0.9% 10 Ml Syringe IVP 10 ml 0100,0900,1700 KATE Administration Sodium Chloride 10 ml 09/10/21 21:10 09/16/21 14:37 Sodium Chloride Flush 0.9% 10 Ml Syringe IVP 10 ml PRN PRN Administration NEEDED PER PROVIDER ORDERS Tamsulosin HCl 0.4 mg 09/10/21 23:00 09/19/21 22:11 Tamsulosin 0.4 Mg Capsule PO 0.4 mg HS KATE Administration Temazepam 15 mg 09/11/21 20:39 09/18/21 23:54 Temazepam 15 Mg Capsule PO 15 mg QPM PRN Administration Insomnia - Lab Result Fish Bone Diagrams: 09/20/21 04:44 09/20/21 04:44 - Additional Planning My Orders: My Active Orders 09/19/21 15:05 Ketorolac Inj (15Mg) [Toradol Inj (15Mg)] 15 mg IVP Q6HR PRN 09/20/21 08:14 Potassium Chloride [K-Dur] 40 meq PO ONCE ONE 09/21/21 05:00 BMP - BASIC METABOLIC PANEL [CHEM] DAILYLAB CBC - COMP BLD CT W/AUTO DIFF [HEME] DAILYLAB 09/22/21 05:00 BMP - BASIC METABOLIC PANEL [CHEM] DAILYLAB CBC - COMP BLD CT W/AUTO DIFF [HEME] DAILYLAB 09/23/21 05:00 BMP - BASIC METABOLIC PANEL [CHEM] DAILYLAB CBC - COMP BLD CT W/AUTO DIFF [HEME] DAILYLAB Subjective - Subjective Patient Reports: Other (Patient was more alert, awake and oriented today. He was very motivated and worked with physical therapy. He is afebrile. White blood cell count down to normal. However he continues to complain of moderate back pain) Objective Vital Signs: Vital Signs - 24 hr 09/19/21 09/19/21 09/19/21 11:35 15:52 20:08 Temperature 36.7 C 37.1 C Heart Rate [ 77 78 80 Brachial] Respiratory 22 20 93 H Rate Blood Pressure 123/83 H [Left Brachial artery] Blood Pressure 125/68 118/80 [Right Brachial artery] O2 Saturation 95 93 09/19/21 09/20/21 09/20/21 23:38 05:00 07:40 Temperature 36.8 C 36.3 C L 36.8 C Heart Rate [ 80 76 72 Brachial] Respiratory 20 18 20 Rate Blood Pressure 125/60 137/86 H 130/73 [Left Brachial artery] Blood Pressure [Right Brachial artery] O2 Saturation 93 94 95 Oxygen O2 Source [With Activity] Room air O2 Source [Without Activity] Room air O2 Source Nasal cannula I&O (Last 24 Hrs): Intake and Output Totals x24h 09/18/21 09/19/21 09/20/21 23:59 23:59 23:59 Intake Total 650 1590 50 Output Total 1825 5560 482 [facility] [phone] General: Alert, Oriented x3, Moderate distress HEENT: PERRLA, EOMI Neck: Supple, No JVD Neuro: Alert, Oriented Times 3 Cardiovascular: Regular rate, Normal S1, Normal S2 Respiratory: Chest non-tender, No respiratory distress, Breath sounds nml Abdomen: Normal bowel sounds, Soft, No tenderness Extremities: No clubbing, No edema, Other (redness around right great toe with wound at base of toe nail) Skin: No rashes - Results Results: Laboratory Results WBC 9.8 x10^3/uL (4.8-10.8) 09/20/21 04:44 RBC 4.82 10^6/uL (4.70-6.10) 09/20/21 04:44 Hgb 14.0 g/dL (14.0-18.0) 09/20/21 04:44 Hct 42.5 % (42.0-52.0) 09/20/21 04:44 MCV 88.2 fL (80.0-94.0) 09/20/21 04:44 MCH 29.0 pg (27.0-31.0) 09/20/21 04:44 MCHC 32.9 g/dL (32.0-36.0) 09/20/21 04:44 RDW 13.2 % (12.0-15.0) 09/20/21 04:44 Plt Count 414 10^3/uL (130-450) 09/20/21 04:44 MPV 9.7 fL (7.4-11.4) 09/20/21 04:44 Neut # (Auto) 6.9 10^3/uL (1.5-6.6) H 09/20/21 04:44 Lymph # (Auto) 1.7 10^3/uL (1.5-3.5) 09/20/21 04:44 [place] # (Auto) 0.8 10^3/uL (0.0-1.0) 09/20/21 04:44 Eos # (Auto) 0.2 10^3/uL (0.0-0.7) 09/20/21 04:44 Baso # (Auto) 0.1 10^3/uL (0.0-0.1) 09/20/21 04:44 Absolute Nucleated RBC 0.00 x10^3/uL 09/20/21 04:44 Nucleated RBC % 0.0 /100WBC 09/20/21 04:44 PT 18.9 secs (9.9-12.6) H 09/10/21 19:54 INR 1.7 (0.8-1.2) H 09/10/21 19:54 APTT 28.9 secs (24.9-33.3) 09/10/21 19:54 Bld Gas Analysis Time 213409/10/21 21:30 Sample Site LEFT RADIAL 09/10/21 21:30 ABG pH 7.47 (7.35-7.45) H 09/10/21 21:30 ABG pCO2 31 mmHg (34-45) L 09/10/21 21:30 ABG pO2 36 mmHg (80-100) L* 09/10/21 21:30 ABG HCO3 22.0 mmol/L (22.0-26.0) 09/10/21 21:30 ABG Total CO2 23.0 MMOL/L (21.0-29.0) 09/10/21 21:30 ABG O2 Saturation 73 % (94-98) L* 09/10/21 21:30 ABG Base Excess -0.6 mmol/L (-2.0-3.0) 09/10/21 21:30 Emmanuel Test POSITIVE 09/10/21 21:30 VBG pH 7.471 (7.31-7.41) H 09/14/21 04:05 Ionized Calcium 1.07 mmol/L (1.15-1.33) L 09/14/21 04:05 O2 Delivery Device SIMPLE MASK 09/10/21 21:30 O2 Liters/Min 15.00 LPM 09/10/21 21:30 Sodium 137 mmol/L (135-145) 09/20/21 04:44 Potassium 3.3 mmol/L (3.5-5.0) L 09/20/21 04:44 Chloride 97 mmol/L (101-111) L 09/20/21 04:44 Carbon Dioxide 30 mmol/L (21-32) 09/20/21 04:44 Anion Gap 10.0 (6-13) 09/20/21 04:44 BUN 18 mg/dL (6-20) 09/20/21 04:44 Creatinine 0.6 mg/dL (0.6-1.2) 09/20/21 04:44 Estimated GFR (MDRD) 131 (>89) 09/20/21 04:44 Glucose 114 mg/dL (70-100) H 09/20/21 04:44 Estimat Average Glucose 134 mg/dL (70-100) H 09/11/21 04:45 Hemoglobin A1c % 6.3 % (4.27-6.07) H 09/11/21 04:45 Lactic Acid 1.5 mmol/L (0.5-2.2) 09/10/21 19:54 Calcium 8.7 mg/dL (8.5-10.3) 09/20/21 04:44 Phosphorus 3.1 mg/dL (2.5-4.6) 09/15/21 04:24 Magnesium 2.0 mg/dL (1.7-2.8) 09/14/21 04:05 Total Bilirubin 1.8 mg/dL (0.2-1.0) H 09/10/21 19:33 AST 37 IU/L (10-42) 09/10/21 19:33 ALT 26 IU/L (10-60) 09/10/21 19:33 Alkaline Phosphatase 79 IU/L (42-121) 09/10/21 19:33 Troponin I High Sens 14.3 ng/L (2.3-19.7) 09/12/21 04:39 B-Natriuretic Peptide 285 pg/mL (5-100) H 09/14/21 04:05 Total Protein 7.2 g/dL (6.7-8.2) 09/10/21 19:33 Albumin 3.8 g/dL (3.2-5.5) 09/10/21 19:33 Globulin 3.4 g/dL (2.1-4.2) 09/10/21 19:33 Albumin/Globulin Ratio 1.1 (1.0-2.2) 09/10/21 19:33 Lipase 21 U/L (22-51) L 09/10/21 19:33 TSH 1.49 uIU/mL (0.34-5.60) 09/11/21 04:45 Urine Color DARK YELLOW 09/10/21 21:59 Urine Clarity HAZY (CLEAR) 09/10/21 21:59 Urine pH 6.0 PH (5.0-7.5) 09/10/21 21:59 Ur Specific [place] 1.020 (1.002-1.030) 09/10/21 21:59 Urine Protein 100 mg/dL (NEGATIVE) H 09/10/21 21:59 Urine Glucose (UA) NEGATIVE mg/dL (NEGATIVE) 09/10/21 21:59 Urine Ketones 15 mg/dL (NEGATIVE) H 09/10/21 21:59 Urine Occult Blood MODERATE (NEGATIVE) H 09/10/21 21:59 Urine Nitrite POSITIVE (NEGATIVE) H 09/10/21 21:59 Urine Bilirubin NEGATIVE (NEGATIVE) 09/10/21 21:59 Urine Urobilinogen 1 (NORMAL) E.U./dL (NORMAL) 09/10/21 21:59 Ur Leukocyte Esterase NEGATIVE (NEGATIVE) 09/10/21 21:59 Urine RBC 0-5 /HPF (0-5) 09/10/21 21:59 Urine WBC 4-5 /HPF (0-3) 09/10/21 21:59 Ur Squamous Epith Cells NONE SEEN (<= Few) 09/10/21 21:59 Amorphous Sediment Few /LPF 09/10/21 21:59 Urine Bacteria Rare /HPF (None Seen) 09/10/21 21:59 Ur Microscopic Review INDICATED 09/10/21 21:59 Urine Culture Comments INDICATED 09/10/21 21:59 Nasal Adenovirus (PCR) NOT DETECTED 09/10/21 21:59 Nasal B. parapertussis DNA (PCR) NOT DETECTED 09/10/21 21:59 Nasal Coronavir 229E PCR NOT DETECTED 09/10/21 21:59 Nasal Coronavir HKU1 PCR NOT DETECTED 09/10/21 21:59 Nasal Coronavir NL63 PCR NOT DETECTED 09/10/21 21:59 Nasal Coronavir OC43 PCR NOT DETECTED 09/10/21 21:59 Nasal Enterovir/Rhinovir PCR NOT DETECTED 09/10/21 21:59 Nasal Influenza B PCR NOT DETECTED 09/10/21 21:59 Nasal Influenza A PCR NOT DETECTED 09/10/21 21:59 Nasal Parainfluen 1 PCR NOT DETECTED 09/10/21 21:59 Nasal Parainfluen 2 PCR NOT DETECTED 09/10/21 21:59 Nasal Parainfluen 3 PCR NOT DETECTED 09/10/21 21:59 Nasal Parainfluen 4 PCR NOT DETECTED 09/10/21 21:59 Nasal RSV (PCR) NOT DETECTED 09/10/21 21:59 Nasal Screen MRSA (PCR) NEGATIVE (NEGATIVE) 09/10/21 21:59 Nasal B.pertussis DNA PCR NOT DETECTED 09/10/21 21:59 Nasal C.pneumoniae (PCR) NOT DETECTED 09/10/21 21:59 [place] Human Metapneumo PCR NOT DETECTED 09/10/21 21:59 Nasal M.pneumoniae (PCR) NOT DETECTED 09/10/21 21:59 Nasal SARS-CoV-2 (PCR) NOT DETECTED 09/10/21 21:59 - Procedures Procedures: Procedures EXCISION OF RIGHT KNEE JOINT, PERC ENDO APPROACH (06/07/15) INSERTION OF INFUSION DEV INTO SUP VENA CAVA, PERC APPROACH (06/07/15) Sepsis Event Note (H) - Evaluation Current Stage of Sepsis: Resolved (HR now less than 90. mentation improved. Afebrile.) Possible source of Sepsis: positive: Bone/Joint (appeared in the ED 09/10 with signs and symptoms of sepsis. 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
[2021-09-20] MEDS: LIDOCAINE PATCH 5% TOP PRN (09:35)
[2021-09-20] MEDS: NYSTATIN POWDER 15 GM TOP SCH ×2 (09:37→20:36)
[2021-09-20] MEDS: SODIUM CHLORIDE FLUSH 0.9% 10 ML SYRINGE IVP PRN (14:24)
[2021-09-20] MEDS: TAMSULOSIN 0.4 MG CAPSULE PO SCH (20:35)
[2021-09-21] MEDS: SODIUM CHLORIDE FLUSH 0.9% 10 ML SYRINGE IVP SCH ×3 (00:15→15:49)
[2021-09-21] MEDS: KETOROLAC 15 MG/ML VIAL IVP PRN (00:15)
[2021-09-21] MEDS: TEMAZEPAM 15 MG CAPSULE PO PRN ×2 (00:15→20:33)
[2021-09-21] MEDS: HYDROcod/ACETAM 5/325 MG TABLET PO PRN ×3 (04:54→20:32)
[2021-09-21 05:09] LABS: BASOPHILS # (AUTO) 0.1 10^3/uL (0.0-0.1); BASOPHILS % (AUTO) 0.8 %; EOSINOPHILS # (AUTO) 0.2 10^3/uL (0.0-0.7); EOSINOPHILS % (AUTO) 1.8 %; HCT - HEMATOCRIT 41.3 % (42.0-52.0); HGB - HEMOGLOBIN 13.7 g/dL (14.0-18.0); LYMPHOCYTES # (AUTO) 1.8 10^3/uL (1.5-3.5); LYMPHOCYTES % (AUTO) 19.1 %; MEAN CORPUSCULAR HEMOGLOBIN 29.3 pg (27.0-31.0); MEAN CORPUSCULAR HGB CONC 33.2 g/dL (32.0-36.0); MEAN CORPUSCULAR VOLUME 88.4 fL (80.0-94.0); MEAN PLATELET VOLUME 9.6 fL (7.4-11.4); MONOCYTES # (AUTO) 0.8 10^3/uL (0.0-1.0); MONOCYTES % (AUTO) 8.7 %; NEUTROPHILS # (AUTO) 6.6 10^3/uL (1.5-6.6); NEUTROPHILS % (AUTO) 68.8 %; PLT - PLATELET COUNT 387 10^3/uL (130-450); RED BLOOD COUNT 4.67 10^6/uL (4.70-6.10); RED CELL DISTRIBUTION WIDTH 13.3 % (12.0-15.0); WHITE BLOOD COUNT 9.6 x10^3/uL (4.8-10.8)
[2021-09-21 05:14] LABS: CALCIUM 8.9 mg/dL (8.5-10.3); CREATININE 0.7 mg/dL (0.6-1.2); POTASSIUM 3.5 mmol/L (3.5-5.0)
[2021-09-21] MEDS: FUROSEMIDE 40 MG TABLET PO SCH ×2 (05:22→14:30)
[2021-09-21] MEDS: CYCLOBENZAPRINE 10 MG TABLET PO PRN ×2 (06:31→14:30)
--- NOTE | 2021-09-21 07:19 | PROVIDER PROGRESS NOTE ---
Assessment/Plan - Problem List (1) Pyomyositis Assessment/Plan: 09/21/21 Blood cultures NGTD X5 days Picc line placement on 09/22/21 Home health referral made. Anticipate discharge 09/22/21 09/20/21 Patient's white blood cell count today was 9.8 Blood cultures done on 09/16/21 are NGTD X4 I discussed with infectious disease at [facility] (Dr Nick Harris) who recommended 4 weeks of antibiotics after the last negative blood culture result. Repeat imaging of hips by 10/10/21 He will need a referral for ID at [facility] upon discharge 09/19/21 Patient's white blood cell count today was 11.1 Blood cultures done on 09/16/21 are NGTD 09/18/21 Patient's white blood cell count today was 9.8 Blood cultures done on 09/16/21 are NGTD 09/17/21 Patient's white blood cell count today was 10.9 Blood cultures done on 09/16/21 are NGTD I discussed persistent back pain with radiology regarding the possibility of repeating an image. The radiologist advised that given that the MRI was done 2 days prior, there would likely not be any significant radiologic change at this time Also that an improvement in white blood cell count was a good indication of good response to antibiotic treatment. 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 This was discussed with radiology who felt it was too small at this time for drainage. WBC 12.2. Patient is afebrile. Patient is on Ancef 2 g IV every 8 hours. Plan is for antibiotics for total of 14 days. Blood cultures done on 09/12/2021 grew staph aureus today 09/15/2021. Blood cultures repeated today 09/15/2021. If positive blood cultures persist, patient becomes febrile or back pain worsens, will consider repeating image and discussing with radiology again 2D echocardiogram done on 09/10/2021 showed no evidence of aortic stenosis. There is trace to mild aortic regurgitation. There is no mitral stenosis. There is trace to mild mitral regurgitation. Subtle lesions could not be excluded. There was no pericardial effusion. Left ventricular ejection fraction was 55 to 60%. (2) Pyelonephritis Assessment/Plan: CT of the abdomen pelvis also showed perinephric stranding. Urine analysis showed positive nitrites and moderate occult blood. Patient is on Ancef 2 g every 8 hours. (3) Acute respiratory failure with hypoxia Assessment/Plan: Currently on room air with oxygen saturation 91 to 95% Secondary to CHF exacerbation. Patient is on Coreg 25 mg p.o. twice daily. Lasix 40 mg p.o. twice daily. Eliquis 5 mg p.o. twice daily Lisinopril 20 mg p.o. daily. 2D echocardiogram done on 09/10/2021 showed no evidence of aortic stenosis. There is trace to mild aortic regurgitation. There is no mitral stenosis. There is trace to mild mitral regurgitation. Subtle lesions could not be excluded. There was no pericardial effusion. Left ventricular ejection fraction was 55 to 60%. (4) Acute congestive heart failure Qualifiers: Heart failure type: unspecified Qualified Code(s): I50.9 - Heart failure, unspecified Assessment/Plan: Patient is on Coreg 25 mg p.o. twice daily. Lasix 40 mg p.o. twice daily. Eliquis 5 mg p.o. twice daily Lisinopril 20 mg p.o. daily. 2D echocardiogram done on 09/10/2021 showed no evidence of aortic stenosis. There is trace to mild aortic regurgitation. There is no mitral stenosis. There is trace to mild mitral regurgitation. Subtle lesions could not be excluded. There was no pericardial effusion. Left ventricular ejection fraction was 55 to 60%. (5) Back pain Assessment/Plan: Likely secondary to pyomyositis and pyelonephritis. Patient is on antibiotics. Pain management with Verdi and Toradol prn. (6) Metabolic encephalopathy Assessment/Plan: Likely related to acute hypoxic respiratory failure and infection. Resolved (7) Right foot infection Assessment/Plan: On Ancef. Redness around toe improving Wound cleaned today. Mupirocin ointment applied, toe dressed Patient will need to follow up with wound care in the outpatient setting. (8) Type 2 diabetes mellitus Assessment/Plan: Hemoglobin A1c was 6.5. Metformin currently held. We will continue to monitor. - Current Meds Current Meds: Current Medications Generic Name Dose Route Start Last Admin Trade Name Freq PRN Reason Stop Dose Admin Hydrocodone Bitart/Acetaminophen 1 tab 09/14/21 20:19 09/21/21 04:54 Hydrocod/Acetam 5/325 Mg Tablet PO 1 tab Q6H PRN Administration PAIN Amlodipine Besylate 10 mg 09/16/21 09:00 09/20/21 08:07 Amlodipine 5 Mg Tablet PO 10 mg DAILY KATE Administration Apixaban 5 mg 09/10/21 22:00 09/20/21 20:35 Apixaban 5 Mg Tablet PO 5 mg BID KATE Administration Carvedilol 25 mg 09/16/21 13:13 09/20/21 16:56 Carvedilol 12.5 Mg Tablet PO 25 mg BIDWM KATE Administration Cyclobenzaprine HCl 5 mg 09/14/21 13:18 09/21/21 06:31 Cyclobenzaprine 10 Mg Tablet PO 5 mg TID PRN Administration Spasms Docusate Sodium 100 mg 09/12/21 13:00 09/20/21 08:06 Docusate Sodium 100 Mg Capsule PO 100 mg DAILY KATE Administration Furosemide 40 mg 09/14/21 14:00 09/21/21 05:22 Furosemide 40 Mg Tablet PO 40 mg BIDDIURETIC KATE Administration Cefazolin Sodium 2 gm/ Sodium 50 mls @ 100 mls/hr 09/15/21 14:00 09/21/21 05:51 Chloride IV Infused Q8H KATE Infusion Lidocaine 1 patch 09/13/21 09:32 09/20/21 09:35 Lidocaine Patch 5% TOP 1 patch DAILY PRN Administration PAIN Lisinopril 20 mg 09/13/21 09:00 09/20/21 08:08 Lisinopril 20 Mg Tablet PO 20 mg DAILY KATE Administration Nystatin 1 applic 09/10/21 23:00 09/20/21 20:36 Nystatin Powder 15 Gm TOP 1 applic BID KATE Administration Polyethylene Glycol 17 gm 09/13/21 09:00 09/20/21 08:06 Polyethylene Glycol 3350 17 Gm Packet PO 17 gm DAILY KATE Administration Senna 8.6 - 17.2 mg 09/13/21 09:00 09/20/21 08:06 Senna 8.6 Mg Tablet PO 8.6 mg DAILY KATE Administration Sodium Chloride 10 ml 09/11/21 01:00 09/21/21 00:15 Sodium Chloride Flush 0.9% 10 Ml Syringe IVP 10 ml 0100,0900,1700 KATE Administration Sodium Chloride 10 ml 09/10/21 21:10 09/20/21 14:24 Sodium Chloride Flush 0.9% 10 Ml Syringe IVP 10 ml PRN PRN Administration NEEDED PER PROVIDER ORDERS Tamsulosin HCl 0.4 mg 09/10/21 23:00 09/20/21 20:35 Tamsulosin 0.4 Mg Capsule PO 0.4 mg HS KATE Administration Temazepam 15 mg 09/11/21 20:39 09/21/21 00:15 Temazepam 15 Mg Capsule PO 15 mg QPM PRN Administration Insomnia - Lab Result Fish Bone Diagrams: 09/21/21 04:51 09/21/21 04:51 - Additional Planning My Orders: My Active Orders 09/22/21 05:00 BMP - BASIC METABOLIC PANEL [CHEM] DAILYLAB CBC - COMP BLD CT W/AUTO DIFF [HEME] DAILYLAB 09/23/21 05:00 BMP - BASIC METABOLIC PANEL [CHEM] DAILYLAB CBC - COMP BLD CT W/AUTO DIFF [HEME] DAILYLAB Subjective - Subjective Patient Reports: Other (Patientcontinues to complain of moderate back pain. He was awake and alert this morning.) Objective Vital Signs: Vital Signs - 24 hr 09/20/21 09/20/21 09/20/21 07:40 12:10 12:45 Temperature 36.8 C 36.6 C Heart Rate [ 72 84 Brachial] Respiratory 20 20 Rate Blood Pressure 130/73 [Left Brachial artery] Blood Pressure 150/88 H [Right Brachial artery] O2 Saturation 95 95 95 09/20/21 09/21/21 15:28 00:20 Temperature 36.5 C 36.4 C L Heart Rate [ 63 80 Brachial] Respiratory 21 20 Rate Blood Pressure 135/85 H [Left Brachial artery] Blood Pressure 135/85 H [Right Brachial artery] O2 Saturation 96 93 Oxygen O2 Source [With Activity] Room air O2 Source [Without Activity] Room air O2 Source Room air I&O (Last 24 Hrs): Intake and Output Totals x24h 09/19/21 09/20/21 09/21/21 23:59 23:59 23:59 Intake Total 1590 1520 300 Output Total 1900 1975 600 Balance -310 -455 -300 General: Alert, Oriented x3, Moderate distress HEENT: PERRLA, EOMI Neck: Supple, No JVD Neuro: Alert, Non Focal, Oriented Times 3 Cardiovascular: Regular rate, Normal S1, Normal S2 Respiratory: Chest non-tender, No respiratory distress, Breath sounds nml Abdomen: Normal bowel sounds, Soft Extremities: No clubbing, No cyanosis, No edema Skin: No rashes, No breakdown, No significant lesion - Results Results: Laboratory Results WBC 9.6 x10^3/uL (4.8-10.8) 09/21/21 04:51 RBC 4.67 10^6/uL (4.70-6.10) L 09/21/21 04:51 Hgb 13.7 g/dL (14.0-18.0) L 09/21/21 04:51 Hct 41.3 % (42.0-52.0) L 09/21/21 04:51 MCV 88.4 fL (80.0-94.0) 09/21/21 04:51 MCH 29.3 pg (27.0-31.0) 09/21/21 04:51 MCHC 33.2 g/dL (32.0-36.0) 09/21/21 04:51 RDW 13.3 % (12.0-15.0) 09/21/21 04:51 Plt Count 387 10^3/uL (130-450) 09/21/21 04:51 MPV 9.6 fL (7.4-11.4) 09/21/21 04:51 Neut # (Auto) 6.6 10^3/uL (1.5-6.6) 09/21/21 04:51 Lymph # (Auto) 1.8 10^3/uL (1.5-3.5) 09/21/21 04:51 Cataño # (Auto) 0.8 10^3/uL (0.0-1.0) 09/21/21 04:51 Eos # (Auto) 0.2 10^3/uL (0.0-0.7) 09/21/21 04:51 Baso # (Auto) 0.1 10^3/uL (0.0-0.1) 09/21/21 04:51 Absolute Nucleated RBC 0.00 x10^3/uL 09/21/21 04:51 Nucleated RBC % 0.0 /100WBC 09/21/21 04:51 PT 18.9 secs (9.9-12.6) H 09/10/21 19:54 INR 1.7 (0.8-1.2) H 09/10/21 19:54 APTT 28.9 secs (24.9-33.3) 09/10/21 19:54 Bld Gas Analysis Time 2134 09/10/21 21:30 Sample Site LEFT RADIAL 09/10/21 21:30 ABG pH 7.47 (7.35-7.45) H 09/10/21 21:30 ABG pCO2 31 mmHg (34-45) L 09/10/21 21:30 ABG pO2 36 mmHg (80-100) L* 09/10/21 21:30 ABG HCO3 22.0 mmol/L (22.0-26.0) 09/10/21 21:30 ABG Total CO2 23.0 MMOL/L (21.0-29.0) 09/10/21 21:30 ABG O2 Saturation 73 % (94-98) L* 09/10/21 21:30 ABG Base Excess -0.6 mmol/L (-2.0-3.0) 09/10/21 21:30 Emmanuel Test POSITIVE 09/10/21 21:30 VBG pH 7.471 (7.31-7.41) H 09/14/21 04:05 Ionized Calcium 1.07 mmol/L (1.15-1.33) L 09/14/21 04:05 O2 Delivery Device SIMPLE MASK 09/10/21 21:30 O2 Liters/Min 15.00 LPM 09/10/21 21:30 Sodium 137 mmol/L (135-145) 09/21/21 04:51 Potassium 3.5 mmol/L (3.5-5.0) 09/21/21 04:51 Chloride 98 mmol/L (101-111) L 09/21/21 04:51 Carbon Dioxide 29 mmol/L (21-32) 09/21/21 04:51 Anion Gap 10.0 (6-13) 09/21/21 04:51 BUN 19 mg/dL (6-20) 09/21/21 04:51 Creatinine 0.7 mg/dL (0.6-1.2) 09/21/21 04:51 Estimated GFR (MDRD) 110 (>89) 09/21/21 04:51 Glucose 107 mg/dL (70-100) H 09/21/21 04:51 Estimat Average Glucose 134 mg/dL (70-100) H 09/11/21 04:45 Hemoglobin A1c % 6.3 % (4.27-6.07) H 09/11/21 04:45 Lactic Acid 1.5 mmol/L (0.5-2.2) 09/10/21 19:54 Calcium 8.9 mg/dL (8.5-10.3) 09/21/21 04:51 Phosphorus 3.1 mg/dL (2.5-4.6) 09/15/21 04:24 Magnesium 2.0 mg/dL (1.7-2.8) 09/14/21 04:05 Total Bilirubin 1.8 mg/dL (0.2-1.0) H 09/10/21 19:33 AST 37 IU/L (10-42) 09/10/21 19:33 ALT 26 IU/L (10-60) 09/10/21 19:33 Alkaline Phosphatase 79 IU/L (42-121) 09/10/21 19:33 Troponin I High Sens 14.3 ng/L (2.3-19.7) 09/12/21 04:39 B-Natriuretic Peptide 285 pg/mL (5-100) H 09/14/21 04:05 Total Protein 7.2 g/dL (6.7-8.2) 09/10/21 19:33 Albumin 3.8 g/dL (3.2-5.5) 09/10/21 19:33 Globulin 3.4 g/dL (2.1-4.2) 09/10/21 19:33 Albumin/Globulin Ratio 1.1 (1.0-2.2) 09/10/21 19:33 Lipase 21 U/L (22-51) L 09/10/21 19:33 TSH 1.49 uIU/mL (0.34-5.60) 09/11/21 04:45 Urine Color DARK YELLOW 09/10/21 21:59 Urine Clarity HAZY (CLEAR) 09/10/21 21:59 Urine pH 6.0 PH (5.0-7.5) 09/10/21 21:59 Ur Specific Chama 1.020 (1.002-1.030) 09/10/21 21:59 Urine Protein 100 mg/dL (NEGATIVE) H 09/10/21 21:59 Urine Glucose (UA) NEGATIVE mg/dL (NEGATIVE) 09/10/21 21:59 Urine Ketones 15 mg/dL (NEGATIVE) H 09/10/21 21:59 Urine Occult Blood MODERATE (NEGATIVE) H 09/10/21 21:59 Urine Nitrite POSITIVE (NEGATIVE) H 09/10/21 21:59 Urine Bilirubin NEGATIVE (NEGATIVE) 09/10/21 21:59 Urine Urobilinogen 1 (NORMAL) E.U./dL (NORMAL) 09/10/21 21:59 Ur Leukocyte Esterase NEGATIVE (NEGATIVE) 09/10/21 21:59 Urine RBC 0-5 /HPF (0-5) 09/10/21 21:59 Urine WBC 4-5 /HPF (0-3) 09/10/21 21:59 Ur Squamous Epith Cells NONE SEEN (<= Few) 09/10/21 21:59 Amorphous Sediment Few /LPF 09/10/21 21:59 Urine Bacteria Rare /HPF (None Seen) 09/10/21 21:59 Ur Microscopic Review INDICATED 09/10/21 21:59 Urine Culture Comments INDICATED 09/10/21 21:59 Nasal Adenovirus (PCR) NOT DETECTED 09/10/21 21:59 Nasal B. parapertussis DNA (PCR) NOT DETECTED 09/10/21 21:59 Nasal Coronavir 229E PCR NOT DETECTED 09/10/21 21:59 Nasal Coronavir HKU1 PCR NOT DETECTED 09/10/21 21:59 Nasal Coronavir NL63 PCR NOT DETECTED 09/10/21 21:59 Nasal Coronavir OC43 PCR NOT DETECTED 09/10/21 21:59 Nasal Enterovir/Rhinovir PCR NOT DETECTED 09/10/21 21:59 Nasal Influenza B PCR NOT DETECTED 09/10/21 21:59 Nasal Influenza A PCR NOT DETECTED 09/10/21 21:59 Nasal Parainfluen 1 PCR NOT DETECTED 09/10/21 21:59 Nasal Parainfluen 2 PCR NOT DETECTED 09/10/21 21:59 Nasal Parainfluen 3 PCR NOT DETECTED 09/10/21 21:59 Nasal Parainfluen 4 PCR NOT DETECTED 09/10/21 21:59 Nasal RSV (PCR) NOT DETECTED 09/10/21 21:59 Nasal Screen MRSA (PCR) NEGATIVE (NEGATIVE) 09/10/21 21:59 Nasal B.pertussis DNA PCR NOT DETECTED 09/10/21 21:59 Nasal C.pneumoniae (PCR) NOT DETECTED 09/10/21 21:59 Martínez Human Metapneumo PCR NOT DETECTED 09/10/21 21:59 Nasal M.pneumoniae (PCR) NOT DETECTED 09/10/21 21:59 Nasal SARS-CoV-2 (PCR) NOT DETECTED 09/10/21 21:59 - Procedures Procedures: Procedures EXCISION OF RIGHT KNEE JOINT, PERC ENDO APPROACH (06/07/15) INSERTION OF INFUSION DEV INTO SUP VENA CAVA, PERC APPROACH (06/07/15) Sepsis Event Note (H) - Evaluation Current Stage of Sepsis: Resolved (HR now less than 90. mentation improved. Afebrile.) Possible source of Sepsis: positive: Bone/Joint (appeared in the ED 09/10 with signs and symptoms of sepsis. now resolving) - Sepsis Criteria Sepsis Criteria: Recorded Heart Rate greater than 90 bpm, Recorded Respiratory Rate greater than 20, Respiratory: Increasing oxygen requirements, VICE [employer]IDENT [employer]: altered consciousness (unrelated to primary neuro pathology) ABX Reporting Has patient been on IV antibiotics over the past 48 hours?: Yes
[2021-09-21] MEDS: carvediloL 12.5 MG TABLET PO SCH ×2 (07:57→17:43)
[2021-09-21] MEDS: LIDOCAINE PATCH 5% TOP PRN (07:57)
[2021-09-21] MEDS: polyethylene glycoL 3350 17 GM PACKET PO SCH (08:14)
[2021-09-21] MEDS: APIXABAN 5 MG TABLET PO SCH ×2 (08:15→20:32)
[2021-09-21] MEDS: SENNA 8.6 MG TABLET PO SCH (08:15)
[2021-09-21] MEDS: DOCUSATE SODIUM 100 MG CAPSULE PO SCH (08:15)
[2021-09-21] MEDS: amLODIPine 5 MG TABLET PO SCH (08:16)
[2021-09-21] MEDS: lisinopriL 20 MG TABLET PO SCH (08:16)
[2021-09-21] MEDS: NYSTATIN POWDER 15 GM TOP SCH ×2 (09:58→20:32)
[2021-09-21] MEDS: MUPIROCIN 2% OINT 22 GM TUBE TOP SCH ×2 (09:58→20:33)
[2021-09-21] MEDS ORDERED: KETOROLAC 15 MG/ML VIAL IVP STA (10:32)
[2021-09-21] MEDS: SODIUM CHLORIDE FLUSH 0.9% 10 ML SYRINGE IVP PRN (14:30)
[2021-09-21] MEDS: TAMSULOSIN 0.4 MG CAPSULE PO SCH (20:32)
[2021-09-22] MEDS: SODIUM CHLORIDE FLUSH 0.9% 10 ML SYRINGE IVP SCH ×3 (00:15→15:46)
[2021-09-22] MEDS: CYCLOBENZAPRINE 10 MG TABLET PO PRN ×3 (01:02→15:51)
[2021-09-22] MEDS: HYDROcod/ACETAM 5/325 MG TABLET PO PRN ×2 (02:20→14:27)
[2021-09-22] MEDS: FUROSEMIDE 40 MG TABLET PO SCH ×2 (05:43→14:23)
[2021-09-22 05:59] LABS: BASOPHILS # (AUTO) 0.1 10^3/uL (0.0-0.1); EOSINOPHILS # (AUTO) 0.2 10^3/uL (0.0-0.7); EOSINOPHILS % (AUTO) 1.5 %; HCT - HEMATOCRIT 42.4 % (42.0-52.0); HGB - HEMOGLOBIN 13.8 g/dL (14.0-18.0); LYMPHOCYTES # (AUTO) 1.6 10^3/uL (1.5-3.5); LYMPHOCYTES % (AUTO) 15.7 %; MEAN CORPUSCULAR HEMOGLOBIN 28.7 pg (27.0-31.0); MEAN CORPUSCULAR HGB CONC 32.5 g/dL (32.0-36.0); MEAN CORPUSCULAR VOLUME 88.1 fL (80.0-94.0); MEAN PLATELET VOLUME 9.8 fL (7.4-11.4); MONOCYTES # (AUTO) 0.8 10^3/uL (0.0-1.0); NEUTROPHILS # (AUTO) 7.3 10^3/uL (1.5-6.6); NEUTROPHILS % (AUTO) 73.1 %; PLT - PLATELET COUNT 414 10^3/uL (130-450); RED BLOOD COUNT 4.81 10^6/uL (4.70-6.10); RED CELL DISTRIBUTION WIDTH 13.3 % (12.0-15.0)
[2021-09-22 06:03] LABS: CALCIUM 8.7 mg/dL (8.5-10.3); CREATININE 0.7 mg/dL (0.6-1.2); POTASSIUM 3.2 mmol/L (3.5-5.0)
[2021-09-22] MEDS ORDERED: POTASSIUM CHLORIDE 20 MEQ TABLET PO ONE (07:39)
[2021-09-22] MEDS: polyethylene glycoL 3350 17 GM PACKET PO SCH (08:12)
[2021-09-22] MEDS: DOCUSATE SODIUM 100 MG CAPSULE PO SCH (08:12)
[2021-09-22] MEDS: APIXABAN 5 MG TABLET PO SCH (08:14)
[2021-09-22] MEDS: MUPIROCIN 2% OINT 22 GM TUBE TOP SCH (08:14)
[2021-09-22] MEDS: NYSTATIN POWDER 15 GM TOP SCH (08:14)
[2021-09-22] MEDS: carvediloL 12.5 MG TABLET PO SCH (08:16)
[2021-09-22] MEDS: lisinopriL 20 MG TABLET PO SCH (08:16)
[2021-09-22] MEDS: amLODIPine 5 MG TABLET PO SCH (08:16)
[2021-09-22] MEDS: SENNA 8.6 MG TABLET PO SCH (08:19)
[2021-09-22] MEDS ORDERED: HYDROmorphone 0.5 MG/0.5 ML SYRINGE IVP STA (09:52)
--- NOTE | 2021-09-22 11:08 | XRAY Report ---
PROCEDURE: Chest for Line Placement INDICATIONS: PICC line confirmation, left TECHNIQUE: One view of the chest was acquired. COMPARISON: 09/11/2021 and 09/10/2021 FINDINGS: Surgical changes and devices: Left-sided PICC line tip is in upper SVC. Lungs and pleura: Port inspiratory effort is seen. There is elevation of right hemidiaphragm. Mild pu lmonary vascular congestion is seen. No gross pneumothorax. Mediastinum: Mediastinal contours appear normal. Heart size is normal. Bones and chest wall: No suspicious bony lesions. Overlying soft tissues appear unremarkable. IMPRESSION: Left-sided PICC line tip is projecting in the expected location of upper SVC. Elevation of right hemidiaphragm and poor inspiratory effort. No definite focal infiltrate or pneumot horax. Mild pulmonary vascular congestion. Reviewed by: Omar Kim MD on 09/22/2021 10:07 AM FRANCIS Approved by: Omar Kim MD on 09/22/2021 10:07 AM FRANCIS Station ID: [id number]
--- NOTE | 2021-09-22 11:12 | ANESTHESIA PROCEDURE NOTE ---
Anesth Central Line Template - Central Line Central Line Preparation: Consent Obtained, Time out completed, Ultrasound used, Sterile prep and drape Central line location: Left Basilic Central line type: PICC Single Lumen Central line catheter tip site resides: Superior vena cava (SVC) Central line aftercare: Secured, Placement confirmed, No pneumothorax, No complications, Bundle checklist complete, Pt tolerated well, Other Other Info/Details: ID'd, procedure explanation, and consent. Attempt R basilic v. PICC x3 with 2 [facility] CONSULTANT providers. Unable to thread catheter in all situations. Pt given chance to rest, move in bed, and get IV pain medication for c/o lower back pain. Returned to room around 10:30. Pt states his back pain is gone. Postioned for L basilic v. placement. Vessel accessed easily with US attempt x1. Wire threaded easily, no ectopy. Dilator, wire out. Cath cut to 50cm and threaded to hub using tip tracker. Unable to appreciate p wave changes with catheter advancement d/t chronic AF. Catheter shown have advanced in proper direction with what appears as correct positioning. Cath secured after cap easily aspirates and flushes blood. Stat lock, tegaderm. PCXR confirmed single lumen cath resides in SVC. Ok to use.
--- NOTE | 2021-09-22 11:13 | DISCHARGE SUMMARY ---
Discharge Summary Admit Date: 09/10/21 Discharge Date: 09/22/21 Discharging Provider: Brenda Delgadillo Primary Care Provider: Joey Juarez Code Status: Attempt Resuscitation Condition at Discharge: Stable Discharge Disposition: 06 Home Health Service - DIAGNOSES Admission Diagnoses: Acute respiratory failure with hypoxia Acute congestive heart failure Atrial fibrillation with RVR Right foot infection Hyponatremia Phalanx fracture, fourth Type 2 diabetes mellitus Discharge Diagnoses with Status of Each Condition: Pyomyositis/piriformis abscess: Acute. Improving. MSSA grew in blood cultures. Patient will need to complete a total of 4 weeks of antibiotics. Daptomycin will be administered daily at the [facility]. Last date of antibiotics is 10/13/2021. Patient to follow-up with infectious disease specialist in [facility]. Repeat MRI of hips by 10/10/2021 to be ordered by primary care physician Dr. Joey Juarez. Pyelonephritis Acute respiratory failure with hypoxia: Resolved. Likely secondary to acute CHF. Acute congestive heart failure: Resolved. Patient was discharged with a prescription of Lasix 40 mg p.o. daily. Atrial fibrillation with RVR: Acute. Resolved. Likely secondary to acute respiratory failure with hypoxia due to acute CHF. Patient discharged on Lasix. He will continue his Coreg and lisinopril. Right foot infection: This was cleaned and dressed during the patient's stay. Mupirocin ointment applied. Patient is to continue applying mupirocin ointment upon discharge daily. Home health wound care referral placed. Back pain: Acute on chronic. Acute is likely secondary to piriformis syndrome. Pain management as needed. Chronically patient has chronic back pain from degenerative joint disease. Patient encouraged to lose weight. A walker prescribed for patient. Home health referral PT/OT ordered. Patient declined rehab at SNF. Metabolic encephalopathy:Acute. Resolved likely secondary to acute hypoxic respiratory failure related to acute CHF. Hyponatremia: Acute. Resolved. Likely secondary to acute CHF. Phalanx fracture, fourth: Acute. Healing. Type 2 diabetes mellitus: Chronic. Patient to continue home medications. - HPI History of Present Illness: This is a 76-year-old male with a past medical history significant for atrial fibrillation on Pradaxa who presents today due to confusion. His tells me the patient was more confused than usual today and quite fatigued/weak. She called EMS and is noted that he was quite hypoxic and so he was brought to the emergency department. The patient states that he has been feeling short of breath for the past couple of weeks. He has also noticed worsening lower extremity edema. He denies any chest pain or palpitations. He states he has a history of atrial fibrillation and is on Pradaxa but no history of coronary artery disease or heart failure. He follows with a social studies department chair at the [facility]. The patient does report having chills but no fevers. He stubbed his toe on a door frame about 1 week ago and has had progressive pain and swelling of the right toe. He had x-rays completed yesterday which did not show fracture. His reports he has had clear drainage from the toe but no evidence of pus. The patient does report diarrhea over the past few days but no nausea or vomiting. Denies any abdominal pain. In the emergency department, he was noted to be hypoxic and was placed on nonrebreather. Chest x-ray revealed pulmonary edema and he was given IV Lasix. He was also noted to be in atrial fibrillation with rapid response and was given IV Lopressor. He was also given IV Unasyn given concern for the infected right toe. Given the above findings, medicine was consulted for admission. We discussed goals of care and he would like to be a full code. - HOSPITAL COURSE Hospital Course: Patient was admitted on 09/10/2021 with confusion. He was also very fatigued/weak at the time and when EMS arrived at his home he was hypoxic. At the time of admission he was also in atrial fibrillation with rapid v entricular rhythm. Further work-up in the ED showed pulmonary edema on chest x- ray. He was admitted to the ICU, started on Cardene, Lasix 40 mg IV twice daily, placed on a fluid restriction and also on the BiPAP. His respiratory status steadily improved over the course of his hospital stay and by the day of discharge she was breathing comfortably on room air with oxygen saturation greater than 90%. However blood cultures obtained as part of the patient's work-up on 09/10/2021 grew staph aureus. Repeat cultures on 09/12/2021. Also grew staph aureus. The patient was started on Ancef 2 g IV every 8 hours on 09/15/2021. Blood cultures done on 09/16/2021 with no growth for 5 days by the day of dis charge. He complained of significant back pain and underwent several imaging. This included CT of the chest, abdomen and pelvis, CT of lumbar spine and subsequently MRI of the lumbar spine and hips. The MRI of the hips done 09/15/2021 showed a very small piriformis abscess measuring about 15 mm. Upon discussion with radiology it was advised to continue IV antibiotics. It was too small to be drained. The CT of the abdomen also showed perinephric stranding bilaterally for which pyelonephritis was suspected. There was no hydronephrosis, hydroureter or obstruction. The patient also had right big toe wound with some purulent drainage. X-ray of the right foot done on 09/11/2021 showed right first distal phalanx fracture is increased in conspicuity. Likely representing osteoclastic fracture healing activity. This wound was cleaned during the patient's stay, mupirocin ointment applied. The patient's case was discussed with an infectious disease specialist at [facility] who recommended 4 weeks of IV antibiotics total. The patient was placed on daptomycin 6 mg/kg per dose daily x3 weeks with the last dose to be on 10/13/2021. The patient was on Ancef 2 g IV every 8 hours up until the day of discharge which was 09/22/2021. A referral was made for follow-up with infectious disease in [facility]. Patient's CBC, CMP and creatinine kinase levels will need to be checked weekly while on daptomycin. Management of this antibiotic and labs will be done by the patient's primary care physician Dr. Joey Juarez. Dr Joey Juarez will need to order a repeat MRI of the hips for 10/10/21 to confirm complete resolution of piriformis abscess The patient will get daily infusions of daptomycin at the [facility]. A PICC line was successfully placed on 09/22/2021 and placement confirmed with x- ray prior to discharge. Another referral for wound care by home health was placed. The patient was seen by physical therapy and determined to be in need of therapy. However he declined going to a residential facility for rehab. Home health PT/OT was ordered. 2D echocardiogram done on 09/10/2021 showed no evidence of aortic stenosis. There is trace to mild aortic regurgitation. There is no mitral stenosis. There is trace to mild mitral regurgitation. Subtle lesions could not be excluded. There was no pericardial effusion. Left ventricular ejection fraction was 55 to 60%. Upon discharge he will continue carvedilol 25 mg p.o. twice daily, apixaban 5 mg p.o. twice daily. He will start Lasix 40 mg p.o. daily. He will take supplemental potassium chloride 10 mEq daily. He will also continue lisinopril 20 mg p.o. daily. The above plan was discussed with the patient and his at bedside and they were in agreement with the plan. The patient was discharged in stable condition. - ALLERGIES Allergies/Adverse Reactions: Allergies Allergy/AdvReac Type Severity Reaction Status Date / Time Iodine and Iodide Containing Allergy Intermediate Hives Verified 06/07/15 19:09 Produc oxycodone HCl * AdvReac Severe Hallucinati Verified 06/07/15 19:09 [From Percocet] ons - MEDICATIONS Home Medications: Ambulatory Orders Medication Instructions Recorded Confirmed Apixaban [Eliquis] 5 mg PO BID 09/11/21 09/11/21 Carvedilol [Coreg] 25 mg PO BID 09/11/21 09/11/21 lisinopriL [Lisinopril] 10 mg PO DAILY 09/11/21 09/11/21 metFORMIN [Glucophage] 500 mg PO BIDWM 09/11/21 09/11/21 Cyclobenzaprine [Flexeril] 10 mg PO TID PRN 6 Days #20 tablet 09/22/21 Furosemide [Lasix] 40 mg PO DAILY 30 Days #30 tablet 09/22/21 HYDROcodone/ACET 7.5/325 [[place] 1 each PO Q6H PRN 5 Days #20 tablet 09/22/21 7.5/325] Potassium Chloride 10 meq PO DAILY 30 Days #30 tab 09/22/21 - PHYSICAL EXAM AT DISCHARGE General Appearance: positive: Alert, Moderate distress Eyes Bilateral: positive: PERRL, EOMI ENT: positive: No signs of dehydration Neck: positive: Thyroid nml, No JVD, Trachea midline Respiratory: positive: Chest non-tender, No respiratory distress, Breath sounds nml, Other (Coarse breath sounds). negative: Wheezes, Rales, Rhonchi Cardiovascular: positive: Regular rate & rhythm, No murmur Abdomen: positive: Non-tender, No organomegaly, Nml bowel sounds, Other (obese abdomen) Skin: positive: Color nml, No rash, Warm, Dry Extremities: positive: Non-tender, Full ROM, Nml appearance, No pedal edema, Other (redness in right big toe. Improving) Neurologic/Psychiatric: positive: Oriented x3, Mood/affect nml - LABS Result Diagrams: 09/22/21 05:22 09/22/21 05:22 - SEPSIS Current Stage of Sepsis: Resolved (HR now less than 90. mentation improved. Afebrile.) Possible source of Sepsis: Bone/Joint (appeared in the ED 09/10 with signs and symptoms of sepsis. now resolving) Sepsis Criteria: Recorded Heart Rate greater than 90 bpm, Recorded Respiratory Rate greater than 20, Respiratory: Increasing oxygen requirements, DRAWING OPERATOR: altered consciousness (unrelated to primary neuro pathology) - TIME SPENT Time Spent in Discharge (Minutes): 30
--- NOTE | 2021-09-22 11:34 | Discharge Plan ---
Discharge Plan Problem Reviewed?: Yes Disposition: 06 Home Health Service Condition: Stable Prescriptions: Furosemide [Lasix] 40 mg PO DAILY 30 Days #30 tablet Potassium Chloride 10 meq PO DAILY 30 Days #30 tab Diet: Cardiac Activity Restrictions: Activity as Tolerated Assistance Devices: Walker Weight Bearing: Full Weight Health Concerns: Patient was admitted on 09/10/2021 with confusion. He was also very fatigued/weak at the time and when EMS arrived at his home he was hypoxic. At the time of admission he was also in atrial fibrillation with rapid ventricular rhythm. Further work-up in the ED showed pulmonary edema on chest x- ray. He was admitted to the ICU, started on Cardene, Lasix 40 mg IV twice daily, placed on a fluid restriction and also on the BiPAP. His respiratory status steadily improved over the course of his hospital stay and by the day of discharge she was breathing comfortably on room air with oxygen saturation greater than 90%. However blood cultures obtained as part of the patient's work-up on 09/10/2021 grew staph aureus. Repeat cultures on 09/12/2021. Also grew staph aureus. The patient was started on Ancef 2 g IV every 8 hours on 09/15/2021. Blood cultures done on 09/16/2021 with no growth for 5 days by the day of discharge. He complained of significant back pain and underwent several imaging. This inclu ded CT of the chest, abdomen and pelvis, CT of lumbar spine and subsequently MRI of the lumbar spine and hips. The MRI of the hips done 09/15/2021 showed a very small piriformis abscess measuring about 15 mm. Upon discussion with radiology it was advised to continue IV antibiotics. It was too small to be drained. The CT of the abdomen also showed perinephric stranding bilaterally for which pyelonephritis was suspected. There was no hydronephrosis, hydroureter or obstruction. The patient also had right big toe wound with some purulent drainage. X-ray of the right foot done on 09/11/2021 showed right first distal phalanx fracture is increased in conspicuity. Likely representing osteoclastic fracture healing activity. This wound was cleaned during the patient's stay, mupirocin ointment applied. The patient's case was discussed with an infectious disease specialist at [facility] who recommended 4 weeks of IV antibiotics total. The patient was placed on daptomycin 6 mg/kg per dose daily x3 weeks with the last dose to be on 10/13/2021. The patient was on Ancef 2 g IV every 8 hours up until the day of discharge which was 09/22/2021. A referral was made for follow-up with infectious disease in [facility]. Patient's CBC, CMP and creatinine kinase levels will need to be checked weekly while on daptomycin. Management of this antibiotic and labs will be done by the patient's primary care physician Dr. Joey Juarez. Dr Joey Juarez will need to order a repeat MRI of the hips for 10/10/21 to confirm complete resolution of piriformis abscess The patient will get daily infusions of daptomycin at the [facility]. A PICC line was successfully placed on 09/22/2021 and placement confirmed with x- ray prior to discharge. Another referral for wound care by home health was placed. The patient was seen by physical therapy and determined to be in need of therapy. However he declined going to a long-term facility for rehab. Home health PT/OT was ordered. 2D echocardiogram done on 09/10/2021 showed no evidence of aortic stenosis. There is trace to mild aortic regurgitation. There is no mitral stenosis. There is trace to mild mitral regurgitation. Subtle lesions could not be excluded. There was no pericardial effusion. Left ventricular ejection fraction was 55 to 60%. Upon discharge he will continue carvedilol 25 mg p.o. twice daily, apixaban 5 mg p.o. twice daily. He will start Lasix 40 mg p.o. daily. He will take supplemental potassium chloride 10 mEq daily. He will also continue lisinopril 20 mg p.o. daily. The above plan was discussed with the patient and his at bedside and they were in agreement with the plan. The patient was discharged in stable condition. No Smoking: If you smoke, Please STOP! Call for help. Follow-up with: Joey Juarez MD [Primary Care Provider] -
[2021-09-22] MEDS: LIDOCAINE PATCH 5% TOP PRN (15:50)
[2021-09-22 17:31] VITALS: BP 112/66
== END 2021-09-22 17:00 | disposition home health service (06) | DRG 871 ==
LOC: ED 19:25 → ICU 21:11 → MS2 09-14 15:32
PROVIDERS: ADMIT Internal Medicine; ATTEND Internal Medicine
PROC: 02HV33Z Insertion of Infusion Device into Superior Vena Cava, Percutaneous Approach (ICD-10-PCS; principal; 2021-09-22)
DX: A41.01 Sepsis due to Methicillin susceptible Staphylococcus aureus (principal); J96.01 Acute respiratory failure with hypoxia; J81.0 Acute pulmonary edema; R09.02 Hypoxemia; E11.42 Type 2 diabetes mellitus with diabetic polyneuropathy; G93.41 Metabolic encephalopathy; I10 Essential (primary) hypertension; E87.1 Hypo-osmolality and hyponatremia; N12 Tubulo-interstitial nephritis, not specified as acute or chronic; M60.08 Infective myositis, other site; S92.401A Displaced unspecified fracture of right great toe, initial encounter for closed fracture; W22.8XXA Striking against or struck by other objects, initial encounter; L03.031 Cellulitis of right toe; N40.0 Benign prostatic hyperplasia without lower urinary tract symptoms; M47.819 Spondylosis without myelopathy or radiculopathy, site unspecified; G57.00 Lesion of sciatic nerve, unspecified lower limb; I11.0 Hypertensive heart disease with heart failure; I35.1 Nonrheumatic aortic (valve) insufficiency; I45.10 Unspecified right bundle-branch block; I50.9 Heart failure, unspecified; I48.91 Unspecified atrial fibrillation; E11.9 Type 2 diabetes mellitus without complications; E78.00 Pure hypercholesterolemia, unspecified; B95.7 Other staphylococcus as the cause of diseases classified elsewhere; F41.9 Anxiety disorder, unspecified; M19.90 Unspecified osteoarthritis, unspecified site; E66.01 Morbid (severe) obesity due to excess calories; R19.7 Diarrhea, unspecified; Z20.822 Contact with and (suspected) exposure to COVID-19; Z79.01 Long term (current) use of anticoagulants; Z79.84 Long term (current) use of oral hypoglycemic drugs; Z96.659 Presence of unspecified artificial knee joint
CPT/HCPCS: 36415; 36600; 51701; 71045; 71275; 72100; 72132; 72148; 73620; 73721; 74176; 80048; 80053; 81001; 82310; 82330; 82803; 83036; 83605; 83690; 83735; 83880; 84100; 84132; 84443; 84484; 85025; 85610; 85730; 87040; 87086; 87150; 87181; 87633; 93005; 93306; 94660; 96374; 96375; 97110; 97162; 97166; 97530; 97535; 99283; 99285; A9270; A9585; J1170; J1200; J7040; Q9967; 81003

== ENCOUNTER 2021-11-06 12:32 | Outpatient (CLI) | payer MEDICARE, OTHER ==
[~2021-11-06 12:32] MED LIST: GADOBUTROL 15 MMOL/15 ML VIAL ONE
--- NOTE | 2021-11-06 15:31 | MRI Report ---
PROCEDURE: Pelvis W/WO INDICATIONS: LEFT PIRIFORMIS ABSCESS TECHNIQUE: Magnetic resonance images of the pelvis were obtained with and without contrast. Multiple projections of multiple planes were used. COMPARISON: 09/15/2021 MRI FINDINGS: Lower abdomen: No bowel obstruction. There are colonic diverticula. Genitourinary structures: Prostate enlargement sequela of BPH. Prostate is otherwise not well evaluat ed on this study. Slightly trabeculated bladder may be from chronic obstruction. No hydronephrosis. Rectum: Unremarkable. Nodes and vessels: There are prominent pelvic lymph nodes, for example in the bilateral external wan c chains, not enlarged by size criteria, indeterminate possibly reactive. No aneurysm. Pelvic wall and muscles: Previously noted left piriformis edema is essentially resolved. The muscle i s only slightly thicker than the contralateral side. No suspicious abscess or enhancement. There is m ild post sacral edema. Some fatty atrophy of the gluteal muscles is also seen. Bones: Congruent hip joints. No pubic diastases. Lumbar spondylosis partially seen. IMPRESSION: Left piriformis myositis has essentially resolved. Slight asymmetric enlargement of the left piriform is compared to the right without suspicious enhancement or T2 edema signal currently. No other acute pelvic pathology identified. Other stable/incidental findings are described above. Reviewed by: Chris Whitfield MD on 11/06/2021 3:30 PM PDT Approved by: Chris Whitfield MD on 11/06/2021 3:30 PM PDT Station ID: [id number]
[2021-11-06] MEDS ORDERED: GADOBUTROL 15 MMOL/15 ML VIAL IVP ONE (16:13)
== END 2021-11-06 12:33 | disposition home or self-care (01) ==
LOC: DI 12:32
PROVIDERS: ATTEND Internal Medicine
DX: M60.08 Infective myositis, other site (principal)
CPT/HCPCS: 72197; A9585

== ENCOUNTER 2021-12-29 16:19 | Emergency (ER) | payer MEDICARE, OTHER ==
[2021-12-29 19:15] LABS: BASOPHILS # (AUTO) 0.1 10^3/uL (0.0-0.1); BASOPHILS % (AUTO) 0.8 %; EOSINOPHILS # (AUTO) 0.3 10^3/uL (0.0-0.7); EOSINOPHILS % (AUTO) 3.5 %; HCT - HEMATOCRIT 40.9 % (42.0-52.0); HGB - HEMOGLOBIN 13.3 g/dL (14.0-18.0); LYMPHOCYTES % (AUTO) 26.8 %; MEAN CORPUSCULAR HGB CONC 32.5 g/dL (32.0-36.0); MEAN CORPUSCULAR VOLUME 89.3 fL (80.0-94.0); MONOCYTES # (AUTO) 0.7 10^3/uL (0.0-1.0); MONOCYTES % (AUTO) 9.1 %; NEUTROPHILS # (AUTO) 4.5 10^3/uL (1.5-6.6); NEUTROPHILS % (AUTO) 59.5 %; PLT - PLATELET COUNT 234 10^3/uL (130-450); RED BLOOD COUNT 4.58 10^6/uL (4.70-6.10); RED CELL DISTRIBUTION WIDTH 13.1 % (12.0-15.0); WHITE BLOOD COUNT 7.5 x10^3/uL (4.8-10.8)
[2021-12-29 19:28] LABS: ALBUMIN/GLOBULIN RATIO 1.3 (1.0-2.2); BILIRUBIN,TOTAL 1.5 mg/dL (0.2-1.0); CALCIUM 9.2 mg/dL (8.5-10.3); CREATININE 0.8 mg/dL (0.6-1.2); POTASSIUM 3.8 mmol/L (3.5-5.0)
--- NOTE | 2021-12-29 20:02 | XRAY Report ---
PROCEDURE: Foot 3 View RT INDICATIONS: foot infection TECHNIQUE: 3 views of the foot were acquired. COMPARISON: 09/09/2021 FINDINGS: Bones: There is a nonunited fracture of the first distal phalanx redemonstrated with increased later al and proximal displacement. Fracture extends to the first interphalangeal joint. There are lucencie s along the fracture margins with suspected bony erosions suggestive of osteomyelitis and possible se ptic arthritis. Visualized osseous structures appear osteopenic. Soft tissues: There is marked soft tissue swelling of the great toe most prominent medially. No defin ite soft tissue gas. IMPRESSION: 1. Chronic nonunited intra-articular fracture of the first distal phalanx redemonstrated with increas ed medial and proximal displacement of fracture fragments. 2. Abnormal lucencies along the fracture margins with probable bony erosions suggestive of osteomyeli tis as well as suspected septic arthritis at the first interphalangeal joint. Further evaluation may be obtained with MRI if clinically indicated. Reviewed by: Delvin Olvera MD on 12/29/2021 8:00 PM PST Approved by: Delvin Olvera MD on 12/29/2021 8:00 PM PST Station ID: [id number]
[2021-12-29] MEDS ORDERED: cefTRIAXone 1 GM VIAL IVP STA (23:13)
--- NOTE | 2021-12-29 23:46 | ED Physician Documentation ---
PD HPI SKIN - Stated complaint Stated Complaint: R FOOT PX, LARGE TOE PX - Chief complaint Chief Complaint: Wound - History obtained from History obtained from: Patient, Family () - Additional information Additional information: 76-year-old man with history of chronic right toe infection presents from podiatry clinic with R first toe swelling and pain worsening over the past week. internet marketing coordinator wanted to ensure he did not have bloodstream infection which he has had in the past. patient was admitted in september with multiple issues including this one. patient denies fevers at home. Review of Systems Ten Systems: 10 systems reviewed and negative Constitutional: denies: Fever, Chills Musculoskeletal: reports: Extremity pain, Extremity swelling, Other (toe erythema) Neurologic: denies: Numbness PD PAST MEDICAL HISTORY - Past Medical History Past Medical History: Yes Cardiovascular: Hypertension, High cholesterol, Atrial fibrillation Respiratory: None Neuro: None Endocrine/Autoimmune: Type 2 diabetes GI: None : None HEENT: None Psych: Anxiety Musculoskeletal: Osteoarthritis Derm: None - Past Surgical History Past Surgical History: Yes Ortho: Knee replacement, Arthroscopic surgery - Present Medications Home Medications: Ambulatory Orders Medication Instructions Recorded Confirmed Apixaban [Eliquis] 5 mg PO BID 09/11/21 09/23/21 Carvedilol [Coreg] 25 mg PO BID 09/11/21 09/23/21 lisinopriL [Lisinopril] 10 mg PO DAILY 09/11/21 09/23/21 metFORMIN [Glucophage] 500 mg PO BIDWM 09/11/21 09/23/21 Cyclobenzaprine [Flexeril] 10 mg PO TID PRN 6 Days #20 tablet 09/22/21 09/23/21 Furosemide [Lasix] 40 mg PO DAILY 30 Days #30 tablet 09/22/21 09/23/21 HYDROcodone/ACET 7.5/325 [[place] 1 each PO Q6H PRN 5 Days #20 tablet 09/22/21 09/23/21 7.5/325] Potassium Chloride 10 meq PO DAILY 30 Days #30 tab 09/22/21 09/23/21 Clindamycin [Cleocin] 450 mg PO TID #42 cap 12/29/21 Saccharomyces Boulardii [Florastor] 250 mg PO BIDWM 15 Days #30 cap 12/29/21 - Allergies Allergies/Adverse Reactions: Allergies Allergy/AdvReac Type Severity Reaction Status Date / Time Iodine and Iodide Containing Allergy Intermediate Hives Verified 06/07/15 19:09 Produc oxycodone HCl * AdvReac Severe Hallucinati Verified 06/07/15 19:09 [From Percocet] ons - Social History Does the pt smoke?: No Smoking Status: Never smoker Does the pt drink ETOH?: No Does the pt have substance abuse?: No - Immunizations Immunizations are current?: No - POLST Patient has POLST: No PD ED PE NORMAL - Vitals Vital signs reviewed: Yes - General General: Alert and oriented X 3, No acute distress, Well developed/nourished - HEENT HEENT: Atraumatic, PERRL, EOMI - Derm Derm: Normal color, Warm and dry, Other (R first toe significant swelling, erythema, calor. 2+ DP pulses. normal cap refill. tender with flexion of toe) Results - Vitals Vitals: Vital Signs - 24 hr 12/29/21 12/29/21 12/29/21 16:29 22:21 23:36 Temperature 36.6 C 36.7 C Heart Rate 97 64 Respiratory 16 17 16 Rate Blood Pressure 139/78 H 131/88 H O2 Saturation 98 96 Oxygen O2 Source [With Activity] Room air O2 Source [Without Activity] Room air O2 Source Room air - Labs Labs: Laboratory Tests 12/29/21 12/29/21 12/29/21 19:10 19:10 19:10 WBC 7.5 RBC 4.58 L Hgb 13.3 L Hct 40.9 L MCV 89.3 MCH 29.0 MCHC 32.5 RDW 13.1 Plt Count 234 MPV 10.0 Neut # (Auto) 4.5 Lymph # (Auto) 2.0 [place] # (Auto) 0.7 Eos # (Auto) 0.3 Baso # (Auto) 0.1 Absolute Nucleated RBC 0.00 Nucleated RBC % 0.0 Sodium 137 Potassium 3.8 Chloride 99 L Carbon Dioxide 27 Anion Gap 11.0 BUN 20 Creatinine 0.8 Estimated GFR (MDRD) 94 Glucose 163 H Lactic Acid 1.2 Calcium 9.2 Total Bilirubin 1.5 H AST 17 ALT 15 Alkaline Phosphatase 78 Total Protein 7.0 Albumin 4.0 Globulin 3.0 Albumin/Globulin Ratio 1.3 PD MEDICAL DECISION MAKING - ED course ED course: 76yM p/w chronic osteomyelitis and possible joint space infection of R first toe. WBC and lactate normal, patient afebrile. IV antibiotics provided in ED and script sent. plan to f/u with his internet marketing coordinator within 48 hours. return precautions given. line drawn to demarcate erythema. Departure - Departure Disposition: 01 Home, Self Care Clinical Impression: Osteomyelitis, Chronic infection of bone Condition: Stable Instructions: Osteomyelitis Dc Follow-Up: Ju Padgett DPM [Provider Admit Priv/Credential] - Prescriptions: Clindamycin [Cleocin] 450 mg PO TID #42 cap Saccharomyces Boulardii [Florastor] 250 mg PO BIDWM 15 Days #30 cap Comments: You were seen in the ED after being sent by your internet marketing coordinator to check for severe infection. You do likely have a chronic (usp) infection of the toe that extends to the bone (osteomyelitis) and possibly the joint of the toe (septic arthritis). We gave IV antibiotics and are prescribing pill antibiotics to your [facility] pharmacy. You can actually follow up with your own internet marketing coordinator Ju Padgett this week. Return to the ED if you have fever, if the redness spreads beyond the borders drawn, or if you have other concerns.
[2021-12-30 00:14] VITALS: BP 114/87
== END 2021-12-30 00:23 | disposition home or self-care (01) ==
LOC: ED 16:19
DX: M86.671 Other chronic osteomyelitis, right ankle and foot (principal)
CPT/HCPCS: 36415; 80053; 83605; 85025; 87040; 96374; 99283

== ENCOUNTER 2022-02-03 08:00 | Outpatient (CLI) | payer MEDICARE, OTHER ==
[2022-02-03 16:09] LABS: BASOPHILS # (AUTO) 0.1 10^3/uL (0.0-0.1); EOSINOPHILS # (AUTO) 0.1 10^3/uL (0.0-0.7); EOSINOPHILS % (AUTO) 1.9 %; HGB - HEMOGLOBIN 13.7 g/dL (14.0-18.0); LYMPHOCYTES # (AUTO) 2.1 10^3/uL (1.5-3.5); LYMPHOCYTES % (AUTO) 30.4 %; MEAN CORPUSCULAR HEMOGLOBIN 29.3 pg (27.0-31.0); MEAN CORPUSCULAR HGB CONC 32.6 g/dL (32.0-36.0); MEAN CORPUSCULAR VOLUME 89.7 fL (80.0-94.0); MEAN PLATELET VOLUME 10.6 fL (7.4-11.4); MONOCYTES # (AUTO) 0.5 10^3/uL (0.0-1.0); MONOCYTES % (AUTO) 7.8 %; NEUTROPHILS % (AUTO) 58.8 %; PLT - PLATELET COUNT 195 10^3/uL (130-450); RED BLOOD COUNT 4.68 10^6/uL (4.70-6.10); RED CELL DISTRIBUTION WIDTH 12.7 % (12.0-15.0); WHITE BLOOD COUNT 6.8 x10^3/uL (4.8-10.8)
[2022-02-03 17:29] LABS: ALBUMIN 3.9 g/dL (3.2-5.5); ALBUMIN/GLOBULIN RATIO 1.5 (1.0-2.2); BILIRUBIN,TOTAL 0.8 mg/dL (0.2-1.0); CALCIUM 8.8 mg/dL (8.5-10.3); CREATININE 0.6 mg/dL (0.6-1.2); POTASSIUM 3.6 mmol/L (3.5-5.0); TOTAL PROTEIN 6.5 g/dL (6.7-8.2)
== END 2022-02-03 23:59 | disposition home or self-care (01) ==
LOC: LAB.R 08:00
PROVIDERS: ATTEND Internal Medicine Infectious Disease
DX: M86.9 Osteomyelitis, unspecified (principal)
CPT/HCPCS: 80053; 85025

== ENCOUNTER 2022-02-18 11:29 | Outpatient (CLI) | payer MEDICARE, OTHER ==
[2022-02-18 11:34] LABS: BASOPHILS # (AUTO) 0.1 10^3/uL (0.0-0.1); BASOPHILS % (AUTO) 2.1 %; EOSINOPHILS # (AUTO) 0.3 10^3/uL (0.0-0.7); HCT - HEMATOCRIT 42.8 % (42.0-52.0); HGB - HEMOGLOBIN 13.9 g/dL (14.0-18.0); LYMPHOCYTES # (AUTO) 1.7 10^3/uL (1.5-3.5); LYMPHOCYTES % (AUTO) 29.2 %; MEAN CORPUSCULAR HEMOGLOBIN 29.1 pg (27.0-31.0); MEAN CORPUSCULAR HGB CONC 32.5 g/dL (32.0-36.0); MEAN CORPUSCULAR VOLUME 89.5 fL (80.0-94.0); MEAN PLATELET VOLUME 10.4 fL (7.4-11.4); MONOCYTES # (AUTO) 0.4 10^3/uL (0.0-1.0); MONOCYTES % (AUTO) 6.5 %; NEUTROPHILS # (AUTO) 3.2 10^3/uL (1.5-6.6); PLT - PLATELET COUNT 203 10^3/uL (130-450); RED BLOOD COUNT 4.78 10^6/uL (4.70-6.10); RED CELL DISTRIBUTION WIDTH 12.4 % (12.0-15.0); WHITE BLOOD COUNT 5.7 x10^3/uL (4.8-10.8)
[2022-02-18 11:47] LABS: ALBUMIN 3.8 g/dL (3.2-5.5); ALBUMIN/GLOBULIN RATIO 1.5 (1.0-2.2); ALKALINE PHOSPHATASE 83 IU/L (42-121); ALT ALANINE AMINOTRANSFERASE < 10 IU/L (10-60); AST ASPARTATE AMINOTRANSFERASE 18 IU/L (10-42); BUN - BLOOD UREA NITROGEN 13 mg/dL (6-20); CARBON DIOXIDE - CO2 30 mmol/L (21-32); CHLORIDE 98 mmol/L (101-111); CREATININE 0.6 mg/dL (0.6-1.2); GFR - MDRD 131 (>89); GLUCOSE 132 mg/dL (70-100); POTASSIUM 3.7 mmol/L (3.5-5.0); SODIUM 137 mmol/L (135-145); TOTAL PROTEIN 6.4 g/dL (6.7-8.2)
== END 2022-02-18 11:30 | disposition home or self-care (01) ==
LOC: LAB.R 11:29
PROVIDERS: ATTEND Internal Medicine Infectious Disease
DX: M86.9 Osteomyelitis, unspecified (principal)
CPT/HCPCS: 80053; 85025

== ENCOUNTER 2022-02-26 14:48 | Outpatient (CLI) | payer MEDICARE, OTHER ==
[2022-02-26 14:56] LABS: BASOPHILS # (AUTO) 0.1 10^3/uL (0.0-0.1); BASOPHILS % (AUTO) 1.3 %; EOSINOPHILS # (AUTO) 0.4 10^3/uL (0.0-0.7); EOSINOPHILS % (AUTO) 5.8 %; HCT - HEMATOCRIT 43.1 % (42.0-52.0); HGB - HEMOGLOBIN 13.9 g/dL (14.0-18.0); LYMPHOCYTES # (AUTO) 1.6 10^3/uL (1.5-3.5); MEAN CORPUSCULAR HEMOGLOBIN 28.7 pg (27.0-31.0); MEAN CORPUSCULAR HGB CONC 32.3 g/dL (32.0-36.0); MEAN CORPUSCULAR VOLUME 88.9 fL (80.0-94.0); MEAN PLATELET VOLUME 10.2 fL (7.4-11.4); MONOCYTES # (AUTO) 0.5 10^3/uL (0.0-1.0); MONOCYTES % (AUTO) 7.7 %; NEUTROPHILS # (AUTO) 3.7 10^3/uL (1.5-6.6); PLT - PLATELET COUNT 179 10^3/uL (130-450); RED BLOOD COUNT 4.85 10^6/uL (4.70-6.10); RED CELL DISTRIBUTION WIDTH 12.4 % (12.0-15.0); WHITE BLOOD COUNT 6.2 x10^3/uL (4.8-10.8)
[2022-02-26 15:36] LABS: ALBUMIN/GLOBULIN RATIO 1.6 (1.0-2.2); ALKALINE PHOSPHATASE 84 IU/L (42-121); ALT ALANINE AMINOTRANSFERASE < 10 IU/L (10-60); AST ASPARTATE AMINOTRANSFERASE 20 IU/L (10-42); BILIRUBIN,TOTAL 1.2 mg/dL (0.2-1.0); BUN - BLOOD UREA NITROGEN 15 mg/dL (6-20); CALCIUM 9.2 mg/dL (8.5-10.3); CARBON DIOXIDE - CO2 29 mmol/L (21-32); CHLORIDE 99 mmol/L (101-111); CREATININE 0.7 mg/dL (0.6-1.2); GFR - MDRD 110 (>89); GLUCOSE 110 mg/dL (70-100); SODIUM 136 mmol/L (135-145); TOTAL PROTEIN 6.5 g/dL (6.7-8.2)
== END 2022-02-26 14:49 | disposition home or self-care (01) ==
LOC: LAB.R 14:48
PROVIDERS: ATTEND Internal Medicine Infectious Disease
DX: M86.9 Osteomyelitis, unspecified (principal)
CPT/HCPCS: 80053; 85025

== ENCOUNTER 2022-03-05 11:33 | Outpatient (CLI) | payer MEDICARE, OTHER ==
[2022-03-05 11:54] LABS: BASOPHILS # (AUTO) 0.1 10^3/uL (0.0-0.1); BASOPHILS % (AUTO) 1.1 %; EOSINOPHILS # (AUTO) 0.2 10^3/uL (0.0-0.7); EOSINOPHILS % (AUTO) 2.7 %; HCT - HEMATOCRIT 42.7 % (42.0-52.0); HGB - HEMOGLOBIN 13.9 g/dL (14.0-18.0); LYMPHOCYTES # (AUTO) 1.6 10^3/uL (1.5-3.5); LYMPHOCYTES % (AUTO) 29.4 %; MEAN CORPUSCULAR HEMOGLOBIN 29.1 pg (27.0-31.0); MEAN CORPUSCULAR HGB CONC 32.6 g/dL (32.0-36.0); MEAN CORPUSCULAR VOLUME 89.3 fL (80.0-94.0); MEAN PLATELET VOLUME 10.2 fL (7.4-11.4); MONOCYTES # (AUTO) 0.4 10^3/uL (0.0-1.0); NEUTROPHILS # (AUTO) 3.3 10^3/uL (1.5-6.6); NEUTROPHILS % (AUTO) 59.6 %; PLT - PLATELET COUNT 182 10^3/uL (130-450); RED BLOOD COUNT 4.78 10^6/uL (4.70-6.10); RED CELL DISTRIBUTION WIDTH 12.3 % (12.0-15.0); WHITE BLOOD COUNT 5.6 x10^3/uL (4.8-10.8)
[2022-03-05 12:05] LABS: ALBUMIN/GLOBULIN RATIO 1.5 (1.0-2.2); ALKALINE PHOSPHATASE 77 IU/L (42-121); ALT ALANINE AMINOTRANSFERASE < 10 IU/L (10-60); AST ASPARTATE AMINOTRANSFERASE 20 IU/L (10-42); BILIRUBIN,TOTAL 1.4 mg/dL (0.2-1.0); BUN - BLOOD UREA NITROGEN 14 mg/dL (6-20); CALCIUM 8.9 mg/dL (8.5-10.3); CARBON DIOXIDE - CO2 29 mmol/L (21-32); CHLORIDE 96 mmol/L (101-111); CREATININE 0.7 mg/dL (0.6-1.2); GFR - MDRD 110 (>89); GLUCOSE 109 mg/dL (70-100); POTASSIUM 3.7 mmol/L (3.5-5.0); SODIUM 134 mmol/L (135-145); TOTAL PROTEIN 6.6 g/dL (6.7-8.2)
== END 2022-03-05 11:34 | disposition home or self-care (01) ==
LOC: LAB.R 11:33
PROVIDERS: ATTEND Internal Medicine Infectious Disease
DX: M86.9 Osteomyelitis, unspecified (principal)
CPT/HCPCS: 80053; 85025

== ENCOUNTER 2023-03-22 10:54 | Emergency (ER) | payer MEDICARE, OTHER ==
[2023-03-22 12:05] LABS: BASOPHILS % (AUTO) 0.4 %; EOSINOPHILS % (AUTO) 0.4 %; HGB - HEMOGLOBIN 13.4 g/dL (14.0-18.0); LYMPHOCYTES # (AUTO) 1.2 10^3/uL (1.5-3.5); MEAN CORPUSCULAR HEMOGLOBIN 28.8 pg (27.0-31.0); MEAN CORPUSCULAR HGB CONC 32.7 g/dL (32.0-36.0); MEAN PLATELET VOLUME 10.7 fL (7.4-11.4); MONOCYTES # (AUTO) 0.8 10^3/uL (0.0-1.0); MONOCYTES % (AUTO) 12.3 %; NEUTROPHILS # (AUTO) 4.7 10^3/uL (1.5-6.6); NEUTROPHILS % (AUTO) 68.6 %; PLT - PLATELET COUNT 202 10^3/uL (130-450); RED BLOOD COUNT 4.66 10^6/uL (4.70-6.10); RED CELL DISTRIBUTION WIDTH 13.6 % (12.0-15.0); WHITE BLOOD COUNT 6.8 x10^3/uL (4.8-10.8)
[2023-03-22] MEDS ORDERED: SODIUM CHLORIDE 0.9% 1,000 ML IV STA ×3 (12:05→20:06)
--- NOTE | 2023-03-22 12:06 | ED Physician Documentation ---
History of Present Illness - Stated complaint Stated Complaint: BILAT LEG SWELLING,LETHARGIC - Chief complaint Chief Complaint: General - History obtained from History obtained from: Patient, Family - History of Present Illness Pain level max: 5 Pain level now: 5 - Additonal information Additional information: 78-year-old male in the emergency department with his . They state that over the past several months he has had decreased appetite. He states that he is able to swallow food and liquids he just does not have much appetite. He states that he has occasional vomiting, but not often. No abdominal pain but does feel like he is bloated. He has not had an endoscopy or colonoscopy in the past. He does see a library attendant and his carvedilol was recently stopped as they thought it may be causing him anxiety. He also has been complaining of tingling in the bilateral hands and feet over the past few weeks. Nothing seems to make it better or worse. No falls. No headache. No head injury. No neck or back pain. Has had left shoulder pain for several months and developed left wrist pain about 3 to 4 days ago with left hand swelling starting 2 days ago. Has not taken anything for this. Again denies any trauma. Had a fever about 4 days ago, none since. No cough or congestion. 1 episode of diarrhea last week. N one today. All of his pain is in his left shoulder and left wrist. Review of Systems Constitutional: denies: Chills, Myalgias Ears: denies: Ear pain Nose: denies: Rhinorrhea / runny nose, Congestion Cardiac: denies: Chest pain / pressure Respiratory: denies: Cough : denies: Dysuria Skin: denies: Rash Musculoskeletal: denies: Neck pain, Back pain Neurologic: denies: Headache PD PAST MEDICAL HISTORY - Past Medical History Past Medical History: Yes Cardiovascular: Hypertension, High cholesterol, Atrial fibrillation Respiratory: None Neuro: None Endocrine/Autoimmune: Type 2 diabetes GI: None : None HEENT: None Psych: Anxiety Musculoskeletal: Osteoarthritis Derm: None - Past Surgical History Past Surgical History: Yes Ortho: Knee replacement, Arthroscopic surgery - Present Medications Home Medications: Ambulatory Orders Medication Instructions Recorded Confirmed Apixaban [Eliquis] 5 mg PO BID 09/11/21 09/23/21 carvediloL [Coreg] 25 mg PO BID 09/11/21 09/23/21 lisinopriL [Lisinopril] 10 mg PO DAILY 09/11/21 09/23/21 metFORMIN [Glucophage] 500 mg PO BIDWM 09/11/21 09/23/21 Cyclobenzaprine [Flexeril] 10 mg PO TID PRN 6 Days #20 tablet 09/22/21 09/23/21 Furosemide [Lasix] 40 mg PO DAILY 30 Days #30 tablet 09/22/21 09/23/21 HYDROcodone/ACET 7.5/325 [Moosic 1 each PO Q6H PRN 5 Days #20 tablet 09/22/21 7.5/325] Potassium Chloride 10 meq PO DAILY 30 Days #30 tab 09/22/21 09/23/21 Clindamycin [Cleocin] 450 mg PO TID #42 cap 12/29/21 Saccharomyces Boulardii [Florastor] 250 mg PO BIDWM 15 Days #30 cap 12/29/21 Ondansetron Odt [Zofran] 4 mg TL Q6H PRN #10 tablet 03/22/23 Pantoprazole [Protonix] 40 mg PO DAILY #30 tablet 03/22/23 - Allergies Allergies/Adverse Reactions: Allergies Allergy/AdvReac Type Severity Reaction Status Date / Time Iodine and Iodide Containing Allergy Intermediate Hives Verified 03/22/23 11:06 Produc oxycodone HCl * AdvReac Severe Hallucinati Verified 03/22/23 11:06 [From Percocet] ons - Social History Does the pt smoke?: No Smoking Status: Never smoker Does the pt drink ETOH?: No Does the pt have substance abuse?: No - Immunizations Immunizations are current?: No - POLST Patient has POLST: No PD ED PE NORMAL - Vitals Vital signs reviewed: Yes - General General: Alert and oriented X 3, No acute distress - HEENT HEENT: PERRL, Moist mucous membranes - Neck Neck: Supple, no meningeal sign, No bony TTP, No adenopathy - Cardiac Cardiac: RRR - Respiratory Respiratory: No respiratory distress, Clear bilaterally - Abdomen Abdomen: Soft, Non tender, Non distended - Back Back: No CVA TTP, No spinal TTP - Derm Derm: Warm and dry - Extremities Extremities: Other (No swelling about the L shoulder, swelling and tenderness diffusely about the L wrist. No hand tenderness. NVI. No skin changes. Small ganglion cyst distal R radius, volar. ) - Neuro Neuro: Alert and oriented X 3 - Psych Psych: Normal mood, Normal affect Results - Vitals Vitals: Vital Signs - 24 hr 03/22/23 03/22/23 03/22/23 10:59 13:06 15:00 Temperature 36.2 C L Heart Rate 70 93 95 Respiratory 15 18 19 Rate Blood Pressure 135/91 H 117/90 H 125/95 H O2 Saturation 97 94 92 03/22/23 03/22/23 17:00 19:00 Temperature Heart Rate 70 70 Respiratory 20 20 Rate Blood Pressure 135/83 H 136/82 H O2 Saturation 97 99 Oxygen O2 Source [With Activity] Room air O2 Source [Without Activity] Room air O2 Source Room air - Labs Labs: Laboratory Tests 03/22/23 03/22/23 03/22/23 12:00 12:00 20:05 WBC 6.8 RBC 4.66 L Hgb 13.4 L Hct 41.0 L MCV 88.0 MCH 28.8 MCHC 32.7 RDW 13.6 Plt Count 202 MPV 10.7 Neut # (Auto) 4.7 Lymph # (Auto) 1.2 L [place] # (Auto) 0.8 Eos # (Auto) 0.0 Baso # (Auto) 0.0 Absolute Nucleated RBC 0.00 Nucleated RBC % 0.0 Sodium 136 Potassium 3.5 Chloride 101 Carbon Dioxide 27 Anion Gap 8.0 BUN 31 H Creatinine 0.6 Estimated GFR (MDRD) 131 Glucose 88 Calcium 8.8 Phosphorus 3.6 Magnesium 1.8 Total Bilirubin 1.7 H AST 14 ALT 12 Alkaline Phosphatase 82 Total Protein 5.8 L Albumin 3.2 Globulin 2.6 Albumin/Globulin Ratio 1.2 Lipase < 10 L Urine Color DARK YELLOW Urine Clarity CLEAR Urine pH 6.5 Ur Specific [place] <=1.005 Urine Protein TRACE Urine Glucose (UA) NEGATIVE Urine Ketones 40 H Urine Occult Blood NEGATIVE Urine Nitrite NEGATIVE Urine Bilirubin MODERATE H Urine Urobilinogen 4 H Ur Leukocyte Esterase NEGATIVE Ur Microscopic Review NOT INDICATED Urine Culture Comments NOT INDICATED - Rads (name of study) L wrist xray Relevant Findings:: Final report received, See rad report CT head Relevant Findings:: Final report received, See rad report CT abd/pel Relevant Findings:: Final report received, See rad report CT chest Relevant Findings:: Final report received, See rad report PD Medical Decision Making - ED course Complexity details: reviewed results, re-evaluated patient, jade max, d/w patient, d/w family ED course: 78-year-old male with dehydration, given several liters of IV fluid and feels much better. He is complaining of early bloating, early satiety and difficulty swallowing at times. CT of the chest/abdomen/pelvis was undertaken. No evidence of cancer. No evidence of masses or tumors. He does have a fairly stable thoracic aneurysm, can follow-up with this with his PCP. No significant findings in the abdomen and pelvis. His head CT did not show any acute abnormalities as well. He was placed in a left wrist Velcro splint for the scapholunate injury on x-ray of the left wrist, this likely explains his swelling and pain. He does have a history of ulcerative colitis and that could be causing his intermittent diarrhea for several years. He will follow-up with his doctor for this. Recommend an endoscopy to evaluate for any esophageal strictures or narrowing. Patient is tolerating p.o. without difficulty here. Ambulating without difficulty. No indication for admission. Normal speech. Patient and family counseled regarding signs and symptoms for which I believe and urgent re-evaluation would be necessary. Patient with good understanding of and agreement to plan and is comfortable going home at this time This document was made in part using voice recognition software. While efforts are made to proofread this document, sound alike and grammatical errors may occur. Departure - Departure Disposition: 01 Home, Self Care Clinical Impression: Dehydration Dysphagia Qualifiers: Dysphagia type: unspecified Qualified Code(s): R13.10 - Dysphagia, unspecified Left scapholunate ligament tear Qualifiers: Encounter type: initial encounter Qualified Code(s): S63.8X2A - Sprain of other part of left wrist and hand, initial encounter Condition: Good Instructions: ED Dehydration Follow-Up: [facility] [Provider Group] Joey uJarez MD [Primary Care Provider] - Edgardo Obregon MD [Provider Admit Priv/Credential] - [facility] [Provider Group] Prescriptions: Pantoprazole [Protonix] 40 mg PO DAILY #30 tablet Ondansetron Odt [Zofran] 4 mg TL Q6H PRN #10 tablet PRN Reason: Nausea / Vomiting Comments: Your prescriptions were sent to [facility] in [place]. Please follow-up with your doctor for further care. It is recommended that you have an EGD/endoscopy. This is to evaluate for any strictures in your esophagus or narrowing causing your difficulty swallowing. You can contact the surgical office to have this scheduled. The Zofran can help with nausea. Make sure you are chewing your food very well so it does not become stuck. Make sure you are drinking plenty of fluids. Please return if you worsen. You also have a thoracic aortic aneurysm, this has been stable since your prior CT. This should be followed up with your doctor as well. Your CT reads are below. You also have coronary artery disease and should follow-up with your doctor for this as well. You do have a scapholunate injury to your left wrist. Please wear the wrist splint and follow-up with your doctor for repeat x-ray in 1 week, they may refer you to orthopedics. EXAM: [id number] CT/ABPEW ([id number]) PROCEDURE: Abdomen/Pelvis W INDICATIONS: difficulty eating, abd swelling CONTRAST: Omni 300 100ml TECHNIQUE: After the administration of intravenous contrast, a CT scan of the abdomen and pelvis was performed. Images were recorded and evaluated at appropriate window settings. Reformats: coronal and sagittal. For radiation dose reduction, the following was used: automated exposure control, adjustment of mA and/or kV according to patient size. COMPARISON: None. FINDINGS: Image quality: Excellent. Lung bases and heart: Calcification of the coronary vasculature. Liver: No solid mass. Gallbladder and biliary tree: Within normal limits Spleen: No splenomegaly. Pancreas: No pancreatic ductal dilation. Adrenals: No adrenal nodule. Kidneys and ureters: No hydronephrosis. No renal cystic lesion which requires follow up. No solid mass. Bowel and peritoneum: No bowel distension. No pathologic free fluid. Appendix is normal. Lymph nodes: No central or retroperitoneal adenopathy. Vessels: No infrarenal aortic aneurysm. PELVIS Reproductive organs: Prostate is enlarged. Bladder: No abnormal wall thickening, accounting for underdistention. Pelvic lymph nodes: No pelvic adenopathy by size criteria. Bones: No aggressive osseous abnormality. Other: No significant ventral or inguinal hernia. IMPRESSION: 1. No acute process. 2. Normal appendix. PROCEDURE: Chest W INDICATIONS: difficulty eating, abd swelling CONTRAST: Omni 300 100ml TECHNIQUE: After the administration of intravenous contrast, a CT scan of the chest was performed. Images were recorded and evaluated at appropriate window settings. Reformats: axial MIP of the chest, coronal and sagittal. For radiation dose reduction, the following was used: automated exposure control, adjustment of mA and/or kV according to patient size. COMPARISON: CT dated 09/11/2021 FINDINGS: Image quality: Degraded by motion artifact. Lungs and pleura: No consolidation. No pleural effusions. No pneumothorax. No suspicious pulmonary nodules which require follow up. Mediastinum: Heart size is normal. No pericardial effusion. Calcification of the coronary vasculature. Fusiform aneurysmal dilatation of the ascending thoracic aorta is present, as before, currently measuring 50 mm short axis. No mediastinal adenopathy by size criteria. Chest wall and lower neck: Thyroid is unremarkable. No axillary or supraclavicular adenopathy by size. Bones: No aggressive osseous abnormality. Upper Abdomen: Unremarkable. IMPRESSION: 1. No acute process. 2. Thoracic aortic aneurysm. 3. Coronary artery disease. PROCEDURE: CT brain without contrast INDICATIONS: altered mental status TECHNIQUE: Helical axial CT of the brain was obtained without contrast and reformatted in multiple planes. Radiation dose reduction was achieved using automated exposure control or adjustment of mA and/or kV according to patient size. COMPARISON: None FINDINGS: CSF spaces: Ventricles are appropriate in size and position. No hydrocephalus. Basal cisterns unremarkable. Brain: No midline shift. No intracranial masses or hemorrhage. Robles-white matter interface is normal. Atrophy and chronic ischemic change noted in the white matter Skull and face: Calvarium and skull base are unremarkable without suspicious lesion. Sinuses: Visualized sinuses and mastoids are clear. IMPRESSION: Atrophy and chronic ischemic change without intracranial hemorrhage or mass effect Forms: PCP List
[2023-03-22] MEDS ORDERED: diphenhydrAMINE INJ 50 MG/ML VIAL IVP STA (12:07)
[2023-03-22 12:24] LABS: ALBUMIN 3.2 g/dL (3.2-5.5); ALBUMIN/GLOBULIN RATIO 1.2 (1.0-2.2); ALKALINE PHOSPHATASE 82 IU/L (42-121); ALT ALANINE AMINOTRANSFERASE 12 IU/L (10-60); AST ASPARTATE AMINOTRANSFERASE 14 IU/L (10-42); BILIRUBIN,TOTAL 1.7 mg/dL (0.2-1.0); BUN - BLOOD UREA NITROGEN 31 mg/dL (6-20); CALCIUM 8.8 mg/dL (8.5-10.3); CARBON DIOXIDE - CO2 27 mmol/L (21-32); CHLORIDE 101 mmol/L (101-111); CREATININE 0.6 mg/dL (0.6-1.3); GFR - MDRD 131 (>89); GLUCOSE 88 mg/dL (74-104); MAGNESIUM 1.8 mg/dL (1.7-2.3); PHOSPHORUS 3.6 mg/dL (2.5-5.0); POTASSIUM 3.5 mmol/L (3.5-4.5); SODIUM 136 mmol/L (135-145); TOTAL PROTEIN 5.8 g/dL (6.4-8.9)
[2023-03-22 12:29] LABS: LIPASE < 10 U/L (11-82)
--- NOTE | 2023-03-22 12:39 | XRAY Report ---
PROCEDURE: Wrist 3+V LT INDICATIONS: L wrist pain, hand swelling TECHNIQUE: 3 views of the wrist were acquired. COMPARISON: None. FINDINGS: Bones: No fractures. Widening of the scapholunate interval. No suspicious bony lesions. Severe jesenia nt space narrowing and periarticular osteophyte formation at the first metacarpal joint. Soft tissues: No suspicious soft tissue calcifications or masses. IMPRESSION: 1. Findings suggestive of scapholunate ligamentous injury. Nonemergent outpatient follow-up MRI arthr ography could be performed for further assessment, if clinically indicated. 2. Osteophytes arthritis. 3. No acute fracture. No osseous lesion. If symptoms and/or clinical suspicion for pathology continue , further assessment with repeat plain films, or advanced imaging (e.g., CT, MRI, or bone scan) is re commended for further assessment. Reviewed by: Priyanka Navarro MD on 03/22/2023 12:37 PM PST Approved by: Priyanka Navarro MD on 03/22/2023 12:37 PM PST Station ID: [id number]
[2023-03-22] MEDS ORDERED: iohexoL-300 100 ML VIAL ONE (13:18)
[2023-03-22] MEDS ORDERED: iohexoL-300 100 ML VIAL IVP ONE (14:01)
[2023-03-22] MEDS ORDERED: ONDANSETRON 4 MG/2 ML VIAL IVP STA ×2 (14:10→21:49)
--- NOTE | 2023-03-22 14:16 | CT Report ---
PROCEDURE: Abdomen/Pelvis W INDICATIONS: difficulty eating, abd swelling CONTRAST: Omni 300 100ml TECHNIQUE: After the administration of intravenous contrast, a CT scan of the abdomen and pelvis was performed. Images were recorded and evaluated at appropriate window settings. Reformats: coronal and sagittal. F or radiation dose reduction, the following was used: automated exposure control, adjustment of mA and /or kV according to patient size. COMPARISON: None. FINDINGS: Image quality: Excellent. Lung bases and heart: Calcification of the coronary vasculature. Liver: No solid mass. Gallbladder and biliary tree: Within normal limits Spleen: No splenomegaly. Pancreas: No pancreatic ductal dilation. Adrenals: No adrenal nodule. Kidneys and ureters: No hydronephrosis. No renal cystic lesion which requires follow up. No solid mas s. Bowel and peritoneum: No bowel distension. No pathologic free fluid. Appendix is normal. Lymph nodes: No central or retroperitoneal adenopathy. Vessels: No infrarenal aortic aneurysm. PELVIS Reproductive organs: Prostate is enlarged. Bladder: No abnormal wall thickening, accounting for underdistention. Pelvic lymph nodes: No pelvic adenopathy by size criteria. Bones: No aggressive osseous abnormality. Other: No significant ventral or inguinal hernia. IMPRESSION: 1. No acute process. 2. Normal appendix. Reviewed by: Priyanka Fletcher MD on 03/22/2023 2:15 PM PST Approved by: Priyanka Fletcher MD on 03/22/2023 2:15 PM PST Station ID: [id number]
--- NOTE | 2023-03-22 14:25 | CT Report ---
PROCEDURE: Chest W INDICATIONS: difficulty eating, abd swelling CONTRAST: Omni 300 100ml TECHNIQUE: After the administration of intravenous contrast, a CT scan of the chest was performed. Images were recorded and evaluated at appropriate window settings. Reformats: axial MIP of the chest, coronal and sagittal. For radiation dose reduction, the following was used: automated exposure control, adjustme nt of mA and/or kV according to patient size. COMPARISON: CT dated 09/11/2021 FINDINGS: Image quality: Degraded by motion artifact. Lungs and pleura: No consolidation. No pleural effusions. No pneumothorax. No suspicious pulmonary n odules which require follow up. Mediastinum: Heart size is normal. No pericardial effusion. Calcification of the coronary vasculature . Fusiform aneurysmal dilatation of the ascending thoracic aorta is present, as before, currently luis suring 50 mm short axis. No mediastinal adenopathy by size criteria. Chest wall and lower neck: Thyroid is unremarkable. No axillary or supraclavicular adenopathy by size . Bones: No aggressive osseous abnormality. Upper Abdomen: Unremarkable. IMPRESSION: 1. No acute process. 2. Thoracic aortic aneurysm. 3. Coronary artery disease. Reviewed by: Priyanka Fletcher MD on 03/22/2023 2:24 PM PST Approved by: Priyanka Fletcher MD on 03/22/2023 2:24 PM PST Station ID: [id number]
--- NOTE | 2023-03-22 18:16 | CT Report ---
PROCEDURE: CT brain without contrast INDICATIONS: altered mental status TECHNIQUE: Helical axial CT of the brain was obtained without contrast and reformatted in multiple p lanes. Radiation dose reduction was achieved using automated exposure control or adjustment of mA and /or kV according to patient size. COMPARISON: None FINDINGS: CSF spaces: Ventricles are appropriate in size and position. No hydrocephalus. Basal cisterns unre markable. Brain: No midline shift. No intracranial masses or hemorrhage. Robles-white matter interface is norm al. Atrophy and chronic ischemic change noted in the white matter Skull and face: Calvarium and skull base are unremarkable without suspicious lesion. Sinuses: Visualized sinuses and mastoids are clear. IMPRESSION: Atrophy and chronic ischemic change without intracranial hemorrhage or mass effect Reviewed by: Trevor Layton MD on 03/22/2023 5:14 PM [place] Approved by: Trevor Layton MD on 03/22/2023 5:14 PM AKST Station ID: [id number]
[2023-03-22 20:14] LABS: BILIRUBIN,URINE MODERATE (NEGATIVE); GLUCOSE, URINE (UA) NEGATIVE (NEGATIVE); KETONES,URINE (UA) 40 mg/dL (NEGATIVE); LEUKOCYTE ESTERASE, URINE NEGATIVE (NEGATIVE); NITRITE,URINE NEGATIVE (NEGATIVE); OCCULT BLOOD,URINE NEGATIVE (NEGATIVE); PH,URINE 6.5 PH (5.0-7.5); PROTEIN,URINE TRACE mg/dL (NEGATIVE); UROBILINOGEN,URINE 4 E.U./dL (NORMAL)
[2023-03-22 20:15] LABS: CLARITY,URINE CLEAR (CLEAR)
[2023-03-22 22:32] VITALS: BP 130/88; O2SAT 18
== END 2023-03-22 22:22 | disposition home or self-care (01) ==
LOC: ED 10:54
DX: E86.0 Dehydration (principal); R13.10 Dysphagia, unspecified; S63.8X2A Sprain of other part of left wrist and hand, initial encounter; X58.XXXA Exposure to other specified factors, initial encounter; I10 Essential (primary) hypertension; I48.91 Unspecified atrial fibrillation; Z79.01 Long term (current) use of anticoagulants; E11.9 Type 2 diabetes mellitus without complications; Z79.84 Long term (current) use of oral hypoglycemic drugs
CPT/HCPCS: 36415; 70450; 71260; 73110; 74177; 80053; 81003; 83690; 83735; 84100; 85025; 96361; 96374; 99284; J1200; Q9967; 81001; 87086

== ENCOUNTER 2023-03-28 18:43 | Outpatient (CLI) | payer MEDICARE, OTHER | END 2023-03-28 18:44 | disposition critical access hospital (66) | LOC: EMS 18:43 | DX: R07.89 Other chest pain (principal); R06.02 Shortness of breath; I48.91 Unspecified atrial fibrillation; I45.10 Unspecified right bundle-branch block | CPT/HCPCS: A0425; A0427 ==

== ENCOUNTER 2023-03-28 18:58 | Emergency (ER) | payer MEDICARE, OTHER ==
--- NOTE | 2023-03-28 19:23 | ED Physician Documentation ---
PD HPI CHEST PAIN - Stated complaint Stated Complaint: CP/SOA - History obtained from History obtained from: Patient - Additional information Additional information: 78-year-old gentleman with history of atrial fibrillation presents by ambulance for shortness of breath. Says he just became short of breath about an hour ago with some "heart pain." He is a very vague historian. He states he has no history of coronary disease, and does not know what medications he is taking. He admits to medication noncompliance at least partially having stopped his blood thinner opting for a "homeopathic remedy." That said he does not know what other medications he is on. He was advised to keep a med list with him for future visits. He was seen by my partner 5 days ago for vague complaints including decreased appetite, trouble eating and bloating and other subacute complaints and had a very extensive workup which showed a wrist injury, and had a CT of the head, chest, abdomen and pelvis which was notable for coronary disease and a thoracic aortic aneurysm which was felt to be stable, and otherwise chronic ischemic changes in the brain but no acute disease. PD PAST MEDICAL HISTORY - Past Medical History Cardiovascular: Hypertension, High cholesterol, Atrial fibrillation Respiratory: None Neuro: None Endocrine/Autoimmune: Type 2 diabetes GI: None : None HEENT: None Psych: Anxiety Musculoskeletal: Osteoarthritis Derm: None - Past Surgical History Past Surgical History: Yes Ortho: Knee replacement, Arthroscopic surgery - Present Medications Home Medications: Ambulatory Orders Medication Instructions Recorded Confirmed Apixaban [Eliquis] 5 mg PO BID 09/11/21 03/28/23 carvediloL [Coreg] 25 mg PO BID 09/11/21 03/28/23 lisinopriL [Lisinopril] 10 mg PO DAILY 09/11/21 09/23/21 metFORMIN [Glucophage] 500 mg PO BIDWM 09/11/21 09/23/21 Cyclobenzaprine [Flexeril] 10 mg PO TID PRN 6 Days #20 tablet 09/22/21 09/23/21 Furosemide [Lasix] 40 mg PO DAILY 30 Days #30 tablet 09/22/21 09/23/21 HYDROcodone/ACET 7.5/325 [[place] 1 each PO Q6H PRN 5 Days #20 tablet 09/22/21 09/23/21 7.5/325] Potassium Chloride 10 meq PO DAILY 30 Days #30 tab 09/22/21 09/23/21 Clindamycin [Cleocin] 450 mg PO TID #42 cap 12/29/21 Saccharomyces Boulardii [Florastor] 250 mg PO BIDWM 15 Days #30 cap 12/29/21 Ondansetron Odt [Zofran] 4 mg TL Q6H PRN #10 tablet 03/22/23 Pantoprazole [Protonix] 40 mg PO DAILY #30 tablet 03/22/23 - Allergies Allergies/Adverse Reactions: Allergies Allergy/AdvReac Type Severity Reaction Status Date / Time Iodine and Iodide Containing Allergy Intermediate Hives Verified 03/28/23 19:31 Produc oxycodone HCl * AdvReac Severe Hallucinati Verified 03/28/23 19:31 [From Percocet] ons - Social History Does the pt smoke?: No Smoking Status: Never smoker Does the pt drink ETOH?: No Does the pt have substance abuse?: No - Immunizations Immunizations are current?: No - POLST Patient has POLST: No PD ED PE NORMAL - Vitals Vital signs reviewed: Yes - General General: Other (Somewhat slow to answer questions and vague.) - Cardiac Cardiac: Other (Irregularly irregular without murmur) - Respiratory Respiratory: No respiratory distress, Other (Potentially diminished at the left base but having trouble hearing me and cooperating with deep breathing.) - Abdomen Abdomen: Normal bowel sounds, Soft, Non tender - Back Back: No CVA TTP, No spinal TTP - Derm Derm: Normal color, Warm and dry - Extremities Extremities: No edema, No calf tenderness / cord - Neuro Eye Opening: Spontaneous Motor: Obeys Commands (Is he confused) Results - Vitals Vitals: Vital Signs - 24 hr 03/28/23 03/28/23 03/28/23 19:02 19:26 20:02 Temperature 36.9 C Heart Rate 81 71 Respiratory 30 H 12 Rate Blood Pressure 141/97 H 146/105 H Blood Pressure 141/97 H [Right] O2 Saturation 99 97 03/28/23 20:10 Temperature Heart Rate 82 Respiratory 20 Rate Blood Pressure 131/101 H Blood Pressure [Right] O2 Saturation 99 Oxygen O2 Source [With Activity] Room air O2 Source [Without Activity] Room air O2 Source Room air - EKG (time done) 1907 EKG releavant findings:: EKG personally interpreted by author of this note. Relevant findings are: Rate: Rate (enter#) (88) Rhythm: Atrial fibrillation Intervals: RBBB QRS: Normal Ischemia: Normal ST segments Computer interpretation: Agree with computer - Labs Labs: Laboratory Tests 03/28/23 03/28/23 03/28/23 19:20 19:20 19:20 WBC 9.3 RBC 5.31 Hgb 14.9 Hct 46.3 MCV 87.2 MCH 28.1 MCHC 32.2 RDW 13.3 Plt Count 346 MPV 10.4 Neut # (Auto) 6.3 Lymph # (Auto) 2.3 [place] # (Auto) 0.5 Eos # (Auto) 0.1 Baso # (Auto) 0.1 Absolute Nucleated RBC 0.00 Nucleated RBC % 0.0 D-Dimer 308.7 H Sodium 138 Potassium 3.7 Chloride 100 L Carbon Dioxide 26 Anion Gap 12.0 BUN 7 Creatinine 0.8 Estimated GFR (MDRD) 94 Glucose 97 Calcium 9.3 Total Bilirubin 0.7 AST 13 ALT 13 Alkaline Phosphatase 75 Troponin I High Sens 5.8 B-Natriuretic Peptide Total Protein 6.1 L Albumin 3.7 Globulin 2.4 Albumin/Globulin Ratio 1.5 Lipase 16 03/28/23 19:20 WBC RBC Hgb Hct MCV MCH MCHC RDW Plt Count MPV Neut # (Auto) Lymph # (Auto) [place] # (Auto) Eos # (Auto) Baso # (Auto) Absolute Nucleated RBC Nucleated RBC % D-Dimer Sodium Potassium Chloride Carbon Dioxide Anion Gap BUN Creatinine Estimated GFR (MDRD) Glucose Calcium Total Bilirubin AST ALT Alkaline Phosphatase Troponin I High Sens B-Natriuretic Peptide 160 H Total Protein Albumin Globulin Albumin/Globulin Ratio Lipase - Rads (name of study) Single view chest x-ray is unremarkable Relevant Findings:: Final report received, EMP independent interpretation of test PD Medical Decision Making - ED course ED course: 78-year-old gentleman presents with acute shortness of breath. He appears anxious on initial evaluation and it is unclear what medications he is taking. Workup in the emergency department demonstrated normal CBC, negative age- adjusted D-dimer (at his age 89 would be considered positive), unremarkable CMP, negative troponin, and BNP only modestly elevated at 160 but in the setting of a normal chest x-ray and no evidence of fluid overload. This is the lowest his BNP has been on testing looking at prior labs. His arrived and was able to give further history. He stopped his Eliquis and carvedilol recently, he was having a lot of anxiety and was presumed that his carvedilol was giving him the anxiety with his marketing communications manager. His marketing communications manager put him on a naturopathic supplement for his blood pressure instead. Tonight he actually took a half dose of his carvedilol and it was about an hour and a half or 2 hours later that he developed the symptoms of shortness of breath which by process of illumination as above are probably related to the anxiety as a side effect of the carvedilol. He improved without specific intervention here and was no longer having shortness of breath. His also mentioned a worsening of stocking/glove neuropathy. He has been diabetic in the past but is no longer needing specific treatment for that. Discussed that that may be the cause chilled but other etiologies were considered. He does not drink alcohol. Could be a vitamin issue and follow-up for that and EMG testing was advised. Departure - Departure Disposition: 01 Home, Self Care Clinical Impression: Dyspnea Condition: Good Record reviewed to determine appropriate education?: Yes Instructions: ED Dyspnea Shortness of Breath Comments: No evidence of serious etiology of your shortness of breath tonight. Sepcifically no evidence of heart attack on EKG and troponin testing. Age-adjusted d-dimer has ruled out blood clot. No evidence of active CHF on chest Xray and BNP testing. The fact that it started after taking the carvedilol which had been making you anxious and you got better during her ED course suggest that was associated with a single dose of carvedilol you took tonrichelle. He also mentions the worsening of your "stocking glove" neuropathy, mention this to Dr. Juarez for consideration of neurology consultation, and/or vitamin testing. Call your doctor to arrange a follow-up appointment, make the next available appointment. In the interim, return anytime if worse or if new symptoms develop.
--- NOTE | 2023-03-28 19:50 | XRAY Report ---
PROCEDURE: Chest 1V INDICATIONS: Chest Pain TECHNIQUE: One view of the chest was acquired. COMPARISON: Chest x-ray, 09/22/2021. FINDINGS: Surgical changes and devices: None. Lungs and pleura: No pleural effusions or pneumothorax. Chronic right hemidiaphragm elevation. Lungs are clear. Mediastinum: Mediastinal contours appear normal. Heart size is normal. Bones and chest wall: No suspicious bony lesions. Overlying soft tissues appear unremarkable. IMPRESSION: No acute cardiopulmonary process. Reviewed by: Rosita Chaparro MD on 03/28/2023 7:49 PM PST Approved by: Rosita Chaparro MD on 03/28/2023 7:49 PM PST Station ID: [id number]
[2023-03-28 19:51] LABS: BASOPHILS # (AUTO) 0.1 10^3/uL (0.0-0.1); BASOPHILS % (AUTO) 0.8 %; EOSINOPHILS # (AUTO) 0.1 10^3/uL (0.0-0.7); EOSINOPHILS % (AUTO) 0.9 %; HCT - HEMATOCRIT 46.3 % (42.0-52.0); HGB - HEMOGLOBIN 14.9 g/dL (14.0-18.0); LYMPHOCYTES # (AUTO) 2.3 10^3/uL (1.5-3.5); LYMPHOCYTES % (AUTO) 24.2 %; MEAN CORPUSCULAR HEMOGLOBIN 28.1 pg (27.0-31.0); MEAN CORPUSCULAR HGB CONC 32.2 g/dL (32.0-36.0); MEAN CORPUSCULAR VOLUME 87.2 fL (80.0-94.0); MEAN PLATELET VOLUME 10.4 fL (7.4-11.4); MONOCYTES # (AUTO) 0.5 10^3/uL (0.0-1.0); MONOCYTES % (AUTO) 5.8 %; NEUTROPHILS # (AUTO) 6.3 10^3/uL (1.5-6.6); NEUTROPHILS % (AUTO) 67.7 %; PLT - PLATELET COUNT 346 10^3/uL (130-450); RED BLOOD COUNT 5.31 10^6/uL (4.70-6.10); RED CELL DISTRIBUTION WIDTH 13.3 % (12.0-15.0); WHITE BLOOD COUNT 9.3 x10^3/uL (4.8-10.8)
[2023-03-28 20:09] LABS: ALBUMIN 3.7 g/dL (3.2-5.5); ALBUMIN/GLOBULIN RATIO 1.5 (1.0-2.2); BILIRUBIN,TOTAL 0.7 mg/dL (0.2-1.0); CALCIUM 9.3 mg/dL (8.5-10.3); CREATININE 0.8 mg/dL (0.6-1.3); POTASSIUM 3.7 mmol/L (3.5-4.5); TOTAL PROTEIN 6.1 g/dL (6.4-8.9); TROPONIN I HIGH SENSITIVITY 5.8 ng/L (2.3-19.7)
[2023-03-28 21:06] VITALS: BP 149/100; O2SAT 95
== END 2023-03-28 21:00 | disposition home or self-care (01) ==
LOC: EDUNIT# → ED 18:58
DX: R06.00 Dyspnea, unspecified (principal); T44.7X6A Underdosing of beta-adrenoreceptor antagonists, initial encounter; T45.516A Underdosing of anticoagulants, initial encounter; Z91.128 Patient's intentional underdosing of medication regimen for other reason; I10 Essential (primary) hypertension; I48.91 Unspecified atrial fibrillation; E11.9 Type 2 diabetes mellitus without complications; Z79.84 Long term (current) use of oral hypoglycemic drugs
CPT/HCPCS: 36415; 80053; 83690; 83880; 84484; 85025; 85379; 93005; 99283; 99284

== ENCOUNTER 2023-03-31 09:25 | Outpatient (CLI) | payer MEDICARE, OTHER | END 2023-03-31 09:26 | disposition critical access hospital (66) | LOC: EMS 09:25 | DX: R07.9 Chest pain, unspecified (principal); R06.02 Shortness of breath; I48.91 Unspecified atrial fibrillation | CPT/HCPCS: A0425; A0427 ==

== ENCOUNTER 2023-03-31 09:38 | Emergency (ER) | payer MEDICARE, OTHER ==
--- NOTE | 2023-03-31 09:45 | ED Physician Documentation ---
History of Present Illness - Stated complaint Stated Complaint: CHEST PX - History obtained from History obtained from: Patient, EMS - Additonal information Additional information: Patient is brought to the emergency department by EMS for chief complaint of decreased appetite, shortness of breath, and left-sided chest pain. The pain in the left chest is sharp and began this morning. It is reproducible by deep breaths. The patient has a history of atrial fibrillation, but denies any other cardiac issues. He has no underlying respiratory issues. He has been seen in the extensively worked up for very similar symptoms on both March 28 and March 22 of this year. The patient has primary care with Dr. Larry morillo, and states he sees a overhead distribution engineer for his A-fib down in [place] on occasion. He denies any other complaints at this time. No upper respiratory symptoms. No fevers. No abdominal pain or nausea. He states he is just felt bloated and had a decreased appetite. Review of the patient's records reveals that the patient had extensive workup including CT scans of both the abdomen pelvis and the chest on his visit on the . He was found to have a stable thoracic aortic aneurysm but otherwise no concerning findings. His BNP was mildly elevated in the 100s and he was rate controlled with his A-fib. The patient was advised to follow-up with his primary care physician. It is not clear what prompted him to return to the emergency department again this morning, as his symptoms are exactly the same as what his sent him in before. The patient is somewhat of a vague historian and is not currently available to answer questions. He denies any new complaints at this time. PD PAST MEDICAL HISTORY - Past Medical History Cardiovascular: Hypertension, High cholesterol, Atrial fibrillation Respiratory: None Neuro: None Endocrine/Autoimmune: Type 2 diabetes GI: None : None HEENT: None Psych: Anxiety Musculoskeletal: Osteoarthritis Derm: None - Past Surgical History Past Surgical History: Yes Ortho: Knee replacement, Arthroscopic surgery - Present Medications Home Medications: Ambulatory Orders Medication Instructions Recorded Confirmed Apixaban [Eliquis] 5 mg PO BID 09/11/21 03/28/23 carvediloL [Coreg] 25 mg PO BID 09/11/21 03/28/23 lisinopriL [Lisinopril] 10 mg PO DAILY 09/11/21 09/23/21 metFORMIN [Glucophage] 500 mg PO BIDWM 09/11/21 09/23/21 Cyclobenzaprine [Flexeril] 10 mg PO TID PRN 6 Days #20 tablet 09/22/21 09/23/21 Furosemide [Lasix] 40 mg PO DAILY 30 Days #30 tablet 09/22/21 09/23/21 HYDROcodone/ACET 7.5/325 [[place] 1 each PO Q6H PRN 5 Days #20 tablet 09/22/21 09/23/21 7.5/325] Potassium Chloride 10 meq PO DAILY 30 Days #30 tab 09/22/21 09/23/21 Clindamycin [Cleocin] 450 mg PO TID #42 cap 12/29/21 Saccharomyces Boulardii [Florastor] 250 mg PO BIDWM 15 Days #30 cap 12/29/21 Ondansetron Odt [Zofran] 4 mg TL Q6H PRN #10 tablet 03/22/23 Pantoprazole [Protonix] 40 mg PO DAILY #30 tablet 03/22/23 ALPRAZolam [Xanax] 0.5 mg PO Q6H PRN #40 tablet 03/31/23 - Allergies Allergies/Adverse Reactions: Allergies Allergy/AdvReac Type Severity Reaction Status Date / Time Iodine and Iodide Containing Allergy Intermediate Hives Verified 03/31/23 10:18 Produc oxycodone HCl * AdvReac Severe Hallucinati Verified 03/31/23 10:18 [From Percocet] ons - Social History Does the pt smoke?: No Smoking Status: Never smoker Does the pt drink ETOH?: No Does the pt have substance abuse?: No - Immunizations Immunizations are current?: No - POLST Patient has POLST: No PD ED PE NORMAL - Vitals Vital signs reviewed: Yes - General General: Alert and oriented X 3, No acute distress, Well developed/nourished - HEENT HEENT: Atraumatic, PERRL, EOMI, Moist mucous membranes - Neck Neck: Supple, no meningeal sign - Cardiac Cardiac: RRR, No murmur, Strong equal pulses - Respiratory Respiratory: No respiratory distress, Clear bilaterally - Abdomen Abdomen: Soft, Non tender, Non distended - Derm Derm: Normal color, Warm and dry, No rash - Extremities Extremities: No deformity, No edema - 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 Relevant findings are: Rate: Rate (enter#) (74) Rhythm: Atrial fibrillation [place]: Normal QRS: Normal Ischemia: Normal ST segments Compare to prior EKG: Unchanged from prior EKG Computer interpretation: Agree with computer - Labs Labs: Laboratory Tests 03/31/23 03/31/23 03/31/23 10:00 10:00 10:00 WBC 8.0 RBC 5.37 Hgb 15.4 Hct 47.7 MCV 88.8 MCH 28.7 MCHC 32.3 RDW 13.7 Plt Count 309 MPV 10.3 Neut # (Auto) 5.4 Lymph # (Auto) 2.0 [place] # (Auto) 0.5 Eos # (Auto) 0.1 Baso # (Auto) 0.1 Absolute Nucleated RBC 0.00 Nucleated RBC % 0.0 Sodium 141 Potassium 3.3 L Chloride 101 Carbon Dioxide 25 Anion Gap 15.0 H BUN 11 Creatinine 0.7 Estimated GFR (MDRD) 109 Glucose 68 L Calcium 9.0 Total Bilirubin 0.9 AST 12 ALT 10 Alkaline Phosphatase 80 Troponin I High Sens 8.9 B-Natriuretic Peptide 124 H Total Protein 6.1 L Albumin 3.6 Globulin 2.5 Albumin/Globulin Ratio 1.4 Lipase 11 - Rads (name of study) chest XR Relevant Findings:: Final report received, See rad report (neg) PD Medical Decision Making - ED course Complexity details: reviewed results, re-evaluated patient, considered differential ED course: I reviewed the patient's records from his last 2 visits here. The patient has longstanding and vague symptoms without much support in the workup for the way he is feeling. I will repeat his labs, EKG, and chest x-ray today. We will give him IV fluids. The patient's workup was again unremarkable. The patient complained of feeling as though he could not get air into his chest and that he had a choking sensation in his throat. I had a very long discussion with the patient and his regarding the patient's symptoms. The patient seems to have some cognitive issues and I am not sure how much of the conversation he really was able to understand or take in. The patient has had extensive workup over the last week and a half including CT scans of both the chest and abdomen. There is absolutely no evidence of airway obstruction on any of these, or even a condition that could cause impending airway obstruction. Furthermore, he has excellent room air oxygen saturation in the ED of upper 90s to mostly, 100%. His lungs are clear with no stridor or any other upper airway sounds. He is easily moving air fully into his lungs and is able to speak comfortably and without difficulty. His feels that he may be having anxiety. The patient has a lot of anxiety about his breathing but also, about putting anything in his stomach, which has been making it difficult at home to get him to eat, drink, or take his medications. He has an appointment coming up with his primary in a week and I have discussed with the that is very important that they talk about all of these issues to determine a better long-term plan for the patient, particularly if he indeed has dementia, as these fixations will most likely only worsen with time. I discussed with the that if the patient seems to be having more the same symptoms that he is already had and for which he is already been worked up extensively, there does not seem to be anything drastically worse or otherwise wrong, she should aim to try to bring him by private vehicle. We have discussed that if something does seem to be much worse, then she may always call 911 if she feels there is a true emergency going on. We have discussed strategies for improving p.o. intake at home. Departure - Departure Disposition: 01 Home, Self Care Clinical Impression: Decreased appetite, Dehydration Condition: Stable Instructions: ED Dehydration Prescriptions: ALPRAZolam [Xanax] 0.5 mg PO Q6H PRN #40 tablet PRN Reason: Anxiety Comments: Your labs and chest x-ray, as well as your EKG, and still look good. You have had extensive workup over the last week and a half on your previous 2 visits and nothing emergent has been found to be wrong. You were given IV fluids today because of your recent decreased intake of fluids. It is important that when you follow-up with your primary doctor, you talk about a more long-term management of these chronic symptoms that you are having, as the emergency department is not an appropriate choice for ongoing management of chronic issues. You can talk to your primary doctor about getting set up to receive IV fluids through the [facility] potentially if you feel this is going to be an ongoing need. If there is no obvious potential life-threatening emergency and you are able to get in the car, you should be arriving at the emergency department by private vehicle rather than using EMS, as this ties up ambulances so that they cannot go to true emergencies in a timely manner.
[2023-03-31 10:12] LABS: BASOPHILS # (AUTO) 0.1 10^3/uL (0.0-0.1); BASOPHILS % (AUTO) 0.8 %; EOSINOPHILS # (AUTO) 0.1 10^3/uL (0.0-0.7); HCT - HEMATOCRIT 47.7 % (42.0-52.0); HGB - HEMOGLOBIN 15.4 g/dL (14.0-18.0); LYMPHOCYTES % (AUTO) 24.4 %; MEAN CORPUSCULAR HEMOGLOBIN 28.7 pg (27.0-31.0); MEAN CORPUSCULAR HGB CONC 32.3 g/dL (32.0-36.0); MEAN CORPUSCULAR VOLUME 88.8 fL (80.0-94.0); MEAN PLATELET VOLUME 10.3 fL (7.4-11.4); MONOCYTES # (AUTO) 0.5 10^3/uL (0.0-1.0); MONOCYTES % (AUTO) 5.6 %; NEUTROPHILS # (AUTO) 5.4 10^3/uL (1.5-6.6); NEUTROPHILS % (AUTO) 67.6 %; PLT - PLATELET COUNT 309 10^3/uL (130-450); RED BLOOD COUNT 5.37 10^6/uL (4.70-6.10); RED CELL DISTRIBUTION WIDTH 13.7 % (12.0-15.0)
[2023-03-31] MEDS: SODIUM CHLORIDE 0.9% 1,000 ML IV STA (10:15)
[2023-03-31 10:23] LABS: ALBUMIN 3.6 g/dL (3.2-5.5); ALBUMIN/GLOBULIN RATIO 1.4 (1.0-2.2); BILIRUBIN,TOTAL 0.9 mg/dL (0.2-1.0); CREATININE 0.7 mg/dL (0.6-1.3); POTASSIUM 3.3 mmol/L (3.5-4.5); TOTAL PROTEIN 6.1 g/dL (6.4-8.9)
[2023-03-31 10:30] LABS: TROPONIN I HIGH SENSITIVITY 8.9 ng/L (2.3-19.7)
--- NOTE | 2023-03-31 10:48 | XRAY Report ---
PROCEDURE: Chest 1V INDICATIONS: chest pain TECHNIQUE: One view of the chest was acquired. COMPARISON: None. FINDINGS: Surgical changes and devices: None. Lungs and pleura: No pleural effusions or pneumothorax. Lungs are clear. Mediastinum: Mediastinal contours appear normal. Heart size is normal. Bones and chest wall: No suspicious bony lesions. Overlying soft tissues appear unremarkable. IMPRESSION: No acute cardiopulmonary process. Reviewed by: Priyanka Fletcher MD on 03/31/2023 10:47 AM [facility] Approved by: Priyanka Fletcher MD on 03/31/2023 10:47 AM [facility] Station ID: [id number]
[2023-03-31 12:08] VITALS: BP 139/100; O2SAT 99
== END 2023-03-31 12:26 | disposition home or self-care (01) ==
LOC: ED 09:38
DX: R07.9 Chest pain, unspecified (principal); R63.0 Anorexia; E86.0 Dehydration; E11.9 Type 2 diabetes mellitus without complications; Z79.84 Long term (current) use of oral hypoglycemic drugs; I48.91 Unspecified atrial fibrillation; Z79.01 Long term (current) use of anticoagulants
CPT/HCPCS: 36415; 80053; 83690; 83880; 84484; 85025; 93005; 99284

== ENCOUNTER 2023-04-07 14:16 | Outpatient (CLI) | payer MEDICARE, OTHER | END 2023-04-07 14:17 | disposition critical access hospital (66) | LOC: EMS 14:16 | DX: R41.82 Altered mental status, unspecified (principal); R53.1 Weakness; R11.0 Nausea; R60.0 Localized edema; I48.91 Unspecified atrial fibrillation | CPT/HCPCS: A0425; A0429 ==

== ENCOUNTER 2023-04-07 14:34 | Inpatient (IN) | payer MEDICARE, OTHER ==
--- NOTE | 2023-04-07 15:12 | ED Physician Documentation ---
History of Present Illness - Stated complaint Stated Complaint: ALOC - Chief complaint Chief Complaint: General - History obtained from History obtained from: Patient, Family, EMS - History of Present Illness Timing: Today Pain level max: 0 Pain level now: 0 - Additonal information Additional information: Patient is a 78-year-old male who presents to the emergency department after a "unresponsive" episode today at his primary care provider's office. It is unclear how long the event lasted, patient does not really remember anything until he was in the ambulance. No reported seizure activity. No stiffening or limb shaking. states that he appeared limp. Has not had similar symptoms previously. Has been here recently for difficulty swallowing, was there to get a referral for an endoscopy. He has stopped all of his medications currently. He has a history of atrial fibrillation. Had CT scans of the head, chest, abdomen and pelvis that did not have any acute abnormalities at the end of February. Patient did not have any chest pain, palpitations, lightheadedness or dizziness today. His states that he has had decreased oral intake recently. Review of Systems Constitutional: denies: Fever, Chills GI: denies: Nausea, Vomiting, Diarrhea Skin: denies: Rash Musculoskeletal: denies: Neck pain, Back pain Neurologic: denies: Headache PD PAST MEDICAL HISTORY - Past Medical History Past Medical History: Yes Cardiovascular: Hypertension, High cholesterol, Atrial fibrillation Respiratory: None Neuro: None Endocrine/Autoimmune: Type 2 diabetes GI: None : None HEENT: None Psych: Anxiety Musculoskeletal: Osteoarthritis Derm: None - Past Surgical History Past Surgical History: Yes Ortho: Knee replacement, Arthroscopic surgery - Allergies Allergies/Adverse Reactions: Allergies Allergy/AdvReac Type Severity Reaction Status Date / Time Iodine and Iodide Containing Allergy Intermediate Hives Verified 03/31/23 10:18 Produc oxycodone HCl * AdvReac Severe Hallucinati Verified 04/07/23 14:57 [From Percocet] ons - Social History Does the pt smoke?: No Smoking Status: Never smoker Does the pt drink ETOH?: No Does the pt have substance abuse?: No - Immunizations Immunizations are current?: No - POLST Patient has POLST: No PD ED PE NORMAL - Vitals Vital signs reviewed: Yes - General General: Alert and oriented X 3, No acute distress - HEENT HEENT: Moist mucous membranes - Neck Neck: Supple, no meningeal sign - Cardiac Cardiac: Strong equal pulses, Other (irregular) - Respiratory Respiratory: No respiratory distress, Clear bilaterally - Abdomen Abdomen: Soft, Non tender, Non distended - Derm Derm: Warm and dry - Extremities Extremities: No edema, No calf tenderness / cord - Neuro Neuro: Alert and oriented X 3 - Psych Psych: Normal mood, Normal affect Results - Vitals Vitals: Vital Signs - 24 hr 04/07/23 04/07/23 04/07/23 14:41 16:32 17:35 Temperature 36.4 C L Heart Rate 111 H 107 H 123 H Respiratory 16 16 23 Rate Blood Pressure 136/82 H 147/104 H 141/89 H O2 Saturation 96 96 97 Oxygen O2 Source [With Activity] Room air O2 Source [Without Activity] Room air O2 Source Room air - EKG (time done) 1509 EKG releavant findings:: EKG personally interpreted by author of this note. Relevant findings are: Rate: Rate (enter#) (113) Rhythm: Atrial fibrillation Intervals: RBBB - Labs Labs: Laboratory Tests 04/07/23 04/07/23 04/07/23 15:15 15:15 17:30 WBC 11.2 H RBC 5.29 Hgb 15.0 Hct 46.0 MCV 87.0 MCH 28.4 MCHC 32.6 RDW 13.9 Plt Count 233 MPV 11.1 Neut # (Auto) 9.6 H Lymph # (Auto) 0.7 L [place] # (Auto) 0.8 Eos # (Auto) 0.0 Baso # (Auto) 0.1 Absolute Nucleated RBC 0.00 Nucleated RBC % 0.0 Sodium 138 Potassium 3.3 L Chloride 100 L Carbon Dioxide 27 Anion Gap 11.0 BUN 17 Creatinine 0.7 Estimated GFR (MDRD) 109 Glucose 156 H Calcium 9.1 Phosphorus 2.8 Magnesium 1.5 L Total Bilirubin 1.6 H AST 9 L ALT 8 L Alkaline Phosphatase 87 Troponin I High Sens 8.9 Total Protein 5.9 L Albumin 3.4 Globulin 2.5 Albumin/Globulin Ratio 1.4 Lipase < 10 L Urine Opiates Screen NEGATIVE Ur Buprenorphine Scrn NEGATIVE Ur Oxycodone Screen NEGATIVE Urine Methadone Screen NEGATIVE Ur Barbiturates Screen NEGATIVE Ur Tricyclics Screen NEGATIVE Ur Phencyclidine Scrn NEGATIVE Ur Amphetamine Screen NEGATIVE U Methamphetamines Scrn NEGATIVE U Benzodiazepines Scrn NEGATIVE Urine Cocaine Screen NEGATIVE U Cannabinoids Screen POSITIVE H Ur Drug Screen Comment CUTOFF CONC BELOW: Ethyl Alcohol < 10.0 - Rads (name of study) cxr Relevant Findings:: Final report received, See rad report PD Medical Decision Making - ED course Complexity details: reviewed results, re-evaluated patient, considered differential, d/w patient, d/w family, d/w internal audit consultant ED course: Patient with what sounds like syncope today. No acute findings on EKG, does have chronic atrial fibrillation. Did not have a prodrome prior to the syncope. No significant lab abnormalities. His magnesium was mildly low and this was replaced. Troponin is negative. He is positive for cannabinoids. Given the lack of prodrome and the prolonged syncope, I think is reasonable to place him in telemetry overnight. He can obtain an echocardiogram in the morning and see if there are any other symptoms overnight. Discussed the case with the hospitalist, Dr. Machado who accepts This document was made in part using voice recognition software. While efforts are made to proofread this document, sound alike and grammatical errors may oc cur. Patient is not orthostatic in the emergency department Prior to admission, Dr. Machado requested a head CT. There are no acute findings on head CT. Departure - Departure Disposition: ED Place in Observation Clinical Impression: Syncope Qualifiers: Syncope type: unspecified Qualified Code(s): R55 - Syncope and collapse Condition: Stable Discharge Date/Time: 04/07/23 19:07
[2023-04-07] MEDS: SODIUM CHLORIDE 0.9% 1,000 ML IV STA (15:20)
[2023-04-07 15:23] LABS: BASOPHILS # (AUTO) 0.1 10^3/uL (0.0-0.1); BASOPHILS % (AUTO) 0.5 %; EOSINOPHILS % (AUTO) 0.2 %; LYMPHOCYTES # (AUTO) 0.7 10^3/uL (1.5-3.5); LYMPHOCYTES % (AUTO) 5.9 %; MEAN CORPUSCULAR HEMOGLOBIN 28.4 pg (27.0-31.0); MEAN CORPUSCULAR HGB CONC 32.6 g/dL (32.0-36.0); MEAN PLATELET VOLUME 11.1 fL (7.4-11.4); MONOCYTES # (AUTO) 0.8 10^3/uL (0.0-1.0); MONOCYTES % (AUTO) 6.8 %; NEUTROPHILS # (AUTO) 9.6 10^3/uL (1.5-6.6); NEUTROPHILS % (AUTO) 86.2 %; PLT - PLATELET COUNT 233 10^3/uL (130-450); RED BLOOD COUNT 5.29 10^6/uL (4.70-6.10); RED CELL DISTRIBUTION WIDTH 13.9 % (12.0-15.0); WHITE BLOOD COUNT 11.2 x10^3/uL (4.8-10.8)
--- NOTE | 2023-04-07 15:24 | XRAY Report ---
PROCEDURE: Chest 1V INDICATIONS: Chest Pain TECHNIQUE: One view of the chest was acquired. COMPARISON: 03/31/2023 and 04/17. FINDINGS: Surgical changes and devices: None. Lungs and pleura: No pleural effusions or pneumothorax. Lungs are clear. Mediastinum: Mediastinal contours appear normal. Heart size is normal. Bones and chest wall: No suspicious bony lesions. Overlying soft tissues appear unremarkable. IMPRESSION: No acute cardiopulmonary process. Reviewed by: Omar Kim MD on 04/07/2023 3:23 PM PST Approved by: Omar Kim MD on 04/07/2023 3:23 PM PST Station ID: [id number]
[2023-04-07 15:37] LABS: ALBUMIN 3.4 g/dL (3.2-5.5); ALBUMIN/GLOBULIN RATIO 1.4 (1.0-2.2); ALKALINE PHOSPHATASE 87 IU/L (42-121); ALT ALANINE AMINOTRANSFERASE 8 IU/L (10-60); AST ASPARTATE AMINOTRANSFERASE 9 IU/L (10-42); BILIRUBIN,TOTAL 1.6 mg/dL (0.2-1.0); BUN - BLOOD UREA NITROGEN 17 mg/dL (6-20); CALCIUM 9.1 mg/dL (8.5-10.3); CARBON DIOXIDE - CO2 27 mmol/L (21-32); CHLORIDE 100 mmol/L (101-111); CREATININE 0.7 mg/dL (0.6-1.3); ETOH - ETHANOL < 10.0 mg/dL; GFR - MDRD 109 (>89); GLUCOSE 156 mg/dL (74-104); MAGNESIUM 1.5 mg/dL (1.7-2.3); PHOSPHORUS 2.8 mg/dL (2.5-5.0); POTASSIUM 3.3 mmol/L (3.5-4.5); SODIUM 138 mmol/L (135-145); TOTAL PROTEIN 5.9 g/dL (6.4-8.9)
[2023-04-07 15:38] LABS: LIPASE < 10 U/L (11-82)
[2023-04-07 15:41] LABS: TROPONIN I HIGH SENSITIVITY 8.9 ng/L (2.3-19.7)
[2023-04-07] MEDS: MAGNESIUM SULFATE 2 GRAM 2 GM/50 ML BAG IV ONE (16:26)
[2023-04-07] MEDS: diltiaZEM INJ 5 MG/ML VIAL IVP STA (17:33)
[2023-04-07] MEDS ORDERED: SODIUM CHLORIDE FLUSH 0.9% 10 ML SYRINGE IVP PRN (17:34)
[2023-04-07 17:54] LABS: AMPHETAMINE SCREEN,URINE NEGATIVE (NEGATIVE); BARBITURATE SCREEN,UR NEGATIVE (NEGATIVE); BENZODIAZEPINES SCREEN, URINE NEGATIVE (NEGATIVE); BUPRENORPHINE SCREEN, URINE NEGATIVE (NEGATIVE); COCAINE SCREEN URINE NEGATIVE (NEGATIVE); METHADONE SCREEN, URINE NEGATIVE (NEGATIVE); METHAMPHETAMINES SCREEN, URINE NEGATIVE (NEGATIVE); OPIATE SCREEN, URINE NEGATIVE (NEGATIVE); OXYCODONE SCREEN, URINE NEGATIVE (NEGATIVE); THC CANNABINOID SCREEN, URINE POSITIVE (NEGATIVE); TRICYCLIC ANTIDEPRESSANT,URINE NEGATIVE (NEGATIVE)
--- NOTE | 2023-04-07 18:05 | HISTORY & PHYSICAL EXAMINATION ---
Chief Complaint - Chief Complaint Chief Complaint: syncopal episode History of Present Illness - Admitted From Admitted From:: Emergency Room - History Obtained From History obtained from: Patient + Patient's Exam Limitations: None - History of Present Illness HPI Comment/Other: Jose is a 78 year old male with a history of A-fib, osteoarthritis, and anxiety who presents to the emergency department after a syncopal episode at his PCP's office this afternoon. Patient's is present and is acting as his historian. Per his , patient was sitting in a chair when he suddenly became limp and unresponsive. EMS was called and patient does not recall anything until he was in the ambulance (at least 10 minutes). He denies any lightheadedness, dizziness, chest pain, weakness, or trouble breathing prior to the episode. He has never experienced something like this prior to today. He was recently seen in the ER for fatigue, dysphagia, dehydration, and overall weakness. He is following up with his PCP for an endoscopy. A coronel CT was c ompleted at the end of this year that showed no acute abnormalities. Initial labs showed mild hypokalemia and mild hypomagnesemia. EKG showed known atrial fibrilation. Chest XR was unremarkable. Currently, patient is calm and cooperative. He denies any active chest pain, discomfort, headache, vision changes, or dizziness. His notes patient has lost about 30 pounds in the past two months due to limited oral intake from dysphagia. He recently stopped all his medications, including carvedilol and eliquis as recommended by his direct chill caster to help with his anxiety. History - Past Medical History Cardiovascular: reports: Hypertension, High cholesterol, Atrial fibrillation Respiratory: reports: None Neuro: reports: None Endocrine/Autoimmune: reports: Type 2 diabetes GI: reports: None : reports: None HEENT: reports: None Psych: reports: Anxiety Musculoskeletal: reports: Osteoarthritis Derm: reports: None - Past Surgical History Ortho: reports: Knee replacement, Arthroscopic surgery - Family & Social History Living Situation: With spouse/s.o. Social History Notes: He lives at home with his , Loni. He is a non- smoker and does not drink alcohol. 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 - Substance History Use: Uses substance without health or social issues: Cannabis - POLST Patient has POLST: No POLST Status: Full Code Meds/Allgy - Allergies Allergies/Adverse Reactions: Allergies Allergy/AdvReac Type Severity Reaction Status Date / Time Iodine and Iodide Containing Allergy Intermediate Hives Verified 03/31/23 10:18 Produc oxycodone HCl * AdvReac Severe Hallucinati Verified 04/07/23 14:57 [From Percocet] ons Review of Systems - Constitutional Constitutional: reports: Fatigue, Weakness, Poor appetite, Weight loss (30 pounds over 2 months). denies: Fever, Chills - Eyes Eyes: denies: Pain, Irritation, Blurred vision, Vision loss - Ears, Nose & Throat Ears, Nose & Throat: denies: Ear pain, Hearing loss, Vertigo, Nasal pain, Sore throat - Cardiovascular Cariovascular: reports: Chest pain (occasional), Syncope. denies: Lightheadedness - Respiratory Respiratory: denies: Cough, Sputum production, Wheezing - Gastrointestinal Gastrointestinal: denies: Abdominal pain, Abdominal distention, Constipation, Diarrhea - Genitourinary Genitourinary: denies: Dysuria, Frequency, Urgency, Hematuria - Musculoskeletal Musculoskeletal: reports: Muscle weakness, Joint pain - Integumentary Integumentary: denies: Rash, Pruritis, Lesions - Neurological Neurological: reports: General weakness, Numbness (neuropathy in fingers and toes). denies: Headache, Dizziness - Psychiatric Psychiatric: reports: Anxiety. denies: Depression, Delusions, Hallucinations - Endocrine Endocrine: denies: Polyuria, Polydypsia, Polyphagia - Hematologic/Lymphatic Hematologic/Lymphatic: denies: Anemia, Lymphadenopathy Exam - Vital Signs Vital Signs: Vital Signs x48h Temp Pulse Resp BP Pulse Ox 04/07/23 17:54 152 H 33 H 144/106 H 04/07/23 17:50 100 22 138/96 H 04/07/23 17:40 101 H 20 143/98 H 97 04/07/23 17:35 123 H 23 141/89 H 97 04/07/23 16:32 107 H 16 147/104 H 96 04/07/23 14:41 36.4 C L 111 H 16 136/82 H 96 - Physical Exam General Appearance: positive: Alert Eyes Bilateral: positive: Normal inspection, PERRL, EOMI ENT: positive: No signs of dehydration Neck: positive: No JVD, Trachea midline Respiratory: positive: No respiratory distress, Breath sounds nml Cardiovascular: positive: Regular rate & rhythm, No murmur, No gallop Peripheral Pulses: positive: 2+ Abdomen: positive: Non-tender, No distention Skin: positive: Color nml, No rash, Warm, Dry Extremities: positive: Non-tender, Full ROM, Nml appearance Neurologic/Psychiatric: positive: Oriented x3, Weakness (some weakness on upper right extremity) Conclusion/Plan - Problem List (1) Syncope Conclusion/Plan: Patient had a syncopal episode while waiting at his PCP's office this afternoon. He denies any lightheadedness, dizziness, vision changes, chest pain, or trouble breathing prior to the syncope. Initial EKG showed known atrial fibrilation. Labs were unremarkable other than mild hypokalemia and hypomagnesemia. XR of the chest was normal. We will put him on telemetry monitoring for 24 hours. - Telemetry monitoring for 24 hours - Repeat troponin level tonight - Will get an echo tomorrow - CT of the head Qualifiers: Syncope type: unspecified Qualified Code(s): R55 - Syncope and collapse (2) Dysphagia Conclusion/Plan: Patient has been having trouble swallowing for the past few months. This has resulted in difficulty eating and a subsequent weight loss. He is following with his PCP for an EGD to determine cause of dysphagia. We will get a swallow study before starting patient on any oral diet. - Swallow study with speech therapy - endoscopy when possible Qualifiers: Dysphagia type: unspecified Qualified Code(s): R13.10 - Dysphagia, unspecified (3) Weakness Conclusion/Plan: Patient's reports patient has been unable to eat due to trouble swallowing and has become progressively weaker over the past few weeks. Upon physical exam, his right side was notably weaker than his left side. We will get a head CT to check for a stroke. - Head CT tonight - Will get MRI of the brain tomorrow (4) Atrial fibrillation with RVR Conclusion/Plan: Patient has a known history of A-fib, diagnosed in 2021. He recently stopped all his medications, including carvedilol and eliquis per the recommendation of his direct chill caster to help with his anxiety. Once we get the results of his head CT, we recommend restarting his Eliquis. - Head CT to confirm no active bleed - Restart home dose of Eliquis (5) Hypokalemia Conclusion/Plan: Initial potassium is at 3.3. We will provide supplemental potassium - Supplemental potassium - Recheck potassium level tomorrow (6) Hypomagnesemia Conclusion/Plan: Initial labs show magnesium level of 1.5. Patient received one dose of IV mag while in the ER. - Supplemental magnesium as needed - Will recheck level tomorrow - Lab Results Fish Bones: 04/07/23 15:15 04/07/23 15:15
--- NOTE | 2023-04-07 19:03 | CT Report ---
PROCEDURE: Head WO INDICATIONS: R sided weakness TECHNIQUE: Noncontrast 4.5 mm thick angled axial sections acquired from the foramen magnum to the vertex. For r adiation dose reduction, the following was used: automated exposure control, adjustment of mA and/or kV according to patient size. COMPARISON: 03/22/2023 FINDINGS: Image quality: Excellent. CSF spaces: Basal cisterns are patent. No extra-axial fluid collections. The ventricles are symmet dede in size and shape. Brain: No intracranial bleeds or masses. There is cerebral volume loss for age, with resultant vent ricular and sulcal prominence. There are periventricular and deep white matter chronic small vessel ischemic changes. There is intracranial internal carotid artery atherosclerosis. Skull and face: Calvarium and visualized facial bones appear intact, without suspicious lesions. Sinuses: Visualized sinuses and mastoids are clear. IMPRESSION: No acute intracranial abnormalities. No significant changes from previous study. Reviewed by: Omar Kim MD on 04/07/2023 7:02 PM PST Approved by: Omar Kim MD on 04/07/2023 7:02 PM PST Station ID: [id number]
[2023-04-07] MEDS ORDERED: POTASSIUM CHLORIDE INJ 40 MEQ in SODIUM CHLORIDE 0.45% 1,000 ML IV SCH (21:00)
[2023-04-07] MEDS ORDERED: NS W/40 MEQ KCL 1,000 ML IV SCH (21:00)
[2023-04-07] MEDS: APIXABAN 5 MG TABLET PO SCH (21:35)
[2023-04-07] MEDS: METOPROLOL TARTRATE 25 MG TABLET PO SCH (21:35)
[2023-04-07] MEDS: NS W/20 MEQ KCL 1,000 ML IV SCH (21:40)
[2023-04-08 05:08] LABS: BASOPHILS % (AUTO) 0.4 %; EOSINOPHILS % (AUTO) 0.1 %; HCT - HEMATOCRIT 41.8 % (42.0-52.0); HGB - HEMOGLOBIN 13.6 g/dL (14.0-18.0); LYMPHOCYTES # (AUTO) 1.4 10^3/uL (1.5-3.5); LYMPHOCYTES % (AUTO) 15.1 %; MEAN CORPUSCULAR HEMOGLOBIN 28.8 pg (27.0-31.0); MEAN CORPUSCULAR HGB CONC 32.5 g/dL (32.0-36.0); MEAN CORPUSCULAR VOLUME 88.6 fL (80.0-94.0); MEAN PLATELET VOLUME 11.5 fL (7.4-11.4); MONOCYTES # (AUTO) 1.1 10^3/uL (0.0-1.0); MONOCYTES % (AUTO) 12.3 %; NEUTROPHILS # (AUTO) 6.6 10^3/uL (1.5-6.6); NEUTROPHILS % (AUTO) 71.7 %; PLT - PLATELET COUNT 193 10^3/uL (130-450); RED BLOOD COUNT 4.72 10^6/uL (4.70-6.10); WHITE BLOOD COUNT 9.2 x10^3/uL (4.8-10.8)
[2023-04-08] MEDS: SODIUM CHLORIDE FLUSH 0.9% 10 ML SYRINGE IVP SCH (05:17)
[2023-04-08 05:22] LABS: CALCIUM 8.7 mg/dL (8.5-10.3); CREATININE 0.6 mg/dL (0.6-1.3); MAGNESIUM 1.9 mg/dL (1.7-2.3); PHOSPHORUS 3.3 mg/dL (2.5-5.0); POTASSIUM 3.3 mmol/L (3.5-4.5)
[2023-04-08] MEDS: POTASSIUM CHLOR 10 MEQ/100 ML 10 MEQ/100 ML BAG IV SCH (08:34)
--- NOTE | 2023-04-08 10:44 | CT Report ---
PROCEDURE: Chest WO INDICATIONS: dyspahgia TECHNIQUE: A CT scan of the chest was performed. Intravenous contrast media was not administered. Images were re corded and evaluated at appropriate window settings. Reformats: axial MIP of the chest, coronal and s agittal. For radiation dose reduction, the following was used: automated exposure control, adjustment of mA and/or kV according to patient size. COMPARISON: Chest radiograph dated 04/07/[address] chest dated 03/22/2023. FINDINGS: Image quality: Diagnostic. Chest wall and lower neck: No thyroid nodule which requires sonographic follow up. No axillary or sup raclavicular adenopathy by size. Lungs and pleura: No consolidation. No pleural effusions. No pneumothorax. No suspicious pulmonary n odules which require follow up. Eventration of the bilateral hemidiaphragms with associated mild bib asilar compressive atelectasis. Mediastinum: Heart size is normal. No pericardial effusion. Borderline aneurysmal dilatation of the ascending thoracic aorta measuring approximately 5.0 cm in ma ximum diameter.. No mediastinal adenopathy by size criteria. Atherosclerotic calcifications of the c oronary arteries as before. Atherosclerotic calcifications of the aortic arch are also noted. No hiat al hernia visualized. No abnormal thickening of the imaged thoracic esophagus. Bones: No aggressive osseous abnormality. Upper Abdomen: Unremarkable. IMPRESSION: CT chest without acute cardiopulmonary abnormalities. Stable appearance of ascending thoracic aortic aneurysm. No hiatal hernia or abnormal esophageal wall thickening. Atherosclerosis. Reviewed by: Braydon Bustos MD on 04/08/2023 10:43 AM [facility] Approved by: Braydon Bustos MD on 04/08/2023 10:43 AM PST Station ID: [id number]
--- NOTE | 2023-04-08 11:07 | PHARMACY PROGRESS NOTE ---
- Best Possible Medication History Admit Date and Time: 04/07/23 1737 Processed by: Pharmacy Medication History completed: Yes Patient Interview: Completed Secondary Source(s): Insurance records As the person ultimately responsible for medication therapy, providers are able to order a medication from an existing home medication list in [facility] via the "Reconcile Routine" prior to Confirmation of that medication by lab support service tech. Such practice is discouraged except when the physician, in their clinical judgment, deems that a medical need exists for a medication without regard to previous use.
--- NOTE | 2023-04-08 12:10 | PROVIDER PROGRESS NOTE ---
Subjective - Prog Note Date Prog Note Date: 04/08/23 Prog Note Time: 11:58 - Subjective Pt reports feeling: No change Subjective: Jose is a 78 year old male with a history of A-fib, osteoarthritis, and anxiety who presents to the emergency department after a syncopal episode at his PCP's office this afternoon. Patient's is present and is acting as his historian. Per his , patient was sitting in a chair when he suddenly became limp and unresponsive. EMS was called and patient does not recall anything until he was in the ambulance (at least 10 minutes). He denies any lightheadedness, dizziness, chest pain, weakness, or trouble breathing prior to the episode. He has never experienced something like this prior to today. He was recently seen in the ER for fatigue, dysphagia, dehydration, and overall weakness. He is following up with his PCP for an endoscopy. A coronel CT was completed at the end of this year that showed no acute abnormalities. He recently stopped all his medications, including carvedilol and eliquis as recommended by his relief map modeler to help with his anxiety. His notes patient has lost about 30 pounds in the past two months due to limited oral intake from dysphagia. Initial labs showed mild hypokalemia and mild hypomagnesemia. EKG showed known atrial fibrilation. Chest XR was unremarkable. 04/07: Head CT was negative. Telemetry was unremarkable. 04/08: CT Chest with oral contrast: no acute cardiopulmonary abnormalities. Stable appearance of ascending thoracic aortic aneurysm. No hiatal hernia or abnormal esophageal wall thickening. Atherosclerosis. Currently, patient is anxious but cooperative. He reports a new onset of right arm pain and swelling. He also complains of stiff neck, and is unable to turn his head from side to side or up and down. We will get a a US of the arm to check for DVT. Will continue to work up his syncope with a MRI of the brain, orthostatic vitals, and an echo of his heart. He denies any active chest pain, headache, vision changes, or dizziness. Objective - Vital Signs/Intake & Output Vital Signs: Vital Signs x48h Temp Pulse Resp BP BP BP Pulse Ox 04/08/23 11:31 36.8 C 95 16 133/97 H 93 04/08/23 08:34 150/112 H 04/08/23 07:45 107 H 150/112 H 04/08/23 07:43 36.7 C 105 H 18 160/113 H 95 04/08/23 04:45 36.9 C 102 H 18 138/98 H 94 Intake & Output: Intake & Output 04/05/23 04/06/23 04/07/23 04/08/23 23:59 23:59 23:59 23:59 Intake Total 1050 298.333 Output Total 325 Balance 1050 -26.667 - Objective General Appearance: positive: Alert, Anxious Eyes Bilateral: positive: Normal inspection, PERRL, EOMI ENT: positive: No signs of dehydration Neck: positive: No JVD, Stiff neck (unable to turn head from side to side, up or down) Respiratory: positive: No respiratory distress Cardiovascular: positive: Regular rate & rhythm, No murmur, No gallop Peripheral Pulses: 2+ Radial (R), 2+ Radial (L), 2+ Dorsalis pedis (R), 2+ Dorsalis pedis (L) Abdomen: positive: Non-tender, No distention Skin: positive: Color nml, No rash, Warm, Dry Extremities: positive: Other (right hand and forearm are erythematous and edematous, sensation intake) Neurologic/Psychiatric: positive: Oriented x3 - Lab Results Fish Bones: 04/08/23 04:45 04/08/23 04:45 Other Labs: Lab Results x24hrs 04/08/23 04/08/23 04/07/23 Range/Units 04:45 04:45 18:05 WBC 9.2 (4.8-10.8) x10^3/uL RBC 4.72 (4.70-6.10) 10^6/uL Hgb 13.6 L (14.0-18.0) g/dL Hct 41.8 L (42.0-52.0) % MCV 88.6 (80.0-94.0) fL MCH 28.8 (27.0-31.0) pg MCHC 32.5 (32.0-36.0) g/dL RDW 14.0 (12.0-15.0) % Plt Count 193 (130-450) 10^3/uL MPV 11.5 H (7.4-11.4) fL Neut # (Auto) 6.6 (1.5-6.6) 10^3/uL Lymph # (Auto) 1.4 L (1.5-3.5) 10^3/uL Burnet # (Auto) 1.1 H (0.0-1.0) 10^3/uL Eos # (Auto) 0.0 (0.0-0.7) 10^3/uL Baso # (Auto) 0.0 (0.0-0.1) 10^3/uL Absolute Nucleated RBC 0.00 x10^3/uL Nucleated RBC % 0.0 /100WBC Sodium 139 (135-145) mmol/L Potassium 3.3 L (3.5-4.5) mmol/L Chloride 103 (101-111) mmol/L Carbon Dioxide 29 (21-32) mmol/L Anion Gap 7.0 (6-13) BUN 20 (6-20) mg/dL Creatinine 0.6 (0.6-1.3) mg/dL Estimated GFR (MDRD) 131 (>89) Glucose 110 H (74-104) mg/dL Calcium 8.7 (8.5-10.3) mg/dL Phosphorus 3.3 (2.5-5.0) mg/dL Magnesium 1.9 (1.7-2.3) mg/dL Total Bilirubin (0.2-1.0) mg/dL AST (10-42) IU/L ALT (10-60) IU/L Alkaline Phosphatase (42-121) IU/L Troponin I High Sens 9.1 (2.3-19.7) ng/L Total Protein (6.4-8.9) g/dL Albumin (3.2-5.5) g/dL Globulin (2.1-4.2) g/dL Albumin/Globulin Ratio (1.0-2.2) Lipase (11-82) U/L Urine Opiates Screen (NEGATIVE) Ur Buprenorphine Scrn (NEGATIVE) Ur Oxycodone Screen (NEGATIVE) Urine Methadone Screen (NEGATIVE) Ur Barbiturates Screen (NEGATIVE) Ur Tricyclics Screen (NEGATIVE) Ur Phencyclidine Scrn (NEGATIVE) Ur Amphetamine Screen (NEGATIVE) U Methamphetamines Scrn (NEGATIVE) U Benzodiazepines Scrn (NEGATIVE) Urine Cocaine Screen (NEGATIVE) U Cannabinoids Screen (NEGATIVE) Ur Drug Screen Comment Ethyl Alcohol mg/dL 04/07/23 04/07/23 04/07/23 Range/Units 17:30 15:15 15:15 WBC 11.2 H (4.8-10.8) x10^3/uL RBC 5.29 (4.70-6.10) 10^6/uL Hgb 15.0 (14.0-18.0) g/dL Hct 46.0 (42.0-52.0) % MCV 87.0 (80.0-94.0) fL MCH 28.4 (27.0-31.0) pg MCHC 32.6 (32.0-36.0) g/dL RDW 13.9 (12.0-15.0) % Plt Count 233 (130-450) 10^3/uL MPV 11.1 (7.4-11.4) fL Neut # (Auto) 9.6 H (1.5-6.6) 10^3/uL Lymph # (Auto) 0.7 L (1.5-3.5) 10^3/uL Burnet # (Auto) 0.8 (0.0-1.0) 10^3/uL Eos # (Auto) 0.0 (0.0-0.7) 10^3/uL Baso # (Auto) 0.1 (0.0-0.1) 10^3/uL Absolute Nucleated RBC 0.00 x10^3/uL Nucleated RBC % 0.0 /100WBC Sodium 138 (135-145) mmol/L Potassium 3.3 L (3.5-4.5) mmol/L Chloride 100 L (101-111) mmol/L Carbon Dioxide 27 (21-32) mmol/L Anion Gap 11.0 (6-13) BUN 17 (6-20) mg/dL Creatinine 0.7 (0.6-1.3) mg/dL Estimated GFR (MDRD) 109 (>89) Glucose 156 H (74-104) mg/dL Calcium 9.1 (8.5-10.3) mg/dL Phosphorus 2.8 (2.5-5.0) mg/dL Magnesium 1.5 L (1.7-2.3) mg/dL Total Bilirubin 1.6 H (0.2-1.0) mg/dL AST 9 L (10-42) IU/L ALT 8 L (10-60) IU/L Alkaline Phosphatase 87 (42-121) IU/L Troponin I High Sens 8.9 (2.3-19.7) ng/L Total Protein 5.9 L (6.4-8.9) g/dL Albumin 3.4 (3.2-5.5) g/dL Globulin 2.5 (2.1-4.2) g/dL Albumin/Globulin Ratio 1.4 (1.0-2.2) Lipase < 10 L (11-82) U/L Urine Opiates Screen NEGATIVE (NEGATIVE) Ur Buprenorphine Scrn NEGATIVE (NEGATIVE) Ur Oxycodone Screen NEGATIVE (NEGATIVE) Urine Methadone Screen NEGATIVE (NEGATIVE) Ur Barbiturates Screen NEGATIVE (NEGATIVE) Ur Tricyclics Screen NEGATIVE (NEGATIVE) Ur Phencyclidine Scrn NEGATIVE (NEGATIVE) Ur Amphetamine Screen NEGATIVE (NEGATIVE) U Methamphetamines Scrn NEGATIVE (NEGATIVE) U Benzodiazepines Scrn NEGATIVE (NEGATIVE) Urine Cocaine Screen NEGATIVE (NEGATIVE) U Cannabinoids Screen POSITIVE H (NEGATIVE) Ur Drug Screen Comment CUTOFF CONC BELOW: Ethyl Alcohol < 10.0 mg/dL ABX Reporting Has patient been on IV antibiotics over the past 48 hours?: No Assessment/Plan - Problem List (1) Syncope Impression: Patient had a syncopal episode while waiting at his PCP's office on 04/07. Denied any lightheadedness, dizziness, vision changes, chest pain, or trouble breathing prior to the syncope. Initial EKG showed known atrial fibrilation. Labs were unremarkable other than mild hypokalemia and hypomagnesemia. XR of the chest was normal. Telemetry monitoring was unremarkable. Repeat troponin was normal. Head CT was negative for any acute findings. We will continue his work up with orthostatic vitals, echo of the heart, and MRI of the brain. - Will get a MRI of the brain - Will get an echo tomorrow - orthostatic vitals - Stay hydrated and ensure electrolytes are within normal limits Qualifiers: Syncope type: unspecified Qualified Code(s): R55 - Syncope and collapse (2) Dysphagia Conclusion/Plan: Patient had a CT of the chest with oral contrast this morning. However, it was noted that he did not swallow the contrast properly so the final report does not include contrasted images. After further discussion with the patient, it appears that he does not have pain when swallowing and denies food getting stuck. He is able to swallow, but experiences early satiety and feels that the food sometimes comes back up if he continues to eat more. As a result, he is eating less and subsequently a significant weight loss. He is following with his PCP for an EGD to determine cause of dysphagia. CT of the chest showed no abnormal esophageal thickening or hiatal hernia. Bedside swallow eval showed patient was able to swallow without choking or difficulty. He can continue on a normal diet. - endoscopy when possible Qualifiers: Dysphagia type: unspecified Qualified Code(s): R13.10 - Dysphagia, unspecified (3) Weakness Conclusion/Plan: Patient's reports patient has been unable to eat due to trouble swallowing and has become progressively weaker over the past few weeks. Upon physical exam, his right side was notably weaker than his left side. CT of the head was negative for any acute findings. Will obtain MRI of the brain. - Will get MRI of the brain (4) Swelling of right upper extremity Impression: Patient's right arm became swollen, erythematous, and painful overnight. We will get an ultrasound of the arm to check for DVT. - US of right arm (5) Anxiety Impression: Patient has notable anxiety when asked about his symptoms and how he feels. We will add a prn Ativan. - PRN 0.5 mg Ativan (6) Atrial fibrillation with RVR Conclusion/Plan: Patient has a known history of A-fib, diagnosed in 2021. He recently stopped all his medications, including carvedilol and eliquis per the recommendation of his relief map modeler to help with his anxiety. CT of the head was negative. He will continue on Eliquis. - Continue home dose of Eliquis (7) Hypokalemia Conclusion/Plan: Initial potassium is at 3.3 and remains at 3.3 today. We will provide supplemental potassium - Supplemental potassium - Recheck potassium level tomorrow (8) Hypomagnesemia Conclusion/Plan: RESOLVED. Initial labs show magnesium level of 1.5. Today 04/08, his level is at 1.9. Qualifiers: Syncope type: unspecified Qualified Code(s): R55 - Syncope and collapse (2) Swelling of right upper extremity Impression: Patient's right arm became swollen, erythematous, and painful overnight. We will get an ultrasound of the arm to check for DVT. - US of right arm (4) Anxiety Impression: Patient has notable anxiety when asked about his symptoms and how he feels. We will add a prn Ativan. - PRN 0.5 mg Ativan
--- NOTE | 2023-04-08 16:09 | Ultrasound Report ---
PROCEDURE: Duplex Ext Veins Right INDICATIONS: right arm and hand swelling pain, warm TECHNIQUE: Real-time imaging, as well as color and pulse Doppler interrogation, were performed of the upper extr emity deep veins from the internal jugular vein distally to the cephalic/basilic veins. COMPARISON: None. FINDINGS: The deep veins are normally compressible, and free of intraluminal thrombus. Color and pu lse Doppler demonstrate normal phasic intraluminal flow. There is normal augmentation response to di stal compression maneuver. Of note, study is limited secondary to patient's inability for adequate br eath-hold and inability to extend his arm. There is incidental note of a possible right elbow joint e ffusion. IMPRESSION: Within the limitations of this examination, no deep venous thrombosis of the visualized upper extremity. Possible right elbow joint effusion. Consider further evaluation with dedicated radiographic evaluati on of the elbow. Reviewed by: Braydon Bustos MD on 04/08/2023 4:08 PM PST Approved by: Braydon Bustos MD on 04/08/2023 4:08 PM PST Station ID: [id number]
[2023-04-08 21:18] LABS: ESTIMATED AVERAGE GLUCOSE 117 mg/dL (70-100); HEMOGLOBIN A1c% 5.7 % (4.27-6.07)
[2023-04-09] MEDS: LORazepam 2 MG/ML VIAL IVP PRN (00:43)
[2023-04-09] MEDS: PANTOPRAZOLE 40 MG TABLET PO SCH (09:18)
[2023-04-09] MEDS: POTASSIUM CHLOR 10 MEQ/100 ML 10 MEQ/100 ML BAG IV SCH (09:23)
--- NOTE | 2023-04-09 09:33 | PROVIDER PROGRESS NOTE ---
Subjective - Prog Note Date Prog Note Date: 04/09/23 Prog Note Time: 09:33 - Subjective Pt reports feeling: Worse Subjective: Jose is a 78 year old male with a history of A-fib, osteoarthritis, and anxiety who presents to the emergency department after a syncopal episode at his PCP's office this afternoon. Patient's is present and is acting as his historian. Per his , patient was sitting in a chair when he suddenly became limp and unresponsive. EMS was called and patient does not recall anything until he was in the ambulance (at least 10 minutes). He denies any lightheadedness, dizziness, chest pain, weakness, or trouble breathing prior to the episode. He has never experienced something like this prior to today. He was recently seen in the ER for fatigue, dysphagia, dehydration, and overall weakness. He is following up with his PCP for an endoscopy. A coronel CT was completed at the end of this year that showed no acute abnormalities. He recently stopped all his medications, including carvedilol and eliquis as recommended by his transport tech to help with his anxiety. His notes patient has lost about 30 pounds in the past two months due to limited oral intake from dysphagia. Initial labs showed mild hypokalemia and mild hypomagnesemia. EKG showed known atrial fibrilation. Chest XR was unremarkable. 04/07: Head CT was negative. Telemetry was unremarkable. 04/08: CT Chest with oral contrast: no acute cardiopulmonary abnormalities. Stable appearance of ascending thoracic aortic aneurysm. No hiatal hernia or abnormal esophageal wall thickening. Atherosclerosis. Echo: A-fib. left ventriculr EF 55-65%. Mild right ventricular enlargement with right side systolic function mildly impaired. Mild increase in left stroke volume index. Mild to moderate right atrial enlargement. Mild aortic valve sclerosis. No evidence of aortic stenosis. Trace amount of aortic regurgitation. thickening of mitral valve leaflets. no mitral stenosis. US of right arm: no DVT noted. possible right elbow joint effusion. Currently, patient appears altered and confused. He believes he went to the movies last night and was kidnapped. Continues to have bilateral upper extremity weakness, more pronounced on the right side. He is unable to turn his head from side to side or up and down. He denies any active chest pain, headache, vision changes, or dizziness. Objective - Vital Signs/Intake & Output Vital Signs: Vital Signs x48h Temp Pulse Resp BP BP Pulse Ox O2 Flow Rate 04/09/23 09:20 131/96 H 04/09/23 08:07 1 04/09/23 07:50 36.7 C 115 H 20 131/96 H 95 1.5 04/09/23 05:19 36.8 C 97 18 118/82 H 95 1.5 Intake & Output: Intake & Output 04/06/23 04/07/23 04/08/23 04/09/23 23:59 23:59 23:59 23:59 Intake Total 1050 1888.333 480 Output Total 325 100 Balance 1050 1563.333 380 - Objective General Appearance: positive: Alert, Mild distress Eyes Bilateral: positive: Normal inspection ENT: positive: No signs of dehydration Neck: positive: No JVD, Trachea midline Respiratory: positive: No respiratory distress, Breath sounds nml Cardiovascular: positive: Regular rate & rhythm, No murmur, No gallop Abdomen: positive: Non-tender, No distention Skin: positive: Warm, Dry Extremities: positive: Other (right elbow and forearm are erythematous and edematous. patient has pain with touch and when moving.) Neurologic/Psychiatric: positive: Disoriented to place, Disoriented to time (cognitive delay. disoriented to place and time. altered and confused) - Lab Results Fish Bones: 04/08/23 04:45 04/08/23 04:45 Other Labs: Lab Results x24hrs 04/08/23 Range/Units 04:45 Estimat Average Glucose 117 H (70-100) mg/dL Hemoglobin A1c % 5.7 (4.27-6.07) % ABX Reporting Has patient been on IV antibiotics over the past 48 hours?: No Assessment/Plan - Problem List (1) Syncope Impression: Patient had a syncopal episode while waiting at his PCP's office on 04/07. Denied any lightheadedness, dizziness, vision changes, chest pain, or trouble breathing prior to the syncope. Initial EKG showed known atrial fibrilation. Labs were unremarkable other than mild hypokalemia and hypomagnesemia. XR of the chest was normal. Telemetry monitoring was unremarkable. Repeat troponin was normal. Head CT was negative for any acute findings. MRI of the brain was unremarkable. We will continue his work up with orthostatic vitals. We are consulting with other hospitals to transfer him for higher level of care. - orthostatic vitals - Stay hydrated and ensure electrolytes are within normal limits Qualifiers: Syncope type: unspecified Qualified Code(s): R55 - Syncope and collapse (2) Dysphagia Conclusion/Plan: Patient had a CT of the chest with oral contrast on 04/08. However, it was noted that he did not swallow the contrast properly so the final report does not include contrasted images. After further discussion with the patient, it appears that he does not have pain when swallowing and denies food getting stuck. He is able to swallow, but experiences early satiety and feels that the food sometimes comes back up if he continues to eat more. As a result, he is eating less and subsequently a significant weight loss. He is following with his PCP for an EGD to determine cause of dysphagia. CT of the chest showed no abnormal esophageal thickening or hiatal hernia. Bedside swallow eval showed patient was able to swallow without choking or difficulty. He can continue on a normal diet. We are looking to transfer him for higher level of care. He will need a GI work up with [place]roscopy, [place] - [place]oscopy when possible Qualifiers: Dysphagia type: unspecified Qualified Code(s): R13.10 - Dysphagia, unspecified (3) Weakness Conclusion/Plan: Patient's reports patient has been unable to eat due to trouble swallowing and has become progressively weaker over the past few weeks. Upon physical exam, his right side was notably weaker than his left side. CT of the head was negative for any acute findings. MRI of the brain showed no acute or subacute infarction. Generalized brain parynchmal volume lost and chronic small vessel ischemic changes can be seen. No mass or mass effect could be seen although findings are limited by noncontrast imaging. At this point, we are considering a neuromuscular disorder that could be causing his weakness. We are contacting outside hospitals to see if he can be transferred to a higher level of care. He will need a neurological work up. - Transfer for higher level of care - Will consult with PT/OT (4) Stiff neck Impression: Patient complains of a stiff neck that prevents him from turning his head from side to side or up and down. A XR of the spine was done that reported limited results due to patient positioning. Multilevel degenerative changes in cervical spine. We are concerned for a neuromuscular disease as previous chest CT showed his diaphragm was not moving. - Refer to tertiary care - Use lidocaine patch prn for pain (5) Swelling of right upper extremity Impression: Patient's right arm became swollen, erythematous, and painful on 04/08. US duplex was completed that showed no evidence of DVT. Possible right elbow joint effusion. We suspect an olecranon bursa burst and the fluid drained down into his arm. - Manage pain (6) Anxiety Impression: Patient has notable anxiety when asked about his symptoms and how he feels. We will add a prn Ativan. Ativan will also be used when patient has his MRI to help with claustrophobia. - PRN 0.5 mg Ativan (7) Atrial fibrillation with RVR Conclusion/Plan: Patient has a known history of A-fib, diagnosed in 2021. He recently stopped all his medications, including carvedilol and eliquis per the recommendation of his transport tech to help with his anxiety. CT of the head was negative. He will continue on Eliquis. - Continue home dose of Eliquis (8) Hypokalemia Conclusion/Plan: Initial potassium is at 3.3 and remains at 3.3 today. We will provide supplemental potassium - Supplemental potassium - Recheck potassium level tomorrow (9) Hypomagnesemia Conclusion/Plan: RESOLVED. Initial labs show magnesium level of 1.5. Today 04/08, his level is at 1.9. Qualifiers: Syncope type: unspecified Qualified Code(s): R55 - Syncope and collapse
[2023-04-09] MEDS: METOCLOPRAMIDE 10 MG/2 ML VIAL IVP SCH (11:11)
[2023-04-09] MEDS: LORazepam 2 MG/ML VIAL IVP STA (11:11)
--- NOTE | 2023-04-09 12:15 | MRI Report ---
PROCEDURE: Brain WO INDICATIONS: unilateral weakness, ams TECHNIQUE: Noncontrast axial T1 spin echo, axial T2 fast spin echo, sagittal and axial FLAIR, coronal T2 fast sp in echo, axial gradient echo, axial diffusion and ADC through the brain. COMPARISON: Correlation is made with prior head CT, 04/07/2023. FINDINGS: Image quality: Motion artifact is noted. Moderate chronic small vessel ischemic change can be seen . CSF Spaces: Basal cisterns are patent. No extra-axial fluid collections. Ventricles are normal in size and shape. Brain: No intracranial masses or hemorrhage. Robles/white matter interface is normal. Brainstem appe ars normal. Diffusion-weighted images demonstrate no acute ischemic insult. No chronic ischemic ins ults. Normal intravascular flow voids are present. Moderate to prominent generalized brain parenchy mal volume loss can be seen. Skull and face: Calvarium has normal marrow signal. Orbits appear normal. Sinuses: Sinuses and mastoids are clear. IMPRESSION: No findings of acute or subacute infarction are seen. Generalized brain parenchymal volume loss and chronic small vessel ischemic change can be seen. To the limits of this noncontrast study, no findings of masses or mass effect can be seen. Reviewed by: Yoandy Holly MD on 04/09/2023 11:14 AM [facility] Approved by: Yoandy Holly MD on 04/09/2023 11:14 AM [facility] Station ID: [id number]
--- NOTE | 2023-04-09 13:21 | XRAY Report ---
PROCEDURE: Cervical Spine 2-3V INDICATIONS: sudden nuchal rigidity TECHNIQUE: 3 view(s) of the cervical spine were acquired. COMPARISON: None. FINDINGS: Bones: Limited exam secondary to patient positioning. No fractures or dislocations to the C4 level. Multilevel degenerative changes of the cervical spine. The lateral masses of C1 appear intact on the odontoid view. No suspicious bony lesions. Soft tissues: No prevertebral soft tissue swelling. IMPRESSION: Limited exam secondary to patient positioning. Multilevel degenerative changes of the cervical spine. Reviewed by: Vignesh Roberts MD on 04/09/2023 1:20 PM PST Approved by: Vignesh Roberts MD on 04/09/2023 1:20 PM PST Station ID: [id number]
--- NOTE | 2023-04-09 18:51 | Discharge Plan ---
Discharge Plan Problem Reviewed?: Yes Disposition: 02 Transfer Acute Care Hosp Condition: Poor No Smoking: If you smoke, Please STOP! Call for help.
--- NOTE | 2023-04-09 18:52 | DISCHARGE SUMMARY ---
"Discharge Summary Admit Date: 04/07/23 Discharge Date: 04/09/23 Discharging Provider: Dr. Keyanna Falk Condition at Discharge: Poor Discharge Disposition: 02 Transfer Acute Care Hosp - DIAGNOSES Admission Diagnoses: (1) Syncope Syncope work up was negative for any findings. Labs, telemetry, chest XR, head CT, echo, and MRI of the brain were all unremarkable - Continue further evaluation with neurology [facility] (2) Dysphagia CT of the chest with oral contrast completed although the contrast was not swallowed properly so the final report does not include contrasted images. After further discussion with the patient, it appears that he does not have pain when swallowing and denies food getting stuck. He is able to swallow, but experiences early satiety and feels that the food sometimes comes back up if he continues to eat more. As a result, he is eating less and subsequently a significant weight loss. - Will need EGD - Will need further workup with GI, including a fluroscopy study (3) Weakness Patient has been eating less and become progressively weaker over the past few weeks. Bilateral upper extremity weakness, with notable increased weakness on the right side. CT and MRI of the head was negative for any acute findings. No mass or mass effect could be seen although findings are limited by noncontrast imaging on the MRI. - Neuro eval at [facility] - Will need PT/OT (4) Stiff neck Patient complains of a stiff neck that prevents him from turning his head from side to side or up and down. A XR of the spine was done that reported limited results due to patient positioning. Multilevel degenerative changes in cervical spine. - Neuro evaluation for neuromuscular disease (5) Swelling of right upper extremity Patient's right arm became swollen, erythematous, and painful on 04/08. US duplex was completed that showed no evidence of DVT. Possible right elbow joint effusion. We suspect an olecranon bursa burst and the fluid drained down into his arm. - Manage pain (6) Anxiety Patient has notable anxiety when asked about his symptoms and how he feels - PRN 0.5 mg Ativan (7) Atrial fibrillation with RVR Patient has a known history of A-fib, diagnosed in 2021. He recently stopped all his medications, including carvedilol and eliquis per the recommendation of his environmental attorney to help with his anxiety. CT of the head was negative. - Continue home dose of Eliquis (8) Hypokalemia RESOLVED (9) Hypomagnesemia RESOLVED. - HPI History of Present Illness: Jose is a 78 year old male with a history of A-fib, osteoarthritis, and anxiety who presents to the emergency department after a syncopal episode at his PCP's office. He was sitting in a chair when he suddenly became limp and unresponsive (for at least 10 minutes) and did not come to until in the ambulance. - CONSULTS | PROCEDURES Procedures: 04/07: Head CT was negative. Telemetry was unremarkable 04/08: CT Chest with oral contrast: no acute cardiopulmonary abnormalities. Stable appearance of ascending thoracic aortic aneurysm. No hiatal hernia or abnormal esophageal wall thickening. Atherosclerosis. Echo: A-fib. left ventriculr EF 55-65%. Mild right ventricular enlargement with right side systolic function mildly impaired. Mild increase in left stroke volume index. Mild to moderate right atrial enlargement. Mild aortic valve sclerosis. No evidence of aortic stenosis. Trace amount of aortic regurgitation. thickening of mitral valve leaflets. no mitral stenosis. US of right arm: no DVT noted. possible right elbow joint effusion. 04/09: XR of the spine was done that reported limited results due to patient positioning. Multilevel degenerative changes in cervical spine MRI of the brain showed no acute or subacute infarction. Generalized brain pa rynchmal volume lost and chronic small vessel ischemic changes can be seen. No mass or mass effect could be seen although findings are limited by noncontrast imaging. - HOSPITAL COURSE Hospital Course: Upon admission, patient denied any lightheadedness, dizziness, chest pain, weakness, or trouble breathing and does not recall having these symptoms prior to his syncopal episode. His reports that he was recently seen in the ER for fatigue, dysphagia, dehydration, and overall weakness. He is following up with his PCP for an endoscopy. A coronel CT was completed at the end of this year that showed no acute abnormalities. He recently stopped all his medications, including carvedilol and eliquis as recommended by his environmental attorney to help with his anxiety. He lost about 30 pounds in the past two months due to limited oral intake from difficulty swallowing. Initial labs showed mild hypokalemia and mild hypomagnesemia but otherwise negative. EKG showed known atrial fibrilation. Chest XR was unremarkable. Syncope work up was negative for any findings. A bedside swallow test was done and patient was able to swallow without difficulty. He states after taking a few bites, he feels full and does not want to eat more. 04/09: Patient was altered and confused. Continued to have bilateral upper extremity weakness, more pronounced on the right side. He is unable to turn his head from side to side or up and down. - ALLERGIES Allergies/Adverse Reactions: Allergies Allergy/AdvReac Type Severity Reaction Status Date / Time Iodine and Iodide Containing Allergy Intermediate Hives Verified 03/31/23 10:18 Produc oxycodone HCl * AdvReac Severe Hallucinati Verified 04/07/23 14:57 [From Percocet] ons - MEDICATIONS Home Medications: Ambulatory Orders Medication Instructions Recorded Confirmed Apixaban [Eliquis] 5 mg PO DAILY 04/08/23 04/08/23 Lisinopril [Zestril] 10 mg PO DAILY 04/08/23 04/08/23 Pantoprazole Sodium 40 mg PO DAILY 04/08/23 04/08/23 carvediloL [Coreg] 25 mg PO BID 04/08/23 04/08/23 hydrOXYzine HCL [Hydroxyzine HCl] 25 - 50 mg PO DAILY PRN 04/08/23 04/08/23 - PHYSICAL EXAM AT DISCHARGE General Appearance: positive: Alert, Mild distress, Anxious Eyes Bilateral: positive: Normal inspection ENT: positive: No signs of dehydration Neck: positive: Nml inspection, No JVD Respiratory: positive: No respiratory distress Cardiovascular: positive: Regular rate & rhythm Abdomen: positive: Non-tender, No distention Skin: positive: Warm, Dry Extremities: positive: Other (right arm is swollen and red, tender to touch ) Neurologic/Psychiatric: positive: Disoriented to place, Disoriented to time, Weakness - LABS Result Diagrams: 04/08/23 04:45 04/08/23 04:45 - TIME SPENT Time Spent in Discharge (Minutes): 45 (> 30 minutes was spent planning discharge)"
[2023-04-10] MEDS: LIDOCAINE PATCH 4% TOP SCH (08:51)
[2023-04-10 14:37] VITALS: BP 127/91; O2SAT 95
== END 2023-04-10 14:55 | disposition short-term general hospital (02) | DRG 312 ==
LOC: EDUNIT# → ED 14:34 → MS2 17:37
PROVIDERS: ADMIT Internal Medicine; ATTEND Specialist
DX: R55 Syncope and collapse (principal); I48.20 Chronic atrial fibrillation, unspecified; I45.10 Unspecified right bundle-branch block; R13.10 Dysphagia, unspecified; E78.00 Pure hypercholesterolemia, unspecified; R53.1 Weakness; R29.898 Other symptoms and signs involving the musculoskeletal system; M47.812 Spondylosis without myelopathy or radiculopathy, cervical region; R22.31 Localized swelling, mass and lump, right upper limb; F41.9 Anxiety disorder, unspecified; I48.91 Unspecified atrial fibrillation; E87.6 Hypokalemia; E83.42 Hypomagnesemia; R63.4 Abnormal weight loss; Z68.33 Body mass index [BMI] 33.0-33.9, adult; R68.81 Early satiety; E11.9 Type 2 diabetes mellitus without complications; I10 Essential (primary) hypertension; R20.0 Anesthesia of skin; E11.42 Type 2 diabetes mellitus with diabetic polyneuropathy; M79.601 Pain in right arm
CPT/HCPCS: 36415; 70450; 70551; 71045; 71250; 72040; 80048; 80053; 80306; 82607; 83036; 83690; 83735; 84100; 84484; 85025; 93005; 93307; 93971; 96365; 96375; 99285; A9270; G0480; J2060; J2765; 82077

== ENCOUNTER 2023-07-23 13:26 | Outpatient (CLI) | payer MEDICARE, OTHER | END 2023-07-23 23:59 | disposition critical access hospital (66) | LOC: EMS 13:26 | DX: R53.1 Weakness (principal); R10.30 Lower abdominal pain, unspecified; K59.00 Constipation, unspecified; M79.89 Other specified soft tissue disorders | CPT/HCPCS: A0425; A0429 ==

== ENCOUNTER 2023-07-23 13:49 | Emergency (ER) | payer MEDICARE, OTHER ==
--- NOTE | 2023-07-23 14:00 | ED Physician Documentation ---
History of Present Illness - Stated complaint Stated Complaint: WEAKNESS - History obtained from History obtained from: Patient, EMS - Additonal information Additional information: 78 yo male with hx afib, oa, anxiety.Admit here in March with weakness. Transferred to [facility]. Subsequent dx MG and had first igg infusion [facility] 1 week ago.Since then generally weak with low abd pain and no bm x about 4 days.No n/v.No chest pain/soa His dyspahgia is improving since igg infusion. PD PAST MEDICAL HISTORY - Past Medical History Cardiovascular: Hypertension, High cholesterol, Atrial fibrillation Respiratory: None Neuro: None Endocrine/Autoimmune: Type 2 diabetes GI: None : None HEENT: None Psych: Anxiety Musculoskeletal: Osteoarthritis Derm: None - Past Surgical History Past Surgical History: Yes Ortho: Knee replacement, Arthroscopic surgery - Present Medications Home Medications: Ambulatory Orders Medication Instructions Recorded Confirmed Apixaban [Eliquis] 5 mg PO DAILY 04/08/23 07/23/23 Pantoprazole Sodium 40 mg PO DAILY 04/08/23 07/23/23 carvediloL [Coreg] 6.25 mg PO BID 04/08/23 07/23/23 hydrOXYzine HCL [Hydroxyzine HCl] 25 - 50 mg PO DAILY PRN 04/08/23 07/23/23 Tamsulosin [Flomax] 0.4 mg PO DAILY #14 cap 07/23/23 predniSONE [Prednisone] 10 mg PO DAILY 07/23/23 07/23/23 pyRIDostigmine bromide 60 mg PO DAILY 07/23/23 07/23/23 [Pyridostigmine [place]] pyRIDostigmine bromide 60 mg PO DAILY 07/23/23 07/23/23 [Pyridostigmine [place]] pyRIDostigmine bromide 60 mg PO DAILY 07/23/23 07/23/23 [Pyridostigmine [place]] - Allergies Allergies/Adverse Reactions: Allergies Allergy/AdvReac Type Severity Reaction Status Date / Time Iodine and Iodide Containing Allergy Intermediate Hives Verified 07/23/23 15:20 Produc oxycodone HCl * AdvReac Severe Hallucinati Verified 07/23/23 15:20 [From Percocet] ons - Social History Does the pt smoke?: No Smoking Status: Never smoker Does the pt drink ETOH?: No Does the pt have substance abuse?: No - Immunizations Immunizations are current?: No - POLST Patient has POLST: No POLST Status: Full Code PD ED PE NORMAL - Vitals Vital signs reviewed: Yes - General General: Alert and oriented X 3, No acute distress - HEENT HEENT: Ears normal, Pharynx benign - Neck Neck: Supple, no meningeal sign, No bony TTP - Cardiac Cardiac: Other (rapid/irregular) - Respiratory Respiratory: No respiratory distress, Clear bilaterally - Abdomen Abdomen: Other (mild low abd ttp, slightly firm, no surgical signs.) - Extremities Extremities: No edema, No calf tenderness / cord - Neuro Neuro: Alert and oriented X 3 Eye Opening: Spontaneous Motor: Obeys Commands Verbal: Oriented GCS Score: 15 Results - Vitals Vitals: Vital Signs - 24 hr 07/23/23 07/23/23 07/23/23 14:06 16:01 17:54 Temperature 36.7 C 36.7 C Heart Rate 117 H 79 101 H Respiratory 19 17 26 H Rate Blood Pressure 105/70 122/93 H 133/97 H O2 Saturation 94 95 97 Oxygen O2 Source [] Room air O2 Source [] Room air O2 Source Room air - EKG (time done) 1423 EKG releavant findings:: EKG personally interpreted by author of this note. Relevant findings are: Rate: Rate (enter#) (107) Rhythm: Atrial fibrillation [place]: Normal Intervals: RBBB Ischemia: Normal ST segments Compare to prior EKG: Unchanged from prior EKG (no sig chg from 03/31/23) Computer interpretation: Agree with computer - Labs Labs: Laboratory Tests 07/23/23 07/23/23 07/23/23 14:05 14:05 15:50 WBC 11.6 H RBC 4.32 L Hgb 12.2 L Hct 37.5 L MCV 86.8 MCH 28.2 MCHC 32.5 RDW 14.0 Plt Count 241 MPV 10.0 Neut # (Auto) 10.5 H Lymph # (Auto) 0.6 L [place] # (Auto) 0.4 Eos # (Auto) 0.0 Baso # (Auto) 0.0 Absolute Nucleated RBC 0.00 Nucleated RBC % 0.0 Sodium 138 Potassium 4.0 Chloride 103 Carbon Dioxide 27 Anion Gap 8.0 BUN 42 H Creatinine 1.4 H Estimated GFR (MDRD) 49 L Glucose 139 H Calcium 9.4 Magnesium 1.9 Total Bilirubin 1.6 H AST 14 ALT 13 Alkaline Phosphatase 65 Total Protein 6.6 Albumin 3.4 Globulin 3.2 Albumin/Globulin Ratio 1.1 Urine Color BROWN Urine Clarity HAZY Urine pH 6.0 Ur Specific [place] 1.015 Urine Protein TRACE Urine Glucose (UA) NEGATIVE Urine Ketones NEGATIVE Urine Occult Blood LARGE H Urine Nitrite NEGATIVE Urine Bilirubin SMALL H Urine Urobilinogen 0.2 (NORMAL) Ur Leukocyte Esterase NEGATIVE Urine RBC TNTC H Urine WBC 0-3 Ur Squamous Epith Cells NONE SEEN Urine Bacteria None Seen Ur Microscopic Review INDICATED Urine Culture Comments NOT INDICATED - Rads (name of study) CT abdomen pelvis showing severe prostatomegaly with bladder outlet obstruction and hydronephrosis bilaterally. Relevant Findings:: Final report received, EMP independent interpretation of test PD Medical Decision Making - ED course Complexity details: reviewed results (Cbc - mild anemia, mild leukocytosis. CMP- mild ismael, elev bili is chronic) ED course: He presents with generalized weakness and lower abdominal discomfort in the setting of recent diagnosis of myasthenia and he is on. He is on pyridostigmine and recent IvIG infusion. Workup in the emergency department demonstrates that he has urinary retention likely related to prostate issues. He was constipated but not a large stool load to my eye on CT. A Ordonez was placed. He was also given IV fluids. Initially had ordered some metoprolol for A-fib with RVR but his pressure was low and his blood pressure and A-fib rate improved with IV fluids. After the placement of a Ordonez catheter about 2 L of urine came out. It was bloody. He felt much better though. His blood pressure came up and his heart rate came down. He was counseled on Ordonez care as well as follow-up with both urology and neurology. Departure - Departure Disposition: Home, Self Care Clinical Impression: Urinary retention, Weakness Condition: Good Record reviewed to determine appropriate education?: Yes Instructions: ED Catheter Care Ordonez, ED Retention Urinary Male Follow-Up: Abdifatah Denise MD [Provider Admit Priv/Credential] - Prescriptions: Tamsulosin [Flomax] 0.4 mg PO DAILY #14 cap Comments: You were seen today for urinary retention causing mild kidney damage and a large prostate. The kidney damage should be reversed now that your urine is draining. You should keep the Ordonez in and follow-up with the urologist regarding that. 1 is listed on this form, but as we discussed if the surgery was needed, given your myasthenia, he might need to refer you to a larger facility. Drink plenty of fluids and also follow-up with your neurologist to see if your myasthenia and treatment for same could be contributing to this, but it does appear that you have a very large prostate which commonly causes urinary retention. Discharge Date/Time: 07/23/23 17:56
[2023-07-23 14:11] LABS: BASOPHILS % (AUTO) 0.1 %; EOSINOPHILS % (AUTO) 0.3 %; HCT - HEMATOCRIT 37.5 % (42.0-52.0); HGB - HEMOGLOBIN 12.2 g/dL (14.0-18.0); LYMPHOCYTES # (AUTO) 0.6 10^3/uL (1.5-3.5); LYMPHOCYTES % (AUTO) 4.8 %; MEAN CORPUSCULAR HEMOGLOBIN 28.2 pg (27.0-31.0); MEAN CORPUSCULAR HGB CONC 32.5 g/dL (32.0-36.0); MEAN CORPUSCULAR VOLUME 86.8 fL (80.0-94.0); MONOCYTES # (AUTO) 0.4 10^3/uL (0.0-1.0); MONOCYTES % (AUTO) 3.6 %; NEUTROPHILS # (AUTO) 10.5 10^3/uL (1.5-6.6); NEUTROPHILS % (AUTO) 90.6 %; PLT - PLATELET COUNT 241 10^3/uL (130-450); RED BLOOD COUNT 4.32 10^6/uL (4.70-6.10); WHITE BLOOD COUNT 11.6 x10^3/uL (4.8-10.8)
[2023-07-23 14:20] LABS: MAGNESIUM 1.9 mg/dL (1.7-2.3)
[2023-07-23 14:25] LABS: ALBUMIN 3.4 g/dL (3.2-5.5); ALBUMIN/GLOBULIN RATIO 1.1 (1.0-2.2); BILIRUBIN,TOTAL 1.6 mg/dL (0.2-1.0); CALCIUM 9.4 mg/dL (8.5-10.3); CREATININE 1.4 mg/dL (0.6-1.3); TOTAL PROTEIN 6.6 g/dL (6.4-8.9)
[2023-07-23] MEDS: METOPROLOL 5 MG/5 ML VIAL IVP STA (14:32)
[2023-07-23] MEDS: SODIUM CHLORIDE 0.9% 1,000 ML IV STA (14:33)
[2023-07-23] MEDS: MAGNESIUM CITRATE 296 ML BOTTLE PO STA (14:33)
[2023-07-23] MEDS ORDERED: iohexoL-300 100 ML VIAL ONE (14:37)
--- NOTE | 2023-07-23 15:39 | CT Report ---
PROCEDURE: Abdomen/Pelvis WO INDICATIONS: abd pain TECHNIQUE: A CT scan of the abdomen and pelvis was performed without the use of intravenous contrast. Images we re recorded and evaluated at appropriate window settings. Reformats: coronal and sagittal. For radiat ion dose reduction, the following was used: automated exposure control, adjustment of mA and/or kV ac cording to patient size. COMPARISON: CT abdomen pelvis 03/22/2023 FINDINGS: Image quality: Diagnostic. Lower chest: Linear atelectasis versus scarring at the bilateral bases. Liver: No contour-deforming mass. Gallbladder: No radiopaque stones or wall thickening. Biliary tree: No intrahepatic or extrahepatic dilation, accounting for age. Spleen: No splenomegaly. Pancreas: No pancreatic ductal dilation. Adrenals: No adrenal nodule. Kidneys and ureters: Moderate bilateral hydronephrosis. Bilateral perinephric stranding. No renal sto [place]. Moderate bilateral hydroureter. Stomach, bowel and peritoneum: No gastric or small bowel dilation. No abnormal wall thickening. No pa thologic free fluid. Diverticulosis without evidence of diverticulitis. Normal appendix. Lymph nodes: No central or retroperitoneal adenopathy. Vessels: No infrarenal aortic aneurysm. Atherosclerotic vascular calcifications. Reproductive organs: Significant prostatomegaly measuring up to 8 cm in transverse dimension. There i s indentation of the base of the urinary bladder. Bladder: Urinary bladder is markedly distended.. Pelvic lymph nodes: No adenopathy by size criteria. Bones: No aggressive osseous abnormality. Degenerative changes of the spine. Diffusely decreased osse ous mineralization. Other: Small bilateral fat-containing inguinal hernia. IMPRESSION: Severe prostatomegaly with findings concerning for bladder outlet obstruction. The urinary bladder is markedly distended with moderate bilateral hydroureteronephrosis. Reviewed by: Vignesh Roberts MD on 07/23/2023 3:37 PM PDT Approved by: Vignesh Roberts MD on 07/23/2023 3:37 PM PDT Station ID: [id number]
[2023-07-23 16:08] LABS: BILIRUBIN,URINE SMALL (NEGATIVE); GLUCOSE, URINE (UA) NEGATIVE (NEGATIVE); KETONES,URINE (UA) NEGATIVE (NEGATIVE); LEUKOCYTE ESTERASE, URINE NEGATIVE (NEGATIVE); NITRITE,URINE NEGATIVE (NEGATIVE); OCCULT BLOOD,URINE LARGE (NEGATIVE); PROTEIN,URINE TRACE mg/dL (NEGATIVE); UROBILINOGEN,URINE 0.2 (NORMAL) E.U./dL (NORMAL)
[2023-07-23 16:09] LABS: CLARITY,URINE HAZY (CLEAR)
[2023-07-23 16:22] LABS: BACTERIA,URINE None Seen /HPF (None Seen); RBC,URINE TNTC /HPF (0-5); SQUAMOUS EPITHELIAL CELL,UR NONE SEEN (<= Few); WBC,URINE 0-3 /HPF (0-3)
[2023-07-23 17:56] VITALS: BP 133/97; O2SAT 97
== END 2023-07-23 17:56 | disposition home or self-care (01) ==
LOC: EDUNIT# → ED 13:49
DX: N40.1 Benign prostatic hyperplasia with lower urinary tract symptoms (principal); R33.8 Other retention of urine; R31.9 Hematuria, unspecified; K59.00 Constipation, unspecified; I48.91 Unspecified atrial fibrillation; I95.9 Hypotension, unspecified; R53.1 Weakness; G70.00 Myasthenia gravis without (acute) exacerbation
CPT/HCPCS: 36415; 51702; 80053; 81001; 81003; 83735; 85025; 87086; 93005; 99284

== ENCOUNTER 2023-07-25 11:41 | Emergency (ER) | payer MEDICARE, OTHER ==
[2023-07-25 11:55] VITALS: BP 121/75; O2SAT 99
--- NOTE | 2023-07-25 12:07 | ED Physician Documentation ---
History of Present Illness - Stated complaint Stated Complaint: CATHETER NOT FLOWING - Chief complaint Chief Complaint: General - History obtained from History obtained from: Patient - Additonal information Additional information: 78-year-old gentleman that I saw 2 days ago for generalized weakness in the setting of myasthenia. He was noted to have urinary retention with hematuria and very large prostate on imaging. A Ordonez was placed and he returns today with the Ordonez not draining after having some clots out. PD PAST MEDICAL HISTORY - Past Medical History Past Medical History: Yes Cardiovascular: Hypertension, High cholesterol, Atrial fibrillation Respiratory: None Neuro: Other Endocrine/Autoimmune: Type 2 diabetes GI: None : None HEENT: None Psych: Anxiety Musculoskeletal: Osteoarthritis Derm: None - Past Surgical History Past Surgical History: Yes Ortho: Knee replacement, Arthroscopic surgery - Present Medications Home Medications: Ambulatory Orders Medication Instructions Recorded Confirmed Apixaban [Eliquis] 5 mg PO DAILY 04/08/23 07/23/23 Pantoprazole Sodium 40 mg PO DAILY 04/08/23 07/23/23 carvediloL [Coreg] 6.25 mg PO BID 04/08/23 07/23/23 hydrOXYzine HCL [Hydroxyzine HCl] 25 - 50 mg PO DAILY PRN 04/08/23 07/23/23 Tamsulosin [Flomax] 0.4 mg PO DAILY #14 cap 07/23/23 predniSONE [Prednisone] 10 mg PO DAILY 07/23/23 07/23/23 pyRIDostigmine bromide 60 mg PO DAILY 07/23/23 07/23/23 [Pyridostigmine [place]] pyRIDostigmine bromide 60 mg PO DAILY 07/23/23 07/23/23 [Pyridostigmine [place]] pyRIDostigmine bromide 60 mg PO DAILY 07/23/23 07/23/23 [Pyridostigmine [place]] - Allergies Allergies/Adverse Reactions: Allergies Allergy/AdvReac Type Severity Reaction Status Date / Time Iodine and Iodide Containing Allergy Intermediate Hives Verified 07/25/23 11:49 Produc oxycodone HCl * AdvReac Severe Hallucinati Verified 07/25/23 11:49 [From Percocet] ons - Social History Does the pt smoke?: No Smoking Status: Never smoker Does the pt drink ETOH?: No Does the pt have substance abuse?: No - Immunizations Immunizations are current?: No Immunizations: Other immun not current - POLST Patient has POLST: No POLST Status: Full Code PD ED PE NORMAL - Vitals Vital signs reviewed: Yes - General General: Alert and oriented X 3, No acute distress - Abdomen Abdomen: Normal bowel sounds, Soft, Non tender - Male Male : Other (Ordonez catheter in place. He has a leg bag which has some gross blood in it but not a lot of urine volume. I attempted to flush the catheter at bedside during initial evaluation. Catheter was able to flush inward but nothing returned. Asked RN to place larger three-way.) - Derm Derm: Normal color, Warm and dry - Extremities Extremities: No edema - Neuro Neuro: Alert and oriented X 3 Results - Vitals Vitals: Vital Signs - 24 hr 07/25/23 11:49 Temperature 36.6 C Heart Rate 99 Respiratory 20 Rate Blood Pressure 121/75 O2 Saturation 99 Oxygen O2 Source [With Activity] Room air O2 Source [Without Activity] Room air O2 Source Room air - Labs Labs: Laboratory Tests 07/25/23 07/25/23 12:13 12:13 WBC 10.7 RBC 4.21 L Hgb 11.6 L Hct 36.4 L MCV 86.5 MCH 27.6 MCHC 31.9 L RDW 14.4 Plt Count 245 MPV 9.6 Neut # (Auto) 8.6 H Lymph # (Auto) 1.3 L [place] # (Auto) 0.5 Eos # (Auto) 0.2 Baso # (Auto) 0.0 Absolute Nucleated RBC 0.00 Nucleated RBC % 0.0 Sodium 140 Potassium 3.5 Chloride 102 Carbon Dioxide 29 Anion Gap 9.0 BUN 36 H Creatinine 1.0 Estimated GFR (MDRD) 72 L Glucose 112 H Calcium 9.4 PD Medical Decision Making - ED course ED course: He has hematuria with a clogged Ordonez catheter. His BMP shows improvement from the other day with his GFR going up to 72 from 49. Catheter was replaced with a three-way by the nurse and flushed until clear. Initial output was 1700 mL. The Ordonez continues to drain after that. Departure - Departure Disposition: Home, Self Care Clinical Impression: Gross hematuria, Urinary retention Condition: Good Record reviewed to determine appropriate education?: Yes Instructions: ED Catheter Care Ordonez, ED Hematuria Follow-Up: Abdifatah Denise MD [Provider Admit Priv/Credential] - Comments: You were seen today for a clogged Ordonez catheter. Make sure to follow-up with the urologist, calling tomorrow for next available appointment. Drink plenty of fluids. Your kidney function has improved significantly from the labs done the other day. Return if worse or if the catheter clogged again. Forms: PCP List Discharge Date/Time: 07/25/23 13:39
[2023-07-25 12:19] LABS: BASOPHILS % (AUTO) 0.1 %; EOSINOPHILS # (AUTO) 0.2 10^3/uL (0.0-0.7); EOSINOPHILS % (AUTO) 1.4 %; HCT - HEMATOCRIT 36.4 % (42.0-52.0); HGB - HEMOGLOBIN 11.6 g/dL (14.0-18.0); LYMPHOCYTES # (AUTO) 1.3 10^3/uL (1.5-3.5); MEAN CORPUSCULAR HEMOGLOBIN 27.6 pg (27.0-31.0); MEAN CORPUSCULAR HGB CONC 31.9 g/dL (32.0-36.0); MEAN CORPUSCULAR VOLUME 86.5 fL (80.0-94.0); MEAN PLATELET VOLUME 9.6 fL (7.4-11.4); MONOCYTES # (AUTO) 0.5 10^3/uL (0.0-1.0); MONOCYTES % (AUTO) 4.6 %; NEUTROPHILS # (AUTO) 8.6 10^3/uL (1.5-6.6); NEUTROPHILS % (AUTO) 81.1 %; PLT - PLATELET COUNT 245 10^3/uL (130-450); RED BLOOD COUNT 4.21 10^6/uL (4.70-6.10); RED CELL DISTRIBUTION WIDTH 14.4 % (12.0-15.0); WHITE BLOOD COUNT 10.7 x10^3/uL (4.8-10.8)
[2023-07-25] MEDS ORDERED: LIDOCAINE JELLY 2% 6 ML JEL.PF.APP ONE (12:27)
[2023-07-25 12:48] LABS: CALCIUM 9.4 mg/dL (8.5-10.3); POTASSIUM 3.5 mmol/L (3.5-4.5)
[2023-07-25] MEDS: LIDOCAINE 2% URO-JET 5 ML SYRINGE UR STA (13:12)
[2023-07-25] MEDS: LIDOCAINE JELLY 2% 6 ML JEL.PF.APP TOP STA (13:13)
== END 2023-07-25 13:39 | disposition home or self-care (01) ==
LOC: ED 11:41
DX: T83.098A Other mechanical complication of other urinary catheter, initial encounter (principal); R33.9 Retention of urine, unspecified; R31.0 Gross hematuria; I10 Essential (primary) hypertension; E11.9 Type 2 diabetes mellitus without complications; I48.91 Unspecified atrial fibrillation; Z79.01 Long term (current) use of anticoagulants; E78.00 Pure hypercholesterolemia, unspecified
CPT/HCPCS: 36415; 51702; 80048; 85025; 99283

== ENCOUNTER 2023-08-06 11:37 | Emergency (ER) | payer MEDICARE, OTHER ==
--- NOTE | 2023-08-06 12:47 | ED Physician Documentation ---
History of Present Illness - Stated complaint Stated Complaint: /CATH ISSUE - Chief complaint Chief Complaint: General - Additonal information Additional information: 78-year-old male on Eliquis for A-fib presents to the emergency department for hannah hematuria. Patient has been here a few times now mostly for urinary retention he was here recently for hematuria had his Ordonez swapped out with a little bit of continuous bladder irrigation eventually the hematuria had fully resolved and patient was discharged home. He had a CT scan on 07/22 that showed severe prostatomegaly concerning for bladder outlet obstruction with urinary bladder markedly distended. He is endorsing and bladder pain/abdominal pain. Supportive is at bedside. They started to notice some hematuria couple days ago that has increased in severity to the point that today now minimal to no output with dark brown/red urinary output. Upon my initial examination the Ordonez catheter is coming out of the top of his brief and there is some mild bruising to the scrotal area. Unsure if he has had any fevers or chills they have not been able to follow-up with urology outpatient and for this new urinary retention and bladder outlet obstruction. PD PAST MEDICAL HISTORY - Past Medical History Cardiovascular: Hypertension, High cholesterol, Atrial fibrillation Respiratory: None Neuro: Other Endocrine/Autoimmune: Type 2 diabetes GI: None : None HEENT: None Psych: Anxiety Musculoskeletal: Osteoarthritis Derm: None Other Past Medical History: indwelling urinary catheter - Past Surgical History Past Surgical History: Yes Ortho: Knee replacement, Arthroscopic surgery - Present Medications Home Medications: Ambulatory Orders Medication Instructions Recorded Confirmed Apixaban [Eliquis] 5 mg PO DAILY 04/08/23 08/06/23 Pantoprazole Sodium 40 mg PO DAILY 04/08/23 08/06/23 carvediloL [Coreg] 6.25 mg PO BID 04/08/23 08/06/23 hydrOXYzine HCL [Hydroxyzine HCl] 25 - 50 mg PO DAILY PRN 04/08/23 08/06/23 Tamsulosin [Flomax] 0.4 mg PO DAILY #14 cap 07/23/23 08/06/23 predniSONE [Prednisone] 40 mg PO DAILY 07/23/23 08/06/23 pyRIDostigmine bromide 90 mg PO DAILY 07/23/23 08/06/23 [Pyridostigmine [place]] Cefuroxime Axetil [Cefuroxime] 500 mg PO BID 10 Days #20 tablet 08/06/23 - Allergies Allergies/Adverse Reactions: Allergies Allergy/AdvReac Type Severity Reaction Status Date / Time Iodine and Iodide Containing Allergy Intermediate Hives Verified 08/06/23 11:42 Produc oxycodone HCl * AdvReac Severe Hallucinati Verified 08/06/23 11:42 [From Percocet] ons - Social History Does the pt smoke?: No Smoking Status: Never smoker Does the pt drink ETOH?: No Does the pt have substance abuse?: No - Immunizations Immunizations are current?: No Immunizations: Other immun not current - POLST Patient has POLST: No POLST Status: Full Code PD ED PE NORMAL - Vitals Vital signs reviewed: Yes - General General: Alert and oriented X 3, No acute distress, Well developed/nourished - Abdomen Abdomen: Normal bowel sounds (Suprapubic tenderness), Soft, No organomegaly, Other. No: Non tender - Male Male : Neon Sign Mechanic present (ILNEE Aaron present for exam), Other (Mild bruising to the scrotal area normal penile exam.) - Back Back: No CVA TTP - Extremities Extremities: No deformity, No edema - Psych Psych: Normal mood, Normal affect Results - Vitals Vitals: Vital Signs - 24 hr 08/06/23 08/06/23 08/06/23 11:42 13:46 15:00 Temperature 36.5 C Heart Rate 81 72 76 Respiratory 16 17 16 Rate Blood Pressure 125/81 H 154/108 H 149/97 H O2 Saturation 99 99 97 08/06/23 08/06/23 08/06/23 16:32 18:00 18:30 Temperature 36.3 C L Heart Rate 74 82 82 Respiratory 15 17 16 Rate Blood Pressure 146/92 H 148/98 H 145/102 H O2 Saturation 96 98 97 Oxygen O2 Source [With Activity] Room air O2 Source [Without Activity] Room air O2 Source Room air - Labs Labs: Laboratory Tests 08/06/23 08/06/23 08/06/23 13:26 13:26 13:49 WBC 11.2 H RBC 4.11 L Hgb 11.8 L Hct 37.1 L MCV 90.3 MCH 28.7 MCHC 31.8 L RDW 16.3 H Plt Count 257 MPV 9.6 Neut # (Auto) 10.0 H Lymph # (Auto) 0.7 L [place] # (Auto) 0.4 Eos # (Auto) 0.1 Baso # (Auto) 0.0 Absolute Nucleated RBC 0.00 Nucleated RBC % 0.0 Sodium 140 Potassium 4.5 Chloride 103 Carbon Dioxide 34 H Anion Gap 3.0 L BUN 22 H Creatinine 0.8 Estimated GFR (MDRD) 94 Glucose 122 H Calcium 9.1 Magnesium 1.9 Total Bilirubin 0.9 AST 14 ALT 12 Alkaline Phosphatase 66 Total Protein 5.9 L Albumin 3.2 Globulin 2.7 Albumin/Globulin Ratio 1.2 Lipase 26 Urine Color RED/BLOODY Urine Clarity TURBID Urine pH 8.5 H Ur Specific [place] 1.025 Urine Protein >=300 H Urine Glucose (UA) 100 H Urine Ketones NEGATIVE Urine Occult Blood LARGE H Urine Nitrite POSITIVE H Urine Bilirubin SMALL H Urine Urobilinogen 1 (NORMAL) Ur Leukocyte Esterase MODERATE H Urine RBC TNTC H Urine WBC 0-3 Ur Squamous Epith Cells NONE SEEN Urine Bacteria Rare Ur Microscopic Review INDICATED Urine Culture Comments INDICATED PD Medical Decision Making - ED course ED course: 78-year-old male presents emergency department for hannah hematuria. Ordonez catheter was swapped here in the emergency department and hannah blood was visualized in Ordonez catheter. Ordonez catheter was swapped and urine collection was sent from the new Ordonez catheter which ended up having large amount of blood, leukocytes and nitrites. He was given 1 dose of IV Rocephin here in the emergency department for his urinary tract infection and urine was sent for cultures for further evaluation. CBI was set up and patient received about a total of 4 bags of normal saline for his continuous bladder irrigation. Urologist Dr. Denise was notified and he came to bedside to evaluate the patient. At this point in time he does not believe any hospitalization is required as his urine is starting to clear up and turning more pink-tinged. There is no more further blood clots noted in his urine. Patient has an appointment with Dr. Denise outpatient on Wednesday he is told to discontinue his Eliquis for his ongoing hematuria until he is able to follow-up with Dr. Denise. Prescription of cefuroxime sent to patient's preferred pharmacy I did consider patient's myasthenia gravis with him picking antibiotic prescription and cephalosporins do not appear to be on the list of medications to avoid for myasthenia gravis. Patient as well as his are given very strict ER return precautions he is told that we will call him in a couple days if he needs to change antibiotic prescription. All questions have been answered patient is safe for discharge at this time. Departure - Departure Disposition: 01 Home, Self Care Clinical Impression: Hematuria, Catheter-associated urinary tract infection Instructions: Catheter Bag Urinary Empty Clean, Leg Bag Care Dc, ED Catheter Care Ordonez, ED UTI Cystitis Male Prescriptions: Cefuroxime Axetil [Cefuroxime] 500 mg PO BID 10 Days #20 tablet Comments: Thank you for trusting us with your care. We have given you a dose of IV Rocephin here in the emergency department for your urinary tract infection as well as continuous bladder irrigation to help with your urinary obstruction. We have stopped your Ordonez catheter and sent your urine for further cultures we will call you in a couple days if you need to change antibiotics. In the meantime I am starting on antibiotic called cefuroxime you will take it twice a day for the next 10 days. If you are able to hold off on your Protonix, also known as pantoprazole this can sometimes make the antibiotic not as strong. Please follow-up with Dr. Denise outpatient on Wednesday for further evaluation about what to do and how to manage your bladder obstruction. Discontinue taking your Eliquis until you are able to follow-up with Dr. Denise please come back to the ER if you are noticing worsening dark bloody urine worsening pain or any other concerning emergent symptoms. Forms: PCP List Discharge Date/Time: 08/06/23 18:33
[2023-08-06 13:32] LABS: BASOPHILS % (AUTO) 0.2 %; EOSINOPHILS # (AUTO) 0.1 10^3/uL (0.0-0.7); EOSINOPHILS % (AUTO) 0.7 %; HCT - HEMATOCRIT 37.1 % (42.0-52.0); HGB - HEMOGLOBIN 11.8 g/dL (14.0-18.0); LYMPHOCYTES # (AUTO) 0.7 10^3/uL (1.5-3.5); LYMPHOCYTES % (AUTO) 5.8 %; MEAN CORPUSCULAR HEMOGLOBIN 28.7 pg (27.0-31.0); MEAN CORPUSCULAR HGB CONC 31.8 g/dL (32.0-36.0); MEAN CORPUSCULAR VOLUME 90.3 fL (80.0-94.0); MEAN PLATELET VOLUME 9.6 fL (7.4-11.4); MONOCYTES # (AUTO) 0.4 10^3/uL (0.0-1.0); MONOCYTES % (AUTO) 3.4 %; NEUTROPHILS % (AUTO) 88.8 %; PLT - PLATELET COUNT 257 10^3/uL (130-450); RED BLOOD COUNT 4.11 10^6/uL (4.70-6.10); RED CELL DISTRIBUTION WIDTH 16.3 % (12.0-15.0); WHITE BLOOD COUNT 11.2 x10^3/uL (4.8-10.8)
[2023-08-06 13:41] LABS: MAGNESIUM 1.9 mg/dL (1.7-2.3)
[2023-08-06 13:47] LABS: ALBUMIN 3.2 g/dL (3.2-5.5); ALBUMIN/GLOBULIN RATIO 1.2 (1.0-2.2); BILIRUBIN,TOTAL 0.9 mg/dL (0.2-1.0); CALCIUM 9.1 mg/dL (8.5-10.3); CREATININE 0.8 mg/dL (0.6-1.3); POTASSIUM 4.5 mmol/L (3.5-4.5); TOTAL PROTEIN 5.9 g/dL (6.4-8.9)
[2023-08-06 14:56] LABS: BILIRUBIN,URINE SMALL (NEGATIVE); GLUCOSE, URINE (UA) 100 mg/dL (NEGATIVE); KETONES,URINE (UA) NEGATIVE (NEGATIVE); LEUKOCYTE ESTERASE, URINE MODERATE (NEGATIVE); NITRITE,URINE POSITIVE (NEGATIVE); OCCULT BLOOD,URINE LARGE (NEGATIVE); PH,URINE 8.5 PH (5.0-7.5); PROTEIN,URINE >=300 mg/dL (NEGATIVE); UROBILINOGEN,URINE 1 (NORMAL) E.U./dL (NORMAL)
[2023-08-06 14:58] LABS: CLARITY,URINE TURBID (CLEAR)
[2023-08-06 14:59] LABS: BACTERIA,URINE Rare /HPF (None Seen); RBC,URINE TNTC /HPF (0-5); SQUAMOUS EPITHELIAL CELL,UR NONE SEEN (<= Few); WBC,URINE 0-3 /HPF (0-3)
[2023-08-06] MEDS: cefTRIAXone 1 GM in SODIUM CHLORIDE 0.9% MINIBAG 100 ML IV STA (16:45)
[2023-08-06 18:39] VITALS: BP 145/102; O2SAT 97
--- NOTE | 2023-08-06 22:12 | CONSULTATION NOTE ---
Referring Provider Name of Referring Provider:: Dr Coulter Consult Date: 08/06/23 Chief Complaint - Chief Complaint Chief Complaint: hematuria History of Present Illness - Admitted From Admitted From:: ER - History Obtained From Records Reviewed: EMR History obtained from: ER Exam Limitations: None - History of Present Illness HPI Comment/Other: Jose is a 78-year-old male with a very complex past medical history including: Myasthenia gravis, atrial fibrillation on Eliquis, hypertension. He denies prior urological evaluation. He has presented to the [facility] to be ER multiple times over the last month. Initially about 3 weeks ago he presented with sign ificant weakness and fatigue and was found to have a massively dilated bladder along with bilateral hydroureteronephrosis. He had a prostate noted to be 8 cm in the transverse dimension. A catheter was placed. Since then he has been seen now twice for gross hematuria. This is in the setting of continued anticoagulation with Eliquis. Today he comes in again with similar hematuria and clots. This resolved easily with manual irrigation and short course of continuous bladder irrigation. His urinalysis is concerning for infection. He is seen today at the bedside with his partner. He was meant to see me next Wednesday for these issues History - Past Medical History Cardiovascular: reports: Hypertension, High cholesterol, Atrial fibrillation Respiratory: reports: None Neuro: reports: Other (myasthenia gravis) Endocrine/Autoimmune: reports: Type 2 diabetes GI: reports: None : reports: None HEENT: reports: None Psych: reports: Anxiety Musculoskeletal: reports: Osteoarthritis Derm: reports: None MRSA Hx?: No Other Past Medical History: indwelling urinary catheter - Past Surgical History Ortho: reports: Knee replacement, Arthroscopic surgery - Family & Social History Living Situation: With spouse/s.o. Social History Notes: He lives at home with his , Loni. He is a non- smoker and does not drink alcohol. 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 - Substance History Use: Uses substance without health or social issues: Cannabis - POLST Patient has POLST: No POLST Status: Full Code Meds/Allgy - Home Medications Home Medications: Ambulatory Orders Medication Instructions Recorded Confirmed Apixaban [Eliquis] 5 mg PO DAILY 04/08/23 08/06/23 Pantoprazole Sodium 40 mg PO DAILY 04/08/23 08/06/23 carvediloL [Coreg] 6.25 mg PO BID 04/08/23 08/06/23 hydrOXYzine HCL [Hydroxyzine HCl] 25 - 50 mg PO DAILY PRN 04/08/23 08/06/23 Tamsulosin [Flomax] 0.4 mg PO DAILY #14 cap 07/23/23 08/06/23 predniSONE [Prednisone] 40 mg PO DAILY 07/23/23 08/06/23 pyRIDostigmine bromide 90 mg PO DAILY 07/23/23 08/06/23 [Pyridostigmine [place]] Cefuroxime Axetil [Cefuroxime] 500 mg PO BID 10 Days #20 tablet 08/06/23 - Allergies Allergies/Adverse Reactions: Allergies Allergy/AdvReac Type Severity Reaction Status Date / Time Iodine and Iodide Containing Allergy Intermediate Hives Verified 08/06/23 11:42 Produc oxycodone HCl * AdvReac Severe Hallucinati Verified 08/06/23 11:42 [From Percocet] ons Exam - Vital Signs Reviewed Vital Signs: Yes Vital Signs: Vital Signs x48h Temp Pulse Resp BP Pulse Ox 08/06/23 18:30 36.3 C L 82 16 145/102 H 97 08/06/23 18:00 82 17 148/98 H 98 08/06/23 16:32 74 15 146/92 H 96 08/06/23 15:00 76 16 149/97 H 97 - Physical Exam General Appearance: positive: No acute distress, Other (Lying in bed in no acute distress. Answering questions appropriately but deferring to his /partner for most of the answers. He has a 20 [place] three-way Ordonez catheter in place w ith light pink to red-tinged urine on no continuous bladder irrigation) Conclusion and Plan - Lab Results Laboratory Results 08/06/23 13:49: Urine Color RED/BLOODY, Urine Clarity TURBID, Urine pH 8.5 H, Ur Specific [place] 1.025, Urine Protein >=300 H, Urine Glucose (UA) 100 H, Urine Ketones NEGATIVE, Urine Occult Blood LARGE H, Urine Nitrite POSITIVE H, Urine Bilirubin SMALL H, Urine Urobilinogen 1 (NORMAL), Ur Leukocyte Esterase MODERATE H, Urine RBC TNTC H, Urine WBC 0-3, Ur Squamous Epith Cells NONE SEEN, Urine Bacteria Rare, Ur Microscopic Review INDICATED, Urine Culture Comments INDICATED 08/06/23 13:26: Sodium 140, Potassium 4.5, Chloride 103, Carbon Dioxide 34 H, Anion Gap 3.0 L, BUN 22 H, Creatinine 0.8, Estimated GFR (MDRD) 94, Glucose 122 H, Calcium 9.1, Magnesium 1.9, Total Bilirubin 0.9, AST 14, ALT 12, Alkaline Phosphatase 66, Total Protein 5.9 L, Albumin 3.2, Globulin 2.7, Albumin/Globulin Ratio 1.2, Lipase 26 08/06/23 13:26: WBC 11.2 H, RBC 4.11 L, Hgb 11.8 L, Hct 37.1 L, MCV 90.3, MCH 28.7, MCHC 31.8 L, RDW 16.3 H, Plt Count 257, MPV 9.6, Neut # (Auto) 10.0 H, Lymph # (Auto) 0.7 L, [place] # (Auto) 0.4, Eos # (Auto) 0.1, Baso # (Auto) 0.0, Absolute Nucleated RBC 0.00, Nucleated RBC % 0.0 - Diagnostic Imaging Results Diagnostic Imaging Results: positive: Read independently - Diagnosis Diagnosis: BPH. Hematuria. Urinary Retention. Neurogenic Bladder - Consultation Note Consultation Note: 78-year-old male with complex medical history including myasthenia gravis, atrial fibrillation on Eliquis, presenting with combination of massive urinary retention and bilateral hydroureteronephrosis along with multiple gross hematuria events in the setting of continued anticoagulation. - Plan Plan: I evaluated the patient at the bedside and noted that he did have gross hematuria but it is resolving easily with a short course of continuous bladder irrigation. Given his history I suspect that he has hematuria from his massively enlarged prostate. This in the setting of anticoagulation can lead to significant gross hematuria. I recommend he stop anticoagulation. This should not be needed again. He should maintain his Ordonez catheter at present. He should use a bowel regimen to ensure no constipation. He should increase his fluid intake to increase his effluent. He can call us for any issues or difficulty with drainage of his catheter. He should be treated with empiric antibiotics and a urine culture should be sent. He will follow-up with me on Wednesday. I will likely recommend empiric therapy with tamsulosin and finasteride. He will need an empiric cystoscopy to assess for lower urinary tract etiologies of his hematuria besides BPH. Ultimately, given his significant deconditioning and quite significant CT findings, I suspect he will need a chronic Ordonez catheter. This of course must be balanced with his continued hematuria issues The patient and his state understanding and consent to the above plan
== END 2023-08-06 18:33 | disposition home or self-care (01) ==
LOC: ED 11:37
DX: T83.511A Infection and inflammatory reaction due to indwelling urethral catheter, initial encounter (principal); R31.0 Gross hematuria; N32.0 Bladder-neck obstruction; G70.00 Myasthenia gravis without (acute) exacerbation
CPT/HCPCS: 36415; 51702; 80053; 81001; 81003; 83690; 83735; 85025; 87077; 87086; 87181; 99284

== ENCOUNTER 2023-08-18 12:49 | Emergency (ER) | payer MEDICARE, OTHER ==
--- NOTE | 2023-08-18 20:22 | ED Physician Documentation ---
History of Present Illness - Stated complaint Stated Complaint: - Additonal information Additional information: Patient checked into the emergency department and then fairly immediately left after being triaged. He was not seen by a provider. PD PAST MEDICAL HISTORY - Past Medical History Cardiovascular: Hypertension, High cholesterol, Atrial fibrillation Respiratory: None Neuro: Other (myasthenia gravis) Endocrine/Autoimmune: Type 2 diabetes GI: None : None HEENT: None Psych: Anxiety Musculoskeletal: Osteoarthritis Derm: None - Past Surgical History Past Surgical History: Yes Ortho: Knee replacement, Arthroscopic surgery - Present Medications Home Medications: Ambulatory Orders Medication Instructions Recorded Confirmed Apixaban [Eliquis] 5 mg PO DAILY 04/08/23 08/06/23 Pantoprazole Sodium 40 mg PO DAILY 04/08/23 08/06/23 carvediloL [Coreg] 6.25 mg PO BID 04/08/23 08/06/23 hydrOXYzine HCL [Hydroxyzine HCl] 25 - 50 mg PO DAILY PRN 04/08/23 08/06/23 Tamsulosin [Flomax] 0.4 mg PO DAILY #14 cap 07/23/23 08/06/23 predniSONE [Prednisone] 40 mg PO DAILY 07/23/23 08/06/23 pyRIDostigmine bromide 90 mg PO DAILY 07/23/23 08/06/23 [Pyridostigmine [place]] Cefuroxime Axetil [Cefuroxime] 500 mg PO BID 10 Days #20 tablet 08/06/23 - Allergies Allergies/Adverse Reactions: Allergies Allergy/AdvReac Type Severity Reaction Status Date / Time Iodine and Iodide Containing Allergy Intermediate Hives Verified 08/06/23 11:42 Produc oxycodone HCl * AdvReac Severe Hallucinati Verified 08/06/23 11:42 [From Percocet] ons - Social History Does the pt smoke?: No Smoking Status: Never smoker Does the pt drink ETOH?: No Does the pt have substance abuse?: No - Immunizations Immunizations are current?: No Immunizations: Other immun not current - POLST Patient has POLST: No POLST Status: Full Code Results - Vitals Vitals: Oxygen O2 Source [With Activity] Room air O2 Source [Without Activity] Room air O2 Source Room air Departure - Departure Disposition: ED Left Without Being Seen Clinical Impression: Eloped from emergency department Discharge Date/Time: 08/18/23 12:50
== END 2023-08-18 12:50 | disposition left against medical advice (07) ==
LOC: ED 12:49
DX: Z53.21 Procedure and treatment not carried out due to patient leaving prior to being seen by health care provider (principal)

== ENCOUNTER 2023-09-06 16:49 | Outpatient (CLI) | payer MEDICARE, OTHER | END 2023-09-06 23:59 | disposition critical access hospital (66) | LOC: EMS 16:49 | DX: R55 Syncope and collapse (principal); R42 Dizziness and giddiness; R31.9 Hematuria, unspecified; I95.9 Hypotension, unspecified | CPT/HCPCS: A0425; A0427 ==

== ENCOUNTER 2023-09-06 17:03 | Emergency (ER) | payer MEDICARE, OTHER ==
--- NOTE | 2023-09-06 18:08 | ED Physician Documentation ---
History of Present Illness - Stated complaint Stated Complaint: CATH ISSUE - Chief complaint Chief Complaint: General - Additonal information Additional information: 78-year-old male with history of hypertension, hypercholesterolemia, atrial fibrillation normally anticoagulated on Eliquis but currently on hold, type 2 diabetes, BPH, anxiety, osteoarthritis Patient presents emergency department for Ordonez catheter issues. Ordonez was placed about 1 week ago due to BPH he has been noticing hannah hematuria that has been worsening over the last couple of days and today is more hannah blood. He is quite hypotensive on arrival blood pressure 79/65 he has not been on Eliquis. No trauma or accidental pulling of the catheter, pt does appear quite pale, endorses in dizziness and weakness. reports after Ordonez swap it did bleed for a couple of days, eventually cleared up, but last couple of days urine has gotten more and more dark and overal decreased output. No known recent fevers or chillds, denies any abdominal or back pain, no nausea, no vomiting. PD PAST MEDICAL HISTORY - Past Medical History Cardiovascular: Hypertension, High cholesterol, Atrial fibrillation Respiratory: None Neuro: Other Endocrine/Autoimmune: Type 2 diabetes GI: None : None HEENT: None Psych: Anxiety Musculoskeletal: Osteoarthritis Derm: None - Past Surgical History Past Surgical History: Yes Ortho: Knee replacement, Arthroscopic surgery - Present Medications Home Medications: Ambulatory Orders Medication Instructions Recorded Confirmed predniSONE [Prednisone] 40 mg PO DAILY 07/23/23 09/06/23 pyRIDostigmine bromide 90 mg PO DAILY 07/23/23 09/06/23 [Pyridostigmine [place]] Finasteride [Proscar] 1 tab PO DAILY 09/06/23 09/06/23 [id number] [Cardizem] 2 tab PO DAILY 09/06/23 09/06/23 - Allergies Allergies/Adverse Reactions: Allergies Allergy/AdvReac Type Severity Reaction Status Date / Time Iodine and Iodide Containing Allergy Intermediate Hives Verified 09/06/23 17:34 Produc oxycodone HCl * AdvReac Severe Hallucinati Verified 09/06/23 17:34 [From Percocet] ons - Social History Does the pt smoke?: No Smoking Status: Never smoker Does the pt drink ETOH?: No Does the pt have substance abuse?: No - Immunizations Immunizations are current?: No Immunizations: Other immun not current - POLST Patient has POLST: No POLST Status: Full Code PD ED PE NORMAL - Vitals Vital signs reviewed: Yes - General General: Alert and oriented X 3 (ill/pale appearing), No acute distress, Other - HEENT HEENT: Atraumatic - Abdomen Abdomen: Soft, Non tender, No organomegaly PD ED PE EXPANDED - Male Male : Circumcised, Tenderness, 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 ) Results - Vitals Vitals: Vital Signs - 24 hr 09/06/23 09/06/23 09/06/23 17:24 17:29 20:07 Temperature 36.9 C Heart Rate 97 88 81 Respiratory 22 21 18 Rate Blood Pressure 79/65 L 93/72 112/87 H O2 Saturation 92 94 98 09/06/23 09/06/23 22:17 22:26 Temperature Heart Rate 120 H 84 Respiratory 20 Rate Blood Pressure 119/97 H O2 Saturation 100 Oxygen O2 Source [With Activity] Room air O2 Source [Without Activity] Room air O2 Source Mechanical ventilator - Labs Labs: Laboratory Tests 09/06/23 09/06/23 09/06/23 17:56 17:56 17:56 WBC 11.6 H RBC 3.54 L Hgb 10.3 L Hct 33.5 L MCV 94.6 H MCH 29.1 MCHC 30.7 L RDW 14.8 Plt Count 209 MPV 10.3 Neut # (Auto) 10.6 H Lymph # (Auto) 0.5 L Leake # (Auto) 0.3 Eos # (Auto) 0.0 Baso # (Auto) 0.0 Absolute Nucleated RBC 0.00 Nucleated RBC % 0.0 PT 14.1 H INR 1.3 H APTT 24.0 L Bld Gas Analysis Time Sample Site ABG pH ABG pCO2 ABG pO2 ABG HCO3 ABG Total CO2 ABG O2 Saturation ABG Base Excess Emmanuel Test Respiration Rate O2 Delivery Device Vent Mode FiO2 Tidal Volume Sodium 139 Potassium 3.7 Chloride 106 Carbon Dioxide 26 Anion Gap 7.0 BUN 20 Creatinine 0.8 Estimated GFR (MDRD) 94 Glucose 174 H POC Whole Bld Glucose Lactic Acid Calcium 8.4 L Total Bilirubin 0.8 AST 13 ALT 12 Alkaline Phosphatase 68 Troponin I High Sens Total Protein 5.0 L Albumin 2.9 L Globulin 2.1 Albumin/Globulin Ratio 1.4 Lipase 16 Blood Type Blood Type Recheck Antibody Screen Crossmatch IS Only 09/06/23 09/06/23 09/06/23 17:56 19:36 19:36 WBC RBC Hgb 10.4 L Hct 34.1 L MCV MCH MCHC RDW Plt Count MPV Neut # (Auto) Lymph # (Auto) Leake # (Auto) Eos # (Auto) Baso # (Auto) Absolute Nucleated RBC Nucleated RBC % PT INR APTT Bld Gas Analysis Time Sample Site ABG pH ABG pCO2 ABG pO2 ABG HCO3 ABG Total CO2 ABG O2 Saturation ABG Base Excess Emmanuel Test Respiration Rate O2 Delivery Device Vent Mode FiO2 Tidal Volume Sodium Potassium Chloride Carbon Dioxide Anion Gap BUN Creatinine Estimated GFR (MDRD) Glucose POC Whole Bld Glucose Lactic Acid Calcium Total Bilirubin AST ALT Alkaline Phosphatase Troponin I High Sens Total Protein Albumin Globulin Albumin/Globulin Ratio Lipase Blood Type AB POSITIVE Blood Type Recheck AB POSITIVE Antibody Screen NEGATIVE Crossmatch IS Only See Detail 09/06/23 09/06/23 09/06/23 21:35 21:41 21:41 WBC 17.4 H RBC 3.46 L Hgb 10.2 L Hct 33.5 L MCV 96.8 H MCH 29.5 MCHC 30.4 L RDW 14.9 Plt Count 213 MPV 10.5 Neut # (Auto) 13.0 H Lymph # (Auto) 3.4 Leake # (Auto) 0.5 Eos # (Auto) 0.0 Baso # (Auto) 0.0 Absolute Nucleated RBC 0.02 Nucleated RBC % 0.1 PT INR APTT Bld Gas Analysis Time Sample Site ABG pH ABG pCO2 ABG pO2 ABG HCO3 ABG Total CO2 ABG O2 Saturation ABG Base Excess Emmanuel Test Respiration Rate O2 Delivery Device Vent Mode FiO2 Tidal Volume Sodium 139 Potassium 4.1 Chloride 107 Carbon Dioxide 22 Anion Gap 10.0 BUN 20 Creatinine 0.8 Estimated GFR (MDRD) 94 Glucose 145 H POC Whole Bld Glucose 121 H Lactic Acid Calcium 8.3 L Total Bilirubin 0.8 AST 20 ALT 17 Alkaline Phosphatase 71 Troponin I High Sens Total Protein 5.0 L Albumin 2.9 L Globulin 2.1 Albumin/Globulin Ratio 1.4 Lipase 17 Blood Type Blood Type Recheck Antibody Screen Crossmatch IS Only 09/06/23 09/06/23 09/06/23 21:41 22:20 22:45 WBC RBC Hgb Hct MCV MCH MCHC RDW Plt Count MPV Neut # (Auto) Lymph # (Auto) Leake # (Auto) Eos # (Auto) Baso # (Auto) Absolute Nucleated RBC Nucleated RBC % PT 14.0 H INR 1.3 H APTT Bld Gas Analysis Time Sample Site ABG pH ABG pCO2 ABG pO2 ABG HCO3 ABG Total CO2 ABG O2 Saturation ABG Base Excess Emmanuel Test Respiration Rate O2 Delivery Device Vent Mode FiO2 Tidal Volume Sodium Potassium Chloride Carbon Dioxide Anion Gap BUN Creatinine Estimated GFR (MDRD) Glucose POC Whole Bld Glucose Lactic Acid 4.1 H* Calcium Total Bilirubin AST ALT Alkaline Phosphatase Troponin I High Sens 20.4 H* Total Protein Albumin Globulin Albumin/Globulin Ratio Lipase Blood Type Blood Type Recheck Antibody Screen Crossmatch IS Only 09/06/23 22:58 WBC RBC Hgb Hct MCV MCH MCHC RDW Plt Count MPV Neut # (Auto) Lymph # (Auto) Leake # (Auto) Eos # (Auto) Baso # (Auto) Absolute Nucleated RBC Nucleated RBC % PT INR APTT Bld Gas Analysis Time 2302 Sample Site LEFT RADIAL ABG pH 7.42 ABG pCO2 31 L ABG pO2 273 H* ABG HCO3 19.5 L ABG Total CO2 20.5 L ABG O2 Saturation 99 H ABG Base Excess -4.1 L Emmanuel Test POSITIVE Respiration Rate 20 O2 Delivery Device VENTILATOR Vent Mode ASSIST/CONTROL FiO2 100.00 Tidal Volume 500 Sodium Potassium Chloride Carbon Dioxide Anion Gap BUN Creatinine Estimated GFR (MDRD) Glucose POC Whole Bld Glucose Lactic Acid Calcium Total Bilirubin AST ALT Alkaline Phosphatase Troponin I High Sens Total Protein Albumin Globulin Albumin/Globulin Ratio Lipase Blood Type Blood Type Recheck Antibody Screen Crossmatch IS Only - Rads (name of study) Abdomen pelvis with contrast Relevant Findings:: Final report received, EMP independent interpretation of test, Other (Markedly distended bladder with normal density suggestive of hemorrhage, marked prostate enlargement. Decreased size of presumed anterior pelvic wall hematoma) PD Medical Decision Making - ED course ED course: 78-year-old male presents emergency department via EMS for hannah hematuria. is at bedside who said he has had no recent trauma or falls. He has been off of his Eliquis now for about a month and she denies any falls or any injuries to his abdomen that could be causing this hannah hematuria. She said last night he excellently pulled on the catheter but he was already having hematuria prior to pulling on that catheter. Upon arrival to the emergency department I irrigated the bladder and was able to remove multiple syringes of large blood clots. Ordonez catheter was swapped to a continuous bladder irrigation so that we could try to clear up the hannah hematuria. Patient denied any abdominal pain and no pelvic pain he does have some bruising that appears to be old to his suprapubic region and no obvious penile trauma. Patient went to CT scan with contrast of his abdomen and pelvis he has a known allergy to iodine and was able to receive iodine in the past with premedications of Benadryl and dexamethasone. Patient was given 25 mg of IV Benadryl and 10 mg IV dexamethasone prior to CT scan. He was hypotensive prior to going to CT but BP responded well with one Litre IV normal saline bolus. As patient returned from CT scan around 2100 a CODE BLUE was called and patient's RN was at bedside doing chest compressions. Patient's RN states that as he returned to the room he was having agonal snoring like breathing and said that he was not responding RN check for pulses and pulses were absent so chest compressions were immediately initiated. We eventually got ROSC and Dr. Ross came to bedside to run code and eventually intubated patient and took over care of the patient. While Dr. Ross was managing the patient I Spoke with tablet making machine operator Dr. Candido Belle with [facility] who agreed that patient would benefit transferring to a higher level of care. Dr. Ross was able to place a central line, see his note for further details. Patient Is full code and would like full interventions to live. We will transfer him via air to [facility] [place]. Departure - Departure Forms: PCP List
[2023-09-06] MEDS: SODIUM CHLORIDE 0.9% 1,000 ML IV STA (18:10)
[2023-09-06 18:13] LABS: BASOPHILS % (AUTO) 0.1 %; EOSINOPHILS % (AUTO) 0.1 %; HCT - HEMATOCRIT 33.5 % (42.0-52.0); HGB - HEMOGLOBIN 10.3 g/dL (14.0-18.0); LYMPHOCYTES # (AUTO) 0.5 10^3/uL (1.5-3.5); LYMPHOCYTES % (AUTO) 4.4 %; MEAN CORPUSCULAR HEMOGLOBIN 29.1 pg (27.0-31.0); MEAN CORPUSCULAR HGB CONC 30.7 g/dL (32.0-36.0); MEAN CORPUSCULAR VOLUME 94.6 fL (80.0-94.0); MEAN PLATELET VOLUME 10.3 fL (7.4-11.4); MONOCYTES # (AUTO) 0.3 10^3/uL (0.0-1.0); MONOCYTES % (AUTO) 2.6 %; NEUTROPHILS # (AUTO) 10.6 10^3/uL (1.5-6.6); NEUTROPHILS % (AUTO) 91.4 %; PLT - PLATELET COUNT 209 10^3/uL (130-450); RED BLOOD COUNT 3.54 10^6/uL (4.70-6.10); RED CELL DISTRIBUTION WIDTH 14.8 % (12.0-15.0); WHITE BLOOD COUNT 11.6 x10^3/uL (4.8-10.8)
[2023-09-06 18:27] LABS: INR 1.3 (0.8-1.2); PT - PROTHROMBIN TIME 14.1 secs (9.9-12.6)
[2023-09-06 18:28] LABS: ALBUMIN 2.9 g/dL (3.2-5.5); ALBUMIN/GLOBULIN RATIO 1.4 (1.0-2.2); BILIRUBIN,TOTAL 0.8 mg/dL (0.2-1.0); CALCIUM 8.4 mg/dL (8.5-10.3); CREATININE 0.8 mg/dL (0.6-1.3); POTASSIUM 3.7 mmol/L (3.5-4.5)
[2023-09-06 19:47] LABS: HCT - HEMATOCRIT 34.1 % (42.0-52.0); HGB - HEMOGLOBIN 10.4 g/dL (14.0-18.0)
[2023-09-06] MEDS: DEXAMETHASONE 10 MG/ML VIAL IVP STA (20:14)
[2023-09-06] MEDS: diphenhydrAMINE INJ 50 MG/ML VIAL IVP STA (20:15)
[2023-09-06] MEDS ORDERED: iohexoL-300 100 ML VIAL ONE (20:25)
[2023-09-06] MEDS: iohexoL-300 100 ML VIAL IVP ONE (21:10)
[2023-09-06] MEDS ORDERED: ETOMIDATE 40 MG/20 ML VIAL IVP ONE (21:30)
[2023-09-06] MEDS ORDERED: PROPOFOL 1000 MG/100 ML 1,000 MG/100 ML BOTTLE IV ONE (21:31)
[2023-09-06] MEDS ORDERED: PROPOFOL 200 MG/20 ML VIAL IVP ONE (21:31)
[2023-09-06] MEDS ORDERED: SUCCINYLCHOLINE 200 MG/10 ML VIAL ONE (21:32)
[2023-09-06] MEDS ORDERED: ROCURONIUM 50 MG/5 ML VIAL ONE (21:32)
--- NOTE | 2023-09-06 21:32 | CT Report ---
PROCEDURE: Abdomen/Pelvis W INDICATIONS: hannah hematuria CONTRAST: 100ml [id number] TECHNIQUE: After the administration of intravenous contrast, a CT scan of the abdomen and pelvis was performed. Images were recorded and evaluated at appropriate window settings. Reformats: coronal and sagittal. F or radiation dose reduction, the following was used: automated exposure control, adjustment of mA and /or kV according to patient size. COMPARISON: CT abdomen pelvis 07/23/2023 FINDINGS: Image quality: Diagnostic. Lower chest: Minimal effusions/dependent changes are present bilaterally, right greater than left. Liver: No solid mass. Punctate area of low-attenuation is present in the posterior right hepatic lobe too small to definitively characterize and unchanged. This may represent a small cyst or potentially hemangioma. Gallbladder: Unremarkable. Biliary tree: No intrahepatic or extrahepatic dilation, accounting for age. Spleen: No splenomegaly. Pancreas: No pancreatic ductal dilation. Adrenals: No adrenal nodule. Kidneys and ureters: No hydronephrosis. No renal cystic lesion which requires follow up. No solid mas s. Stomach, bowel and peritoneum: No gastric or small bowel dilation. No abnormal wall thickening. No pa thologic free fluid. Lymph nodes: No central or retroperitoneal adenopathy. Vessels: No infrarenal aortic aneurysm. Patent portal vein. PELVIS Reproductive organs: Unremarkable. Bladder: Bladder is markedly distended with luminal Hounsfield units measuring approximately 64. Fole y catheter is present. Prostate gland is enlarged. On prior exam of July 23, 2023 bladder was prominen tly distended although lumen demonstrated hypoattenuating fluid, as expected consistent with urine. Pelvic lymph nodes: No pelvic adenopathy by size criteria. Bones: No aggressive osseous abnormality. Other: Bilateral fat-containing inguinal hernia. Decreased size of presumed anterior pelvic wall swati wilver measuring 5.7 x 3.5 cm compared to 8.3 x 4.5 cm. IMPRESSION: Markedly distended bladder with luminal density suggestive of hemorrhage. Marked prostate enlargement. Decreased size of presumed anterior pelvic wall hematoma. Reviewed by: Virginie Hutchinson MD on 09/06/2023 9:30 PM PDT Approved by: Virginie Hutchinson MD on 09/06/2023 9:30 PM PDT Station ID: [id number]
[2023-09-06] MEDS: SUCCINYLCHOLINE 200 MG/10 ML VIAL IVP STA (21:35)
[2023-09-06] MEDS ORDERED: fentaNYL 100 MCG/2 ML VIAL ONE (21:40)
[2023-09-06] MEDS: ETOMIDATE 40 MG/20 ML VIAL IVP STA (21:43)
[2023-09-06] MEDS ORDERED: NOREPINEPHRINE/0.9 % NS 8 MG/250 ML BAG IV ONE (21:49)
[2023-09-06] MEDS: fentaNYL 100 MCG/2 ML VIAL IVP STA (22:05)
[2023-09-06] MEDS: PROPOFOL 1000 MG/100 ML 1,000 MG/100 ML BOTTLE IV SCH (22:10)
--- NOTE | 2023-09-06 22:10 | ED Physician Documentation ---
ED Addendum - Addendum Addendum: 09/06/23 23:19 78-year-old male with past medical significant for atrial fibrillation, recurrent episodes gross hematuria from chronic indwelling Ordonez catheter. Seen primarily by Sheri STAFFORD. Please see their documentation for further detail. Was called to bedside for CODE BLUE event. Patient became unresponsive shortly after returning from CT. Found elderly individual with chest compressions ongoing by nursing staff. Initial rhythm appeared to be pulseless electrical activity. Return of spontaneous circulation prior to the administration of any epinephrine. Patient did briefly return to a confused but alert state however had second loss of pulses and CPR was initiated. He was intubated with return of spontaneous circulation before completion of 1 round of CPR. He was transferred to room 4. He had 1 unit of emergency release blood given as he did appear to have hannah blood in his catheter. His catheter was also found to be obstructed. It was flushed with prompt return of large blood clots and red-tinged urine. His blood pressure remained tenuous and he had episodes of acute hypotension. He was started on norepinephrine through peripheral and right femoral central line was placed. Critical care - Critical Care Note Time(min): 31 Time Includes: Direct patient care, Review records, Reassess patient, Document care, Coordinate care Data interpretation: Labs, Pulse ox, ABG, CXR, Cardiac output Procedures excluded from critical care time: Central IV, Intubation Results - Vitals Vitals: Vital Signs - 24 hr 09/06/23 09/06/23 09/06/23 17:24 17:29 20:07 Temperature 36.9 C Heart Rate 97 88 81 Respiratory 22 21 18 Rate Blood Pressure 79/65 L 93/72 112/87 H O2 Saturation 92 94 98 09/06/23 09/06/23 09/06/23 22:17 22:26 23:57 Temperature Heart Rate 120 H 84 89 Respiratory 20 Rate Blood Pressure 119/97 H O2 Saturation 100 Oxygen O2 Source [] Room air O2 Source [] Room air O2 Source Mechanical ventilator - EKG (time done) 2203 EKG releavant findings:: EKG personally interpreted by author of this note. Relevant findings are: Atrial fibrillation with rate 105 bpm. Normal axis. Normal QRS interval. Prolonged QTc at [address]-T wave abnormalities throughout. - Labs Labs: Laboratory Tests 09/06/23 09/06/2324 17:56 17:56 17:56 WBC 11.6 H RBC 3.54 L Hgb 10.3 L Hct 33.5 L MCV 94.6 H MCH 29.1 MCHC 30.7 L RDW 14.8 Plt Count 209 MPV 10.3 Neut # (Auto) 10.6 H Lymph # (Auto) 0.5 L [place] # (Auto) 0.3 Eos # (Auto) 0.0 Baso # (Auto) 0.0 Absolute Nucleated RBC 0.00 Nucleated RBC % 0.0 PT 14.1 H INR 1.3 H APTT 24.0 L Bld Gas Analysis Time Sample Site ABG pH ABG pCO2 ABG pO2 ABG HCO3 ABG Total CO2 ABG O2 Saturation ABG Base Excess Emmanuel Test Respiration Rate O2 Delivery Device Vent Mode FiO2 Tidal Volume Sodium 139 Potassium 3.7 Chloride 106 Carbon Dioxide 26 Anion Gap 7.0 BUN 20 Creatinine 0.8 Estimated GFR (MDRD) 94 Glucose 174 H POC Whole Bld Glucose Lactic Acid Calcium 8.4 L Total Bilirubin 0.8 AST 13 ALT 12 Alkaline Phosphatase 68 Troponin I High Sens Total Protein 5.0 L Albumin 2.9 L Globulin 2.1 Albumin/Globulin Ratio 1.4 Lipase 16 Urine Color Urine Clarity Urine pH Ur Specific Eden Urine Protein Urine Glucose (UA) Urine Ketones Urine Occult Blood Urine Nitrite Urine Bilirubin Urine Urobilinogen Ur Leukocyte Esterase Urine RBC Urine WBC Ur Squamous Epith Cells Urine Bacteria Ur Microscopic Review Urine Culture Comments Blood Type Blood Type Recheck Antibody Screen Crossmatch IS Only 09/06/23 09/06/23 09/06/23 17:56 19:36 19:36 WBC RBC Hgb 10.4 L Hct 34.1 L MCV MCH MCHC RDW Plt Count MPV Neut # (Auto) Lymph # (Auto) [place] # (Auto) Eos # (Auto) Baso # (Auto) Absolute Nucleated RBC Nucleated RBC % PT INR APTT Bld Gas Analysis Time Sample Site ABG pH ABG pCO2 ABG pO2 ABG HCO3 ABG Total CO2 ABG O2 Saturation ABG Base Excess Emmanuel Test Respiration Rate O2 Delivery Device Vent Mode FiO2 Tidal Volume Sodium Potassium Chloride Carbon Dioxide Anion Gap BUN Creatinine Estimated GFR (MDRD) Glucose POC Whole Bld Glucose Lactic Acid Calcium Total Bilirubin AST ALT Alkaline Phosphatase Troponin I High Sens Total Protein Albumin Globulin Albumin/Globulin Ratio Lipase Urine Color Urine Clarity Urine pH Ur Specific [place] Urine Protein Urine Glucose (UA) Urine Ketones Urine Occult Blood Urine Nitrite Urine Bilirubin Urine Urobilinogen Ur Leukocyte Esterase Urine RBC Urine WBC Ur Squamous Epith Cells Urine Bacteria Ur Microscopic Review Urine Culture Comments Blood Type AB POSITIVE Blood Type Recheck AB POSITIVE Antibody Screen NEGATIVE Crossmatch IS Only See Detail 09/06/23 09/06/23 09/06/23 21:35 21:41 21:41 WBC 17.4 H RBC 3.46 L Hgb 10.2 L Hct 33.5 L MCV 96.8 H MCH 29.5 MCHC 30.4 L RDW 14.9 Plt Count 213 MPV 10.5 Neut # (Auto) 13.0 H Lymph # (Auto) 3.4 [place] # (Auto) 0.5 Eos # (Auto) 0.0 Baso # (Auto) 0.0 Absolute Nucleated RBC 0.02 Nucleated RBC % 0.1 PT INR APTT Bld Gas Analysis Time Sample Site ABG pH ABG pCO2 ABG pO2 ABG HCO3 ABG Total CO2 ABG O2 Saturation ABG Base Excess Emmanuel Test Respiration Rate O2 Delivery Device Vent Mode FiO2 Tidal Volume Sodium 139 Potassium 4.1 Chloride 107 Carbon Dioxide 22 Anion Gap 10.0 BUN 20 Creatinine 0.8 Estimated GFR (MDRD) 94 Glucose 145 H POC Whole Bld Glucose 121 H Lactic Acid Calcium 8.3 L Total Bilirubin 0.8 AST 20 ALT 17 Alkaline Phosphatase 71 Troponin I High Sens Total Protein 5.0 L Albumin 2.9 L Globulin 2.1 Albumin/Globulin Ratio 1.4 Lipase 17 Urine Color Urine Clarity Urine pH Ur Specific Eden Urine Protein Urine Glucose (UA) Urine Ketones Urine Occult Blood Urine Nitrite Urine Bilirubin Urine Urobilinogen Ur Leukocyte Esterase Urine RBC Urine WBC Ur Squamous Epith Cells Urine Bacteria Ur Microscopic Review Urine Culture Comments Blood Type Blood Type Recheck Antibody Screen Crossmatch IS Only 09/06/23 09/06/23 09/06/23 21:41 22:20 22:45 WBC RBC Hgb Hct MCV MCH MCHC RDW Plt Count MPV Neut # (Auto) Lymph # (Auto) Rincon # (Auto) Eos # (Auto) Baso # (Auto) Absolute Nucleated RBC Nucleated RBC % PT 14.0 H INR 1.3 H APTT Bld Gas Analysis Time Sample Site ABG pH ABG pCO2 ABG pO2 ABG HCO3 ABG Total CO2 ABG O2 Saturation ABG Base Excess Emmanuel Test Respiration Rate O2 Delivery Device Vent Mode FiO2 Tidal Volume Sodium Potassium Chloride Carbon Dioxide Anion Gap BUN Creatinine Estimated GFR (MDRD) Glucose POC Whole Bld Glucose Lactic Acid 4.1 H* Calcium Total Bilirubin AST ALT Alkaline Phosphatase Troponin I High Sens 20.4 H* Total Protein Albumin Globulin Albumin/Globulin Ratio Lipase Urine Color Urine Clarity Urine pH Ur Specific Eden Urine Protein Urine Glucose (UA) Urine Ketones Urine Occult Blood Urine Nitrite Urine Bilirubin Urine Urobilinogen Ur Leukocyte Esterase Urine RBC Urine WBC Ur Squamous Epith Cells Urine Bacteria Ur Microscopic Review Urine Culture Comments Blood Type Blood Type Recheck Antibody Screen Crossmatch IS Only 09/06/23 09/06/23 22:58 23:00 WBC RBC Hgb Hct MCV MCH MCHC RDW Plt Count MPV Neut # (Auto) Lymph # (Auto) [place] # (Auto) Eos # (Auto) Baso # (Auto) Absolute Nucleated RBC Nucleated RBC % PT INR APTT Bld Gas Analysis Time 2302 Sample Site LEFT RADIAL ABG pH 7.42 ABG pCO2 31 L ABG pO2 273 H* ABG HCO3 19.5 L ABG Total CO2 20.5 L ABG O2 Saturation 99 H ABG Base Excess -4.1 L Emmanuel Test POSITIVE Respiration Rate 20 O2 Delivery Device VENTILATOR Vent Mode ASSIST/CONTROL FiO2 100.00 Tidal Volume 500 Sodium Potassium Chloride Carbon Dioxide Anion Gap BUN Creatinine Estimated GFR (MDRD) Glucose POC Whole Bld Glucose Lactic Acid Calcium Total Bilirubin AST ALT Alkaline Phosphatase Troponin I High Sens Total Protein Albumin Globulin Albumin/Globulin Ratio Lipase Urine Color RED/BLOODY Urine Clarity BLOODY Urine pH 7.0 Ur Specific Eden 1.015 Urine Protein 100 H Urine Glucose (UA) NEGATIVE Urine Ketones NEGATIVE Urine Occult Blood LARGE H Urine Nitrite NEGATIVE Urine Bilirubin NEGATIVE Urine Urobilinogen 0.2 (NORMAL) Ur Leukocyte Esterase TRACE H Urine RBC TNTC H Urine WBC 0-3 Ur Squamous Epith Cells RARE Squamous Urine Bacteria Rare Ur Microscopic Review INDICATED Urine Culture Comments INDICATED Blood Type Blood Type Recheck Antibody Screen Crossmatch IS Only Procedures - Intubation - Major Provider: Emergency physician Medications: Etomidate, Succinylcholine Blade: Glidescope Tube: Size-enter number (7.5), Marked at teeth-enter cm (25), Marked at lips- enter cm (26) Route: Oral Confirmation: Direct visualization, Bilateral breath sounds, End tidal CO2 Complications: No compications - Central Line - Major Central Line Preparation: Consent Obtained (Verbal consent from patient's ), Time out completed, Ultrasound used, Sterile prep and drape Central line location: Right Femoral Central line type: Triple lumen Central line aftercare: Chlorhexidine disc placed, Secured, No complications, Pt tolerated well
[2023-09-06] MEDS: NOREPINEPHRINE/0.9 % NS 8 MG/250 ML BAG IV SCH (22:13)
[2023-09-06 22:16] LABS: BASOPHILS % (AUTO) 0.2 %; EOSINOPHILS % (AUTO) 0.1 %; HCT - HEMATOCRIT 33.5 % (42.0-52.0); HGB - HEMOGLOBIN 10.2 g/dL (14.0-18.0); LYMPHOCYTES # (AUTO) 3.4 10^3/uL (1.5-3.5); LYMPHOCYTES % (AUTO) 19.7 %; MEAN CORPUSCULAR HEMOGLOBIN 29.5 pg (27.0-31.0); MEAN CORPUSCULAR HGB CONC 30.4 g/dL (32.0-36.0); MEAN CORPUSCULAR VOLUME 96.8 fL (80.0-94.0); MEAN PLATELET VOLUME 10.5 fL (7.4-11.4); MONOCYTES # (AUTO) 0.5 10^3/uL (0.0-1.0); MONOCYTES % (AUTO) 2.9 %; NEUTROPHILS % (AUTO) 74.5 %; NRBC ABSOLUTE COUNT (AUTO) 0.02 x10^3/uL; NUCLEATED RED BLOOD CELLS AUTO 0.1 /100WBC; PLT - PLATELET COUNT 213 10^3/uL (130-450); RED BLOOD COUNT 3.46 10^6/uL (4.70-6.10); RED CELL DISTRIBUTION WIDTH 14.9 % (12.0-15.0); WHITE BLOOD COUNT 17.4 x10^3/uL (4.8-10.8)
--- NOTE | 2023-09-06 22:17 | XRAY Report ---
PROCEDURE: Chest for Line Placement INDICATIONS: ETT TECHNIQUE: One view of the chest was acquired. COMPARISON: CT chest 04/08/2023. FINDINGS: Surgical changes and devices: Endotracheal tube is present proximal 5.8 cm superior to the wild. Lungs and pleura: No pleural effusions or pneumothorax. Lungs are clear. There is elevation of th e right hemidiaphragm. Mediastinum: Mediastinal contours appear normal. Heart size is normal. Bones and chest wall: No suspicious bony lesions. Overlying soft tissues appear unremarkable. IMPRESSION: Endotracheal tube approximate 5.8 cm superior to the wild. Reviewed by: Virginie Hutchinson MD on 09/06/2023 10:16 PM PDT Approved by: Virginie Hutchinson MD on 09/06/2023 10:16 PM PDT Station ID: [id number]
[2023-09-06 22:29] LABS: ALBUMIN 2.9 g/dL (3.2-5.5); ALBUMIN/GLOBULIN RATIO 1.4 (1.0-2.2); BILIRUBIN,TOTAL 0.8 mg/dL (0.2-1.0); CALCIUM 8.3 mg/dL (8.5-10.3); CREATININE 0.8 mg/dL (0.6-1.3); POTASSIUM 4.1 mmol/L (3.5-4.5)
[2023-09-06] MEDS ORDERED: MIDAZOLAM 2 MG/2 ML VIAL ONE (22:37)
[2023-09-06] MEDS: MIDAZOLAM 2 MG/2 ML VIAL IVP STA (22:40)
[2023-09-06] MEDS ORDERED: VANCOMYCIN INJ 1,500 GM in SODIUM CHLORIDE 0.9% 500 ML IV STA (22:43)
[2023-09-06 22:58] LABS: INR 1.3 (0.8-1.2)
[2023-09-06 23:03] LABS: ABG BASE EXCESS -4.1 mmol/L (-2.0-3.0); ABG HCO3 19.5 mmol/L (22.0-26.0); ABG OXYGEN SATURATION 99 % (94-98); ABG PCO2 31 mmHg (34-45); ABG PH 7.42 (7.35-7.45); ABG TCO2 20.5 MMOL/L (21.0-29.0); ALLEN TEST POSITIVE
[2023-09-06 23:04] LABS: ABG MODE OF VENTILATION ASSIST/CONTROL; ABG RESPIRATORY RATE 20 b/min
[2023-09-06 23:05] LABS: ABG PO2 273 mmHg (80-100)
[2023-09-06] MEDS: MAGNESIUM SULFATE 2 GRAM 2 GM/50 ML BAG IV ONE (23:05)
--- NOTE | 2023-09-06 23:11 | XRAY Report ---
PROCEDURE: Chest for Line Placement INDICATIONS: ETT/OG/ TECHNIQUE: One view of the chest was acquired. COMPARISON: Chest x-ray 09/06/2023 FINDINGS: Surgical changes and devices: Endotracheal tube is unchanged. Multiple wires overlying the mediastin um. There is a wire/tube overlying the trachea/esophagus extending to the left of midline and termina ting immediately below the left hemidiaphragm.. Lungs and pleura: No pleural effusions or pneumothorax. Lungs are clear. Mediastinum: Mediastinal contours appear normal. Heart size is normal. Bones and chest wall: No suspicious bony lesions. Overlying soft tissues appear unremarkable. IMPRESSION: Endotracheal tube is unchanged. Presumed nasogastric tube as described above overlying the left para midline location and terminating immediately below the hemidiaphragm. This may represent placement of nasogastric tube with deviation secondary to hernia. However, further advancement, 3 5 cm is recommended. Reviewed by: Virginie Hutchinson MD on 09/06/2023 11:09 PM PDT Approved by: Virginie Hutchinson MD on 09/06/2023 11:09 PM PDT Station ID: [id number]
[2023-09-06 23:23] LABS: BILIRUBIN,URINE NEGATIVE (NEGATIVE); GLUCOSE, URINE (UA) NEGATIVE (NEGATIVE); KETONES,URINE (UA) NEGATIVE (NEGATIVE); LEUKOCYTE ESTERASE, URINE TRACE (NEGATIVE); NITRITE,URINE NEGATIVE (NEGATIVE); OCCULT BLOOD,URINE LARGE (NEGATIVE); PROTEIN,URINE 100 mg/dL (NEGATIVE); UROBILINOGEN,URINE 0.2 (NORMAL) E.U./dL (NORMAL)
[2023-09-06 23:25] LABS: CLARITY,URINE BLOODY (CLEAR)
[2023-09-06 23:26] LABS: BACTERIA,URINE Rare /HPF (None Seen); RBC,URINE TNTC /HPF (0-5); SQUAMOUS EPITHELIAL CELL,UR RARE Squamous (<= Few); WBC,URINE 0-3 /HPF (0-3)
[2023-09-06] MEDS: CEFEPIME 1 GM in SODIUM CHLORIDE 0.9% MINIBAG 100 ML IV STA (23:43)
[2023-09-07] MEDS ORDERED: VANCOMYCIN 1 GM VIAL ONE (00:05)
[2023-09-07] MEDS: VANCOMYCIN INJ 2 GM in SODIUM CHLORIDE 0.9% 500 ML IV ONE (00:16)
[2023-09-07 00:51] VITALS: BP 88/77; O2SAT 100
== END 2023-09-07 01:52 | disposition short-term general hospital (02) ==
LOC: EDUNIT# → ED 17:03
DX: R31.0 Gross hematuria (principal); I95.9 Hypotension, unspecified; I46.9 Cardiac arrest, cause unspecified; T83.091A Other mechanical complication of indwelling urethral catheter, initial encounter; Z91.041 Radiographic dye allergy status
CPT/HCPCS: 31500; 36415; 36556; 51700; 74177; 80053; 81001; 82803; 83605; 83690; 84484; 85014; 85018; 85025; 85610; 85730; 86850; 86900; 86901; 86920; 87086; 87181; 92950; 93005; 94002; 96361; 96365; 96366; 96368; 96375; 99291; J0330; J1200; J3370; P9016; Q9967; 81003